=== PATIENT | female | born 1950 | race Hispanic/Latino ===

== ENCOUNTER 2019-11-08 12:25 | Inpatient (IN) | payer MEDICARE, OTHER, SELFPAY ==
[2019-11-06 12:57] VITALS: BMI 36.2
[2019-11-08] VITALS (11 sets, daily range): BP systolic 103–153; BP diastolic 54–74; PULSE 64–77; RESP 12–19; TEMP 36–36.6; O2SAT 90–99; BMI 36.2
--- NOTE | 2019-11-08 12:30 | DI.RAD.S_ITS ---
PROCEDURE: XR KNEE RT 1TO2V INDICATIONS: post op films TECHNIQUE: 2 view(s) of the knee acquired. COMPARISON: [facility] [place], [place], XR KNEE ARTHRITIC SERIES RT, 07/03/2019, 8:54. FINDINGS: Bones: Patient is status post knee joint arthroplasty. Hardware components are in expected positions. Visualized bony structures are intact. Soft tissues: Overlying postoperative changes are noted. IMPRESSION: Expected appearance following right knee arthroplasty. Dictated by: Harsh Souza M.D. on 11/08/2019 at 17:00 Approved by: Harsh Souza M.D. on 11/08/2019 at 17:00
[2019-11-08] MEDS: ACETAMINOPHEN 325 MG TABLET 975 MG PO (13:44)
[2019-11-08] MEDS: LACTATED RINGERS 1,000 ML 42 ML IV ×2 (13:44→15:59)
[2019-11-08] MEDS: CELECOXIB 200 MG CAPSULE PO (13:44)
[2019-11-08] MEDS: PREGABALIN 75 MG CAPSULE PO (13:45)
--- NOTE | 2019-11-08 14:31 | SUR.OPER ---
Supine on padded OR bed. Pillow under head, arms secured on padded armboards <90 degree abduction. Safety belt across torso. Non-operative leg secured with tape over blanket over lower leg. Operative leg secured in DeMayo/Valentino positioner. Foam padded brace at thigh of operative leg.
[2019-11-08] MEDS: CEFAZOLIN 2 GM/100 ML FROZ.PIGGY IV ×2 (14:48→22:57)
--- NOTE | 2019-11-08 14:49 | PM.PREOP ---
Pre-operative Note Interval Note History & Physical reviewed/Exam performed by Physician: Yes Changes to H&P: No
[2019-11-08] MEDS: TRANEXAMIC ACID 1,000 MG VIAL 1000 MG INJ (14:50)
[2019-11-08] MEDS: BUPIVACAINE 0.25% W/ EPI (PF) 20 ML, TRANEXAMIC ACID 1,000 MG, SODIUM CHLORIDE 0.9% 10 ML INJ (15:28)
[2019-11-08] MEDS: BUPIVACAINE 0.25% W/ EPI (PF) 40 ML, BUPIVACAINE LIPOSOME 266 MG, SODIUM CHLORIDE 0.9% ... INJ (15:29)
--- NOTE | 2019-11-08 16:30 | P.OP_ITS ---
Operative Date/Time/Diagnoses Date of procedure: 11/08/19 Time of procedure: 16:30 Pre-op diagnosis: Failed right knee medial unicompartmental arthroplasty Post-op diagnosis: same Procedure & Clinicians Procedure: Revision of right unicompartmental knee to total knee Same procedure as scheduled: Yes Indications: The patient is status post a medial compartment arthroplasty from other facility which has failed. The component does not look loose but it looks like her medial compartment was overstuffed and she has developed severe lateral compartment osteoarthritis. The nature procedure including the risks, benefits, alternatives, postoperative course and expected outcome were discussed and all questions answered. Operative site confirmed and marked. Surgeon: Abraham Chappell Dynamite Cartridge Crimper: Alan Ortega Anesthesia Type: General, Spinal and Local Operative Notes Findings: There was no fluid whatsoever within the knee and no indications of infection. There was severe patellofemoral and lateral compartment osteoarthritis. No evidence of any loosening of the components. The medial compartment arthroplasty was removed with no significant bone loss. The medial collateral ligament was significantly stretched given her valgus alignment. A constrained polyethylene implant and a short tibial stem was utilized. Closure Type: primary Specimen(s): none sent Prosthetic devices, grafts, tissues, transplants, or devices: [employer] [place] BCS: 3 femoral component, 3 tibial component with a 16 mm x 100 mm stem, 12 mm constrained BCS polyethylene tray and 29 x 7.5 mm round patella Applied: implant(s) Estimated Blood Loss (mL): 10 Blood products transfused: none Tourniquet time (min): 64 Procedure in detail: The patient was taken to the operative suite and placed under general and spinal anesthesia. The patient was given prophylactic antibiotics prior to surgery. The patient was also given tranexamic acid, 1 g just prior to surgery and a second gram just before tourniquet release, for postoperative hemostasis. The knee was then prepped and draped in usual sterile fashion. The leg was exsanguinated with an Esmarch dressing and the tourniquet raised to 300 torr. A 15 cm anterior incision was made. Next a medial trivector arthrotomy was made. The extensor mechanism was marked to ensure accurate repair. Initial exposing dissection was carried out medially and laterally. The knee was then extended and the patellar cut made removing approximately 9-10 mm of bone. The patella was then sized and drilled. Some excess lateral bone was excised and the patellofemoral ligament released. Osteotomes were used to remove both the femoral and tibial components. The components were removed without any significant bone loss. There is no evidence of loosening. The knee was then flexed and intramedullary femoral alignment álvaro was placed. The distal cutting guide was placed and distal femoral cut was made at the +0 position with 6? of valgus. This cut referenced the lateral aspect of the distal femur and cut about 2 mm through the previously unicompartmental cuts. The femur was then sized, the cutting block placed and the anterior, posterior and chamfer cuts made at 3? of external rotation. A quarter-inch osteotome was used to account for the missing posterior condyle. Alignment was checked against Whitesides line. The extra medullary tibial cutting guide was then placed. A stylus was used to confirm the depth of the cuts medially and laterally. The guide was set to remove approximately 11 mm from the less affected lateral side. The proximal tibial cut was then made with an oscillating saw. This depth of cut fully incorporated the previous tibial cut. All meniscus and bony debris was then removed. Flexion extension gaps were checked. The knee was still somewhat loose medially due to stretching of the medial collateral ligament.. The soft tissues were then injected with a combination of 60 mL of quarter percent Marcaine with epinephrine, 4 of morphine and 20 mL of Exparel. The trial components were then placed. The knee went into full extension and flexion beyond 120?. There was appropriate medial- lateral balance throughout motion with a constrained implant. Patellar tracking was excellent. The trial components were removed and the knee was cleansed with Pulsavac irrigation and dried. The final components were cemented in with high viscosity vacuum mixed bone cement with antibiotics. The knee was held in extension and the patellar clamp until the cement had adequately cured. The knee was irrigated and inspected for any further debris. The knee was then sprinkled with 1 g of powdered vancomycin. The extensor mechanism was closed with 5 interrupted #1 Vicryl sutures and a running #2 Quill suture in 90 degrees of flexion. The subcutaneous tissue was closed with 2-0 Vicryl. The skin was closed with a running 3 0 V-LOC suture and surgical adhesive. An Aquacell dressing and Abdiaziz wrap were then applied. The patient tolerated the procedure well and was returned to recovery room in good condition. Complications: none Post-operative Condition: stable Disposition: PACU Plan for aftercare: [facility] protocol for total knee arthroplasty.
[2019-11-08] MEDS: ONDANSETRON 4 MG/2 ML INJ IV ×2 (16:40→20:25)
[2019-11-08] MEDS: LACTATED RINGERS 1,000 ML 125 ML IV (17:25)
[2019-11-08] MEDS: IBUPROFEN 400 MG TABLET PO (18:45)
[2019-11-08] MEDS: OXYCODONE IR 5 MG TABLET 10 MG PO (19:23)
[2019-11-08] MEDS: HYDROMORPHONE 0.5 MG INJ IV (21:53)
--- NOTE | 2019-11-08 22:16 | PC.NURSE ---
SHIFT Report received from PACU. Pt. admitted at 1715, care assumed. Pt. alert, oriented, weepy and doesn't know why. Assured her crying can be a side effect of anasthesia. Denies pain and nausea. Received spinal block in OR, as well as Zofran (due to history of post-op nausea) in PACU. VSS. Daughter at bedside. Sensation and movement regained throughout shift. Patient received Oxycodone for pain, experienced emesis shortly thereafter. Zofran administered; relief of nausea. Pt. declined to take bedtime PO meds d/t nausea. Received IV hydromorphone for pain. Pt. OOB to BSC x2. Performed well with walker, gait belt, 1-person assist. Experienced some dizziness first time OOB, none second time. SCD's on throughout shift.
[2019-11-09] VITALS (9 sets, daily range): BP systolic 114–184; BP diastolic 63–88; PULSE 64–76; RESP 16–18; TEMP 35.7–37; O2SAT 92–96
[2019-11-09] MEDS: ONDANSETRON 4 MG/2 ML INJ IV ×2 (00:20→03:56)
[2019-11-09] MEDS: LACTATED RINGERS 1,000 ML 125 ML IV (02:10)
[2019-11-09] MEDS: HYDROMORPHONE 0.5 MG INJ IV (03:56)
[2019-11-09 06:02] LABS: Hematocrit 34.7 % (36-46); Hemoglobin 11.5 g/dL (12.0-16.0)
[2019-11-09] MEDS: CEFAZOLIN 2 GM/100 ML FROZ.PIGGY IV (06:35)
[2019-11-09] MEDS: ASPIRIN EC 81 MG TABLET PO ×2 (08:16→21:13)
[2019-11-09] MEDS: IBUPROFEN 400 MG TABLET PO ×4 (08:16→21:13)
[2019-11-09] MEDS: LISINOPRIL 20 MG TABLET 40 MG PO (08:17)
[2019-11-09] MEDS: ACETAMINOPHEN 325 MG TABLET 650 MG PO ×3 (08:18→21:12)
[2019-11-09] MEDS: METFORMIN HCL 500 MG TABLET PO ×2 (08:19→21:13)
[2019-11-09] MEDS: METOPROLOL ER 50 MG TABLET PO (08:19)
[2019-11-09] MEDS: OXYBUTYNIN 5 MG ER TAB PO ×2 (08:19→21:13)
[2019-11-09] MEDS: OXYCODONE IR 5 MG TABLET PO ×2 (08:58→09:33)
--- NOTE | 2019-11-09 10:53 | PM.PNPO.1 ---
Subjective Subjective Date Patient Seen: 11/09/19 Time Patient Seen: 10:54 Interval history: Hospital day 2, postop day 1 following right knee revision Uni arthroplasty to total knee arthroplasty by Dr. Chappell. Patient stable postoperatively. She has not had any physical therapy yet. Had to do just min of pain medication. She is scheduled to go to [facility] and [place]. Exam Vital Signs (past 8 hours): - 11/09/19 04:44 11/09/19 08:00 11/09/19 08:17 Temperature 96.2 F L 96.9 F L Pulse Rate 64 68 Respiratory Rate 17 16 Blood Pressure 129/74 166/86 H 184/88 H Pulse Oximetry 95 95 11/09/19 08:19 Temperature Pulse Rate Respiratory Rate Blood Pressure 166/86 H Pulse Oximetry Oxygen Delivery Method Room Air Oxygen Flow Rate 0 Narrative Exam Narrative: Alert, oriented no acute distress lying in bed. Legs. Abdiaziz wrap and Aquacel dressing to right knee is dry without drainage or inflammation. Mild edema. No calf pain or swelling. Pulses symmetrical. Objective Labs Result Diagrams: 11/09/19 05:29 Labs: Laboratory Results - last 24 hr 11/09/19 05:29 Hgb 11.5 L Hct 34.7 L Assessment & Plan Post-op Postoperative Procedures: Procedures Operation Date: 11/08/19 14:45 Actual Procedures Side Surgeon p Revision of partial knee to total knee replacement Right Abraham Chappell MD Plan: Will plan to keep patient to in the hospital today to work with physical therapy and get her pain meds straightened out. Anticipate discharge home tomorrow if she is stable. Quality VTE Deep Vein Thrombosis/Pulmonary Embolism Present on Admission: No
--- NOTE | 2019-11-09 11:20 | PT.IIE ---
Current Diagnoses Unilateral primary osteoarthritis, right knee (11/08/19) Pain, unspecified (11/08/19) Surgery Performed Operation Date: 11/08/19 14:45 Actual Procedures p Revision of partial knee to total knee replacement(Right) - Abraham Chappell MD Surgical History (Last Updated 11/06/19 @ 13:33 by Tanesha Nelson, RN) H/O: hysterectomy (Acute) History of bladder surgery (Acute) Hx of arthroscopy of right knee (Acute ~2013) Hx of cholecystectomy (Acute) Hx of tonsillectomy (Acute) Hx of tubal ligation (Acute) S/P right unicompartmental knee replacement (Acute ~06/2015) Medical History (Last Updated 11/06/19 @ 13:19 by Tanesha Nelson RN) Diabetes (Acute) DVT (deep venous thrombosis) (Acute ~1975) Easy bruisability (Acute) Elevated liver enzymes (Acute) Fibromyalgia (Acute) GERD (gastroesophageal reflux disease) (Acute) HLD (hyperlipidemia) (Acute) HTN (hypertension) (Acute) Hypothyroidism (Acute) Irregular heart rate (Acute) Migraines (Acute) Osteoarthritis (Acute) Pneumonia (Acute) Systemic lupus erythematosus (Acute) Physical Therapy Inpatient Evaluation/Re-Eval M1 PT/OT-IP Prior Functional Status Start: 11/09/19 08:49 Freq: NEEDED Status: Active Protocol: Document 11/09/19 11:00 AW (Rec: 11/09/19 11:20 AW [email or web address]) Medical Review Prior Functional Status Medical History Reviewed Yes Communication WNL Mobility and Gait Independent without assistive device. Could walk department store distances. Difficult and painful car transfers. Limited sitting tolerance. Activities of Daily Living and IADL's Independent including driving, shopping, meal prep Prior Functional Level (Other details) Pt reports an injurious fall about 1.5 months ago. She injured her right shoulder and was treated with injection by orthopedics. No other falls within the past year. Social History Household Members none Living Arrangements House Number of Floors (Floors) One Floor Number of Stairs To Enter/Railing? 1 JAZZY without railing Home Environment Standard Height Toilet,Walk in Shower Home Equipment Front Wheel Walker,Straight Cane,Raised Toilet Seat Without Armrests Additional Social History Comment Krystal's daughter in law, Jessica, will stay with her until Wednesday at which time her daughter will stay with her as long as needed to provide assist. M2 PT-IP Current Condition Start: 11/09/19 08:49 Freq: NEEDED Status: Active Protocol: Document 11/09/19 11:00 AW (Rec: 11/09/19 11:20 AW [email or web address]) Physical Therapy Current Condition Current Condition Evaluation Date 11/09/19 Treatment Diagnosis s/p R TKA, difficulty in walking Weight Bearing Status Weight Bearing Status Weight Bear as Tolerated M3 PT-IP Subjective Start: 11/09/19 08:49 Freq: NEEDED Status: Active Protocol: Document 11/09/19 11:00 AW (Rec: 11/09/19 11:20 AW [email or web address]) Subjective Physical Therapy Visit Type Type Initial Evaluation Visit Start Time 09:52 Visit Stop Time 10:26 Total Visit Minutes 34 Notes Daughter in Jessica scott, present throughout evaluation Number of DOCUMENTATION LEAD Visits 0 Physical Therapy Visit Comments Patient Comments My pain is down to 5/10. I'm ready to try walking. Patient Goals To discharge home with family assistance. Therapy Pain Assessment Pain When Pain Assessed During Mobility Pain Present Pain Present Pain Reported Location knee Intensity 5 Scale Used 5/10 at rest; unchanged with mobility Pain Management Techniques Apply Cold,Re-positioning, Timing of Activity with Medications M4 PT-IP Mobility and Gait Start: 11/09/19 08:49 Freq: NEEDED Status: Active Protocol: Document 11/09/19 11:00 AW (Rec: 11/09/19 11:20 AW [email or web address]) PT-Bed Mobility Assessment Supine to Sit Supine to Sit Standby Assistance Sit to Supine Sit to Supine Standby Assistance Scooting Scooting to Edge of Bed Standby Assistance Scooting Up and Down in Bed Standby Assistance PT-Transfer Assessment Sit to and From Stand Sit to and from Stand Contact Guard Assistance,1 Person Assistance,Use of Upper Extremities Equipment Transfer Assistive Device Gait Belt,Front Wheeled Walker Orthotic/Prosthetic Devices or Brace: No Transfers Transfer Destination Bed,Toilet Transfer Technique pt ambulated with FWW Transfer Ability Level of Assist Contact Guard Assistance,1 Person Assistance,Use of Upper Extremities Comments Mobility Comments Pt completed bed mobility with R SLR to EOB SBA. She denied lightheadedness, nausea. Sit to stand using FWW required CGA with pt able to accept weight on both legs. After gait training, pt transferred to and from the toilet SBA and back to bed where she was repositioned with ice packs applied, call light and table within reach, family at bedside. Gait Assessment Gait Gait Assistance Required: Contact Guard Assist Distance (Feet) 100 Able to Maintain Weight Bearing Status Yes During Gait Assistive Devices Assistive Device Gait Belt,Front Wheeled Walker Orthotic/Prosthetic Devices or Brace: No Gait Deviations General Gait Pattern Antalgic,Decreased Stride Length,Decreased Feet Clearance,Flexed Trunk,Step-to Gait Factors Limiting Gait Function Factors Limiting Gait Function Decreased Strength,Limited Range of Motion,Pain Comments Gait Comments Pt ambulated in the west 100 feet with FWW CGA. Pt was able to normalize step lengths in response to verbal cues, but complained of increased pain, returning to step-to pattern. She showed good safety awareness with FWW. Stair Climbing Assessment Comments Stair Climbing Comments Not assessed. PT-Balance Assessment Sitting Balance and Reactions Static Sitting Balance Ability Normal Dynamic Sitting Balance Ability Normal Standing Balance and Reactions Static Standing Balance Ability Good Dynamic Standing Balance Ability Good Device Used FWW M5 PT-IP Objective Assessments Start: 11/09/19 08:49 Freq: NEEDED Status: Active Protocol: Document 11/09/19 11:00 AW (Rec: 11/09/19 11:20 AW [email or web address]) Orientation Orientation/Cognition Level of Alertness Alert Orientation Name,Day of Week,Place, Situation Language Function Ability No Deficits Noted,Mohawk as Second Language Safety Awareness Understands Safety Issues Memory Description No Deficits Noted Gross Range of Motion Upper Extremity ROM Assessment Right Impaired Lower Extremity ROM Assessment Right Impaired Strength Upper Extremity Strength Assessment Right Impaired Lower Extremity Strength Assessment Right Impaired Comments Strength Comments RUE with recent injury from fall, limited shoulder flexion ~120 degrees, painful resisted flexion and abduction . LUE and LLE WFL. Coordination Assessment Gross Coordination Gross Coordination WNL Sensation Assessment Sensation Gross Sensation WNL M6 PT-IP Treatment Start: 11/09/19 08:49 Freq: NEEDED Status: Active Protocol: Document 11/09/19 11:00 AW (Rec: 11/09/19 11:20 AW [email or web address]) Physical Therapy Treatment Exercises Exercises Ankle Pumps,Gluteal Sets,Quad Sets,Heel Slides Education Education Provided Precautions,Weight Bearing Status,Post-Op Packet,Safety Other Treatments Other Treatment Performed Educated pt on PT plan of care , post-op exercises, weightbearing status, and safe use of FWW. M7 PT-IP Assessment and Plan Start: 11/09/19 08:49 Freq: NEEDED Status: Active Protocol: Document 11/09/19 11:00 AW (Rec: 11/09/19 11:20 AW [email or web address]) PT Summary Assessment and Plan Potential Rehabilitation Potential Excellent Status of Condition at Evaluation Stable Summary Impairments Pain,ROM,Strength,Bed Mobility ,Transfers,Gait Assessment Summary Krystal is a 69 yo woman with history of multiple right knee surgeries seen for PT evaluation on POD1 following conversion of right unicompartmental knee to TKA. At baseline, she was independent without assistive device. She lives alone and was independent with ADL's. On evaluation, pt required SBA to CGA for all mobilities. Stairs were not assessed at this time. PT anticipates pt will meet the functional goals of this plan of care and will be safe to discharge home with family assist and outpatient PT when medically cleared. Goals Bed Mobility Goal Independent Transfer Goal Independent,Front Wheeled Walker Gait Goal Independent,Front Wheel Walker Gait Distance 200 Other Goals up/down 1 platform step using FWW or SQUEEGEE OPERATOR Days to Meet Goals 1 Frequency of Treatment Frequency Of Treatment Twice a Day Treatment Plan Physical Therapy Treatment Plan Bed Mobility Training,Transfer Training,Gait Training, Therapeutic Exercise,Balance Retraining,Post Op Education, Discharge Planning,Hot or Cold Pack,Neuromuscular Re-ed, Coordination Retraining,Manual Therapy Recommendations To Nursing Amount of Assist Needed Standby Assistance Discharge Recommendations PT Discharge Recommendations Home with Assistance, Outpatient PT
[2019-11-09] MEDS: METFORMIN HCL 500 MG TABLET 250 MG PO (13:36)
[2019-11-09] MEDS: OXYCODONE IR 5 MG TABLET 10 MG PO ×3 (13:37→19:25)
--- NOTE | 2019-11-09 15:08 | CM.DANOTE ---
DCP Assessment: EMR reviewed: Patient is a 69 yr old female who was admitted for Rt TKA preformed by Dr. Chappell. patient PCP is Dr. Cosme. CM/RN met with patient at the bedside and explained CM/Rn role. Patient was alert and oriented during CM visit and is I at baseline with all ADL's. patient daughter in-law was present during visit and will be home with her mother in law until wednesday when patients daughter will stay with her to help with recovery. Patient has FWW, cane and shower chair. PT Cleared patient to go home with assistance and OP PT. She is a [facility] patient and has first post op appointment scheduled for 11/16/2019. I: medicare 2nd [employer] Plan: D/C home with family and go to OP PT at orthopedics in [place]. Lily Spann RN Discharge Planning/Care Management CM Discharge Assessment Start: 11/09/19 15:05 Freq: Status: Active Protocol: Document 11/09/19 15:05 HS (Rec: 11/09/19 15:08 [id number]) Discharge Planning Assessment Assigned Governor Assembler Lily Spann RN DPOA/Assigned Designee Name Rosa Brand (daughter) Contact Information [phone] Advance Directives? Yes Advance Directives on File No History Provided By Patient Has Patient been admitted in last 30 No days? Prior Living Arrangements House Household Members none Comment patients step daughter is here until tuesday 11/13 then patients daughter will be here to help Type of transporation used prior to Drives own vehicle admit Independent with ADL's Yes Is patient alert and oriented? Yes Caregiver for Another No DME Already Rented / Owned Bath Bench,FWW / Walker Patient/Family Preference OP OT Therapy Discharge Plan Home Referrals Initiated None needed Whiteboard Updated in Patient Room with Yes name and ext. # of Governor Assembler Review Status In Process Next Review Type Continued Stay Review Pre-Anesthesia Assessment Start: 11/06/19 12:57 Freq: Status: Complete Protocol: Document 11/06/19 12:57 CAB (Rec: 11/06/19 13:33 CAB [email or web address]) Pre-Anesthesia Assessment Preferred Name Krystal Patient Information Reviewed Via Phone Assessment Assessment Completed With Patient H&P Completed Within 30 Days Yes Diagnostic Results BMP/CMP,CBC,EKG,Urinalysis Comment Outside EKG/labs 10/26/19 scanned to record Primary Care Provider Jyoti Cosme Seen Specialist in Last 12 Months Yes Specialist Seen Supply Chain Specialist,Orthopedist Primary Language Bengali Preferred Language Bengali Physics Tutor Required No Height 157.48 cm Weight 89.811 kg Body Mass Index (BMI) 36.2 Hearing Ability Normal Visual Assist Glasses Dentition Type Teeth, Natural Present,Teeth, Missing Barriers to Learning None Other Aids No Hx Anesthesia Reactions Yes: [place], severe PONV Hx Family Anesthesia Reaction No Hx Malignant Hyperthermia No Hx Blood Transfusions No Anesthesia Review Requested No alcohol intake never Smoking Status Never smoker Substance Use Type does not use Pain Present Pain Reported Musculoskeletal Symptoms Abnormal Gait,Difficulty Walking,Joint Pain History of Falling (Recent or History of No ) Patient is completely paralyzed or No completely immobile Mental Status Oriented to own ability Is patient on oxygen? No Does patient have BURKETT/SOB No Hx Sleep Apnea No Currently Taking a Beta Behzad Yes: Metoprolol Can You Climb a Flight of Stairs Without Yes SOB Hx Chest Pain No Hx SOB No Hx Syncope or Dizziness No Anti-Coagulant Therapy No Has a District Medical Examiner No Cardiac Testing No Hx Pacemaker/ICD No Pacemaker Rep Required? No Cardiac Clearance Received Not Applicable Diet Type At Home Regular dysphagia No Bladder Pattern Incontinent Urinary Catheter Present No Hx Urinary Self Catheterization No Diabetes Yes: Pt checks blood sugar every 3 days HgbA1C 7.0 Date 10/26/19 Patient No Lactating No Hx Drug Resistant Organism No Presence of External or Internal Medical Yes: Right uni knee Devices Have you traveled outside the [facility] in the last 30 days? Marital Status / Lives With none Prior Living Arrangements House Number of Floors (Floors) One Floor Support System Child/Children Does the Patient Have Assistance After Yes Surgery Patient Discharge Plan Description Return Home Comment Pt not advised on length of stay per surgeon's office Feels Safe in Current Environment Yes Been Physically Hurt or Threatened By a No Person in Current Environment Do you have thoughts of harming yourself None or others? Are you currently considering suicide? No Do you have a plan to hurt yourself or No Plan others? Do You Have Any Spiritual Beliefs That No May Affect Your HC Choices? Do You Have Any Cultural Practices That No May Affect Your HC Choices? Comment Christianity Who Can We Speak to About Patient's Care Family, friends Identifying Code for Release of Patient Declines to issue Information Health Care Proxy/Next of Kin Dennis (son) Rosa (daughter in -law) Health Care Proxy Phone Number Dennis: [phone] Rosa: Emergency Contact Name Dennis (son) Rosa (daughter in -law) Emergency Contact Phone Number Dennis: [phone] Rosa: Advance Directives? Yes Advance Directives on File No Requested Patient Bring Advanced Yes Directives DOS Power of Network Internship Yes Power of Network Internship Name Dennis (vivian) Power of Network Internship PAC Instructions Do not shave/clip surgical site,Durable medical equipment ,Medications to take/avoid, Nasal antibiotic,No ETOH/ petroleum product on skin DOS, NPO,Post-op transportation,Pre -surgical wash,Sensory aids, Sturdy shoes/comfortable clothes,Do not bring valuables and remove jewelry Comment Surg phone # given for any questions/concerns dos
--- NOTE | 2019-11-09 15:28 | PT.IPTN ---
Current Diagnoses Unilateral primary osteoarthritis, right knee (11/08/19) Pain, unspecified (11/08/19) Surgery Performed Operation Date: 11/08/19 14:45 Actual Procedures p Revision of partial knee to total knee replacement(Right) - Abraham Chappell MD Physical Therapy Treatment Note M2 PT-IP Current Condition Start: 11/09/19 08:49 Freq: NEEDED Status: Active Protocol: Document 11/09/19 11:00 AW (Rec: 11/09/19 11:20 AW [id number]) Physical Therapy Current Condition Current Condition Evaluation Date 11/09/19 Treatment Diagnosis s/p R TKA, difficulty in walking Weight Bearing Status Weight Bearing Status Weight Bear as Tolerated M3 PT-IP Subjective Start: 11/09/19 08:49 Freq: NEEDED Status: Active Protocol: Document 11/09/19 15:16 AW (Rec: 11/09/19 15:27 AW [id number]) Subjective Physical Therapy Visit Type Type Treatment Note Visit Start Time 14:45 Visit Stop Time 15:15 Total Visit Minutes 30 Notes Jessica present for caregiver training Number of SYSTEMS SOFTWARE MANAGER Visits 0 Physical Therapy Visit Comments Patient Comments I feel so much more confident now that I can put some weight on that leg. Therapy Pain Assessment Pain When Pain Assessed During Mobility Pain Present Pain Present Pain Reported Location knee Intensity 7 Scale Used 4/10 at rest; 7/10 after gait and stairs Pain Management Techniques Apply Cold,Re-positioning, Timing of Activity with Medications M4 PT-IP Mobility and Gait Start: 11/09/19 08:49 Freq: NEEDED Status: Active Protocol: Document 11/09/19 15:16 AW (Rec: 11/09/19 15:27 AW [id number]) PT-Bed Mobility Assessment Supine to Sit Supine to Sit Standby Assistance Sit to Supine Sit to Supine Standby Assistance Scooting Scooting to Edge of Bed Independent Scooting Up and Down in Bed Independent PT-Transfer Assessment Sit to and From Stand Sit to and from Stand Contact Guard Assistance,1 Person Assistance,Use of Upper Extremities Equipment Transfer Assistive Device Gait Belt,Front Wheeled Walker Transfers Transfer Destination Bed,Toilet Transfer Technique pt ambulated with FWW Transfer Ability Level of Assist Standby Assistance,1 Person Assistance,Use of Upper Extremities Comments Mobility Comments Pt used left leg to lift right leg in and out of bed. Sit to stand completed with FWW CGA and cues for position of right leg. Transfer to and from toilet SBA with minimal cues Gait Assessment Gait Gait Assistance Required: Standby Assistance Distance (Feet) 175 Able to Maintain Weight Bearing Status Yes During Gait Assistive Devices Assistive Device Gait Belt,Front Wheeled Walker Orthotic/Prosthetic Devices or Brace: No Gait Deviations General Gait Pattern Antalgic,Decreased Stride Length,Decreased Feet Clearance,Flexed Trunk,Step-to Gait Factors Limiting Gait Function Factors Limiting Gait Function Decreased Strength,Limited Range of Motion,Pain Comments Gait Comments Pt ambulated 100 feet with FWW SBA and then transferred to the wheelchair to go to the stairs. After stair training, pt ambulated 175 feet with FWW SBA, reporting buckling sensation in right knee ~4 times but with no loss of balance and able to recover without therapist assist. Gait was characterized by decreased stance time on the RLE but step lengths were more symmetrical than at morning session. Stair Climbing Assessment Evaluation Level of Assist On Stairs Contact Guard Assistance,1 Person Assistance Devices Stair Climbing Assistive Devices Front Wheel Walker Technique/Endurance Stair Climbing Direction Ascend and Descend Stair Climbing Technique Step to Step Number of Steps Climbed 1 Stair Climbing Set # Repetitions (reps) 2 Comments Stair Climbing Comments Pt practiced on the platform step to simulate home environment using FWW CGA. After brief demonstration of technique, pt required cues for sequencing first rep but no cues for second rep with success. M5 PT-IP Objective Assessments Start: 11/09/19 08:49 Freq: NEEDED Status: Active Protocol: Document 11/09/19 11:00 AW (Rec: 11/09/19 11:20 AW [email or web address]) Orientation Orientation/Cognition Level of Alertness Alert Orientation Name,Day of Week,Place, Situation Language Function Ability No Deficits Noted,German as Second Language Safety Awareness Understands Safety Issues Memory Description No Deficits Noted Gross Range of Motion Upper Extremity ROM Assessment Right Impaired Lower Extremity ROM Assessment Right Impaired Strength Upper Extremity Strength Assessment Right Impaired Lower Extremity Strength Assessment Right Impaired Comments Strength Comments RUE with recent injury from fall, limited shoulder flexion ~120 degrees, painful resisted flexion and abduction . LUE and LLE WFL. Coordination Assessment Gross Coordination Gross Coordination WNL Sensation Assessment Sensation Gross Sensation WNL M6 PT-IP Treatment Start: 11/09/19 08:49 Freq: NEEDED Status: Active Protocol: Document 11/09/19 15:16 AW (Rec: 11/09/19 15:27 AW [id number]) Physical Therapy Treatment Exercises Exercises Ankle Pumps,Gluteal Sets,Quad Sets,Heel Slides Education Education Provided Precautions,Safety M7 PT-IP Assessment and Plan Start: 11/09/19 08:49 Freq: NEEDED Status: Active Protocol: Document 11/09/19 15:16 AW (Rec: 11/09/19 15:27 AW [id number]) PT Summary Assessment and Plan Summary Impairments Pain,ROM,Strength,Bed Mobility ,Transfers,Gait Assessment Summary Krystal was able to significantly progress her gait distance with FWW and to properly execute stair climbing with FWW. She does report occasional sensation of buckling in the right knee but is able to right herself using the FWW without additional assist. Pt will likely be ready to discharge after morning session tomorrow . Goals Bed Mobility Goal Independent Transfer Goal Independent,Front Wheeled Walker Gait Goal Independent,Front Wheel Walker Gait Distance 200 Other Goals up/down 1 platform step using FWW or POWER DRIVEN BRUSH MAKER Days to Meet Goals 1 Frequency of Treatment Frequency Of Treatment Twice a Day Treatment Plan Physical Therapy Treatment Plan Bed Mobility Training,Transfer Training,Gait Training, Therapeutic Exercise,Balance Retraining,Post Op Education, Discharge Planning,Hot or Cold Pack,Neuromuscular Re-ed, Coordination Retraining,Manual Therapy Recommendations To Nursing Amount of Assist Needed Standby Assistance Discharge Recommendations PT Discharge Recommendations Home with Assistance, Outpatient PT
[2019-11-09] MEDS: PANTOPRAZOLE 40 MG TABLET PO (16:30)
[2019-11-09] MEDS: AMITRIPTYLINE 25 MG TABLET PO (21:13)
[2019-11-09] MEDS: HYDROMORPHONE 2 MG TABLET PO (22:39)
[2019-11-10] MEDS: OXYCODONE IR 5 MG TABLET 10 MG PO ×2 (01:41→08:57)
[2019-11-10 04:00] VITALS: BP 109/62; PULSE 72; RESP 18; TEMP 36.8; O2SAT 95
[2019-11-10] MEDS: IBUPROFEN 400 MG TABLET PO ×3 (05:10→08:56)
[2019-11-10] MEDS: LEVOTHYROXINE 100 MCG TABLET PO (05:42)
[2019-11-10] MEDS: PANTOPRAZOLE 40 MG TABLET PO (06:34)
[2019-11-10 08:00] VITALS: BP 118/67; PULSE 71; RESP 18; TEMP 36.3; O2SAT 92
[2019-11-10] MEDS: ASPIRIN EC 81 MG TABLET PO (08:55)
[2019-11-10 08:57] VITALS: BP 118/67
[2019-11-10] MEDS: ACETAMINOPHEN 325 MG TABLET 650 MG PO (08:57)
[2019-11-10] MEDS: LISINOPRIL 20 MG TABLET 40 MG PO (08:57)
[2019-11-10 08:58] VITALS: BP 118/67
[2019-11-10] MEDS: METOPROLOL ER 50 MG TABLET PO (08:58)
[2019-11-10] MEDS: METFORMIN HCL 500 MG TABLET PO (08:58)
[2019-11-10] MEDS: SODIUM CHLORIDE 0.9% FLUSH 10 ML IV (08:59)
[2019-11-10] MEDS: OXYBUTYNIN 5 MG ER TAB PO (09:01)
[2019-11-10] MEDS: ONDANSETRON 4 MG ODT PO (09:02)
--- NOTE | 2019-11-10 09:45 | PM.DS.1 ---
History of Present Illness History of Present Illness Date Patient Seen: 11/10/19 Time Patient Seen: 09:46 Chief complaint: [address] Right Total Knee Arthroplasty Revision Narrative: The patient is status post a medial compartment arthroplasty from other facility which has failed. The component does not look loose but it looks like her medial compartment was overstuffed and she has developed severe lateral compartment osteoarthritis. The nature procedure including the risks, benefits, alternatives, postoperative course and expected outcome were discussed and all questions answered. Operative site confirmed and marked. post op day 2 s/p revision to right total knee arthroplasty with Dr. Chappell. Patient is doing well. Complains of pain in right knee. Pain well managed with oxycodone, tylenol and ibuprofen. Patient mobilizing well with PT. She complains of nausea that is well controlled with zofran. Denies fever, chills, chest pain, calf pain, shortness of breath. Discharge Providers Provider Date of admission: 11/08/19 12:25 Discharge Date: 11/10/19 Primary care physician: Jyoti Cosme MD Consults: 11/08/19 17:22 Consult to Discharge Planning Routine Comment: Consult to Physical Therapy Evaluate & Treat Comment: Physician Instructions: postop TKA protocol Consult to Respiratory Therapy Evaluate & Treat Comment: Physician Instructions: Evaluate and treat Discharge provider: Harry Harris PA-C Summary Hospital Course Discharge Diagnosis: s/p revision to right total knee arthroplasty diabetes DVT easy bruisability elevated liver enzymes fibromyalgia GERD HTN HLD hypothyroid irregular heart rate migraines osteoarthritis pneumonia systemic lupus erythematosus Hospital Course: Patient admitted to hospital s/p revision to right total knee arthroplasty by Dr. Chappell. Post op day 2 patient was ready for discharge home. Hospital course was unremarkable. Patient was mobilizing with PT prior to discharge. Patient was eating and voiding without difficulty or assistance prior to discharge. Pain was well controlled with oxycodone, ibuprofen and tylenol. Patient has prescription for oxycodone at home. ASA 81mg BID for DVT prophylaxis. Status at Discharge Cognitive/behavioral status at discharge: oriented Functional status at discharge: uses cane/walker Overall status at discharge: patient is progressing back to baseline Time Spent with Patient Time spent: Less than 30 minutes Exam Vital Signs (past 8 hours): - 11/10/19 04:00 11/10/19 08:00 11/10/19 08:57 Temperature 98.2 F 97.4 F L Pulse Rate 72 71 Respiratory Rate 18 18 Blood Pressure 109/62 118/67 118/67 Pulse Oximetry 95 92 11/10/19 08:58 Temperature Pulse Rate Respiratory Rate Blood Pressure 118/67 Pulse Oximetry Oxygen Delivery Method Room Air Oxygen Flow Rate 0 Narrative Exam Narrative: 69 year old female is sitting comfortably in bed, in no apparent distress. A&Ox3. Dressing CDI. Mild swelling in R calf. Calves soft, warm, compressible, nttp. Negative homans. Sensory function grossly intact to light touch in LE bl. Capillary refill <2sec in LE bl. Able to actively dorsiflex/plantar flex Objective Labs Result Diagrams: 11/09/19 05:29 Discharge Plan Discharge Plan Patient Disposition: Home Discharge orders & Medications Prescriptions: New aspirin 81 mg tablet,delayed release (DR/EC) 81 mg PO BID Qty: 60 RF: 0 ondansetron HCl [Zofran] 4 mg tablet 4 mg PO Q8H PRN (Reason: nausea and vomiting) Qty: 20 RF: 0 Continued metformin 500 mg Tablet 500 mg PO BID RF: 0 metformin 500 mg Tablet 250 mg PO QNOON RF: 0 metoprolol succinate 50 mg Tablet Extended Release 24 Hr 50 mg PO DAILY RF: 0 levothyroxine 100 mcg Tablet 100 mcg PO DAILY RF: 0 amitriptyline 25 mg Tablet 25 mg PO BEDTIME RF: 0 esomeprazole magnesium 40 mg Capsule,Delayed Release(Dr/Ec) 40 mg PO DAILY RF: 0 oxybutynin chloride 5 mg Tablet Extended Release 24hr 5 mg PO BID RF: 0 lisinopril 40 mg Tablet 40 mg PO DAILY RF: 0 Changed acetaminophen [Tylenol Extra Strength] 500 mg Tablet 500 mg PO Q4H Qty: 60 RF: 0 ibuprofen 200 mg Tablet 400 mg PO Q4H PRN (Reason: Pain) Qty: 60 RF: 0 Follow up/Referrals: Jyoti Cosme MD [Primary Care Provider] - 11/20/19 2:00 pm Abraham Chappell MD [Physician] - 11/16/19 1:40 pm Diet/Activity/Treatments Diet: Carb-consistent/Diabetic Activity: weight bearing as tolerated. follow choudhary path protocol for total knee arthroplasty Cold/Heat Therapy: continue cold/heat therapy Skin/Wound/Dressing Care Report to your healthcare provider any signs of infection, such as:: chills, fever, increased pain, unusual drainage and unusual redness Dressing: keep dressing dry. can shower. do not soak (e.g. bath). contact office if dressing saturated. Visit Report/Discharge Packet Instructions: DI for Knee Replacement, DI for Constipation, How to Prevent Falls, DI for Prescription Opioid Use Stand Alone Forms: Surgery Discharge Visit Report Forms: Patient Portal/API, Stroke Signs & Symptoms Discharge Data Primary Care Provider: Jyoti Cosme Discharges patient from system. Discharge Date/Time: 11/10/19 11:16 Quality VTE Deep Vein Thrombosis/Pulmonary Embolism Present on Admission: No
--- NOTE | 2019-11-10 09:55 | PT.IPTN ---
Current Diagnoses Hypothyroidism, unspecified (11/08/19) Type 2 diabetes mellitus without complications (11/08/19) Obesity, unspecified (11/08/19) Essential (primary) hypertension (11/08/19) Gastro-esophageal reflux disease without esophagitis (11/08/19) Unilateral primary osteoarthritis, right knee (11/08/19) Systemic lupus erythematosus, unspecified (11/08/19) Fibromyalgia (11/08/19) Other specified complication of internal orthopedic prosthetic devices, implants and grafts, initial encounter (11/08/19) Body mass index (BMI) 36.0-36.9, adult (11/08/19) snf (current) use of oral hypoglycemic drugs (11/08/19) Surgery Performed Operation Date: 11/08/19 14:45 Actual Procedures p Revision of partial knee to total knee replacement(Right) - Abraham Chappell MD Physical Therapy Treatment Note M2 PT-IP Current Condition Start: 11/09/19 08:49 Freq: NEEDED Status: Discharge Protocol: Document 11/09/19 11:00 AW (Rec: 11/09/19 11:20 AW [id number]) Physical Therapy Current Condition Current Condition Evaluation Date 11/09/19 Treatment Diagnosis s/p R TKA, difficulty in walking Weight Bearing Status Weight Bearing Status Weight Bear as Tolerated M3 PT-IP Subjective Start: 11/09/19 08:49 Freq: NEEDED Status: Discharge Protocol: Document 11/10/19 09:55 JG (Rec: 11/10/19 10:33 JG [id number]) Subjective Physical Therapy Visit Type Type Treatment Note Visit Start Time 09:55 Visit Stop Time 10:14 Total Visit Minutes 19 Notes Tx led by KOTA Martin, supervised by PT Issac Number of TUBE OPERATOR Visits 0 Physical Therapy Visit Comments Patient Comments I didn't sleep well last night because they were having trouble controlling my pain. I'm not sure how much I can do today. Therapy Pain Assessment Pain When Pain Assessed During Mobility Pain Present Pain Present Pain Reported Location knee Scale Used pt reports more stiffness than pain Pain Management Techniques Apply Cold,Distraction,Re- positioning,Timing of Activity with Medications M4 PT-IP Mobility and Gait Start: 11/09/19 08:49 Freq: NEEDED Status: Discharge Protocol: Document 11/10/19 09:55 JG (Rec: 11/10/19 10:33 JG [id number]) PT-Transfer Assessment Sit to and From Stand Sit to and from Stand Standby Assistance,Use of Upper Extremities Equipment Transfer Assistive Device Gait Belt,Front Wheeled Walker Transfers Transfer Destination Chair,Toilet,Wheelchair Transfer Technique ambulated with FWW Transfer Ability Level of Assist Standby Assistance,1 Person Assistance,Use of Upper Extremities Comments Mobility Comments Pt in chair at start of tx. Performed heel slides to improve knee stiffness. Pt required no more than SBA during sit to/from stand to the chair, wheelchair, and toilet. Pt requires inc'd time to complete sit to stand from lower surfaces. Pt demonstrates good use of UEs for support. Gait Assessment Gait Gait Assistance Required: Standby Assistance Distance (Feet) 100 Able to Maintain Weight Bearing Status Yes During Gait Assistive Devices Assistive Device Gait Belt,Front Wheeled Walker Orthotic/Prosthetic Devices or Brace: No Gait Deviations General Gait Pattern Antalgic,Decreased Stride Length,Decreased Feet Clearance,Flexed Trunk,Step-to Gait Factors Limiting Gait Function Factors Limiting Gait Function Decreased Activity Tolerance, Decreased Strength,Limited Range of Motion,Pain,Poor Balance Comments Gait Comments Pt ambulated ~100 ft with FWW SBA then transferred to the wheelchair to complete stair training and return to room. Pt cont to demonstrate dec'd R stance time and dec'd stride length but improved with inc'd ambulation. Pt reported buckling sensation once during ambulation but without LOB. Stair Climbing Assessment Evaluation Level of Assist On Stairs Contact Guard Assistance,1 Person Assistance Devices Stair Climbing Assistive Devices Front Wheel Walker Technique/Endurance Stair Climbing Direction Ascend and Descend Stair Climbing Technique Step to Step Number of Steps Climbed 1 Stair Climbing Set # Repetitions (reps) 2 Comments Stair Climbing Comments Completed platform step twice with caregiver education. Re- educated pt on using up with the good, down with the bad for stair climbing as pt unable to articulate pattern. Pt required no more than CGA for stair climbing. Second round completed with CG assist , educated CG to block front of walker to improve pt stability. M5 PT-IP Objective Assessments Start: 11/09/19 08:49 Freq: NEEDED Status: Discharge Protocol: Document 11/09/19 11:00 AW (Rec: 11/09/19 11:20 AW [email or web address]) Orientation Orientation/Cognition Level of Alertness Alert Orientation Name,Day of Week,Place, Situation Language Function Ability No Deficits Noted,Croatian as Second Language Safety Awareness Understands Safety Issues Memory Description No Deficits Noted Gross Range of Motion Upper Extremity ROM Assessment Right Impaired Lower Extremity ROM Assessment Right Impaired Strength Upper Extremity Strength Assessment Right Impaired Lower Extremity Strength Assessment Right Impaired Comments Strength Comments RUNory with recent injury from fall, limited shoulder flexion ~120 degrees, painful resisted flexion and abduction . LUE and LLE WFL. Coordination Assessment Gross Coordination Gross Coordination WNL Sensation Assessment Sensation Gross Sensation WNL M6 PT-IP Treatment Start: 11/09/19 08:49 Freq: NEEDED Status: Discharge Protocol: Document 11/10/19 09:55 JG (Rec: 11/10/19 10:33 JG [id number]) Physical Therapy Treatment Exercises Exercises Ankle Pumps,Heel Slides Education Education Provided Safety Other Treatments Other Treatment Performed Completed CG training for mobility and stair climbing. CG demonstrates good understanding and is able to safely cue pt during session. M7 PT-IP Assessment and Plan Start: 11/09/19 08:49 Freq: NEEDED Status: Discharge Protocol: Document 11/10/19 09:55 JG (Rec: 11/10/19 10:33 J [id number]) PT Summary Assessment and Plan Summary Impairments Pain,ROM,Strength,Bed Mobility ,Transfers,Gait Progress Towards Goals Progressing Toward Goals,Safe For Discharge Assessment Summary Pt noted inc'd fatigue today d /t difficulty sleeping last night d/t pain. Demonstrated dec'd activity tolerance compared to yesterday's tx d/t fatigue. Pt required no more than SBA for mobility and ambulation, CGA for stair climbing. Completed CG training and CG demonstrated good safety awareness and communication with pt. Pt safe to d/c to home once medically cleared. Goals Bed Mobility Goal Independent Transfer Goal Independent,Front Wheeled Walker Gait Goal Independent,Front Wheel Walker Gait Distance 200 Other Goals up/down 1 platform step using FWW or PYROGLAZER Days to Meet Goals 1 Frequency of Treatment Frequency Of Treatment Twice a Day Treatment Plan Physical Therapy Treatment Plan Bed Mobility Training,Transfer Training,Gait Training, Therapeutic Exercise,Balance Retraining,Post Op Education, Discharge Planning,Hot or Cold Pack,Neuromuscular Re-ed, Coordination Retraining,Manual Therapy Recommendations To Nursing Amount of Assist Needed Standby Assistance Discharge Recommendations PT Discharge Recommendations Home with Assistance, Outpatient PT
--- NOTE | 2019-11-10 10:14 | CM.DPC ---
DCP: continued: case discussed in Team Rounds. DC to home setting noted. PT rep for Rounds noted that pt had been cleared for the home setting. Review of the CM/DCP notes show that OUTPT PT is set up. P: home today
--- NOTE | 2019-11-10 11:14 | PC.NURSE ---
Pt is dressed and ready for discharge home with Daughter. HL removed. Went over d/c instructions with Pt and Daughter-discussed d/c meds, time of last dose, reviewed stroke education, reviewed s/s of infection, reviewed keeping dsg in place. Encouraged Pt to drink plenty of fluids to prevent constipation or dehydration. No driving while on narcotics. Pt to follow up as scheduled. Pt denies further questions and was taken out via w/c by SURVEYOR'S ASSISTANT to POV with Daughter and all belongings.
== END 2019-11-10 11:16 | disposition home or self-care (01) | DRG 468 ==
PROVIDERS: Admitting Provider Orthopaedic Surgery; PCP Internal Medicine; Visit Provider Orthopaedic Surgery
PROC: 0SRC0J9 Replacement of Right Knee Joint with Synthetic Substitute, Cemented, Open Approach (ICD-10-PCS; principal; 2019-11-08 14:45)
DX: T84.89XA Other specified complication of internal orthopedic prosthetic devices, implants and grafts, initial encounter (principal); M32.9 Systemic lupus erythematosus, unspecified; I10 Essential (primary) hypertension; M79.7 Fibromyalgia; E11.9 Type 2 diabetes mellitus without complications; Z79.84 Long term (current) use of oral hypoglycemic drugs; E66.9 Obesity, unspecified; M17.11 Unilateral primary osteoarthritis, right knee; E03.9 Hypothyroidism, unspecified; K21.9 Gastro-esophageal reflux disease without esophagitis; Z68.36 Body mass index [BMI] 36.0-36.9, adult
CPT/HCPCS: 36415; 73560; 82962; 85014; 85018; 97110; 97116; 97161; 97530; C1776; C9290; J0690; J1100; J1170; J2250; J2405; J2704; J3010

== ENCOUNTER → 2020-01-29 14:09 | Outpatient (CLI) | payer MEDICARE, SELFPAY ==
[2020-01-15 15:34] VITALS: BMI 36.2
--- NOTE | 2020-02-19 10:28 | PM.CARDMON.1 ---
Opener Ver[employer] Report Referral & Results Date Patient Seen: 01/29/20 Requesting provider: Gee Wahl Indication: Palpitations Duration of monitoring (days): 10 Diary information: There were 8 patient triggered events and 5 patient diary entries. These events were all varices associated with sinus rhythm and ventricular ectopic beats Data: Minimum heart rate identified was 55 beats per minute at 10:56 on 02/05/2020 Maximum sinus heart rate was 123 beats per minute at 16:33 on 02/04/2020 Maximum overall heart rate was 150 beats per minute at 19:52 on 02/04/2020 during a 16 beat run of SVT Less than 1% of identified beats or either ventricular supraventricular ectopic in origin There were 3 runs of SVT the fastest being that noted above, the longest was also the fastest so 16 beats at 150 beats per minute Impression: Patient demonstrates rare PACs and PVCs without clear correlation any particular dysrhythmia Rare SVT More likely than not patient is experiencing at least some of PVCs. No serious dysrhythmias identified
== END ==
PROVIDERS: PCP Family Medicine; Referring Provider Family Medicine; Visit Provider Family Medicine
DX: R00.2 Palpitations (principal)
CPT/HCPCS: 0296T; 0298T; 93798

== ENCOUNTER → 2020-02-19 10:52 | Outpatient (CLI) | payer MEDICARE, SELFPAY ==
[2020-01-15 15:34] VITALS: BMI 36.2
[2020-02-19 13:04] LABS: Free T3, Triiodothyronine Free 2.74 pg/mL (2.77-5.27); Free T4, Direct Thyroxine 1.35 ng/dL (0.78-2.19)
[2020-02-19 13:17] LABS: Thyroid Stimulating Hormone 1.75 uIU/mL (0.47-4.68)
== END ==
PROVIDERS: PCP Family Medicine; Referring Provider Family Medicine; Visit Provider Family Medicine
DX: R00.2 Palpitations (principal)
CPT/HCPCS: 36415; 84439; 84443; 84481

== ENCOUNTER → 2020-07-04 11:15 | Outpatient (CLI) | payer MEDICARE, SELFPAY ==
[2020-01-15 15:34] VITALS: BMI 36.2
[2020-07-04 12:54] LABS: Free T3, Triiodothyronine Free 3.52 pg/mL (2.77-5.27); Free T4, Direct Thyroxine 1.85 ng/dL (0.78-2.19)
[2020-07-04 13:08] LABS: Thyroid Stimulating Hormone 0.069 uIU/mL (0.47-4.68)
== END ==
PROVIDERS: PCP Family Medicine; Referring Provider Family Medicine; Visit Provider Family Medicine
DX: E03.9 Hypothyroidism, unspecified (principal)
CPT/HCPCS: 36415; 84439; 84443; 84481

== ENCOUNTER → 2020-07-05 13:07 | Outpatient (CLI) | payer MEDICARE, SELFPAY ==
[2020-07-05 11:56] VITALS: BMI 36.2
[2020-07-05 14:26] LABS: Add Manual Diff / Slide Review NO; Basophils Absolute Auto 100 /uL (0-100); Basophils Percent Auto 0.9 % (0-2); Eosinophils Absolute Auto 300 /uL (0-450); Eosinophils Percent Auto 4.2 % (2-4); Hematocrit 38.8 % (36-46); Lymphocytes Absolute Auto 3600 /uL (1100-4500); Lymphocytes Percent Auto 44.4 % (25-40); Mean Corpuscular HGB Conc 33.5 % (30-36); Mean Corpuscular Hemoglobin 28.1 PG (26-34); Mean Corpuscular Volume 84.1 fL (80-100); Monocytes Absolute Auto 400 /uL (0-900); Monocytes Percent Auto 5.2 % (3-14); Neutrophils Absolute Auto 3700 /uL (1500-7000); Neutrophils Percent Auto 45.3 % (50-75); Platelet Count 214 X10^3/uL (150-400); Red Blood Cell Count 4.62 X10^6/uL (4.0-5.2); White Blood Cell Count 8.1 X10^3/uL (4.5-11.0)
[2020-07-05 14:34] LABS: Hemoglobin A1C% w Est Avg Glu 6.6 % (4.0-6.0)
[2020-07-05 14:55] LABS: HEMOLYSIS < 15 (0-50); Iron 75 ug/dL (37-170)
[2020-07-05 15:01] LABS: Alanine Aminotransferase 26 IU/L (<35); Albumin 4.6 g/dL (3.5-5.0); Albumin Globulin Ratio 1.6 (1.0-2.8); Alkaline Phosphatase 87 U/L (38-126); Aspartate Aminotransferase 25 IU/L (14-36); BUN Creatinine Ratio 23.6 (6-22); Bilirubin Total 0.6 mg/dL (0.2-1.3); Blood Urea Nitrogen 13 mg/dL (7-17); Calcium 9.6 mg/dL (8.4-10.2); Carbon Dioxide 30 mmol/L (22-32); Chloride 98 mmol/L (98-107); Cholesterol 180 mg/dL (140-199); Estimated Glomerular Filt Rate > 60.0 mL/min (>60); Globulin 2.8 g/dL (1.7-4.1); Glucose 106 mg/dL (80-110); HDL Cholesterol 50 mg/dL (40-60); HEMOLYSIS < 15 (0-50); LDL Cholesterol Calculated 107 mg/dL (<100); Potassium 4.5 mmol/L (3.4-5.1); Sodium 136 mmol/L (137-145); Total Protein 7.4 g/dL (6.3-8.2); Triglycerides 116 mg/dL (35-150)
[2020-07-05 15:06] LABS: Percent Iron Saturation 21 % (15-50); Total Iron Binding Capacity 362 ug/dL (265-497); Transferrin 279 mg/dL (206-381)
[2020-07-05 15:47] LABS: Vitamin B12 470 pg/mL (239-931)
[2020-07-06 16:10] LABS: DNA (DS) Antibody <1 IU/mL (0-9)
[2020-07-08 17:36] LABS: ANA Screen, IFA Negative (.)
== END ==
PROVIDERS: PCP Family Medicine; Referring Provider Family Medicine; Visit Provider Family Medicine
DX: E11.9 Type 2 diabetes mellitus without complications (principal); E78.5 Hyperlipidemia, unspecified; I10 Essential (primary) hypertension; M32.9 Systemic lupus erythematosus, unspecified
CPT/HCPCS: 36415; 80053; 80061; 82607; 83036; 83540; 83550; 85025; 86038; 86225; 86235

== ENCOUNTER → 2020-08-20 12:52 | Outpatient (CLI) | payer MEDICARE, SELFPAY ==
[2020-08-14 10:03] VITALS: BMI 36.2
[2020-08-20 13:01] LABS: Bacteria Urine None Seen
[2020-08-20 13:42] LABS: Appearance Urine UA CLEAR; Bilirubin Urine UA NEGATIVE (NEGATIVE); Color Urine UA YELLOW; Glucose Urine UA NEGATIVE (Negative); Ketones Urine UA NEGATIVE (NEGATIVE); Leukocyte Esterase Urine UA NEGATIVE (NEGATIVE); Nitrite Urine UA NEGATIVE (Negative); Occult Blood Urine UA NEGATIVE (Negative); Protein Urine UA NEGATIVE (Negative); Urobilinogen Urine UA 0.2 E.U./dL (0.2)
[2020-08-20 14:22] LABS: RBC Urine 0-1/HPF (0-5/HPF); Squamous Epithelial Cell Urine 0-1 /HPF (0-5/HPF); Transitional Epi Cells Urine 0-1/HPF (0-5/HPF); WBC Urine 0-1/HPF (0-5/HPF); pH Urine UA 6.5 (4.5-8.0)
[2020-08-20 14:23] LABS: Culture Indicated Urine Cult Not Indicated; Hyaline Casts Urine 0-1/LPF
== END ==
PROVIDERS: PCP Family Medicine; Referring Provider Family Medicine; Visit Provider Family Medicine
DX: R30.0 Dysuria (principal)
CPT/HCPCS: 81001

== ENCOUNTER → 2020-09-08 09:56 | Outpatient (CLI) | payer MEDICARE, SELFPAY ==
[2020-08-14 10:03] VITALS: BMI 36.2
== END ==
PROVIDERS: PCP Family Medicine; Visit Provider Physician Assistant
DX: N89.8 Other specified noninflammatory disorders of vagina (principal); R30.0 Dysuria
CPT/HCPCS: 87077; 87086; 87186; 87210

== ENCOUNTER 2020-09-16 22:21 | Emergency (ER) | payer MEDICARE, SELFPAY ==
[2020-08-14 10:03] VITALS: BMI 36.2
[2020-09-16 22:31] VITALS: BP 223/99; PULSE 89; RESP 16; TEMP 36.2; O2SAT 98; BMI 33.3
[2020-09-16 22:43] LABS: Prothrombin Time 11.1 SECONDS (10.1-12.7)
[2020-09-16 22:44] LABS: Add Manual Diff / Slide Review NO; Basophils Absolute Auto 100 /uL (0-100); Basophils Percent Auto 0.8 % (0-2); Eosinophils Absolute Auto 300 /uL (0-450); Eosinophils Percent Auto 1.9 % (2-4); Hematocrit 38.1 % (36-46); Hemoglobin 12.7 g/dL (12.0-16.0); Lymphocytes Absolute Auto 3600 /uL (1100-4500); Lymphocytes Percent Auto 21.7 % (25-40); Mean Corpuscular HGB Conc 33.3 % (30-36); Mean Corpuscular Hemoglobin 27.8 PG (26-34); Mean Corpuscular Volume 83.3 fL (80-100); Monocytes Absolute Auto 900 /uL (0-900); Monocytes Percent Auto 5.3 % (3-14); Neutrophils Absolute Auto 11600 /uL (1500-7000); Neutrophils Percent Auto 70.3 % (50-75); Platelet Count 248 X10^3/uL (150-400); Red Blood Cell Count 4.57 X10^6/uL (4.0-5.2); Red Cell Distribution Width 12.8 % (11.6-14.8); White Blood Cell Count 16.6 X10^3/uL (4.5-11.0)
[2020-09-16 22:45] LABS: PTT Partial Thromboplastin Tim 34 SECONDS (26.4-36.2)
[2020-09-16 22:47] LABS: Alanine Aminotransferase 26 IU/L (<35); Albumin 4.6 g/dL (3.5-5.0); Albumin Globulin Ratio 1.2 (1.0-2.8); Alkaline Phosphatase 115 U/L (38-126); Aspartate Aminotransferase 24 IU/L (14-36); BUN Creatinine Ratio 29.3 (6-22); Bilirubin Total 0.4 mg/dL (0.2-1.3); Blood Urea Nitrogen 22 mg/dL (7-17); Calcium 9.3 mg/dL (8.4-10.2); Carbon Dioxide 31 mmol/L (22-32); Chloride 100 mmol/L (98-107); Estimated Glomerular Filt Rate > 60.0 mL/min (>60); Globulin 3.7 g/dL (1.7-4.1); Glucose 139 mg/dL (80-110); HEMOLYSIS < 15 (0-50); Lipase 85 U/L (23-300); Potassium 3.5 mmol/L (3.4-5.1); Sodium 139 mmol/L (137-145); Total Protein 8.3 g/dL (6.3-8.2)
--- NOTE | 2020-09-16 23:02 | ED_ITS ---
HPI - Abdominal Pain General Chief Complaint: Abdominal Pain Stated Complaint: ABD PAIN Time Seen by Provider: 09/16/20 23:01 Source: patient Mode of arrival: Ambulatory History of Present Illness HPI narrative: The patient initially had dysuria approximately 1 month ago. Symptoms wax and wane. She was seen in clinic about a days ago, started on Septra DS. She has an E coli UTI. She is also given Diflucan. Symptoms are not resolved. She presents with suprapubic and left lower quadrant pain. The left lower quadrant pain started about 4 days ago. Hematuria was noted on the original UA. She has no history of kidney stones. She has no fever chills or back pain with current symptoms. Her appetite has been normal. She has had a bit of diarrhea with the antibiotics. His no history of colitis. She denies chronic GI problems. Related Data Home Medications Medication Instructions Recorded Confirmed esomeprazole magnesium 40 mg PO DAILY 11/06/19 09/08/20 lisinopril 40 mg PO DAILY 11/06/19 09/08/20 metformin 250 mg PO QNOON 11/06/19 09/08/20 metformin 500 mg PO BID 11/06/19 09/08/20 metoprolol succinate 50 mg PO DAILY 11/06/19 09/08/20 oxybutynin chloride 5 mg PO BID 11/06/19 09/08/20 aspirin 81 mg tablet,delayed 81 mg PO DAILY tab 05/28/20 09/08/20 release cetirizine 10 mg capsule PO 08/14/20 09/08/20 Biest 50:50 Cream 0.25 mg TOPICAL DAILY 08/20/20 09/08/20 DHEA 5 mg PO DAILY 08/20/20 09/08/20 Progesterone 75 mg PO .QHS 08/20/20 09/08/20 Previous Rx's Medication Instructions Recorded ibuprofen 400 mg PO Q4H PRN #60 tab 11/10/19 epinephrine 0.3 mg/0.3 mL 0.3 mg IM Q5-15M PRN #1 each 06/12/20 injection, auto-injector nitrofurantoin macrocrystal 100 mg 100 mg PO BID #10 cap 08/21/20 capsule levothyroxine 125 mcg tablet 125 mcg PO DAILY #90 tab 08/29/20 sertraline 25 mg tablet 25 mg PO DAILY #90 tab 09/06/20 fluconazole 200 mg tablet 200 mg PO DAILY #3 tab 09/11/20 amoxicillin-pot clavulanate 1 tab PO BID #14 tab 09/17/20 [Augmentin] Allergies Allergy/AdvReac Type Severity Reaction Status Date / Time shellfish derived Allergy Severe Anaphylaxis Verified 09/08/20 09:46 morphine AdvReac Severe Vomiting, Verified 09/08/20 09:46 headaches Review of Systems Constitutional Constitutional: Denies chills, Denies fever(s) and Denies weakness ENT Ears, Nose, Mouth, and Throat: Denies vertigo, Denies dizziness and Denies sore throat Cardiovascular Cardiovascular: Denies chest pain, Denies irregular heart rhythm, Denies lightheadedness and Denies dyspnea Respiratory Respiratory: Denies chest congestion, Denies cough and Denies dyspnea Gastrointestinal Gastrointestinal: Reports abdominal pain (see HPI.), Reports loose stools, Denies nausea and Denies vomiting Genitourinary Genitourinary: Reports dysuria Genitourinary: Reports dysuria and Reports vaginal discharge Musculoskeletal Musculoskeletal: Denies back pain Integumentary/Breasts Skin/Breast: Denies pruritus, Denies erythema, Denies rash and Denies wounds Neurologic Neurologic: Denies vertigo, Denies dizziness and Denies weakness Patient History Medical History Abnormal Pap smear of cervix (Resolved ~1977) Acute low back pain without sciatica (Acute) Allergies (Chronic ~2014) Anxiety (Chronic ~2017) Carpal tunnel syndrome (Acute ~1992) Cataracts, bilateral (Chronic ~2018) Cervical somatic dysfunction (Acute) Chronic tension headaches (Acute) Chronic thoracic back pain (Acute) Cranial somatic dysfunction (Acute) Diabetes (Acute ~2009) DVT (deep venous thrombosis) (Acute ~1975) Easy bruisability (Acute) Elevated liver enzymes (Acute) Excessive daytime sleepiness (Acute) Fatigue (Acute) Fibroids (Inactive ~1980) Fibromyalgia (Acute ~2000) GERD (gastroesophageal reflux disease) (Acute ~2013) History of urinary incontinence (Chronic ~1993) HLD (hyperlipidemia) (Acute) HTN (hypertension) (Acute ~2005) Hypothyroidism (Acute) Incontinence of urine (Acute) Intermittent palpitations (Acute) Irregular heart rate (Acute) Lumbar region somatic dysfunction (Acute) Migraines (Acute ~1976) DAVIS on CPAP (Acute) Osteoarthritis (Acute ~2013) Pelvic somatic dysfunction (Acute) Pneumonia (Acute) Postmenopausal symptoms (Acute) PTSD (post-traumatic stress disorder) (Acute) Rosacea (Chronic ~2018) Sacral region somatic dysfunction (Acute) Segmental and somatic dysfunction of abdomen and other regions (Acute) Segmental and somatic dysfunction of rib cage (Acute) Shoulder pain (Chronic ~2018) Somatic dysfunction of abdominal region (Acute) Somatic dysfunction of lower extremity (Acute) Stiff neck (Acute) Systemic lupus erythematosus (Acute ~2000) Tension headache (Acute) Thoracic region somatic dysfunction (Acute) Thyroid nodule (Inactive ~2009) Vertigo (Inactive ~2014) Surgical History Anesthesia (Resolved) H/O: hysterectomy (Acute ~1978) History of bladder surgery (Acute ~1993) History of carpal tunnel release (Resolved ~1992) History of oophorectomy (Resolved ~2004) History of right breast biopsy (Resolved ~1987) Hx of arthroscopy of right knee (Acute ~2013) Hx of cholecystectomy (Acute ~2003) Hx of tonsillectomy (Acute) Hx of tubal ligation (Acute) S/P right unicompartmental knee replacement (Acute ~06/2015) Family History Father Hypertension Arthritis Prostate cancer Hyperlipidemia Loud snoring Sleep apnea Obesity Diabetes mellitus Alcohol abuse Mother History of heart disease Hypertension Hyperlipidemia Mental health problem Stroke Insomnia Restless leg Depression Anxiety Alcohol abuse Sister History of heart disease Hypertension Hyperlipidemia Loud snoring Insomnia Restless leg Obesity Anxiety Depression Sister Lupus Arthritis Fibromyalgia Grandfather Alcoholism Grandmother History of heart disease Hypertension Stroke Grandmother Cancer Family/Other Loud snoring Sleep apnea Obesity Hypertension Social History household members: none Smoking Status: Never smoker alcohol intake: never Smoking Status: Never smoker Substance Use Type: does not use Exam Initial Vital Signs Initial Vital Signs: Vital Signs Temperature 97.1 F L 09/16/20 22:31 Pulse Rate 89 09/16/20 22:31 Respiratory Rate 16 09/16/20 22:31 Blood Pressure 223/99 H 09/16/20 22:31 Pulse Oximetry 98 09/16/20 22:31 Const General: cooperative and well developed Nutritional Appearance: well nourished [facility] Head: normocephalic and atraumatic Mouth: oral mucosae normal Throat: posterior oropharynx normal Eyes Conjunctivae: other (No icterus) Resp Auscultation: clear to auscultation bilaterally Cardio Rate: regular rate Rhythm: regular rhythm Heart Sounds: S1 normal, S2 normal and no murmurs GI Other: Obese. LLQ tenderness without distention. She has mild guarding but no rebound. No palpable masses. Normal bowel sounds. Abdominal exam was otherwise benign. Back/Spine/Pelvis Back: No CVA tenderness Skin General: no rashes or lesions noted Neuro General: patient alert, patient awake, patient oriented x3 and no focal motor deficits Extrem General: no calf tenderness Psych Mental Status: mental status grossly normal Speech and Movement: speech and movement normal Course Course Course Narrative: The patient is improved after receiving medications for pain, as well as Unasyn. She will be discharged with recommendation of ibuprofen for pain and Augmentin b.i.d. for 7 days. She should recheck with her doctor in about 10 days. She is advised to return here if symptoms escalate. Orders Ordered: ED Orders 09/16/20 22:29 Complete Blood Count AUTO DIFF Stat Comprehensive Metabolic Panel Stat Lipase Stat Partial Thromboplastin Time Stat Prothrombin Time INR Stat 09/16/20 22:35 EKG-12 Lead Stat 09/16/20 23:16 CT abdomen pelvis w con Stat Sodium Chloride (Normal Saline 0.9%) 1,000 mls @ 250 mls/hr IV CONT ROSAURA Last Admin: 09/16/20 23:40 Dose: 250 mls/hr Documented by: DEBI Discontinued Medications Ampicillin Sodium/Sulbactam (Sodium 3 gm/ Sodium Chloride) 100 mls @ 100 mls/hr IV NOW ONE Stop: 09/17/20 00:34 Last Admin: 09/17/20 00:45 Dose: 100 mls/hr Documented by: ZAID Ketorolac Tromethamine (Toradol) 15 mg IV NOW ONE Stop: 09/16/20 23:18 Last Admin: 09/16/20 23:40 Dose: 15 mg Documented by: DEBI Vital Signs Vital signs: Vital Signs - 8 hr 09/16/20 22:31 Temperature 97.1 F L Pulse Rate 89 Respiratory Rate 16 Blood Pressure 223/99 H Pulse Oximetry 98 MDM - Abdominal Pain Lab Data Result diagrams: 09/16/20 22:29 09/16/20 22:29 Labs: Lab Results 09/16/20 09/16/20 09/16/20 Range/Units 22:29 22:29 22:29 WBC 16.6 H (4.5-11.0) X10^3/uL RBC 4.57 (4.0-5.2) X10^6/uL Hgb 12.7 (12.0-16.0) g/dL Hct 38.1 (36-46) % MCV 83.3 (80-100) fL MCH 27.8 (26-34) PG MCHC 33.3 (30-36) % RDW 12.8 (11.6-14.8) % Plt Count 248 (150-400) X10^3/uL Neut % (Auto) 70.3 (50-75) % Lymph % (Auto) 21.7 L (25-40) % [place] % (Auto) 5.3 (3-14) % Eos % (Auto) 1.9 L (2-4) % Baso % (Auto) 0.8 (0-2) % Neut # (Auto) 84927 H (0472-7235) /uL Lymph # (Auto) 3600 (1488-8885) /uL [place] # (Auto) 900 (0-900) /uL Eos # (Auto) 300 (0-450) /uL Baso # (Auto) 100 (0-100) /uL PT 11.1 (10.1-12.7) SECONDS INR 1.0 (0.9-1.3) APTT 34 (26.4-36.2) SECONDS Sodium 139 (137-145) mmol/L Potassium 3.5 (3.4-5.1) mmol/L Chloride 100 (98-107) mmol/L Carbon Dioxide 31 (22-32) mmol/L BUN 22 H (7-17) mg/dL Creatinine 0.75 (0.52-1.04) mg/dL Estimated GFR > 60.0 (>60) mL/min BUN/Creatinine Ratio 29.3 H (6-22) Glucose 139 H (80-110) mg/dL Calcium 9.3 (8.4-10.2) mg/dL Total Bilirubin 0.4 (0.2-1.3) mg/dL AST 24 (14-36) IU/L ALT 26 (<35) IU/L Alkaline Phosphatase 115 (38-126) U/L Total Protein 8.3 H (6.3-8.2) g/dL Albumin 4.6 (3.5-5.0) g/dL Globulin 3.7 (1.7-4.1) g/dL Albumin/Globulin Ratio 1.2 (1.0-2.8) Lipase 85 (23-300) U/L Point of care testing: Point of Care Testing Test Results Not applicable Urine Dip Bedside Urine Glucose Negative Bedside Urine Bilirubin - Negative Bedside Urine Ketone - Negative Urine Specific [place] 1.010 Bedside Urine Occult Blood - Negative Bedside Urine pH 6.0 Bedside Urine Protein - Negative Bedside Urine Urobilinogen - Negative Bedside Urine Nitrite - Negative Bedside Urine Leukocytes - Negative Esterase Imaging Data CT scan - abdomen/pelvis: Radiologist's Impression: Sigmoid diverticulitis, no evidence of perf oration or abscess. ECG Data Attestation: I personally reviewed and interpreted this ECG as follows: (Normal sinus rhythm rate 84 beats per minute. Normal intervals. No ectopy. No acute ST T wave changes.) Discharge Plan Departure Patient Disposition: Home Clinical Impression: Sigmoid diverticulitis Instructions: Diverticulitis Activity Restrictions/Additional Instructions: Advil 3 tabs every 6 hours as needed for pain. You should be on a bland diet, drink plenty of fluids. Stop your current antibiotic. Augmentin 2 times daily for 7 days as prescribed. This is the new antibiotic. I forwarded the prescription to [facility] in [place]. Prescriptions: New amoxicillin-pot clavulanate [Augmentin] 875-125 mg tablet 1 tab PO BID Qty: 14 RF: 0 No Action aspirin 81 mg tablet,delayed release (DR/EC) 81 mg PO DAILY RF: 0 Biest 50:50 Cream 0.25 mg topical DAILY RF: 0 Progesterone 75 mg PO .QHS RF: 0 DHEA 5 mg PO DAILY RF: 0 levothyroxine 125 mcg tablet 125 mcg PO DAILY Qty: 90 RF: 1 epinephrine 0.3 mg/0.3 mL auto-injector 0.3 mg IM Q5-15M PRN (Reason: hypersensitivity reaction) Qty: 1 RF: 1 cetirizine 10 mg capsule PO RF: 0 sertraline 25 mg tablet 25 mg PO DAILY Qty: 90 RF: 0 fluconazole 200 mg tablet 200 mg PO DAILY Qty: 3 RF: 0 nitrofurantoin macrocrystal 100 mg capsule 100 mg PO BID Qty: 10 RF: 0 metformin 500 mg Tablet 500 mg PO BID RF: 0 metformin 500 mg Tablet 250 mg PO QNOON RF: 0 metoprolol succinate 50 mg Tablet Extended Release 24 Hr 50 mg PO DAILY RF: 0 esomeprazole magnesium 40 mg Capsule,Delayed Release(Dr/Ec) 40 mg PO DAILY RF: 0 oxybutynin chloride 5 mg Tablet Extended Release 24hr 5 mg PO BID RF: 0 lisinopril 40 mg Tablet 40 mg PO DAILY RF: 0 ibuprofen 200 mg Tablet 400 mg PO Q4H PRN (Reason: Pain) Qty: 60 RF: 0 Referrals: Gee Wahl DO [Primary Care Provider] -
--- NOTE | 2020-09-16 23:16 | DI.CT.S_ITS ---
PROCEDURE: CT ABDOMEN PELVIS W CON INDICATIONS: LLQ tenderness. TECHNIQUE: After the administration of intravenous contrast, 5 mm thick sections acquired from the diaphragm to the symphysis. 5 mm coronal and sagittal reformats were acquired. For radiation dose reduction, the following was used: automated exposure control, adjustment of mA and/or kV according to patient size. COMPARISON: None. FINDINGS: Image quality: Excellent. ABDOMEN: Lung bases: Lung bases are clear. Heart size is normal. Solid organs: Liver is normal in size and enhancement. Gallbladder surgically absent. Biliary system is non dilated. Pancreas enhances normally. Spleen is normal in size and enhancement. No adrenal nodules. Kidneys demonstrate normal size and enhancement, without hydronephrosis. Peritoneum and bowel: Bowel loops demonstrate normal wall thickness and caliber. No free fluid or air. Nodes and vessels: No retroperitoneal or mesenteric adenopathy by size criteria. Aorta and inferior vena cava are normal in size. Miscellaneous: No ventral hernias. PELVIS: Genitourinary: Bladder wall thickness is normal. Prior hysterectomy. . Miscellaneous: No inguinal hernias or adenopathy. There is pericolonic inflammation involving the posterior 3rd of the sigmoid colon, where diverticulosis is moderate in severity. No peridiverticular abscess is found Bones: No suspicious bony lesions. No vertebral body compression fractures. IMPRESSION: Acute diverticulitis without peridiverticular abscess posterior 3rd of the sigmoid colon. Prior hysterectomy and cholecystectomy Dictated by: Bertin Cherry M.D. on 09/17/2020 at 9:42 Approved by: Bertin Cherry M.D. on 09/17/2020 at 9:43
--- NOTE | 2020-09-16 23:32 | PC.NURSE ---
Provider notified of patient allergy to shellfish prior to CT scan with contrast. Patient states has had contrast in past without reaction.
[2020-09-16] MEDS: SODIUM CHLORIDE 0.9% 1,000 ML 250 ML IV (23:40)
[2020-09-16] MEDS: KETOROLAC 60 MG/2 ML VIAL 15 MG IV (23:40)
[2020-09-16 23:46] VITALS: PULSE 80; O2SAT 97
[2020-09-17] VITALS (7 sets, daily range): BP systolic 152–172; BP diastolic 67–74; PULSE 74–81; RESP 16–18; O2SAT 96–99
[2020-09-17] MEDS: AMPICILLIN/SULBACTAM 3 GM 3 GM in SODIUM CHLORIDE 0.9% 100 ML IV (00:45)
== END 2020-09-17 02:09 | disposition home or self-care (01) ==
PROVIDERS: Emergency Provider Emergency Medicine; PCP Family Medicine
DX: K57.32 Diverticulitis of large intestine without perforation or abscess without bleeding (principal); R31.9 Hematuria, unspecified; R30.0 Dysuria
CPT/HCPCS: 36415; 74177; 80053; 81003; 81025; 83690; 85025; 85610; 85730; 93005; 96361; 96365; 96375; 99284; J0295; J1885; Q9967

== ENCOUNTER → 2020-12-25 11:14 | Outpatient (CLI) | payer MEDICARE, SELFPAY ==
[2020-08-14 10:03] VITALS: BMI 36.2
[2020-12-25 12:23] LABS: Add Manual Diff / Slide Review NO; Basophils Absolute Auto 100 /uL (0-100); Basophils Percent Auto 1.2 % (0-2); Eosinophils Absolute Auto 400 /uL (0-450); Hematocrit 37.6 % (36-46); Hemoglobin 12.4 g/dL (12.0-16.0); Lymphocytes Absolute Auto 4000 /uL (1100-4500); Lymphocytes Percent Auto 48.6 % (25-40); Mean Corpuscular HGB Conc 33.1 % (30-36); Mean Corpuscular Volume 81.8 fL (80-100); Monocytes Absolute Auto 400 /uL (0-900); Monocytes Percent Auto 5.3 % (3-14); Neutrophils Absolute Auto 3300 /uL (1500-7000); Neutrophils Percent Auto 39.9 % (50-75); Platelet Count 201 X10^3/uL (150-400); Red Cell Distribution Width 13.9 % (11.6-14.8); White Blood Cell Count 8.2 X10^3/uL (4.5-11.0)
[2020-12-25 12:31] LABS: Hemoglobin A1C% w Est Avg Glu 6.3 % (4.0-6.0)
[2020-12-25 12:56] LABS: Alanine Aminotransferase 19 IU/L (<35); Albumin 4.3 g/dL (3.5-5.0); Albumin Globulin Ratio 1.3 (1.0-2.8); Alkaline Phosphatase 103 U/L (38-126); Aspartate Aminotransferase 26 IU/L (14-36); Bilirubin Total 0.2 mg/dL (0.2-1.3); Blood Urea Nitrogen 24 mg/dL (7-17); Calcium 9.5 mg/dL (8.4-10.2); Carbon Dioxide 32 mmol/L (22-32); Chloride 102 mmol/L (98-107); Cholesterol 192 mg/dL (140-199); Estimated Glomerular Filt Rate > 60.0 mL/min (>60); Globulin 3.3 g/dL (1.7-4.1); Glucose 109 mg/dL (80-110); HDL Cholesterol 53 mg/dL (40-60); HEMOLYSIS < 15 (0-50); LDL Cholesterol Calculated 125 mg/dL (<100); Potassium 4.6 mmol/L (3.4-5.1); Sodium 138 mmol/L (137-145); Total Protein 7.6 g/dL (6.3-8.2); Triglycerides 69 mg/dL (35-150)
[2020-12-25 13:13] LABS: Free T3, Triiodothyronine Free 3.86 pg/mL (2.77-5.27)
[2020-12-25 13:26] LABS: Thyroid Stimulating Hormone < 0.015 uIU/mL (0.47-4.68)
== END ==
PROVIDERS: PCP Family Medicine; Referring Provider Family Medicine; Visit Provider Family Medicine
DX: E03.9 Hypothyroidism, unspecified (principal); E11.9 Type 2 diabetes mellitus without complications; E78.5 Hyperlipidemia, unspecified; I10 Essential (primary) hypertension
CPT/HCPCS: 36415; 80053; 80061; 83036; 84439; 84443; 84481; 85025

== ENCOUNTER → 2021-03-20 12:23 | Outpatient (CLI) | payer MEDICARE, SELFPAY ==
[2020-08-14 10:03] VITALS: BMI 36.2
[2021-03-20 13:40] LABS: Rheumatoid Factor < 8.6 IU/mL (<12.0)
[2021-03-24 21:07] LABS: CCP Antibodies IgG/IgA 8 units (0-19)
== END ==
PROVIDERS: PCP Family Medicine; Referring Provider Family Medicine; Visit Provider Family Medicine
DX: M25.541 Pain in joints of right hand (principal); M25.542 Pain in joints of left hand
CPT/HCPCS: 36415; 86200; 86430

== ENCOUNTER → 2021-05-17 09:10 | Outpatient (CLI) | payer MEDICARE, SELFPAY ==
[2020-08-14 10:03] VITALS: BMI 36.2
[2021-05-17 11:23] LABS: COVID19 -Nasal RAPID Negative (Negative)
== END ==
PROVIDERS: PCP Family Medicine; Referring Provider Physician Assistant; Visit Provider Physician Assistant
DX: Z01.812 Encounter for preprocedural laboratory examination (principal); Z20.822 Contact with and (suspected) exposure to COVID-19
CPT/HCPCS: 87635; C9803

== ENCOUNTER 2021-05-20 06:54 | Day surgery (SDC) | payer MEDICARE, SELFPAY ==
[2020-08-14 10:03] VITALS: BMI 36.2
[2021-05-20 07:08] VITALS: BP 161/78; PULSE 57; RESP 16; TEMP 36.2; O2SAT 97; BMI 37.4
[2021-05-20] MEDS: CATARACT EYE COMPOUND (10 DROPS/SYRINGE) 3 DROPS EYE-OP (07:20)
[2021-05-20] MEDS: PROPARACAINE 0.5% OPHTH SOL 2 DROPS EYE-OP (07:47)
--- NOTE | 2021-05-20 08:04 | PM.PREOP ---
Pre-operative Note Interval Note History & Physical reviewed/Exam performed by Physician: Yes Changes to H&P: No
--- NOTE | 2021-05-20 08:04 | PM.OP.1 ---
Operative Date/Time/Diagnoses Pre-op diagnosis: Nuclear Cataract Left eye Post-op diagnosis: same Procedure & Clinicians Same procedure as scheduled: Yes Surgeon: Shakir David Anesthesia Type: MAC +/- and Sedation Operative Notes Procedure in detail: Patient brought to the operating suite. Tetracaine drops placed in the left eye. Patient was prepped and draped in sterile manner. Wire lid speculum was placed in the eye. Betadine drops were placed on the eye. This was irrigated. Lidocaine jelly was placed on the eye. A paracentesis port was created with a side-port blade. 0.1 mL 1% preservative free lidocaine was injected into the anterior chamber. The anterior chamber was deepened with viscoelastic. 2.6 mm keratome was used to create a temporal clear corneal incision. Cystotome and Utrata forceps were used to create continuous tear capsulorrhexis. Balanced salt solution was used to hydro dissect the nucleus. The phacoemulsification handpiece was inserted and the nucleus was removed using the stop and chop technique. The irrigation aspiration handpiece was inserted and the remaining cortex was removed. Anterior chamber was deepened with viscoelastic. An Davis DIB00 intraocular lens with a power of 17.5 was injected into the capsular bag. Irrigation aspiration handpiece was inserted and the remaining viscoelastic was removed. Incision was hydrated with balanced salt solution and found to be leak free with pressure with Weck-Lashon sponges. 0.1 mL Vigamox injected anterior chamber. 0.3 mL Kenalog 10 mg was injected subconjunctivally. Lid speculum was removed. The patient left the operating room in excellent condition. Complications: none Post-operative Condition: stable Disposition: same day surgery
[2021-05-20] MEDS: PHENYLEPHRINE/LIDOCAINE VIAL (OR) 0.2 ML EYE-OP (08:23)
[2021-05-20] MEDS: MOXIFLOXACIN INJ 4 MG/0.8 ML VIAL 0.5 MG EYE-OP (08:24)
[2021-05-20] MEDS: TRIAMCINOLONE 50 MG/5 ML VIAL INJ (08:24)
[2021-05-20] MEDS: LIDOCAINE 2% (GLYDO) 6 ML GEL TOP (08:24)
[2021-05-20] MEDS: CHONDROIDTIN/SOD HYALURONATE 1.05 ML SYRINGE INTRAOCULA (08:24)
[2021-05-20] MEDS: TETRACAINE 0.5% OPHTH DROPS 4 ML 2 DROPS EYE-OP (08:25)
[2021-05-20] MEDS: BALANCED SALT IRRIG SOLN NO.2 500 ML, EPINEPHrine 1 MG IRR (08:25)
[2021-05-20 08:39] VITALS: BP 130/66; PULSE 57; RESP 16; TEMP 36.6; O2SAT 96
--- NOTE | 2021-05-20 08:43 | SUR.PHASEII ---
Enedeliae called, pt dressed.
--- NOTE | 2021-05-20 08:54 | SUR.PHASEII ---
Left when ready and left in stable condition.
== END 2021-05-20 08:54 | disposition home or self-care (01) ==
PROVIDERS: PCP Family Medicine; Referring Provider Ophthalmology; Visit Provider Ophthalmology
PROC: (CPT 66984; principal; 2021-05-20 08:15)
DX: H25.12 Age-related nuclear cataract, left eye (principal); E66.9 Obesity, unspecified; I10 Essential (primary) hypertension; E11.9 Type 2 diabetes mellitus without complications; K21.9 Gastro-esophageal reflux disease without esophagitis; G47.33 Obstructive sleep apnea (adult) (pediatric); F43.10 Post-traumatic stress disorder, unspecified; F41.9 Anxiety disorder, unspecified; F32.9 Major depressive disorder, single episode, unspecified; Z79.84 Long term (current) use of oral hypoglycemic drugs
CPT/HCPCS: 66984; 82962; J0171; J2250; J3301

== ENCOUNTER → 2021-05-31 09:02 | Outpatient (CLI) | payer MEDICARE, SELFPAY ==
[2020-08-14 10:03] VITALS: BMI 36.2
[2021-05-31 11:40] LABS: COVID19 -Nasal RAPID Negative (Negative)
== END ==
PROVIDERS: PCP Family Medicine; Referring Provider Physician Assistant; Visit Provider Physician Assistant
DX: Z01.812 Encounter for preprocedural laboratory examination (principal); Z20.822 Contact with and (suspected) exposure to COVID-19
CPT/HCPCS: 87635; C9803

== ENCOUNTER 2021-06-03 06:52 | Day surgery (SDC) | payer MEDICARE, SELFPAY ==
[2020-08-14 10:03] VITALS: BMI 36.2
[2021-06-03] MEDS: PROPARACAINE 0.5% OPHTH SOL 2 DROPS EYE-OP (07:22)
[2021-06-03 07:23] VITALS: BP 173/75; PULSE 62; RESP 18; TEMP 35.9; O2SAT 96; BMI 37.4
[2021-06-03] MEDS: CATARACT EYE COMPOUND (10 DROPS/SYRINGE) 3 DROPS EYE-OP (07:28)
--- NOTE | 2021-06-03 08:02 | PM.PREOP ---
Pre-operative Note Interval Note History & Physical reviewed/Exam performed by Physician: Yes Changes to H&P: No
--- NOTE | 2021-06-03 08:03 | PM.OP.1 ---
Operative Date/Time/Diagnoses Pre-op diagnosis: Nuclear cataract right eye Procedure & Clinicians Procedure: Cataract Surgery Same procedure as scheduled: Yes Surgeon: Shakir David Anesthesia Type: MAC +/- and Sedation Operative Notes Procedure in detail: Patient brought to the operating suite. Tetracaine drops placed in the right eye. Patient was prepped and draped in sterile manner. Wire lid speculum was placed in the eye. Betadine drops were placed on the eye. This was irrigated. Lidocaine jelly was placed on the eye. A paracentesis port was created with a side-port blade. 0.1 mL 1% preservative free lidocaine was injected into the anterior chamber. The anterior chamber was deepened with viscoelastic. 2.6 mm keratome was used to create a temporal clear corneal incision. Cystotome and Utrata forceps were used to create continuous tear capsulorrhexis. Balanced salt solution was used to hydro dissect the nucleus. The phacoemulsification handpiece was inserted and the nucleus was removed using the stop and chop technique. The irrigation aspiration handpiece was inserted and the remaining cortex was removed. Anterior chamber was deepened with viscoelastic. An Davis DIB00 intraocular lens with a power of 17.5 was injected into the capsular bag. Irrigation aspiration handpiece was inserted and the remaining viscoelastic was removed. Incision was hydrated with balanced salt solution and found to be leak free with pressure with Weck-Lashon sponges. 0.1 mL Vigamox injected anterior chamber. 0.3 mL Kenalog 10 mg was injected subconjunctivally. Lid speculum was removed. The patient left the operating room in excellent condition. Complications: none Post-operative Condition: stable Disposition: same day surgery
[2021-06-03] MEDS: CHONDROIDTIN/SOD HYALURONATE 1.05 ML SYRINGE INTRAOCULA (08:20)
[2021-06-03] MEDS: PHENYLEPHRINE/LIDOCAINE VIAL (OR) 0.2 ML EYE-OP (08:20)
[2021-06-03] MEDS: MOXIFLOXACIN INJ 4 MG/0.8 ML VIAL 0.5 MG EYE-OP (08:20)
[2021-06-03] MEDS: LIDOCAINE 2% (GLYDO) 6 ML GEL TOP (08:20)
[2021-06-03] MEDS: TRIAMCINOLONE 50 MG/5 ML VIAL INJ (08:21)
[2021-06-03] MEDS: TETRACAINE 0.5% OPHTH DROPS 4 ML 2 DROPS EYE-OP (08:21)
[2021-06-03] MEDS: BALANCED SALT IRRIG SOLN NO.2 500 ML, EPINEPHrine 1 MG IRR (08:21)
[2021-06-03 08:30] VITALS: BP 169/74; PULSE 56; RESP 18; TEMP 36.2; O2SAT 97
== END 2021-06-03 08:43 | disposition home or self-care (01) ==
PROVIDERS: PCP Family Medicine; Referring Provider Ophthalmology; Visit Provider Ophthalmology
PROC: (CPT 66984; principal; 2021-06-03 08:15)
DX: H25.11 Age-related nuclear cataract, right eye (principal); I10 Essential (primary) hypertension; F41.9 Anxiety disorder, unspecified; F32.9 Major depressive disorder, single episode, unspecified; E11.9 Type 2 diabetes mellitus without complications; G47.33 Obstructive sleep apnea (adult) (pediatric); E03.9 Hypothyroidism, unspecified; E66.9 Obesity, unspecified; M32.9 Systemic lupus erythematosus, unspecified; Z79.84 Long term (current) use of oral hypoglycemic drugs
CPT/HCPCS: 66984; J0171; J2250; J3301

== ENCOUNTER → 2022-01-19 13:03 | Outpatient (CLI) | payer MEDICARE, SELFPAY ==
[2021-06-18 09:57] VITALS: BMI 36.2
[2022-01-19 16:30] LABS: Add Manual Diff / Slide Review NO; Basophils Absolute Auto 100 /uL (0-100); Basophils Percent Auto 1.1 % (0-2); Eosinophils Absolute Auto 400 /uL (0-450); Eosinophils Percent Auto 4.1 % (2-4); Hematocrit 39.4 % (36-46); Hemoglobin 12.7 g/dL (12.0-16.0); Lymphocytes Absolute Auto 3800 /uL (1100-4500); Lymphocytes Percent Auto 43.8 % (25-40); Mean Corpuscular HGB Conc 32.3 % (30-36); Mean Corpuscular Hemoglobin 26.9 PG (26-34); Mean Corpuscular Volume 83.1 fL (80-100); Monocytes Absolute Auto 500 /uL (0-900); Neutrophils Absolute Auto 3900 /uL (1500-7000); Platelet Count 212 X10^3/uL (150-400); Red Blood Cell Count 4.74 X10^6/uL (4.0-5.2); Red Cell Distribution Width 13.3 % (11.6-14.8); White Blood Cell Count 8.8 X10^3/uL (4.5-11.0)
[2022-01-19 17:04] LABS: Hemoglobin A1C% w Est Avg Glu 6.6 % (4.0-6.0)
[2022-01-19 17:49] LABS: Alanine Aminotransferase 23 IU/L (<35); Albumin 4.4 g/dL (3.5-5.0); Albumin Globulin Ratio 1.3 (1.0-2.8); Alkaline Phosphatase 71 U/L (38-126); Aspartate Aminotransferase 24 IU/L (14-36); BUN Creatinine Ratio 27.4 (6-22); Bilirubin Total 0.5 mg/dL (0.2-1.3); Blood Urea Nitrogen 17 mg/dL (7-17); Calcium 9.5 mg/dL (8.4-10.2); Carbon Dioxide 29 mmol/L (22-32); Chloride 103 mmol/L (98-107); Cholesterol 195 mg/dL (140-199); Estimated Glomerular Filt Rate > 60.0 mL/min (>60); Globulin 3.3 g/dL (1.7-4.1); Glucose 103 mg/dL (80-110); HDL Cholesterol 48 mg/dL (40-60); HEMOLYSIS < 15 (0-50); LDL Cholesterol Calculated 122 mg/dL (<100); Potassium 4.9 mmol/L (3.4-5.1); Sodium 139 mmol/L (137-145); Total Protein 7.7 g/dL (6.3-8.2); Triglycerides 124 mg/dL (35-150)
[2022-01-19 18:06] LABS: Free T3, Triiodothyronine Free 3.29 pg/mL (2.77-5.27); Free T4, Direct Thyroxine 1.88 ng/dL (0.78-2.19)
[2022-01-19 18:25] LABS: Thyroid Stimulating Hormone < 0.015 uIU/mL (0.47-4.68)
== END ==
PROVIDERS: PCP Family Medicine; Referring Provider Family Medicine; Visit Provider Family Medicine
DX: E03.9 Hypothyroidism, unspecified (principal); E11.9 Type 2 diabetes mellitus without complications; E78.5 Hyperlipidemia, unspecified; I10 Essential (primary) hypertension
CPT/HCPCS: 36415; 80053; 80061; 83036; 84439; 84443; 84481; 85025

== ENCOUNTER → 2022-03-04 10:56 | Outpatient (CLI) | payer MEDICARE, SELFPAY ==
[2021-06-18 09:57] VITALS: BMI 36.2
--- NOTE | 2022-03-04 10:59 | DI.RAD.S_ITS ---
PROCEDURE: XR KNEE LT 3V INDICATIONS: knee pain TECHNIQUE: 3 views of the knee were acquired. COMPARISON: [facility], CR, XR KNEE ARTHRITIC SERIES RT, 12/25/2019, 13:57. [facility], CR, XR KNEE RT 1TO2V, 11/08/2019, 16:43. FINDINGS: Bones: No fractures or dislocations. Mild narrowing of the lateral aspect patellofemoral compartment. [id number] tricompartment osteophytosis. The medial and lateral compartment joint spaces are maintained (nonweightbearing examination). Soft tissues: Small joint effusion. Meniscal calcification, compatible with chondrocalcinosis. IMPRESSION: Degenerative changes of the left knee. Dictated by: Thomas Yoon M.D. on 03/04/2022 at 13:39 Approved by: Thomas Yoon M.D. on 03/04/2022 at 13:40
== END ==
PROVIDERS: PCP Family Medicine; Referring Provider Family Medicine; Visit Provider Family Medicine
DX: M25.562 Pain in left knee (principal); G89.29 Other chronic pain
CPT/HCPCS: 73562

== ENCOUNTER → 2022-04-01 15:54 | Outpatient (CLI) | payer MEDICARE, SELFPAY ==
[2021-06-18 09:57] VITALS: BMI 36.2
--- NOTE | 2022-04-01 15:56 | DI.RAD.S_ITS ---
PROCEDURE: XR FINGER RT MIN 2V INDICATIONS: pain and nodule TECHNIQUE: AP hand, 2 views of the 2nd finger(s) acquired. COMPARISON: None. FINDINGS: Bones: No fractures or dislocations. No suspicious bony lesions. Polyarticular joint space narrowing with periarticular osteophyte formation, most notably involving the 3rd MCP joint as well as multiple interphalangeal joints. Juxta-articular lucencies are present involving the 3rd MCP joint and multiple interphalangeal joints. Soft tissues: No suspicious soft tissue calcifications. Chondrocalcinosis. IMPRESSION: 1. Diffuse joint degeneration, most notably involving the 3rd MCP joint and the interphalangeal joints and there are multiple juxta-articular lucencies consistent with subchondral cystic change versus bony erosions. 2. Chondrocalcinosis. Differential diagnosis includes but is not limited to hemochromatosis, hyperparathyroidism and CPPD. Dictated by: Derek VELAZCO Interpreted: Mona Harden MD on 04/01/2022 at 16:39 Approved by: Mona Harden M.D. on 04/01/2022 at 17:11
== END ==
PROVIDERS: PCP Family Medicine; Referring Provider Family Medicine; Visit Provider Family Medicine
DX: M19.041 Primary osteoarthritis, right hand (principal); M11.241 Other chondrocalcinosis, right hand; M25.441 Effusion, right hand
CPT/HCPCS: 73140

== ENCOUNTER → 2022-07-20 11:16 | Outpatient (CLI) | payer MEDICARE, SELFPAY ==
[2021-06-18 09:57] VITALS: BMI 36.2
[2022-07-20 12:52] LABS: Add Manual Diff / Slide Review NO; Basophils Absolute Auto 100 /uL (0-100); Basophils Percent Auto 1.1 % (0-2); Eosinophils Absolute Auto 300 /uL (0-450); Eosinophils Percent Auto 3.9 % (2-4); Hematocrit 38.6 % (36-46); Hemoglobin 13.1 g/dL (12.0-16.0); Lymphocytes Absolute Auto 3700 /uL (1100-4500); Lymphocytes Percent Auto 41.5 % (25-40); Mean Corpuscular HGB Conc 33.9 % (30-36); Mean Corpuscular Volume 82.4 fL (80-100); Monocytes Absolute Auto 500 /uL (0-900); Monocytes Percent Auto 5.9 % (3-14); Neutrophils Absolute Auto 4200 /uL (1500-7000); Neutrophils Percent Auto 47.6 % (50-75); Platelet Count 211 X10^3/uL (150-400); Red Blood Cell Count 4.69 X10^6/uL (4.0-5.2); White Blood Cell Count 8.8 X10^3/uL (4.5-11.0)
[2022-07-20 13:01] LABS: Alanine Aminotransferase 26 IU/L (<35); Albumin 4.1 g/dL (3.5-5.0); Albumin Globulin Ratio 1.2 (1.0-2.8); Alkaline Phosphatase 82 U/L (38-126); Aspartate Aminotransferase 25 IU/L (14-36); BUN Creatinine Ratio 20.9 (6-22); Bilirubin Total 0.4 mg/dL (0.2-1.3); Blood Urea Nitrogen 14 mg/dL (7-17); Calcium 9.5 mg/dL (8.4-10.2); Carbon Dioxide 32 mmol/L (22-32); Chloride 99 mmol/L (98-107); Cholesterol 181 mg/dL (140-199); Estimated Glomerular Filt Rate > 60 mL/min (>60); Globulin 3.5 g/dL (1.7-4.1); Glucose 100 mg/dL (80-110); HDL Cholesterol 40 mg/dL (40-60); HEMOLYSIS < 15 (0-50); Hemoglobin A1C% w Est Avg Glu 6.2 % (4.0-6.0); LDL Cholesterol Calculated 112 mg/dL (<100); Potassium 4.9 mmol/L (3.4-5.1); Sodium 138 mmol/L (137-145); Total Protein 7.6 g/dL (6.3-8.2); Triglycerides 145 mg/dL (35-150)
[2022-07-20 14:14] LABS: Free T3, Triiodothyronine Free 4.24 pg/mL (2.77-5.27); Free T4, Direct Thyroxine 1.66 ng/dL (0.78-2.19)
[2022-07-20 14:28] LABS: Thyroid Stimulating Hormone < 0.015 uIU/mL (0.47-4.68)
== END ==
PROVIDERS: PCP Family Medicine; Referring Provider Family Medicine; Visit Provider Family Medicine
DX: E03.9 Hypothyroidism, unspecified (principal); E11.9 Type 2 diabetes mellitus without complications; E78.5 Hyperlipidemia, unspecified; I10 Essential (primary) hypertension
CPT/HCPCS: 36415; 80053; 80061; 83036; 84439; 84443; 84481; 85025

== ENCOUNTER → 2022-07-23 13:02 | Outpatient (CLI) | payer MEDICARE, SELFPAY ==
[2021-06-18 09:57] VITALS: BMI 36.2
--- NOTE | 2022-07-23 13:05 | DI.MG.S_ITS ---
BILATERAL DIGITAL SCREENING MAMMOGRAM 3D/2D WITH CAD: 07/23/2022 CLINICAL: Routine screening. Comparison is made to exams dated: 11/02/2019 mammogram and 01/31/2016 mammogram - outside location. Both breasts are almost entirely fatty (category a/<25% glandular tissue). Current study was also evaluated with a Computer Aided Detection (CAD) system. There are benign vascular calcifications in both breasts. No significant masses, calcifications, or other findings are seen in either breast. There has been no significant interval change. IMPRESSION: BENIGN There is no mammographic evidence of malignancy. A 1 year screening mammogram is recommended. Based on the Tyrer Cuzick model (a risk assessment model) the patient's lifetime risk is 2.1% and her 10 year risk is 1.2%. According to the ACR, ACS, and NCCN guidelines, an annual breast MRI exam along with mammogram is recommended if the patient's lifetime risk is 20% or greater. This exam was interpreted at Station ID: [id number]. NOTE: For mammograms, a report in lay terms will be sent to the patient. Approximately 15% of breast malignancies will not be visualized mammographically. In the management of a palpable breast mass, a negative mammogram must not discourage biopsy of a clinically suspicious lesion. Electronically Signed By: Kim reyez/jan:07/23/2022 14:06:59 letter sent: Normal Exam ACR BI-RADS Category 2: Benign Finding(s) [id number]
== END ==
PROVIDERS: PCP Family Medicine; Referring Provider Family Medicine; Visit Provider Family Medicine
DX: Z12.31 Encounter for screening mammogram for malignant neoplasm of breast (principal)
CPT/HCPCS: 77063; 77067

== ENCOUNTER → 2022-07-24 10:34 | Outpatient (CLI) | payer MEDICARE, SELFPAY ==
[2021-06-18 09:57] VITALS: BMI 36.2
== END ==
PROVIDERS: PCP Family Medicine; Visit Provider Family Medicine
DX: N39.0 Urinary tract infection, site not specified (principal); R30.9 Painful micturition, unspecified; E11.9 Type 2 diabetes mellitus without complications; E78.5 Hyperlipidemia, unspecified; I10 Essential (primary) hypertension
CPT/HCPCS: 87077; 87086; 87186

== ENCOUNTER → 2022-07-30 10:06 | Outpatient (CLI) | payer MEDICARE, SELFPAY ==
[2021-06-18 09:57] VITALS: BMI 36.2
[2022-07-30 11:30] LABS: COVID19 -Nasal RAPID Negative (Negative)
== END ==
PROVIDERS: PCP Family Medicine; Visit Provider Surgery
DX: Z01.812 Encounter for preprocedural laboratory examination (principal); Z20.822 Contact with and (suspected) exposure to COVID-19
CPT/HCPCS: 87635; C9803

== ENCOUNTER 2022-07-31 10:00 | Day surgery (SDC) | payer MEDICARE, SELFPAY ==
[2021-06-18 09:57] VITALS: BMI 36.2
[2022-07-31 10:16] VITALS: BMI 36.6
[2022-07-31 10:23] VITALS: BP 112/66; PULSE 65; RESP 16; TEMP 36.4; O2SAT 97
[2022-07-31] MEDS: LACTATED RINGERS 1,000 ML 200 ML IV (10:41)
--- NOTE | 2022-07-31 11:56 | PM.HP.1 ---
History of Present Illness History of Present Illness Date Patient Seen: 07/31/22 Chief complaint: SCREENING COLONOSCOPY Narrative: Ms. Brand is a pleasant 71-year-old female who presents today for screening colonoscopy. She states her last colonoscopy was probably about 7 or 8 years ago, as far she knows, it was normal. It was done at [facility]. She has no history of colon cancer in the family. She reports no bowel symptoms: denying bloody bowel movements or constipation. She does note some diarrhea that she associated with metformin however this is improved since changing to a different medication. Patient History Medical History Abnormal Pap smear of cervix (~1977) Acute low back pain without sciatica Allergies (~2014) Anxiety (~2017) Bilateral carpal tunnel syndrome Carpal tunnel syndrome (~1992) Cataracts, bilateral (~2018) Cervical somatic dysfunction Chronic left shoulder pain Chronic pain of left knee Chronic right shoulder pain Chronic tension headaches Chronic thoracic back pain Cranial somatic dysfunction Diabetes (~2009) Diarrhea DVT (deep venous thrombosis) (~1975) Easy bruisability Elevated liver enzymes Excessive daytime sleepiness (~2009) Fatigue (~2009) Fibroids (~1980) Fibromyalgia (~2000) Finger joint swelling GERD (gastroesophageal reflux disease) (~2013) History of urinary incontinence (~1993) HLD (hyperlipidemia) HTN (hypertension) (~2005) Hypothyroidism Incontinence of urine Insomnia, psychophysiological Intermittent palpitations Irregular heart rate Joint pain in both hands Lumbar region somatic dysfunction Migraines (~1976) Nightmares associated with chronic post-traumatic stress disorder (~2009) Obesity (BMI 30-39.9) (Unknown) Obstructive sleep apnea, adult (~2019) Osteoarthritis (~2013) Pelvic somatic dysfunction Pneumonia Postmenopausal symptoms PTSD (post-traumatic stress disorder) Rosacea (~2018) Sacral region somatic dysfunction Segmental and somatic dysfunction of abdomen and other regions Segmental and somatic dysfunction of rib cage Sigmoid diverticulitis Somatic dysfunction of abdominal region Somatic dysfunction of lower extremity Stiff neck Systemic lupus erythematosus (~2000) Tension headache Thoracic region somatic dysfunction Thyroid nodule (~2009) Upper extremity somatic dysfunction UTI (urinary tract infection) Vertigo (~2014) Surgical History Anesthesia H/O: hysterectomy (~1978) History of bladder surgery (~1993) History of carpal tunnel release (~1992) History of oophorectomy (~2004) History of right breast biopsy (~1987) Hx of arthroscopy of right knee (~2013) Hx of cholecystectomy (~2003) Hx of tonsillectomy Hx of tubal ligation S/P right unicompartmental knee replacement (~06/2015) Family & Social History Family History Father Hypertension Arthritis Prostate cancer Hyperlipidemia Loud snoring Sleep apnea Obesity Diabetes mellitus Alcohol abuse Mother History of heart disease Hypertension Hyperlipidemia Mental health problem Stroke Insomnia Restless leg Depression Anxiety Alcohol abuse Sister History of heart disease Hypertension Hyperlipidemia Loud snoring Insomnia Restless leg Obesity Anxiety Depression Sister Lupus Arthritis Fibromyalgia Grandfather Alcoholism Grandmother History of heart disease Hypertension Stroke Grandmother Cancer Family/Other Loud snoring Sleep apnea Obesity Hypertension Social History: household members none Tobacco & Substance use: Smoking Status Never smoker alcohol intake never Substance Use Type does not use Meds Home Medications and Allergies Home Medications Medication Instructions Recorded Confirmed Type epinephrine 0.3 mg/0.3 mL 0.3 mg (0.3 mL) IM Q5-15M PRN 06/12/20 07/31/22 Rx injection, auto-injector hypersensitivity reaction #1 ea oxybutynin chloride 10 mg 10 mg PO DAILY #180 tabs 10/29/21 07/31/22 Rx tablet,extended release 24 hr dulaglutide 1.5 mg/0.5 mL 1.5 mg (0.5 mL) SUBCUT QWEEK #2 mL 04/24/22 07/31/22 Rx subcutaneous pen injector ([facility]) cetirizine 10 mg tablet See Rx Instructions .Route 06/02/22 07/31/22 Rx .COMPLEX #90 tabs esomeprazole magnesium 40 mg See Rx Instructions .Route 06/02/22 07/31/22 Rx capsule,delayed release .COMPLEX #90 caps levothyroxine 125 mcg tablet See Rx Instructions .Route 06/02/22 07/31/22 Rx .COMPLEX #90 tabs lisinopril 40 mg tablet See Rx Instructions .Route 06/02/22 07/31/22 Rx .COMPLEX #90 tabs metoprolol succinate 50 mg See Rx Instructions .Route 06/02/22 07/31/22 Rx tablet,extended release 24 hr .COMPLEX #90 tabs sertraline 25 mg tablet See Rx Instructions .Route 06/02/22 07/31/22 Rx .COMPLEX #90 tabs amitriptyline 10 mg tablet 5 mg PO DAILY #90 tabs 06/17/22 07/31/22 Rx nitrofurantoin macrocrystal 100 mg 100 mg PO BID #10 caps 07/24/22 07/31/22 Rx capsule Allergies Allergy/AdvReac Type Severity Reaction Status Date / Time shellfish derived Allergy Severe Anaphylaxis Verified 06/11/22 08:09 morphine AdvReac Severe Vomiting, Verified 06/11/22 08:09 headaches chlorthalidone AdvReac Intermediate ITCHING Verified 06/11/22 08:09 gabapentin AdvReac Intermediate Heartburn Verified 06/11/22 08:09 Exam Vital Signs (past 8 hours): - 07/31/22 10:23 Temperature 97.6 F Pulse Rate 65 Respiratory Rate 16 Blood Pressure 112/66 Pulse Oximetry 97 Oxygen Delivery Method Room Air Oxygen Delivery Method Room Air Const General: cooperative and healthy appearing Nutritional Appearance: obese (36.7) morbidly obese HENMT Head: normal to inspection Eyes General: appearance normal, both eyes and all related structures Chest Chest: normal inspection of the chest Resp Effort & Inspection: normal respiratory effort and able to speak in complete sentences Cardio Rate: regular rate Rhythm: regular rhythm GI Palpation: soft and No tender Extrem General: full ROM Assessment & Plan Assessment & Plan narrative: 71-year-old female presenting for colon cancer screening plan: I discussed with her the risks benefits and alternatives to screening colonoscopy she understood her questions were answered and she wishes to proceed. Time Spent With Patient Time with patient: less than 30 minutes Critical Care time: I spent a total of [] minutes of critical care time on this patient's care today; this time is exclusive of procedural time.
[2022-07-31] MEDS: MIDAZOLAM 5 MG/5 ML VIAL 10 MG IV (13:01)
[2022-07-31] MEDS: fentaNYL 100 MCG/2 ML INJ 300 MCG IV (13:30)
[2022-07-31 13:45] VITALS: BP 108/56; PULSE 59; RESP 16; TEMP 36.5; O2SAT 99
[2022-07-31 13:50] VITALS: BP 110/57; PULSE 62; RESP 16; O2SAT 98
--- NOTE | 2022-07-31 13:50 | PM.OP.COLON ---
Operative Date/Time/Diagnoses Date of procedure: 07/31/22 Pre-op diagnosis: Screening for colon cancer Post-op diagnosis: same Procedure & Clinicians Study performed: colonoscopy and polypectomy Same procedure as scheduled: Yes Indications: colon cancer screening. Surgeon: Nikole Maki Procedure Notes Procedure in detail: 71-year-old female was taken to the endoscopy suite after obtaining informed consent she was placed in a left lateral decubitus position. Moderate sedation was induced after a time-out was performed. A total of 10 mg of Versed and 300 mcg of fentanyl were used in her duration of her sedation the colonoscopy was prolonged as it was difficult to advance the scope from the rectum to the cecum. This was due to several tight turns possibly due to scar tissue from previous surgeries or patient habitus. The cecum was nonetheless reached and examined I saw the appendiceal orifice and the ileocecal valve and withdrawal time was 22 minutes. One polypectomy was performed in the descending colon, the specimen however was lost. The polyp was less than half a cm in size. Patient tolerated the procedure well however due to above-noted issues I would probably schedule her with an anesthesiologist for her follow-up exam in 5 years. Scope withdrawal time: 22 Sedation minutes: 82 Findings: divertiulosis, polyp(s) and other findings (very tight turns possible scar tissue. ) Specimen(s): none sent Complications: none Post-procedure Recommendations: Colonoscopy in 5 years Disposition: PACU
[2022-07-31 13:55] VITALS: BP 110/69; PULSE 74; RESP 17; O2SAT 98
[2022-07-31 14:00] VITALS: BP 121/68; PULSE 55; RESP 16; O2SAT 100
[2022-07-31 14:03] VITALS: BP 110/57; PULSE 62; RESP 16; O2SAT 100
== END 2022-07-31 14:18 | disposition home or self-care (01) ==
PROVIDERS: PCP Family Medicine; Referring Provider Surgery; Visit Provider Surgery
PROC: 0DJD8ZZ Inspection of Lower Intestinal Tract, Via Natural or Artificial Opening Endoscopic (ICD-10-PCS; CPT 45378; principal; 2022-07-31 11:00)
DX: Z12.11 Encounter for screening for malignant neoplasm of colon (principal); K57.30 Diverticulosis of large intestine without perforation or abscess without bleeding; K63.5 Polyp of colon
CPT/HCPCS: 45380; 82962; 99152; 99153; J2250; J3010

== ENCOUNTER → 2022-09-15 10:23 | Outpatient (CLI) | payer MEDICARE, SELFPAY ==
[2021-06-18 09:57] VITALS: BMI 36.2
== END ==
PROVIDERS: PCP Family Medicine; Visit Provider Nurse Practitioner Family
DX: R30.0 Dysuria (principal)
CPT/HCPCS: 87077; 87086; 87186

== ENCOUNTER → 2022-12-18 10:34 | Outpatient (CLI) | payer MEDICARE, SELFPAY ==
[2021-06-18 09:57] VITALS: BMI 36.2
[2022-12-18 11:23] LABS: Add Manual Diff / Slide Review NO; Basophils Absolute Auto 100 /uL (0-100); Eosinophils Absolute Auto 300 /uL (0-450); Eosinophils Percent Auto 4.3 % (2-4); Hematocrit 39.5 % (36-46); Hemoglobin 13.4 g/dL (12.0-16.0); Lymphocytes Absolute Auto 3100 /uL (1100-4500); Lymphocytes Percent Auto 46.9 % (25-40); Mean Corpuscular HGB Conc 33.8 % (30-36); Mean Corpuscular Hemoglobin 27.5 PG (26-34); Mean Corpuscular Volume 81.5 fL (80-100); Monocytes Absolute Auto 300 /uL (0-900); Monocytes Percent Auto 5.2 % (3-14); Neutrophils Absolute Auto 2800 /uL (1500-7000); Neutrophils Percent Auto 42.6 % (50-75); Platelet Count 204 X10^3/uL (150-400); Red Blood Cell Count 4.85 X10^6/uL (4.0-5.2); Red Cell Distribution Width 13.7 % (11.6-14.8); White Blood Cell Count 6.6 X10^3/uL (4.5-11.0)
[2022-12-18 11:35] LABS: Hemoglobin A1C% w Est Avg Glu 5.9 % (4.0-6.0)
[2022-12-18 11:49] LABS: Alanine Aminotransferase 21 IU/L (<35); Albumin 4.1 g/dL (3.5-5.0); Albumin Globulin Ratio 1.1 (1.0-2.8); Alkaline Phosphatase 95 U/L (38-126); Aspartate Aminotransferase 21 IU/L (14-36); Bilirubin Total 0.5 mg/dL (0.2-1.3); Blood Urea Nitrogen 15 mg/dL (7-17); Calcium 9.3 mg/dL (8.4-10.2); Carbon Dioxide 29 mmol/L (22-32); Chloride 100 mmol/L (98-107); Cholesterol 186 mg/dL (140-199); Estimated Glomerular Filt Rate > 60 mL/min (>60); Globulin 3.6 g/dL (1.7-4.1); Glucose 97 mg/dL (80-110); HDL Cholesterol 45 mg/dL (40-60); HEMOLYSIS < 15 (0-50); LDL Cholesterol Calculated 120 mg/dL (<100); Potassium 4.6 mmol/L (3.4-5.1); Sodium 139 mmol/L (137-145); Total Protein 7.7 g/dL (6.3-8.2); Triglycerides 106 mg/dL (35-150)
== END ==
PROVIDERS: PCP Family Medicine; Referring Provider Family Medicine; Visit Provider Family Medicine
DX: E11.9 Type 2 diabetes mellitus without complications (principal); E78.5 Hyperlipidemia, unspecified; I10 Essential (primary) hypertension
CPT/HCPCS: 36415; 80053; 80061; 83036; 85025

== ENCOUNTER → 2023-06-21 09:55 | Outpatient (CLI) | payer MEDICARE, SELFPAY ==
[2021-06-18 09:57] VITALS: BMI 36.2
[2023-06-21 11:04] LABS: Add Manual Diff / Slide Review NO; Basophils Absolute Auto 100 /uL (0-100); Basophils Percent Auto 1.2 % (0-2); Eosinophils Absolute Auto 300 /uL (0-450); Eosinophils Percent Auto 4.6 % (2-4); Hematocrit 39.3 % (36-46); Hemoglobin 13.1 g/dL (12.0-16.0); Lymphocytes Absolute Auto 3500 /uL (1100-4500); Lymphocytes Percent Auto 47.6 % (25-40); Mean Corpuscular HGB Conc 33.2 % (30-36); Mean Corpuscular Hemoglobin 27.8 PG (26-34); Mean Corpuscular Volume 83.5 fL (80-100); Monocytes Absolute Auto 500 /uL (0-900); Monocytes Percent Auto 6.5 % (3-14); Neutrophils Absolute Auto 3000 /uL (1500-7000); Neutrophils Percent Auto 40.1 % (50-75); Platelet Count 194 X10^3/uL (150-400); Red Blood Cell Count 4.71 X10^6/uL (4.0-5.2); Red Cell Distribution Width 12.9 % (11.6-14.8); White Blood Cell Count 7.4 X10^3/uL (4.5-11.0)
[2023-06-21 11:27] LABS: Alanine Aminotransferase 21 IU/L (<35); Albumin Globulin Ratio 1.4 (1.0-2.8); Alkaline Phosphatase 101 U/L (38-126); Aspartate Aminotransferase 20 IU/L (14-36); BUN Creatinine Ratio 25.3 (6-22); Bilirubin Total 0.3 mg/dL (0.2-1.3); Blood Urea Nitrogen 22 mg/dL (7-17); Calcium 9.2 mg/dL (8.4-10.2); Carbon Dioxide 27 mmol/L (22-32); Chloride 101 mmol/L (98-107); Cholesterol 189 mg/dL (140-199); Estimated Glomerular Filt Rate > 60 mL/min (>60); Globulin 2.9 g/dL (1.7-4.1); Glucose 123 mg/dL (80-110); HDL Cholesterol 46 mg/dL (40-60); HEMOLYSIS < 15 (0-50); LDL Cholesterol Calculated 121 mg/dL (<100); Potassium 4.5 mmol/L (3.4-5.1); Sodium 136 mmol/L (137-145); Total Protein 6.9 g/dL (6.3-8.2); Triglycerides 111 mg/dL (35-150)
[2023-06-21 13:39] LABS: Microalbumin Urine Random < 0.6 mg/dL (0-1.6)
[2023-06-21 13:46] LABS: Creatinine Urine Random 71.6 mg/dL
[2023-06-22 02:57] LABS: x Labcorp Estim. Avg Glu (eAG) 128 mg/dL (.); x Labcorp Hemoglobin A1c 6.1 % (4.8-5.6)
[2023-06-25 11:13] LABS: Free T3, Triiodothyronine Free 5.24 pg/mL (2.77-5.27); Free T4, Direct Thyroxine 2.41 ng/dL (0.78-2.19)
[2023-06-25 11:29] LABS: Thyroid Stimulating Hormone < 0.015 uIU/mL (0.47-4.68)
== END ==
PROVIDERS: PCP Family Medicine; Referring Provider Family Medicine; Visit Provider Family Medicine
DX: E11.9 Type 2 diabetes mellitus without complications (principal); E78.5 Hyperlipidemia, unspecified; I10 Essential (primary) hypertension
CPT/HCPCS: 36415; 80053; 80061; 82043; 82570; 83036; 84439; 84443; 84481; 85025

== ENCOUNTER → 2023-08-03 11:22 | Outpatient (CLI) | payer MEDICARE, SELFPAY ==
[2021-06-18 09:57] VITALS: BMI 36.2
--- NOTE | 2023-08-03 | DI.MG.S_ITS ---
BILATERAL DIGITAL SCREENING MAMMOGRAM 3D/2D WITH CAD: 08/03/2023 CLINICAL: Routine screening. Comparison is made to exams dated: 07/23/2022 mammogram - [facility], 11/02/2019 mammogram, and 01/31/2016 mammogram - outside location. Both breasts are almost entirely fatty (category a/<25% glandular tissue). Current study was also evaluated with a Computer Aided Detection (CAD) system. There are benign vascular calcifications in both breasts. No significant masses, calcifications, or other findings are seen in either breast. There has been no significant interval change. IMPRESSION: BENIGN There is no mammographic evidence of malignancy. A 1 year screening mammogram is recommended. Based on the Tyrer Cuzick model (a risk assessment model) the patient's lifetime risk is 2.0% and her 10 year risk is 1.3%. According to the ACR, ACS, and NCCN guidelines, an annual breast MRI exam along with mammogram is recommended if the patient's lifetime risk is 20% or greater. This exam was interpreted at Station ID: [id number]. NOTE: For mammograms, a report in lay terms will be sent to the patient. Approximately 15% of breast malignancies will not be visualized mammographically. In the management of a palpable breast mass, a negative mammogram must not discourage biopsy of a clinically suspicious lesion. Electronically Signed By: Miri owens/jan:08/03/2023 16:25:53 letter sent: Normal Exam ACR BI-RADS Category 2: Benign Finding(s) 3342F
== END ==
PROVIDERS: PCP Family Medicine; Referring Provider Family Medicine; Visit Provider Family Medicine
DX: Z12.31 Encounter for screening mammogram for malignant neoplasm of breast (principal)
CPT/HCPCS: 77063; 77067

== ENCOUNTER → 2023-10-06 09:34 | Outpatient (CLI) | payer MEDICARE, SELFPAY ==
[2021-06-18 09:57] VITALS: BMI 36.2
== END ==
PROVIDERS: PCP Family Medicine; Referring Provider Family Medicine; Visit Provider Family Medicine
DX: R00.2 Palpitations (principal)
CPT/HCPCS: 93246

== ENCOUNTER → 2023-11-06 09:36 | Outpatient (CLI) | payer MEDICARE, SELFPAY ==
[2021-06-18 09:57] VITALS: BMI 36.2
[2023-11-06 10:13] LABS: Add Manual Diff / Slide Review NO; Basophils Absolute Auto 100 /uL (0-100); Basophils Percent Auto 1.2 % (0-2); Eosinophils Absolute Auto 400 /uL (0-450); Eosinophils Percent Auto 5.2 % (2-4); Hematocrit 38.6 % (36-46); Hemoglobin 12.7 g/dL (12.0-16.0); Lymphocytes Absolute Auto 3300 /uL (1100-4500); Lymphocytes Percent Auto 41.8 % (25-40); Mean Corpuscular HGB Conc 32.8 % (30-36); Mean Corpuscular Hemoglobin 27.8 PG (26-34); Mean Corpuscular Volume 84.7 fL (80-100); Monocytes Absolute Auto 500 /uL (0-900); Monocytes Percent Auto 6.1 % (3-14); Neutrophils Absolute Auto 3600 /uL (1500-7000); Neutrophils Percent Auto 45.7 % (50-75); Platelet Count 192 X10^3/uL (150-400); Red Blood Cell Count 4.56 X10^6/uL (4.0-5.2); Red Cell Distribution Width 14.5 % (11.6-14.8); White Blood Cell Count 7.9 X10^3/uL (4.5-11.0)
[2023-11-06 10:22] LABS: Hemoglobin A1C% w Est Avg Glu 6.8 % (4.0-6.0)
[2023-11-06 10:26] LABS: Alanine Aminotransferase 22 IU/L (<35); Albumin 4.3 g/dL (3.5-5.0); Albumin Globulin Ratio 1.4 (1.0-2.8); Alkaline Phosphatase 114 U/L (38-126); Aspartate Aminotransferase 22 IU/L (14-36); BUN Creatinine Ratio 32.3 (6-22); Bilirubin Total 0.5 mg/dL (0.2-1.3); Blood Urea Nitrogen 20 mg/dL (7-17); Calcium 9.5 mg/dL (8.4-10.2); Carbon Dioxide 28 mmol/L (22-32); Chloride 102 mmol/L (98-107); Cholesterol 150 mg/dL (140-199); Estimated Glomerular Filt Rate > 60 mL/min (>60); Globulin 3.1 g/dL (1.7-4.1); Glucose 150 mg/dL (80-110); HDL Cholesterol 62 mg/dL (40-60); HEMOLYSIS < 15 (0-50); LDL Cholesterol Calculated 71 mg/dL (<100); Potassium 4.7 mmol/L (3.4-5.1); Sodium 137 mmol/L (137-145); Total Protein 7.4 g/dL (6.3-8.2); Triglycerides 87 mg/dL (35-150)
[2023-11-06 10:46] LABS: Free T4, Direct Thyroxine 1.12 ng/dL (0.78-2.19)
[2023-11-06 11:58] LABS: Thyroid Stimulating Hormone 4.04 uIU/mL (0.47-4.68)
== END ==
PROVIDERS: Family Provider Family Medicine; PCP Family Medicine; Referring Provider Family Medicine; Visit Provider Family Medicine
DX: E78.5 Hyperlipidemia, unspecified (principal); E03.9 Hypothyroidism, unspecified; I10 Essential (primary) hypertension; K92.2 Gastrointestinal hemorrhage, unspecified
CPT/HCPCS: 36415; 80053; 80061; 83036; 84439; 84443; 85025

== ENCOUNTER 2023-12-01 10:30 | Outpatient (RCR) | payer MEDICARE, SELFPAY ==
[2021-06-18 09:57] VITALS: BMI 36.2
--- NOTE | 2023-10-12 16:40 | ST.OP.ACL ---
Visit Care Team Role Provider Type Alan Wahl DO Family Provider Physician Primary Care Provider Specialty: Family Practice Address: [address] [place] [address], [id number] Email: Randa Rodriguez DO Attending Provider Physician Referring Provider Specialty: [facility] Address: [address] [place] [address], [address], [place], [address] Email: [email or web address] Adult Cognitive Linguistic Evaluation CHIEF WRITER Adult Cognitive Linguistic Eval Start: 10/11/23 14:32 Freq: Status: Active Protocol: Document 10/11/23 14:33 CG (Rec: 10/11/23 17:49 CG [id number]) Adult Cognitive Linguistic Evaluation Session Time Visit Start Time 01:30 Visit Stop Time 02:30 Total Visit Minutes 60 Visit Information Visit Number 1 Plan of Care Dates 10/11/23-01/11/24 Referral Referring Provider Randa Rodriguez Reason for Referral Congitive changes 2/ CVA Setting Assessment Location Outpatient Care Visit Type Note Type Initial evaluation Next Note Type Next Note Type Treatment Note Patient Information Identification Type Name Patient History Veronica Brand is a pleasant 72 year old female referred to this clinic for a cognitive-linguistic evaluation due to ongoing cognitive concerns following admission for a stroke on August 24, while she was in [place] visiting her daughter, Nanci. The pt has a history of recent diagnosis of DAVIS with CPAP recommended, diabetes, history of DVT, GERD, hyperlipidemia, hypertension, hypothyroidism, fibromyalgia, lupus, arthritis, irregular heartbeat , and migraines. She called her primary care provider on 08/24 while she was in [place] because of confusion and lost track of time, stating she didn't remember how she got to [place]. She was admitted to [facility] in [place] on 08/24 for ischemic stroke and discharged on 08/26. CT in the ED did not show it, but MRI the next morning showed small acute left medial temporal infarction. Carotid duplex showed less than 50% stenosis bilaterally. Her blood sugars were very low during admission and she was not taking any diabetic medications and hasn't since discharge, per recent family practice visit report. She returned to the ED on for chest pain and shortness of breath. A d-dimer was elevated. She had CT PE protocol which was negative. She had CT abd/pelvis because of left upper abdominal pain and some rectal bleeding which showed diffuse wall thickening of the sigmoid colon indicating colitis. She was given antibiotics. She was also found to be COVID positive at that time and was given steroids to help her breathing. Immediately after her stroke, the pt states she was experiencing speech disturbances including stuttering. However, she states that these have since resolved. She still complains of fatigue and confusion. Her confusion is apparently exacerbated by fatigue and/or frustration. As an example, she stated that she was recently making phone calls to insurance due to medical bills from her hospitalization in [place]. She states she was able to follow the conversation for the most part until the person on the other end mentioned something about a bill being past due. She stated that as soon as she heard the words past due, she felt emotional, confused, and frustrated, which caused her mind to go completely blank and unable to continue to conversation or think of any words. She further stated that she feels her brain short-circuits whenever she gets flustered. The pt stated that she feels these cognitive symptoms have been relatively stable since discharge from the hospital. The pt lives at home alone, but has recently been getting assistance from one of her daughters, who is helping manage medication as well as creating visual aids for her mother (i.e. a sheet of phone numbers and information for pertinent calls related to insurance). The pt also endorses visual disturbance which she describes as feeling like stationary objects in her visual field are moving around. Language(s) Spoken in the Home Romanian, Divehi Education Level Some college Hearing Hearing Level Normal Vision Vision Status Impaired Comments Pt states it feels like her visual field is moving; hard to focus Previous Therapy Previous Speech-Language Therapy No Subjective Patient Report The pt arrived to her appointment independently and on time. It is unclear if she drove herself or had an alternative method of transportation. She was pleasant, alert, and oriented. She did become teary occasionally during the formal assessment due to frustration on some challenging evaluation items, but was agreeable throughout the evaluation. Mental Status Alert,Responsive,Cooperative Assessment Oral Motor Examination Completed No Results Oral motor structure and function appear grossly intact for speech and swallowing Informal Assessment Receptive Language Normal No: Mild deficit in multi-step directions Receptive Language Impairment(s) Following 3-step commands Expressive Language Normal No: Mild deficits in divergent naming Expressive Language Impairment(s) Divergent naming Pragmatic Language Normal Yes Speech Normal Yes Cognition Normal No: Mild impairments Cognitive Impairment(s) Attention,Short-term memory, Problem solving Formal Assessment Standardized Test/Screener Type Scales of Cognitive and Communicative Ability (SCCAN) Administration Incomplete Results The Scales of Cognitive and Communicative Ability for Neurorehabilitation (SCCAN) was administered, with a few items omitted due to time constraints. All scores below are based on total possible score given the items administered: Total Raw Score: 84% Oral Expression: 89% Orientation: 100% Memory: 63% Speech Comprehension: 92% Reading Comprehension: 100% Attention: 71% Problem Solvin% Based on the pt's raw percentage score, her total raw score was scaled in order to obtain an estimated total raw score if the entire assessment had been completed. That is, since there are 94 total items on the assessment and the pt scored 84% (70/83) of the items administered today correctly, the total possible raw score (94) was multiplied by .84 to obtain an estimated total raw score to compare against the SCCAN's normative data. This provided an estimated raw score of 78.9 , though there are obvious methodological shortcomings to obtaining this estimate. Given the estimated total score of 78.9, the pt's cognitive impairment would be categorized by the SCCAN as Mild Impairment (Raw Scores of 69-86). The pt had the most difficulty in the areas of memory - specifically, in short term/ working memory - and attention . Attention was likely negatively impacted by ongoing visual changes reported by the patient. Findings/Results Language Function Within functional limits Cognitive Function Mildly impaired Findings As stated above in Formal Assessment: Results section, the pt's score on the SCCAN roughly corresponds with Mild Impairment in the cognitive- linguistic domain. The pt demonstrated relative strengths in receptive language (with the exception of following multi-step directions, which is impacted by working memory) and in expressive language, as well as pragmatic language. She demonstrated the most difficulty in the areas of memory, attention, and problem solving. Visual attention seems to be a significant difficulty for the pt, which is exacerbated by visual disturbance that have been ongoing since the stroke. Given this, it is recommended that the pt be referred to an trust manager assistant in the short term, and ideally a neuro- opthalmologist as soon as possible. There is some concern for pt's safety with ADLs and IADLs depending on the severity of her visual impairment. Cognitive Communication Deficits Self-awareness of Cognitive- Predictive awareness (able to Communication Deficits predict problem; impact of impairments) Concomitant Factors Concomitant Factors Other (comment) Comment Visual disturbance Impact on Functioning Activity Limits/Particip.Rest. Mild: General Tasks and Demands Household Tasks Mod: Interpersonal Interactions Community Safety Risks Mod: Managing Medication Traveling Alone in Community Comment Recommend help from family for IADLs for now Prognosis Prognosis Good Based on Cognitive status,Family support Plan of Care Speech-Language Treatment Yes Frequency every 1-2 weeks Duration 3 months Patient/Caregiver Education Described results of evaluation,Patient expressed understanding of evaluation, Patient expressed agreement with goals and treatment plans ,Patient requires further education/training Short Term Goals 1. Pt will complete visual scanning/visual attention tasks with 70% accuracy given compensatory strategies ( visual anchors, self talk, etc ). 2. Pt will develop and utilize external aids for cognition in order to increase ability to complete IADLs without the need for assistance from others. 3. Pt will recall a list of 4- 5 in 80% of opportunities by using internal memory strategies. Senior Care Goals Pt will benefit from education in compensatory strategies for memory/cognition in order to increase ability to complete ADLs and IADLs. Pt will answer questions related to a functional visual stimulus (e.g. map, menu, etc ) with 80% accuracy independently by utilizing trained strategies. Discharge Recommendations Home,Other (comment): help from family for IADLs temporarily
--- NOTE | 2023-10-12 16:41 | ST.OPPOC ---
Physical, Occupational & Speech Therapy At [facility] Visit Care Team Role Provider Type Alan Wahl DO Family Provider Physician Primary Care Provider Address: [address] [place] [address], [id number] Randa Rodriguez DO Attending Provider Physician Referring Provider Address: [address] [place] [address], [address], [place], [address] Speech Pathology Plan of Care Plan of Care Dates 10/11/23-01/11/24 Referring Provider Randa Rodriguez Patient History Veronica Brand is a pleasant 72 year old female referred to this clinic for a cognitive-linguistic evaluation due to ongoing cognitive concerns following admission for a stroke on August 24, while she was in [place] visiting her daughter, Nanci. The pt has a history of recent diagnosis of DAVIS with CPAP recommended, diabetes, history of DVT, GERD, hyperlipidemia, hypertension, hypothyroidism, fibromyalgia, lupus, arthritis, irregular heartbeat, and migraines. She called her primary care provider on 08/24 while she was in [place] because of confusion and lost track of time, stating she didn't remember how she got to [place]. She was admitted to [facility] in [place] on 08/24 for ischemic stroke and discharged on 08/26. CT in the ED did not show it, but MRI the next morning showed small acute left medial temporal infarction. Carotid duplex showed less than 50% stenosis bilaterally. Her blood sugars were very low during admission and she was not taking any diabetic medications and hasn't since discharge, per recent family practice visit report. She returned to the ED on 09/02 for chest pain and shortness of breath. A d-dimer was elevated. She had CT PE protocol which was negative. She had CT abd/pelvis because of left upper abdominal pain and some rectal bleeding which showed diffuse wall thickening of the sigmoid colon indicating colitis. She was given antibiotics. She was also found to be COVID positive at that time and was given steroids to help her breathing. Immediately after her stroke, the pt states she was experiencing speech disturbances including stuttering. However, she states that these have since resolved. She still complains of fatigue and confusion. Her confusion is apparently exacerbated by fatigue and/or frustration. As an example, she stated that she was recently making phone calls to insurance due to medical bills from her hospitalization in [place]. She states she was able to follow the conversation for the most part until the person on the other end mentioned something about a bill being past due. She stated that as soon as she heard the words past due, she felt emotional, confused, and frustrated, which caused her mind to go completely blank and unable to continue to conversation or think of any words. She further stated that she feels her brain short-circuits whenever she gets flustered. The pt stated that she feels these cognitive symptoms have been relatively stable since discharge from the hospital. The pt lives at home alone, but has recently been getting assistance from one of her daughters, who is helping manage medication as well as creating visual aids for her mother (i.e . a sheet of phone numbers and information for pertinent calls related to insurance). The pt also endorses visual disturbance which she describes as feeling like stationary objects in her visual field are moving around. Self-awareness of Cognitive- Predictive awareness (abl Communication Deficits General Tasks and Demands Mild Household Tasks Mild Interpersonal Interactions Moderate Community Moderate Managing Medication Moderate Traveling Alone in Community Moderate Comment Recommend help from family for IADLs for now Short Term Goals 1. Pt will complete visual scanning/visual attention tasks with 70% accuracy given compensatory strategies (visual anchors, self talk, etc). 2. Pt will develop and utilize external aids for cognition in order to increase ability to complete IADLs without the need for assistance from others. 3. Pt will recall a list of 4-5 in 80% of opportunities by using internal memory strategies. Environmental Services Specialist Goals Pt will benefit from education in compensatory strategies for memory/cognition in order to increase ability to complete ADLs and IADLs. Pt will answer questions related to a functional visual stimulus (e.g. map, menu, etc) with 80% accuracy independently by utilizing trained strategies. Comment: Electronically Signed by: ILENE Collins 10/12/23 [id number] *Please note: OPERATIONAL INTELLIGENCE OFFICER recommends referral to home theater specialist and/or neuro-home theater specialist to assess vision. There is concern for safety with IADLs given pt's apparent ongoing visual disturbance 2/CVA. * If you are in agreement with this Plan of Care, please return a signed and dated copy. I have reviewed this Plan of Care and certify that the skilled therapy services above are required to meet the patient?s needs. Physician Signature Date Printed Name and Credentials Clinical Instructor Signature Printed Name and Credentials
--- NOTE | 2023-10-19 11:50 | ST.OPTN ---
Visit Care Team Role Provider Type Alan Wahl DO Family Provider Physician Primary Care Provider Address: [address] [place] [address], [id number] Randa Rodriguez DO Attending Provider Physician Referring Provider Address: [address] [place] [address], [address], [place], [address] SUSTAINABILITY DIRECTOR Treatment Note SUSTAINABILITY DIRECTOR Treatment Note Start: 10/19/23 11:19 Freq: Status: Active Protocol: Document 10/19/23 11:29 CG (Rec: 10/19/23 11:36 CG [id number]) Speech Pathology Treatment Note Session Time Visit Start Time 10:30 Visit Stop Time 11:15 Total Visit Minutes 45 Visit Information Visit Number 2 Plan of Care Dates 10/11/23-01/11/24 Setting Treatment Setting Outpatient Care Next Note Type Next Note Type Treatment Note General Information Patient History Veronica Brand is a pleasant 72 year old female referred to this clinic for a cognitive-linguistic evaluation due to ongoing cognitive concerns following admission for a stroke on August 24, while she was in [place] visiting her daughter, Nanci. The pt has a history of recent diagnosis of DAVIS with CPAP recommended, diabetes, history of DVT, GERD, hyperlipidemia, hypertension, hypothyroidism, fibromyalgia, lupus, arthritis, irregular heartbeat , and migraines. She called her primary care provider on 08/24 while she was in [place] because of confusion and lost track of time, stating she didn't remember how she got to [place]. She was admitted to [facility] in [place] on 08/24 for ischemic stroke and discharged on 08/26. CT in the ED did not show it, but MRI the next morning showed small acute left medial temporal infarction. Carotid duplex showed less than 50% stenosis bilaterally. Her blood sugars were very low during admission and she was not taking any diabetic medications and hasn't since discharge, per recent family practice visit report. She returned to the ED on for chest pain and shortness of breath. A d-dimer was elevated. She had CT PE protocol which was negative. She had CT abd/pelvis because of left upper abdominal pain and some rectal bleeding which showed diffuse wall thickening of the sigmoid colon indicating colitis. She was given antibiotics. She was also found to be COVID positive at that time and was given steroids to help her breathing. Immediately after her stroke, the pt states she was experiencing speech disturbances including stuttering. However, she states that these have since resolved. She still complains of fatigue and confusion. Her confusion is apparently exacerbated by fatigue and/or frustration. As an example, she stated that she was recently making phone calls to insurance due to medical bills from her hospitalization in [place]. She states she was able to follow the conversation for the most part until the person on the other end mentioned something about a bill being past due. She stated that as soon as she heard the words past due, she felt emotional, confused, and frustrated, which caused her mind to go completely blank and unable to continue to conversation or think of any words. She further stated that she feels her brain short-circuits whenever she gets flustered. The pt stated that she feels these cognitive symptoms have been relatively stable since discharge from the hospital. The pt lives at home alone, but has recently been getting assistance from one of her daughters, who is helping manage medication as well as creating visual aids for her mother (i.e. a sheet of phone numbers and information for pertinent calls related to insurance). The pt also endorses visual disturbance which she describes as feeling like stationary objects in her visual field are moving around. Objective Short Term Goals 1. Pt will complete visual scanning/visual attention tasks with 70% accuracy given compensatory strategies ( visual anchors, self talk, etc ). 2. Pt will develop and utilize external aids for cognition in order to increase ability to complete IADLs without the need for assistance from others. 3. Pt will recall a list of 4- 5 in 80% of opportunities by using internal memory strategies. Sock Boarder Goals Pt will benefit from education in compensatory strategies for memory/cognition in order to increase ability to complete ADLs and IADLs. Pt will answer questions related to a functional visual stimulus (e.g. map, menu, etc ) with 80% accuracy independently by utilizing trained strategies. Treatment Activities Introduced multi-store model of memory with education in various domains of memory/ cognition including attention, short term memory, and nursing home memory. Completed visual scanning activity (letter cancellation) with SUSTAINABILITY DIRECTOR providing education in compensatory strategies including visual anchor and self-talk to systematically scan row by row or column by column. Discussed at length a list of internal memory strategies with SUSTAINABILITY DIRECTOR providing education in use of these strategies. Strategies included: rehearsal, association, chunking, visualization, acronyms. Practiced visualization strategy with a list of five items in order to practice use of strategy. Additionally, briefly discussed common cognitive distortions in relation to our emotional response to memory errors. Assessment Patient Response to Treatment Excellent Rehab Potential Excellent Impairments Identified Cognitive communication Progress Towards Goals Excellent Progress Assessment of Overall Progress Improving Assessment of Improvement Pt states that she has been utilizing external aides more frequently since initial evaluation and SUSTAINABILITY DIRECTOR recommendation to embrace these strategies. She states that giving herself the ronnie to use these tools rather than trying to remember everything herself has significantly decreased her stress level and reports fewer negative emotional responses to her cognition. Specifically, she reported preparing for phone conversations by taking time to write a list of necessary information to reference during the phone call and preparing herself for the call . She also states she uses a strategy of asking for people' s names multiple timeas in order to help it better stick. She also reports decreased visual disturbance since the evaluation, which is consistent with her performance on visual scanning tasks today. She was able to complete letter cancellation tasks with 100% accuracy independently this session and stated she didn't feel she had to strain her eyes or that things in her visual field were moving around. She states she has been practicing visual scanning at home by completing word search puzzles . Krystal was highly receptive to all internal memory strategies discussed this session. Using visualization strategies , she was able to remember 3 out of a list of 5 unrelated items after a 3 minute delay with distraction. Will review next session to see which strategies she has been able to implement into everyday life, and will introduce external strategies. Patient/Caregiver Understanding Excellent Plan Amount of Therapy Recommended 2-3 Months Frequency of Treatment Once a Week Length of Session 45 Minutes Treatment Emphasis Next Session External memory strategies Therapeutic Contents Client Education,Cognitive- Linguistic Training Provided Patient/Caregiver Instruction Questions/Concerns
--- NOTE | 2023-10-26 11:32 | ST.OPTN ---
Visit Care Team Role Provider Type Alan Wahl DO Family Provider Physician Primary Care Provider Address: [address] [place] [address], [id number] Randa Rodriguez DO Attending Provider Physician Referring Provider Address: [address] [place] [address], [address], [place], [address] DIRT BIKE MECHANIC Treatment Note DIRT BIKE MECHANIC Treatment Note Start: 10/19/23 11:19 Freq: Status: Active Protocol: Document 10/26/23 11:21 CG (Rec: 10/26/23 11:32 CG [id number]) Speech Pathology Treatment Note Session Time Visit Start Time 10:30 Visit Stop Time 11:15 Total Visit Minutes 45 Visit Information Visit Number 3 Plan of Care Dates 10/11/23-01/11/24 Setting Treatment Setting Outpatient Care Next Note Type Next Note Type Treatment Note General Information Patient History Veronica Brand is a pleasant 72 year old female referred to this clinic for a cognitive-linguistic evaluation due to ongoing cognitive concerns following admission for a stroke on August 24, while she was in [place] visiting her daughter, Nanci. The pt has a history of recent diagnosis of DAVIS with CPAP recommended, diabetes, history of DVT, GERD, hyperlipidemia, hypertension, hypothyroidism, fibromyalgia, lupus, arthritis, irregular heartbeat , and migraines. She called her primary care provider on 08/24 while she was in [place] because of confusion and lost track of time, stating she didn't remember how she got to [place]. She was admitted to [facility] in [place] on 08/24 for ischemic stroke and discharged on 08/26. CT in the ED did not show it, but MRI the next morning showed small acute left medial temporal infarction. Carotid duplex showed less than 50% stenosis bilaterally. Her blood sugars were very low during admission and she was not taking any diabetic medications and hasn't since discharge, per recent family practice visit report. She returned to the ED on for chest pain and shortness of breath. A d-dimer was elevated. She had CT PE protocol which was negative. She had CT abd/pelvis because of left upper abdominal pain and some rectal bleeding which showed diffuse wall thickening of the sigmoid colon indicating colitis. She was given antibiotics. She was also found to be COVID positive at that time and was given steroids to help her breathing. Immediately after her stroke, the pt states she was experiencing speech disturbances including stuttering. However, she states that these have since resolved. She still complains of fatigue and confusion. Her confusion is apparently exacerbated by fatigue and/or frustration. As an example, she stated that she was recently making phone calls to insurance due to medical bills from her hospitalization in [place]. She states she was able to follow the conversation for the most part until the person on the other end mentioned something about a bill being past due. She stated that as soon as she heard the words past due, she felt emotional, confused, and frustrated, which caused her mind to go completely blank and unable to continue to conversation or think of any words. She further stated that she feels her brain short-circuits whenever she gets flustered. The pt stated that she feels these cognitive symptoms have been relatively stable since discharge from the hospital. The pt lives at home alone, but has recently been getting assistance from one of her daughters, who is helping manage medication as well as creating visual aids for her mother (i.e. a sheet of phone numbers and information for pertinent calls related to insurance). The pt also endorses visual disturbance which she describes as feeling like stationary objects in her visual field are moving around. Subjective Chief Complaint(s) Cognitive Objective Short Term Goals 1. Pt will complete visual scanning/visual attention tasks with 70% accuracy given compensatory strategies ( visual anchors, self talk, etc ). 2. Pt will develop and utilize external aids for cognition in order to increase ability to complete IADLs without the need for assistance from others. 3. Pt will recall a list of 4- 5 in 80% of opportunities by using internal memory strategies. Prison Goals Pt will benefit from education in compensatory strategies for memory/cognition in order to increase ability to complete ADLs and IADLs. Pt will answer questions related to a functional visual stimulus (e.g. map, menu, etc ) with 80% accuracy independently by utilizing trained strategies. Treatment Activities This session focused on discussing the use of external aids for cognition, including completing informal inventory of functional cognitive tasks to determine which were most difficult for the pt. After task inventory was completed, a compensatory techniques inventory was also completed to determine what techniques the pt already has in place versus areas where additional external aids might be needed. Discussed using [id number]-[id number]-Rf worksheet for completing multi -step tasks. Assessment Patient Response to Treatment Excellent Rehab Potential Excellent Impairments Identified Cognitive communication Progress Towards Goals Excellent Progress Assessment of Overall Progress Improving Assessment of Improvement Pt has been increasing her use of external aids, which she states has been a significant help for decreasing stress level related to remembering appointments and events. She stated after last session, she went through and wrote out a paper finished goods planner, which she now places by her chair to review each morning. She also states she is using a lot of lists and is practicing reading in her free time with a large print Bible, but is also giving herself breaks when she begins to feel mentally fatigued. Throughout the appointment, Krystal independently took notes about strategies and information discussed in a small personal notebook she had brought, indicating good carryover of use of external aids for cognition. She is also using her Elly device at home to remind her to complete ADLs such as remembering to move over the laundry. She does keep her medicine in a pill organizer, but still has some difficulty with med management. She was interested in pill organizers with timer/alarm as introduced by DIRT BIKE MECHANIC and stated she was going to look into ordering one with the help of her family. Her family is also coming to help integrate her Elly device with her phone, so that reminders will pop up on both. Krystal was very receptive to Rdxa-Oxro-Kq strategy and stated she felt it would be helpful for monthly bill paying and also for completing a recipe. She was receptive to DIRT BIKE MECHANIC suggestion to journal each night about the day's events, in order to recall them the next day. Overall, Krystal stated that she feels her memory is getting better and better each week. She is consistent with using external aids and has become more conscious of her stress level and how this affects her memory and cognition. Next session, plan to review internal memory strategies and practice using these to recall lists. Patient/Caregiver Understanding Excellent Plan Amount of Therapy Recommended 2-3 Months Frequency of Treatment Once a Week Length of Session 45 Minutes Treatment Emphasis Next Session Review internal strategies Therapeutic Contents Client Education,Cognitive- Linguistic Training Provided Patient/Caregiver Instruction Questions/Concerns
--- NOTE | 2023-11-02 11:25 | ST.OPTN ---
Visit Care Team Role Provider Type Alan Wahl DO Family Provider Physician Primary Care Provider Address: [address] [place] [address], [id number] Randa Rodriguez DO Attending Provider Physician Referring Provider Address: [address] [place] [address], [address], [place], [address] MEDICAL STAFF ASSISTANT Treatment Note MEDICAL STAFF ASSISTANT Treatment Note Start: 10/19/23 11:19 Freq: Status: Active Protocol: Document 11/02/23 11:16 CG (Rec: 11/02/23 11:25 CG [id number]) Speech Pathology Treatment Note Session Time Visit Start Time 10:30 Visit Stop Time 11:15 Total Visit Minutes 45 Visit Information Visit Number 4 Plan of Care Dates 10/11/23-01/11/24 Setting Treatment Setting Outpatient Care Next Note Type Next Note Type Treatment Note General Information Patient History Veronica Brand is a pleasant 72 year old female referred to this clinic for a cognitive-linguistic evaluation due to ongoing cognitive concerns following admission for a stroke on August 24, while she was in [place] visiting her daughter, Nanci. The pt has a history of recent diagnosis of DAVIS with CPAP recommended, diabetes, history of DVT, GERD, hyperlipidemia, hypertension, hypothyroidism, fibromyalgia, lupus, arthritis, irregular heartbeat , and migraines. She called her primary care provider on 08/24 while she was in [place] because of confusion and lost track of time, stating she didn't remember how she got to [place]. She was admitted to [facility] in [place] on 08/24 for ischemic stroke and discharged on 08/26. CT in the ED did not show it, but MRI the next morning showed small acute left medial temporal infarction. Carotid duplex showed less than 50% stenosis bilaterally. Her blood sugars were very low during admission and she was not taking any diabetic medications and hasn't since discharge, per recent family practice visit report. She returned to the ED on for chest pain and shortness of breath. A d-dimer was elevated. She had CT PE protocol which was negative. She had CT abd/pelvis because of left upper abdominal pain and some rectal bleeding which showed diffuse wall thickening of the sigmoid colon indicating colitis. She was given antibiotics. She was also found to be COVID positive at that time and was given steroids to help her breathing. Immediately after her stroke, the pt states she was experiencing speech disturbances including stuttering. However, she states that these have since resolved. She still complains of fatigue and confusion. Her confusion is apparently exacerbated by fatigue and/or frustration. As an example, she stated that she was recently making phone calls to insurance due to medical bills from her hospitalization in [place]. She states she was able to follow the conversation for the most part until the person on the other end mentioned something about a bill being past due. She stated that as soon as she heard the words past due, she felt emotional, confused, and frustrated, which caused her mind to go completely blank and unable to continue to conversation or think of any words. She further stated that she feels her brain short-circuits whenever she gets flustered. The pt stated that she feels these cognitive symptoms have been relatively stable since discharge from the hospital. The pt lives at home alone, but has recently been getting assistance from one of her daughters, who is helping manage medication as well as creating visual aids for her mother (i.e. a sheet of phone numbers and information for pertinent calls related to insurance). The pt also endorses visual disturbance which she describes as feeling like stationary objects in her visual field are moving around. Subjective Chief Complaint(s) Cognitive Objective Short Term Goals 1. Pt will complete visual scanning/visual attention tasks with 70% accuracy given compensatory strategies ( visual anchors, self talk, etc ). 2. Pt will develop and utilize external aids for cognition in order to increase ability to complete IADLs without the need for assistance from others. 3. Pt will recall a list of 4- 5 in 80% of opportunities by using internal memory strategies. Graining Machine Operator Goals Pt will benefit from education in compensatory strategies for memory/cognition in order to increase ability to complete ADLs and IADLs. Pt will answer questions related to a functional visual stimulus (e.g. map, menu, etc ) with 80% accuracy independently by utilizing trained strategies. Treatment Activities Reviewed external strategies discussed last session, including brainstorming use for Pbel-Bxyq-Iy worksheet. Additionally, reviewed internal memory strategies as discussed in previous sessions . Session then focused on practicing using internal memory strategies to memorize lists of 3-5 words/items/tasks . Began with unassociated word lists of 3, followed by word- chaining lists of 4, and then followed by memorizing functional lists of 5 ( ingredient list and daily to- do list), with 1-2 minute delay/distraction between encoding and retrieval of list . Assessment Patient Response to Treatment Excellent Rehab Potential Excellent Impairments Identified Cognitive communication Progress Towards Goals Excellent Progress Assessment of Overall Progress Improving Assessment of Improvement Pt states she is continuing to use external aids for cognition, especially lists and merchandise planner/calendar book. She states she is planning to use Nfxs-Snej-Bi worksheet to assist with cooking this evening. She is slowly increasing the amount of time she is able to tolerate cognitive tasks, such as reading, at one time. She is now able to read for about half an hour at a time. During list recall activities, Krystal utilized internal memory strategies to recall lists of 4-5 with 94% accuracy independently, increasing to 100% accuracy given min-mod verbal cues from MEDICAL STAFF ASSISTANT. MEDICAL STAFF ASSISTANT reminded pt that external strategies will be more functional for most IADL tasks ; however, pt stated she felt increased confidence in her ability to utilize internal strategies when necessary. Given pt's excellent progress, plan to see patient for scheduled appt on Dec 01 to review carryover of all strategies, but anticipate possible d/c after that session. Patient/Caregiver Understanding Excellent Plan Amount of Therapy Recommended 2-3 Months Frequency of Treatment Once a Week Length of Session 45 Minutes Treatment Emphasis Next Session Review carryover Therapeutic Contents Client Education,Cognitive- Linguistic Training Provided Patient/Caregiver Instruction Questions/Concerns
--- NOTE | 2023-12-01 10:59 | ST.OPDS ---
Addendum entered and electronically signed by Melody Collins 12/01/23 11:00: Add referring provider Original Note: Visit Care Team Role Provider Type Alan Wahl DO Family Provider Physician Primary Care Provider Address: [address] [place] [address], [id number] Randa Rodriguez DO Attending Provider Physician Referring Provider Address: [address] [place] [address], [address], [place], [address] [employer]OLD MA[employer] SHEETS SUPERVISOR Discharge Note M[employer] MA[employer] SHEETS SUPERVISOR Discharge Note Start: 10/19/23 11:19 Freq: Status: Active Protocol: Document 12/01/23 10:45 CG (Rec: 12/01/23 10:58 CG [id number]) Speech Pathology Treatment Note Session Time Visit Start Time 10:30 Visit Stop Time 10:45 Total Visit Minutes 15 Visit Information Visit Number 5 Plan of Care Dates 10/11/23-01/11/24 Setting Treatment Setting Outpatient Care Next Note Type Next Note Type Discharge Summary General Information Patient History Veronica Brand is a pleasant 72 year old female referred to this clinic for a cognitive-linguistic evaluation due to ongoing cognitive concerns following admission for a stroke on August 24, while she was in [place] visiting her daughter, Nanci. The pt has a history of recent diagnosis of DAVIS with CPAP recommended, diabetes, history of DVT, GERD, hyperlipidemia, hypertension, hypothyroidism, fibromyalgia, lupus, arthritis, irregular heartbeat , and migraines. She called her primary care provider on 08/24 while she was in [place] because of confusion and lost track of time, stating she didn't remember how she got to [place]. She was admitted to [facility] in [place] on 08/24 for ischemic stroke and discharged on 08/26. CT in the ED did not show it, but MRI the next morning showed small acute left medial temporal infarction. Carotid duplex showed less than 50% stenosis bilaterally. Her blood sugars were very low during admission and she was not taking any diabetic medications and hasn't since discharge, per recent family practice visit report. She returned to the ED on for chest pain and shortness of breath. A d-dimer was elevated. She had CT PE protocol which was negative. She had CT abd/pelvis because of left upper abdominal pain and some rectal bleeding which showed diffuse wall thickening of the sigmoid colon indicating colitis. She was given antibiotics. She was also found to be COVID positive at that time and was given steroids to help her breathing. Immediately after her stroke, the pt states she was experiencing speech disturbances including stuttering. However, she states that these have since resolved. She still complains of fatigue and confusion. Her confusion is apparently exacerbated by fatigue and/or frustration. As an example, she stated that she was recently making phone calls to insurance due to medical bills from her hospitalization in [place]. She states she was able to follow the conversation for the most part until the person on the other end mentioned something about a bill being past due. She stated that as soon as she heard the words past due, she felt emotional, confused, and frustrated, which caused her mind to go completely blank and unable to continue to conversation or think of any words. She further stated that she feels her brain short-circuits whenever she gets flustered. The pt stated that she feels these cognitive symptoms have been relatively stable since discharge from the hospital. The pt lives at home alone, but has recently been getting assistance from one of her daughters, who is helping manage medication as well as creating visual aids for her mother (i.e. a sheet of phone numbers and information for pertinent calls related to insurance). The pt also endorses visual disturbance which she describes as feeling like stationary objects in her visual field are moving around. Subjective Chief Complaint(s) Cognitive Objective Short Term Goals 1. Pt will complete visual scanning/visual attention tasks with 70% accuracy given compensatory strategies ( visual anchors, self talk, etc ). 2. Pt will develop and utilize external aids for cognition in order to increase ability to complete IADLs without the need for assistance from others. 3. Pt will recall a list of 4- 5 in 80% of opportunities by using internal memory strategies. Prison Goals Pt will benefit from education in compensatory strategies for memory/cognition in order to increase ability to complete ADLs and IADLs. Pt will answer questions related to a functional visual stimulus (e.g. map, menu, etc ) with 80% accuracy independently by utilizing trained strategies. Treatment Activities Reviewed carryover with strategies and discussed using visual timeline for time management. Administered Mini Mental Status Examination ( MMSE) as a probe to determine patient progress. Discussed discharge plan to continue with use of strategies. Assessment Patient Response to Treatment Excellent Rehab Potential Excellent Impairments Identified Cognitive communication Progress Towards Goals Excellent Progress Assessment of Overall Progress Improving Assessment of Improvement Pt states she is continuing to use external aids for cognition When asked which strategies she is using, she stated I use the repetition - - that one works really well for me. She also describes using self-talk/narration, stating, if there's anything I need to remember, I say it to myself. She reports that she has a number of post-it note reminders on her kitchen cabinets that say Remember! which prompt her to practice retrieval of important tasks, but she also has a written list in her phone as a backup external aid in case she can't recall independently. She also reported that she went to the eye doctor yesterday, who reported that she had a small amount of peripheral vision loss, but was cleared to drive from a visual perspective. On MMSE task, Krystal scored a 29 /30. According to the creators of the MMSE, scores between 24 and 30 are interpreted as No Cognitive Impairment. Based on the pt's excellent progress with using external and internal memory strategies in addition to overall cognitive status as measured by MMSE and MOLD MA[employer] SHEETS SUPERVISOR observation during sessions, will d/c the patient at this time. She may continue to need some assistance with complex IADLs occasionally, but she does not present with cognitive concerns that would immediately impact her safety based on current presentation. Reviewed with Patient Progress Being Made Patient/Caregiver Understanding Excellent Plan Amount of Therapy Recommended No Further Therapy Length of Session 45 Minutes Therapeutic Contents Client Education,Cognitive- Linguistic Training Provided Patient/Caregiver Instruction Questions/Concerns Therapy Recommendations Discharge from Speech Therapy
== END 2023-12-03 15:20 | disposition home or self-care (01) ==
LOC: SP 10:30
PROVIDERS: Family Provider Family Medicine; PCP Family Medicine; Referring Provider Family Medicine; Visit Provider Family Medicine
DX: I63.9 Cerebral infarction, unspecified (principal); Z86.73 Personal history of transient ischemic attack (TIA), and cerebral infarction without residual deficits; E03.9 Hypothyroidism, unspecified
CPT/HCPCS: 96125; 97129; 97130

== ENCOUNTER → 2023-12-31 09:14 | Outpatient (CLI) | payer MEDICARE, MEDICAID, SELFPAY ==
[2021-06-18 09:57] VITALS: BMI 36.2
--- NOTE | 2023-12-31 09:18 | DI.RAD.S_ITS ---
PROCEDURE: XR HIP W PEL IF DONE KIKI MIN 4V INDICATIONS: Chronic hip pain, new pelvic/posterior pain TECHNIQUE: AP pelvis with lateral view(s) of the bilateral hip(s). COMPARISON: None. FINDINGS: Bones: No fractures or dislocations. Right worse than left bilateral hip joint osteoarthritic changes are seen. No evidence of avascular necrosis of femoral head. Pelvic ring appears intact. No suspicious bony lesions. Soft tissues: The visualized bowel gas pattern is normal. No suspicious soft tissue calcifications. IMPRESSION: Moderate right hip joint osteoarthritis and [id number] left hip joint osteoarthritis. No acute pelvic or hip fracture. No evidence of avascular necrosis. Dictated by: Nabeel Garcia M.D. on 12/31/2023 at 15:07 Approved by: Nabeel Garcia M.D. on 12/31/2023 at 15:08
== END ==
PROVIDERS: Family Provider Family Medicine; PCP Family Medicine; Referring Provider Family Medicine; Visit Provider Family Medicine
DX: M16.0 Bilateral primary osteoarthritis of hip (principal); R10.2 Pelvic and perineal pain; M25.559 Pain in unspecified hip; G89.29 Other chronic pain
CPT/HCPCS: 73522

== ENCOUNTER → 2024-01-11 10:05 | Outpatient (CLI) | payer MEDICARE, SELFPAY ==
[2021-06-18 09:57] VITALS: BMI 36.2
--- NOTE | 2024-01-11 10:06 | DI.RAD.S_ITS ---
Bone Density Report Name: JESUS LANCASTER Age: 73 Sex: Female Ethnicity: Date of : 1950 Indication: postmenopausal; screening for osteoporosis; history of glucocorticoids; Referring Provider: JONI BLANCO Study: Bone densitometry was performed. Exam Date: January 11, 2024 Accession number: [id number] Bone Density: Region BMD T-score Z-score Classification AP Spine(L1-L4) 1.079 0.3 2.5 Normal Femoral Neck (Left) 0.837 -0.1 1.5 Normal Total Hip (Left) 0.964 0.2 1.6 Normal Femoral Neck (Right) 0.705 -1.3 0.4 Osteopenia Total Hip (Right) 0.984 0.3 1.7 Normal Total Hip Mean 0.974 0.3 1.7 Normal World Health Organization criteria for BMD impression classify patients as: Normal (T-score at or above -1.0), Osteopenia (T-score between -1.0 and -2.5), or Osteoporosis (T-score at or below -2.5). 10-year Fracture Risk(1): Major Osteoporotic Fracture 7.9% Hip Fracture 1.1% Reported Risk Factors: [place] (), Neck BMD=0.705, BMI=37.8, glucocorticoids (1) FRAX(R) Version 3.08. Fracture probability calculated for an untreated patient. Fracture probability may be lower if the patient has received treatment. Impression: The patient has low bone mass, based on the Right Femoral Neck T-score. The patient has an estimated ten-year risk of hip fracture of 1.1% and an estimated ten-year risk of major fracture of 7.9%, based on the WHO FRAX algorithm. The patient has risk factors, including: history of glucocorticoid therapy. Discussion: BONE DENSITY IS LOW AT ONE OR MORE SKELETAL SITES. This patient's lowest T-score is low at one or more skeletal sites. It meets the World Health Organization's (WHO) criteria for low bone mass (T-score between -1.0 and -2.5). The patient's 10-year risk of fracture as calculated by FRAX is less than the threshold where pharmacological therapy is recommended by the National Osteoporosis Foundation (NOF). However, all treatment decisions require clinical judgment and consideration of individual patient factors, including patient preferences, comorbidities, previous drug use, risk factors not captured in the FRAX model (e.g., frailty, falls, vitamin D deficiency, increased bone turnover, interval significant decline in bone density) and possible under or overestimation of fracture risk by FRAX. The patient should follow a healthful lifestyle (good nutrition with adequate calcium and vitamin D, and appropriate weight-bearing exercise). Follow-Up: Consider repeating this study in 2 to 3 years to reassess this patient's status, or sooner if there is some new clinical indication. Reported by: ARAVIND NAVARRO M.D. on 01/11/2024 10:35:00 AM.
== END ==
LOC: RAD 10:06
PROVIDERS: Family Provider Family Medicine; PCP Family Medicine; Referring Provider Family Medicine; Visit Provider Family Medicine
DX: M85.851 Other specified disorders of bone density and structure, right thigh (principal); Z78.0 Asymptomatic menopausal state
CPT/HCPCS: 77080

== ENCOUNTER → 2024-01-27 12:07 | Outpatient (CLI) | payer MEDICARE, SELFPAY ==
[2021-06-18 09:57] VITALS: BMI 36.2
[2024-01-27 13:14] LABS: Add Manual Diff / Slide Review NO; Basophils Absolute Auto 200 /uL (0-100); Basophils Percent Auto 1.8 % (0-2); Eosinophils Absolute Auto 400 /uL (0-450); Eosinophils Percent Auto 4.3 % (2-4); Hematocrit 39.8 % (36-46); Hemoglobin 13.2 g/dL (12.0-16.0); Lymphocytes Absolute Auto 3200 /uL (1100-4500); Lymphocytes Percent Auto 38.1 % (25-40); Mean Corpuscular HGB Conc 33.1 % (30-36); Mean Corpuscular Hemoglobin 28.3 PG (26-34); Mean Corpuscular Volume 85.5 fL (80-100); Monocytes Absolute Auto 500 /uL (0-900); Monocytes Percent Auto 5.4 % (3-14); Neutrophils Absolute Auto 4300 /uL (1500-7000); Neutrophils Percent Auto 50.4 % (50-75); Platelet Count 217 X10^3/uL (150-400); Red Blood Cell Count 4.65 X10^6/uL (4.0-5.2); Red Cell Distribution Width 13.3 % (11.6-14.8); White Blood Cell Count 8.5 X10^3/uL (4.5-11.0)
[2024-01-27 13:47] LABS: Hemoglobin A1C% w Est Avg Glu 7.1 % (4.0-6.0)
[2024-01-27 13:49] LABS: Cholesterol 150 mg/dL (140-199); HDL Cholesterol 66 mg/dL (40-60); LDL Cholesterol Calculated 65 mg/dL (<100); Triglycerides 95 mg/dL (35-150)
[2024-01-27 14:14] LABS: Thyroid Stimulating Hormone 2.64 uIU/mL (0.47-4.68)
== END ==
PROVIDERS: Family Provider Family Medicine; PCP Family Medicine; Referring Provider Family Medicine; Visit Provider Family Medicine
DX: E11.9 Type 2 diabetes mellitus without complications (principal); I63.9 Cerebral infarction, unspecified; E66.9 Obesity, unspecified; R53.82 Chronic fatigue, unspecified; E03.9 Hypothyroidism, unspecified; I10 Essential (primary) hypertension; E78.5 Hyperlipidemia, unspecified
CPT/HCPCS: 36415; 80061; 83036; 84443; 85025

== ENCOUNTER → 2024-02-08 10:38 | Outpatient (CLI) | payer MEDICARE, SELFPAY ==
[2021-06-18 09:57] VITALS: BMI 36.2
--- NOTE | 2024-02-08 10:39 | DI.RAD.S_ITS ---
PROCEDURE: XR FOOT RT MIN 3V INDICATIONS: ongoing right heel pain TECHNIQUE: 3 views of the foot were acquired. COMPARISON: None. FINDINGS: Bones: No fractures or dislocations. No suspicious bony lesions. 1st MTP degenerative narrowing. Mild scattered IP degenerative change. Prominent posterior calcaneal spur. Soft tissues: No tibiotalar joint effusion. Achilles tendon appears normal. IMPRESSION: Arthritic changes as well as prominent calcaneal spur. Dictated by: Mona Harden M.D. on 02/08/2024 at 13:46 Approved by: Mona Harden M.D. on 02/08/2024 at 13:46
== END ==
LOC: RAD 10:39
PROVIDERS: Family Provider Family Medicine; PCP Family Medicine; Referring Provider Family Medicine; Visit Provider Family Medicine
DX: M76.61 Achilles tendinitis, right leg (principal); M77.31 Calcaneal spur, right foot
CPT/HCPCS: 73630

== ENCOUNTER 2024-02-18 09:45 | Outpatient (RCR) | payer MEDICARE, MEDICAID, SELFPAY ==
[2021-06-18 09:57] VITALS: BMI 36.2
[2023-11-01 15:35] VITALS: BP 120/77; O2SAT 96
--- NOTE | 2023-11-02 16:53 | PT.OIE ---
Current Diagnoses Hypothyroidism, unspecified (11/01/23) Personal history of transient ischemic attack (TIA), and cerebral infarction without residual deficits (11/01/23) Past Medical History (Last Updated 10/02/23 @ 16:55 by Randa Rodriguez DO) Abdominal pain Abnormal Pap smear of cervix (~1977) Acute low back pain without sciatica Allergies (~2014) Anxiety (~2017) Bilateral carpal tunnel syndrome Carpal tunnel syndrome (~1992) Cataracts, bilateral (~2018) Cervical somatic dysfunction Chronic left shoulder pain Chronic pain of left knee Chronic right shoulder pain Chronic tension headaches Chronic thoracic back pain Colitis Cranial somatic dysfunction CVA (cerebral vascular accident) Diabetes (~2009) Diarrhea DVT (deep venous thrombosis) (~1975) Easy bruisability Elevated liver enzymes Excessive daytime sleepiness (~2009) Fatigue (~2009) Fibroids (~1980) Fibromyalgia (~2000) Finger joint swelling GERD (gastroesophageal reflux disease) (~2013) History of COVID-19 History of urinary incontinence (~1993) HLD (hyperlipidemia) HTN (hypertension) (~2005) Hypothyroidism Incontinence of urine Insomnia, psychophysiological Intermittent palpitations Irregular heart rate Joint pain in both hands Lumbar region somatic dysfunction Medication side effects Migraines (~1976) Nausea Nightmares associated with chronic post-traumatic stress disorder (~2009) Obesity (BMI 30-39.9) (Unknown) Obstructive sleep apnea, adult (~2019) Osteoarthritis (~2013) Palpitations Pelvic somatic dysfunction Plantar fasciitis of right foot Pneumonia Postmenopausal symptoms PTSD (post-traumatic stress disorder) Rectal bleeding Rosacea (~2018) Sacral region somatic dysfunction Segmental and somatic dysfunction of abdomen and other regions Segmental and somatic dysfunction of rib cage Sigmoid diverticulitis Somatic dysfunction of abdominal region Somatic dysfunction of lower extremity Stiff neck Systemic lupus erythematosus (~2000) Tension headache Thoracic region somatic dysfunction Thyroid nodule (~2009) Trigger finger, right ring finger Upper extremity somatic dysfunction UTI (urinary tract infection) Vertigo (~2014) Past Surgical History (Last Reviewed 07/31/22 @ 09:59 by Lorie Black RN) Anesthesia H/O: hysterectomy (~1978) History of bladder surgery (~1993) History of carpal tunnel release (~1992) History of oophorectomy (~2004) History of right breast biopsy (~1987) Hx of arthroscopy of right knee (~2013) Hx of cholecystectomy (~2003) Hx of tonsillectomy Hx of tubal ligation S/P right unicompartmental knee replacement (~06/2015) Visit Care Team Role Provider Type Alan Wahl DO Family Provider Physician Primary Care Provider Specialty: [facility] Address: [address] [place] [address], [id number] Email: Randa Rodriguez DO Attending Provider Physician Referring Provider Specialty: [facility] Address: [address] [place] [address], [address], [place], [address] Email: [email or web address] Physical Therapy Initial Evaluation PT-OP-A Visit Information Start: 11/01/23 10:42 Freq: Status: Active Protocol: Document 11/01/23 15:35 NM (Rec: 11/01/23 16:02 NM [id number]) Out-Patient Physical Therapy Visit Information Visit Information Visit Type Initial Evaluation Visit Start Time 10:30 Visit Stop Time 11:15 Total Visit Minutes 45 Visit Number 1 Evaluation Information Evaluation Date 11/01/23 Precautions Precautions Fall risk Hx: CVA, check vitals PT-OP-B Current Condition Start: 11/01/23 10:42 Freq: Status: Active Protocol: Document 11/01/23 15:35 NM (Rec: 11/01/23 16:02 NM [id number]) Current Condition History of Current Condition Onset Date 08/24/23 Current Complaints BLE weakness, balance History of Current Condition Pt presents to clinic with BLE weakness and balance impairments following a CVA on 08/24/23. Pt reports that her R side was primarily affected. She has the most difficulty with maintaining her balance while ambulating, especially while turning. She complains of occasional instances of numbness in her R hand and foot, which she believes impacts her balance, and she has pain in multiple joints due to fibromyalgia. She also reports decreased R mattress inspector strength and difficulty with elevating her RUE secondary to pain. Prior to her stroke, she used a spc with a small base at the point for community ambulation; however, she did not bring it to the clinic today. Pt also reports occasional episodes of dizziness when moving from sitting > standing, which causes her LOB. PMH includes fibromyalgia, lupus. Currently , she is not allowed to drive. Future Testing and Treatments Planned Follow up on 11/10 with physician Treatment Goals Patient/Caregiver Goals Improve ambulation, balance Prior Functional Status Baseline Function- ADL's Independent Baseline Function- Mobility Independent Baseline Function- Gait spc for community distances prn Baseline Function- Recreation/Hobbies Water aerobics Current Functional Impairments (Reported) Functional Limitations- ADL's Unable to drive. Limitations with dressing, gripping, lifting, standing balance, endurance, activity tolerance Functional Limitations- Mobility/Gait Limited ability to ambulate, uses spc more frequently for community ambulation distances Functional Limitations- Recreation/ Unable to participate in water Hobbies aerobics because unable to drive PT-OP-C Subjective Start: 11/01/23 10:42 Freq: Status: Active Protocol: Document 11/01/23 15:35 NM (Rec: 11/01/23 16:02 NM [id number]) OP-PT Subjective Patient Comments Patient Comments See hx above for pt report OP-PT Pain Assessment Pain Assessment Grid Paper Pain Assessment Grid Completed No: pt did not fill out chart related to pain Comments Pain Comments Reports R shoulder pain with arm elevation and pain at multiple joints in body secondary to fibromyalgia dx. Pt wants to focus primarily on BLE weakness and balance impairments PT-OP-D Balance Start: 11/01/23 10:42 Freq: Status: Active Protocol: Document 11/01/23 15:35 NM (Rec: 11/01/23 16:02 NM [id number]) OP-PT Balance Assessment Sitting Balance Static Sitting Balance Ability Good Dynamic Sitting Balance Ability Good Balance Tests Myers Balance Test Myers Balance Test Score 40/56 Myers Impairment Rating 20 to 39% Impaired (Score 34- 44) Functional Reach Functional Reach Test 2 cm Single Limb Standing Single Limb- Right 1 sec Single Limb- Left 3 sec Semi-Tandem Standing Semi-Tandem Standing Balance 5 sec ea side Tandem Tandem Standing unable without UE support William Fall Scale Copyright Permission PT-OP-E Functional Tests Start: 11/01/23 10:42 Freq: Status: Active Protocol: Document 11/01/23 15:35 NM (Rec: 11/01/23 16:02 NM [id number]) Functional Tests 6 Minute Walk Test Distance 736 Device Used none Comments SBA Five Times Sit to Stand Test Score 35.17 sec PT-OP-F Manual Assessment Start: 11/01/23 10:42 Freq: Status: Active Protocol: Document 11/01/23 15:35 NM (Rec: 11/01/23 16:02 NM [id number]) Manual Assessments Soft Tissue Assessment Soft Tissue Mobility Assessment No soft tissue restrictions noted Joint Mobility Assessment Joint Mobility Assessment R shoulder ROM is painful in fwd flex, abduction with limited scapular mobility and impingement symptoms. No laxity noted at knee PT-OP-G Mobility & Gait Start: 11/01/23 10:42 Freq: Status: Active Protocol: Document 11/01/23 15:35 NM (Rec: 11/01/23 16:02 NM [id number]) OP Gait Assessment Gait Gait Assistance Required: Standby Assistance Distance (Feet) 736 Able to Maintain Weight Bearing Status Yes During Gait Assistive Devices Assistive Device None,Straight Cane Gait Deviations General Gait Pattern Decreased Stride Length,Flexed Trunk,Step-to Gait Factors Limiting Gait Function Factors Limiting Gait Function Decreased Strength, Incoordination,Limited Range of Motion,Poor Balance Comments Gait Comments Reports that she uses a spc for community ambulation Stair Climbing Evaluation Evaluation Level of Assist On Stairs Contact Guard Assistance Devices Stair Climbing Assistive Devices Right Railing Technique/Endurance Stair Climbing Direction Ascend and Descend Stair Climbing Technique Step Over Step Number of Steps Climbed 4 Stair Climbing Set # Repetitions (reps) 1 Comments Stair Climbing Comments Reciprocal motion, 1 HR to ascend, 2 HR to descent; CGA to steady; Demos decreased eccentric control at knee during descent PT-OP-H Neuro Start: 11/01/23 10:42 Freq: Status: Active Protocol: Document 11/01/23 15:35 NM (Rec: 11/01/23 16:02 NM [id number]) Sensation Evaluation Gross Sensation Gross Sensation Right LE Impaired Sensation Description Paresthesia,Numbness Dermatome Impairments L4,L5,S1,S2 Comments Summary Comments Able to distinguish light touch on RLE, however reports that it is less than LLE from L4-S2 dermatomes Coordination Evaluation Upper Extremity Tests Left Finger to Nose Test Normal Performance Alternate Nose to Finger Test Normal Performance Pronation/Supination Test minimal impairment but performed slowly Right Finger to Nose Test Minimal Impairment Alternate Nose to Finger Test Minimal Impairment Pronation/Supination Test Minimal impairment but performed slowly bilaterally Lower Extremity Tests Left Heel on Khalil Test Normal Performance Right Heel on Khalil Test Minimal Impairment Deep Tendon Reflex & Clonus Assessment Deep Tendon Reflex L biceps Deep Tendon Reflex 2+ Normal R biceps Deep Tendon Reflex 2+ Normal Vital Signs Blood Pressure Sitting Blood Pressure (90/60-120/80 mmHg) 120/77 Blood Pressure Source Automatic Cuff,Left Upper Extremity Oxygen Pulse Oximetry at Rest (%) (95-100 %) 96 PT-OP-J Posture/Palpation/Skin Start: 11/01/23 10:42 Freq: Status: Active Protocol: Document 11/01/23 15:35 NM (Rec: 11/01/23 16:02 NM [id number]) Posture Evaluation Position Sitting Evaluation View posterior, lateral Head/C-Spine Posture Forward Head T-Spine Posture Increased Kyphosis L-Spine Posture Increased Lordosis Shoulder Posture (L) Rounded,(R) Rounded,(L) Forward,(R) Forward Weight Distribution Weight Shifted Left Hip Posture (R) Externally Rotated Knee Posture (L) Genu Valgus,(R) Genu Valgus PT-OP-K Range of Motion Start: 11/01/23 10:42 Freq: Status: Active Protocol: Document 11/01/23 15:35 NM (Rec: 11/02/23 16:30 NM [id number]) Shoulder Goniometric Range of Motion Shoulder Left Comments Did not formally measure L shoulder ROM due to time constraints; will measure formally in next session Right Shoulder ROM WFL No Testing Position Sitting Comments R UE ROM limited upon observation. Did not formally assess due to time constraints but will take ROM in next session PT-OP-M Strength Start: 11/01/23 10:42 Freq: Status: Active Protocol: Document 11/01/23 15:35 NM (Rec: 11/01/23 16:02 NM [id number]) Shoulder Strength Shoulder Manual Muscle Testing Left Flexion 4 Good Extension 4 Good Abduction (C5) 4- Good- External Rotation 4- Good- Internal Rotation 4- Good- Comments No pain reported Right Flexion 3+ Fair+ Extension 4 Good Abduction (C5) 4- Good- External Rotation 4- Good- Internal Rotation 4- Good- Comments Pain with resisted flexion and abduction (flex> abd) Elbow/Forearm Strength Elbow and Forearm Manual Muscle Testing Left Flexion (C6) 4+ Good+ Extension (C7) 4+ Good+ Right Flexion (C6) 4- Good- Extension (C7) 4- Good- Comments No pain with resisted motion Wrist Strength Wrist Manual Muscle Testing Left Flexion (C7) 4 Good Extension (C6) 4 Good Right Flexion (C7) 3+ Fair+ Extension (C6) 3+ Fair+ Hand [employer] President Of Product [employer]/Pinch Strength Hand Dominance Hand Dominance Right Hand Strength Left [employer] President [employer] (lbs) 35 Comments average of 3 Right [employer] President Of [employer] (lbs) 25 Comments average of 3 Hip Strength Hip Manual Muscle Testing Left Flexion (L2) 4- Good- Extension (S1) 4 Good Abduction 4 Good External Rotation 4+ Good+ Internal Rotation 4+ Good+ Right Flexion (L2) 3+ Fair+ Extension (S1) 4 Good Abduction 4 Good External Rotation 4+ Good+ Internal Rotation 4+ Good+ Knee Strength Knee Manual Muscle Testing Left Flexion (S2) 4 Good Extension (L3) 4 Good Right Flexion (S2) 4- Good- Extension (L3) 4- Good- Ankle/Foot Strength Ankle and Foot Manual Muscle Testing Left Dorsiflexion (L4) 4 Good Plantarflexion (S1) 4 Good Inversion 4 Good Eversion (S1) 4 Good Comments Moderate difficulty with performing standing B heel raise due to balance, so measured PF MMT in sitting Right Dorsiflexion (L4) 4 Good Plantarflexion (S1) 4 Good Inversion 4 Good Eversion (S1) 4 Good Comments Moderate difficulty with performing standing B heel raise due to balance, so measured PF MMT in sitting PT-OP-T Assessment and Plan Start: 11/01/23 10:42 Freq: Status: Active Protocol: Document 11/01/23 15:35 NM (Rec: 11/01/23 16:02 NM [id number]) Physical Therapy Assessment Rehab Potential Rehabilitation Potential Good Evaluation Complexity Number of Personal Factors/Comorbidities 3 or More Number of Body Systems Impaired 4 or More Clinical Presentation at Evaluation Stable Impairments Impairments Activity Tolerance,Balance, Coordination,Functional Activities,Functional Mobility ,Gait,Pain,Posture,ROM, Sensation,Soft Tissue Mobility ,Strength,Vestibular Other Concerns Fall Risk high Barriers to Rehabilitation Reliant on friends from [employer] for rides to PT and other places Goals Eight Impairment R shoulder ROM Short Term Goal (STG) Pt will be able to lift her R arm in fwd flexion to at least 100 deg in order to get dishes down from her shelf at home. STG Duration 5 weeks Dietary Supervisor Goal (LTG) Pt will be able to lift her R arm in fwd flexion to at least 120 deg in order to get dishes down from her shelf at home. LTG Duration 10 weeks Seven Impairment strength Impairment R mattress inspector 25# Short Term Goal (STG) Pt will improve R mattress inspector strength by at least 2# to be comparable to the L mattress inspector strength in order be able to open jars without assistance and to perform ADLs more independently. STG Duration 5 weeks Dietary Supervisor Goal (LTG) Pt will improve R mattress inspector strength by at least 5# to be comparable to the L mattress inspector strength in order be able to open jars without assistance and to perform ADLs more independently. LTG Duration 10 weeks Six Impairment R quad and hamstring MMT 4-/5 Short Term Goal (STG) Pt will improve R quad and hamstring MMT to at least 4/5 in order to demo improved knee strength for transfers, stairs, and gait. STG Duration 5 weeks Dietary Supervisor Goal (LTG) Pt will improve R quad and hamstring MMT to at least 4+/5 in order to demo improved knee strength for transfers, stairs, and gait. LTG Duration 10 weeks Five Impairment LE strength Impairment R hip flex MMT 3+/5 Short Term Goal (STG) Pt will improve R hip flex MMT to at least 4/5 in order to demo improved hip strength for foot clearance and limb advancement during gait. STG Duration 5 weeks Dietary Supervisor Goal (LTG) Pt will improve R hip flex MMT to at least 4+/5 in order to demo improved hip strength for foot clearance and limb advancement during gait. LTG Duration 10 weeks Four Impairment strength Impairment 4 steps with reciprocal pattern with CGA using 1 HR to ascend, 2 to descend, no AD Short Term Goal (STG) Pt will perform at least 8 6 stairs using a reciprocal gait pattern with SBA and 1 or no hand rails using LRAD in order to demo improved BLE strength and balance. STG Duration 5 weeks Dietary Supervisor Goal (LTG) Pt will perform at least 16 6 stairs using a reciprocal gait pattern with SBA and 1 or no hand rails using LRAD in order to demo improved BLE strength and balance. LTG Duration 10 weeks Three Impairment endurance, ambulation Impairment 6 MWT 736 ft (224.3 m), no AD Short Term Goal (STG) Pt will improve 6 MWT distance by at least 50 ft (786 ft, 239 m) using LRAD in order to demonstrate better BLE strength and endurance for community ambulation. STG Duration 5 weeks Dietary Supervisor Goal (LTG) Pt will improve 6 MWT distance to at least 848 ft (258 m, 1 MCID) using LRAD in order to demonstrate better BLE strength and endurance for community ambulation. LTG Duration 10 weeks Two Impairment strength Impairment 5x STS 35.17 sec Short Term Goal (STG) Pt will improve 5x STS time to at least 30 seconds or less in order to demonstrate improved BLE strength and endurance. STG Duration 5 weeks Dietary Supervisor Goal (LTG) Pt will improve 5X STS time to at least 25 seconds or less in order to demonstrate improved BLE strength and endurance. LTG Duration 10 weeks One Impairment Balance Impairment Myers/56 Short Term Goal (STG) Pt will improve Myers score to at least 44/56 in order to demonstrate improvements in balance and safety awareness during higher level activities . STG Duration 5 weeks Dietary Supervisor Goal (LTG) Pt will improver Myers score to at least 47/56 (1 MCID for acute stroke pt) in order to demonstrate improvements in balance and safety awareness during higher level activities . LTG Duration 10 weeks Assessment Summary Assessment Pt is a 72 y.o. female presenting to clinic with BLE weakness (R>L), balance, and gait impairments s/p a CVA on 08/24/23. She also has decreased RUE ROM upon observation, thus limiting her ability to perform ADLs (e.g. reaching overhead), which will be formally assessed in the next treatment session. Pt does have decreased R scapular mobility and control compared to her L scapula especially in upward rotation. She also has decreased mattress inspector strength (in pounds) compared to her L hand, which is a primary complaint. At this time, pt demos BLE hip and knee weakness, which limits her ability to perform gait, stairs, and squats. She fatigues easily. Her 6 MWT distance is below age and gender-related norms; however, she can safely ambulate without an AD for short community distances. Additionally, her Myers balance score is 40/56, which is at the cutoff for a moderate fall risk. She demos the most difficulty with decreased MANUEL and activities requiring weight shifting. Pt is able to ascend/descend stairs without an AD using handrails, but moderate instability and poor eccentric control during her descent, posing a further safety risk. At this time, pt does not demo any increased muscle tone or abnormal reflexes; she does have minor differences in UE & LE coordination and sensation between R and L sides. Pt would benefit from skilled PT to address impairments in BLE strength, balance, gait, endurance in order to improve activity tolerance, promote safety awareness, and to maximize return to PLOF. Physical Therapy Plan Frequency and Duration Frequency of Treatment 1-2x/wk Duration of treatment (weeks) 10 Plan of Care Start Date 11/01/23 Plan of Care End Date 01/03/24 Therapeutic Interventions Therapeutic Interventions Aquatic Therapy,Balance Training,Canalithic Repositioning,Coordination Training,Gait Training,Home Exercise Program,Joint Mobilizations,Manual Therapy, Neuromuscular Re-education, Orthotic/Prosthetic Management ,Patient/Caregiver Education, Self-Care/Home Management, Sensory Integration,Soft Tissue Mobilization,Taping, Therapeutic Activities, Therapeutic Exercises, Vestibular Rehabilitation Modalities Cold Pack/Ice Massage,Hot Packs Next Visit Focus/Plan Next Note Type Treatment Note Next Visit Plan POC: BLE strengthening (leg press squat, LAQ, STS, HSC) and balance (ambulation, Myers activities)
--- NOTE | 2023-11-02 16:54 | PT.OPPOC ---
Physical, Occupational & Speech Therapy At [facility] Current Diagnoses Hypothyroidism, unspecified (11/01/23) Personal history of transient ischemic attack (TIA), and cerebral infarction without residual deficits (11/01/23) Visit Care Team Role Provider Type Alan Wahl DO Family Provider Physician Primary Care Provider Specialty: [facility] Address: [address] [place] [address], [id number] Email: Randa Rodriguez DO Attending Provider Physician Referring Provider Specialty: [facility] Address: [address] [place] [address], [address], [place], [address] Email: [email or web address] Plan Of Care PT-OP-T Assessment and Plan Start: 11/01/23 10:42 Freq: Status: Active Protocol: Document 11/01/23 15:35 NM (Rec: 11/01/23 16:02 NM [id number]) Physical Therapy Assessment Rehab Potential Rehabilitation Potential Good Evaluation Complexity Number of Personal Factors/Comorbidities 3 or More Number of Body Systems Impaired 4 or More Clinical Presentation at Evaluation Stable Impairments Impairments Activity Tolerance,Balance, Coordination,Functional Activities,Functional Mobility ,Gait,Pain,Posture,ROM, Sensation,Soft Tissue Mobility ,Strength,Vestibular Other Concerns Fall Risk high Barriers to Rehabilitation Reliant on friends from [facility] for rides to PT and other places Goals Eight Impairment R shoulder ROM Short Term Goal (STG) Pt will be able to lift her R arm in fwd flexion to at least 100 deg in order to get dishes down from her shelf at home. STG Duration 5 weeks Screen Door Maker Goal (LTG) Pt will be able to lift her R arm in fwd flexion to at least 120 deg in order to get dishes down from her shelf at home. LTG Duration 10 weeks Seven Impairment strength Impairment R switchboard wire worker helper 25# Short Term Goal (STG) Pt will improve R switchboard wire worker helper strength by at least 2# to be comparable to the L switchboard wire worker helper strength in order be able to open jars without assistance and to perform ADLs more independently. STG Duration 5 weeks Assisted Goal (LTG) Pt will improve R switchboard wire worker helper strength by at least 5# to be comparable to the L switchboard wire worker helper strength in order be able to open jars without assistance and to perform ADLs more independently. LTG Duration 10 weeks Six Impairment R quad and hamstring MMT 4-/5 Short Term Goal (STG) Pt will improve R quad and hamstring MMT to at least 4/5 in order to demo improved knee strength for transfers, stairs, and gait. STG Duration 5 weeks Screen Door Maker Goal (LTG) Pt will improve R quad and hamstring MMT to at least 4+/5 in order to demo improved knee strength for transfers, stairs, and gait. LTG Duration 10 weeks Five Impairment LE strength Impairment R hip flex MMT 3+/5 Short Term Goal (STG) Pt will improve R hip flex MMT to at least 4/5 in order to demo improved hip strength for foot clearance and limb advancement during gait. STG Duration 5 weeks Assisted Goal (LTG) Pt will improve R hip flex MMT to at least 4+/5 in order to demo improved hip strength for foot clearance and limb advancement during gait. LTG Duration 10 weeks Four Impairment strength Impairment 4 steps with reciprocal pattern with CGA using 1 HR to ascend, 2 to descend, no AD Short Term Goal (STG) Pt will perform at least 8 6 stairs using a reciprocal gait pattern with SBA and 1 or no hand rails using LRAD in order to demo improved BLE strength and balance. STG Duration 5 weeks Assisted Goal (LTG) Pt will perform at least 16 6 stairs using a reciprocal gait pattern with SBA and 1 or no hand rails using LRAD in order to demo improved BLE strength and balance. LTG Duration 10 weeks Three Impairment endurance, ambulation Impairment 6 MWT 736 ft (224.3 m), no AD Short Term Goal (STG) Pt will improve 6 MWT distance by at least 50 ft (786 ft, 239 m) using LRAD in order to demonstrate better BLE strength and endurance for community ambulation. STG Duration 5 weeks Assisted Goal (LTG) Pt will improve 6 MWT distance to at least 848 ft (258 m, 1 MCID) using LRAD in order to demonstrate better BLE strength and endurance for community ambulation. LTG Duration 10 weeks Two Impairment strength Impairment 5x STS 35.17 sec Short Term Goal (STG) Pt will improve 5x STS time to at least 30 seconds or less in order to demonstrate improved BLE strength and endurance. STG Duration 5 weeks Assisted Goal (LTG) Pt will improve 5X STS time to at least 25 seconds or less in order to demonstrate improved BLE strength and endurance. LTG Duration 10 weeks One Impairment Balance Impairment Myers/56 Short Term Goal (STG) Pt will improve Myers score to at least 44/56 in order to demonstrate improvements in balance and safety awareness during higher level activities . STG Duration 5 weeks Assisted Goal (LTG) Pt will improver Myers score to at least 47/56 (1 MCID for acute stroke pt) in order to demonstrate improvements in balance and safety awareness during higher level activities . LTG Duration 10 weeks Assessment Summary Assessment Pt is a 72 y.o. female presenting to clinic with BLE weakness (R>L), balance, and gait impairments s/p a CVA on 08/24/23. She also has decreased RUE ROM upon observation, thus limiting her ability to perform ADLs (e.g. reaching overhead), which will be formally assessed in the next treatment session. Pt does have decreased R scapular mobility and control compared to her L scapula especially in upward rotation. She also has decreased switchboard wire worker helper strength (in pounds) compared to her L hand, which is a primary complaint. At this time, pt demos BLE hip and knee weakness, which limits her ability to perform gait, stairs, and squats. She fatigues easily. Her 6 MWT distance is below age and gender-related norms; however, she can safely ambulate without an AD for short community distances. Additionally, her Myers balance score is 40/56, which is at the cutoff for a moderate fall risk. She demos the most difficulty with decreased MANUEL and activities requiring weight shifting. Pt is able to ascend/descend stairs without an AD using handrails, but moderate instability and poor eccentric control during her descent, posing a further safety risk. At this time, pt does not demo any increased muscle tone or abnormal reflexes; she does have minor differences in UE & LE coordination and sensation between R and L sides. Pt would benefit from skilled PT to address impairments in BLE strength, balance, gait, endurance in order to improve activity tolerance, promote safety awareness, and to maximize return to PLOF. Physical Therapy Plan Frequency and Duration Frequency of Treatment 1-2x/wk Duration of treatment (weeks) 10 Plan of Care Start Date 11/01/23 Plan of Care End Date 01/03/24 Therapeutic Interventions Therapeutic Interventions Aquatic Therapy,Balance Training,Canalithic Repositioning,Coordination Training,Gait Training,Home Exercise Program,Joint Mobilizations,Manual Therapy, Neuromuscular Re-education, Orthotic/Prosthetic Management ,Patient/Caregiver Education, Self-Care/Home Management, Sensory Integration,Soft Tissue Mobilization,Taping, Therapeutic Activities, Therapeutic Exercises, Vestibular Rehabilitation Modalities Cold Pack/Ice Massage,Hot Packs Next Visit Focus/Plan Next Note Type Treatment Note Next Visit Plan POC: BLE strengthening (leg press squat, LAQ, STS, HSC) and balance (ambulation, Myers activities) Plan of Care Dates Plan of Care Start Date 11/01/23 Plan of Care End Date 01/03/24 Electronically Signed by: Elba Mcintyre, PT 11/02/23 0829 If you are in agreement with this Plan of Care, please return a signed and dated copy. I have reviewed this Plan of Care and certify that the skilled therapy services above are required to meet the patient?s needs. Physician Signature Date Printed Name and Credentials Clinical Instructor Signature Printed Name and Credentials
--- NOTE | 2023-11-03 11:33 | PT.OTN ---
Current Diagnoses Hypothyroidism, unspecified (11/03/23) Personal history of transient ischemic attack (TIA), and cerebral infarction without residual deficits (11/03/23) Physical Therapy Treatment Note PT-OP-A Visit Information Start: 11/01/23 10:42 Freq: Status: Active Protocol: Document 11/03/23 10:31 NM (Rec: 11/03/23 11:31 NM [id number]) Out-Patient Physical Therapy Visit Information Visit Information Visit Type Treatment Note Visit Start Time 10:30 Visit Stop Time 11:15 Total Visit Minutes 45 Visit Number 2 Evaluation Information Evaluation Date 11/01/23 Precautions Precautions Fall risk Hx: CVA, check vitals PT-OP-B Current Condition Start: 11/01/23 10:42 Freq: Status: Active Protocol: Document 11/01/23 15:35 NM (Rec: 11/01/23 16:02 NM [id number]) Current Condition History of Current Condition Onset Date 08/24/23 Current Complaints BLE weakness, balance History of Current Condition Pt presents to clinic with BLE weakness and balance impairments following a CVA on 08/24/23. Pt reports that her R side was primarily affected. She has the most difficulty with maintaining her balance while ambulating, especially while turning. She complains of occasional instances of numbness in her R hand and foot, which she believes impacts her balance, and she has pain in multiple joints due to fibromyalgia. She also reports decreased R title investigator strength and difficulty with elevating her RUE secondary to pain. Prior to her stroke, she used a spc with a small base at the point for community ambulation; however, she did not bring it to the clinic today. Pt also reports occasional episodes of dizziness when moving from sitting > standing, which causes her LOB. PMH includes fibromyalgia, lupus. Currently , she is not allowed to drive. Future Testing and Treatments Planned Follow up on 11/10 with physician Treatment Goals Patient/Caregiver Goals Improve ambulation, balance Prior Functional Status Baseline Function- ADL's Independent Baseline Function- Mobility Independent Baseline Function- Gait spc for community distances prn Baseline Function- Recreation/Hobbies Water aerobics Current Functional Impairments (Reported) Functional Limitations- ADL's Unable to drive. Limitations with dressing, gripping, lifting, standing balance, endurance, activity tolerance Functional Limitations- Mobility/Gait Limited ability to ambulate, uses spc more frequently for community ambulation distances Functional Limitations- Recreation/ Unable to participate in water Hobbies aerobics because unable to drive PT-OP-C Subjective Start: 11/01/23 10:42 Freq: Status: Active Protocol: Document 11/03/23 10:31 NM (Rec: 11/03/23 11:31 NM [id number]) OP-PT Subjective Patient Comments Patient Comments She reports 0/10 pain in R knee and shoulder. She states that she is just tired today and has not been sleeping well . PT-OP-D Balance Start: 11/01/23 10:42 Freq: Status: Active Protocol: Document 11/01/23 15:35 NM (Rec: 11/01/23 16:02 NM [id number]) OP-PT Balance Assessment Sitting Balance Static Sitting Balance Ability Good Dynamic Sitting Balance Ability Good Balance Tests Myers Balance Test Myers Balance Test Score 40/56 Myers Impairment Rating 20 to 39% Impaired (Score 34- 44) Functional Reach Functional Reach Test 2 cm Single Limb Standing Single Limb- Right 1 sec Single Limb- Left 3 sec Semi-Tandem Standing Semi-Tandem Standing Balance 5 sec ea side Tandem Tandem Standing unable without UE support William Fall Scale Copyright Permission PT-OP-E Functional Tests Start: 11/01/23 10:42 Freq: Status: Active Protocol: Document 11/01/23 15:35 NM (Rec: 11/01/23 16:02 NM [id number]) Functional Tests 6 Minute Walk Test Distance 736 Device Used none Comments SBA Five Times Sit to Stand Test Score 35.17 sec PT-OP-F Manual Assessment Start: 11/01/23 10:42 Freq: Status: Active Protocol: Document 11/01/23 15:35 NM (Rec: 11/01/23 16:02 NM [id number]) Manual Assessments Soft Tissue Assessment Soft Tissue Mobility Assessment No soft tissue restrictions noted Joint Mobility Assessment Joint Mobility Assessment R shoulder ROM is painful in fwd flex, abduction with limited scapular mobility and impingement symptoms. No laxity noted at knee PT-OP-G Mobility & Gait Start: 11/01/23 10:42 Freq: Status: Active Protocol: Document 11/01/23 15:35 NM (Rec: 11/01/23 16:02 NM [id number]) OP Gait Assessment Gait Gait Assistance Required: Standby Assistance Distance (Feet) 736 Able to Maintain Weight Bearing Status Yes During Gait Assistive Devices Assistive Device None,Straight Cane Gait Deviations General Gait Pattern Decreased Stride Length,Flexed Trunk,Step-to Gait Factors Limiting Gait Function Factors Limiting Gait Function Decreased Strength, Incoordination,Limited Range of Motion,Poor Balance Comments Gait Comments Reports that she uses a spc for community ambulation Stair Climbing Evaluation Evaluation Level of Assist On Stairs Contact Guard Assistance Devices Stair Climbing Assistive Devices Right Railing Technique/Endurance Stair Climbing Direction Ascend and Descend Stair Climbing Technique Step Over Step Number of Steps Climbed 4 Stair Climbing Set # Repetitions (reps) 1 Comments Stair Climbing Comments Reciprocal motion, 1 HR to ascend, 2 HR to descent; CGA to steady; Demos decreased eccentric control at knee during descent PT-OP-H Neuro Start: 11/01/23 10:42 Freq: Status: Active Protocol: Document 11/01/23 15:35 NM (Rec: 11/01/23 16:02 NM [id number]) Sensation Evaluation Gross Sensation Gross Sensation Right LE Impaired Sensation Description Paresthesia,Numbness Dermatome Impairments L4,L5,S1,S2 Comments Summary Comments Able to distinguish light touch on RLE, however reports that it is less than LLE from L4-S2 dermatomes Coordination Evaluation Upper Extremity Tests Left Finger to Nose Test Normal Performance Alternate Nose to Finger Test Normal Performance Pronation/Supination Test minimal impairment but performed slowly Right Finger to Nose Test Minimal Impairment Alternate Nose to Finger Test Minimal Impairment Pronation/Supination Test Minimal impairment but performed slowly bilaterally Lower Extremity Tests Left Heel on Khalil Test Normal Performance Right Heel on Khalil Test Minimal Impairment Deep Tendon Reflex & Clonus Assessment Deep Tendon Reflex L biceps Deep Tendon Reflex 2+ Normal R biceps Deep Tendon Reflex 2+ Normal Vital Signs Blood Pressure Sitting Blood Pressure (90/60-120/80 mmHg) 120/77 Blood Pressure Source Automatic Cuff,Left Upper Extremity Oxygen Pulse Oximetry at Rest (%) (95-100 %) 96 PT-OP-J Posture/Palpation/Skin Start: 11/01/23 10:42 Freq: Status: Active Protocol: Document 11/01/23 15:35 NM (Rec: 11/01/23 16:02 NM [id number]) Posture Evaluation Position Sitting Evaluation View posterior, lateral Head/C-Spine Posture Forward Head T-Spine Posture Increased Kyphosis L-Spine Posture Increased Lordosis Shoulder Posture (L) Rounded,(R) Rounded,(L) Forward,(R) Forward Weight Distribution Weight Shifted Left Hip Posture (R) Externally Rotated Knee Posture (L) Genu Valgus,(R) Genu Valgus PT-OP-K Range of Motion Start: 11/01/23 10:42 Freq: Status: Active Protocol: Document 11/03/23 10:31 NM (Rec: 11/03/23 11:32 NM [id number]) Shoulder Goniometric Range of Motion Shoulder Left Shoulder ROM WFL No Testing Position Supine Flexion 150 Abduction 150 External Rotation at 45 degrees 70 Abduction Internal Rotation 70 Right Shoulder ROM WFL No Testing Position Supine Flexion 107 Abduction 130 External Rotation at 45 degrees 30 Abduction Internal Rotation 70 PT-OP-M Strength Start: 11/01/23 10:42 Freq: Status: Active Protocol: Document 11/01/23 15:35 NM (Rec: 11/01/23 16:02 NM [id number]) Shoulder Strength Shoulder Manual Muscle Testing Left Flexion 4 Good Extension 4 Good Abduction (C5) 4- Good- External Rotation 4- Good- Internal Rotation 4- Good- Comments No pain reported Right Flexion 3+ Fair+ Extension 4 Good Abduction (C5) 4- Good- External Rotation 4- Good- Internal Rotation 4- Good- Comments Pain with resisted flexion and abduction (flex> abd) Elbow/Forearm Strength Elbow and Forearm Manual Muscle Testing Left Flexion (C6) 4+ Good+ Extension (C7) 4+ Good+ Right Flexion (C6) 4- Good- Extension (C7) 4- Good- Comments No pain with resisted motion Wrist Strength Wrist Manual Muscle Testing Left Flexion (C7) 4 Good Extension (C6) 4 Good Right Flexion (C7) 3+ Fair+ Extension (C6) 3+ Fair+ Hand Director [place] [employer]oration/Pinch Strength Hand Dominance Hand Dominance Right Hand Strength Left Director [place] [employer] (lbs) 35 Comments average of 3 Right Director [place] [employer] (lbs) 25 Comments average of 3 Hip Strength Hip Manual Muscle Testing Left Flexion (L2) 4- Good- Extension (S1) 4 Good Abduction 4 Good External Rotation 4+ Good+ Internal Rotation 4+ Good+ Right Flexion (L2) 3+ Fair+ Extension (S1) 4 Good Abduction 4 Good External Rotation 4+ Good+ Internal Rotation 4+ Good+ Knee Strength Knee Manual Muscle Testing Left Flexion (S2) 4 Good Extension (L3) 4 Good Right Flexion (S2) 4- Good- Extension (L3) 4- Good- Ankle/Foot Strength Ankle and Foot Manual Muscle Testing Left Dorsiflexion (L4) 4 Good Plantarflexion (S1) 4 Good Inversion 4 Good Eversion (S1) 4 Good Comments Moderate difficulty with performing standing B heel raise due to balance, so measured PF MMT in sitting Right Dorsiflexion (L4) 4 Good Plantarflexion (S1) 4 Good Inversion 4 Good Eversion (S1) 4 Good Comments Moderate difficulty with performing standing B heel raise due to balance, so measured PF MMT in sitting PT-OP-Q Treatments Start: 11/01/23 10:42 Freq: Status: Active Protocol: Document 11/03/23 10:31 NM (Rec: 11/03/23 11:31 NM [id number]) Therapeutic Exercises Sitting Exercises Hip abd Side bilateral Resistance teal tb (lvl 2) Reps/Minutes 2x12 Comments for HEP; cues for slow eccentric control in abd Scapular Retraction Sitting Exercise Name HEP Side bilateral Reps/Minutes 2x10x5 Comments for improved scap movement; good contraction Hip Flex Sitting Exercise Name HEP Side bilateral Resistance 4# ankle weights Reps/Minutes 2x10 Comments cues for upright posture, no leaning back Other Exercises Self mobilization Other Exercise Name soft tissue mobilization of upper trap, LS, rhomboids, teres Side right Equipment Used tennis ball in pillow case Reps/Minutes 2 min Comments HEP Squat Other Exercise Name Sit to stand; for glute/quad strengthening Side bilateral Equipment Used 24 table; arms in front for weight shift Reps/Minutes 3x5 Comments cues for fwd weight shift, eccentric lowering Manual Therapy Treatment Soft Tissue Mobilization Scapula Body Location UT, LS, rhomboids, teres minor /major Mobilization Type Rolling,Strumming,Sustained Pressure,Trigger Point Release Intensity/Depth Superficial Body Position Sidelying Comments Moderate soft tissue limitations in periscapular region. Pt only able to tolerate superficial manual tmt to address restrictions. She reports improvements. Will trial MWM next time Joint Mobilizations Scapulothoracic Joint R shoulder Direction upwd/dwd rotation, protract/ retract, elevation/depression Grade II Body Position Sidelying Reps/Duration 1x10x5 ea direction Comments PROM > AAROM to promote better scap mobility for R arm flex. Will trial MWM next session PT-OP-T Assessment and Plan Start: 11/01/23 10:42 Freq: Status: Active Protocol: Document 11/03/23 10:31 NM (Rec: 11/03/23 11:31 NM [id number]) Physical Therapy Assessment Goals Eight Impairment R shoulder ROM Short Term Goal (STG) Pt will be able to lift her R arm in fwd flexion to at least 100 deg in order to get dishes down from her shelf at home. STG Duration 5 weeks Cue Worker Goal (LTG) Pt will be able to lift her R arm in fwd flexion to at least 120 deg in order to get dishes down from her shelf at home. LTG Duration 10 weeks Seven Impairment strength Impairment R title investigator 25# Short Term Goal (STG) Pt will improve R title investigator strength by at least 2# to be comparable to the L title investigator strength in order be able to open jars without assistance and to perform ADLs more independently. STG Duration 5 weeks Cue Worker Goal (LTG) Pt will improve R title investigator strength by at least 5# to be comparable to the L title investigator strength in order be able to open jars without assistance and to perform ADLs more independently. LTG Duration 10 weeks Six Impairment R quad and hamstring MMT 4-/5 Short Term Goal (STG) Pt will improve R quad and hamstring MMT to at least 4/5 in order to demo improved knee strength for transfers, stairs, and gait. STG Duration 5 weeks Cue Worker Goal (LTG) Pt will improve R quad and hamstring MMT to at least 4+/5 in order to demo improved knee strength for transfers, stairs, and gait. LTG Duration 10 weeks Five Impairment LE strength Impairment R hip flex MMT 3+/5 Short Term Goal (STG) Pt will improve R hip flex MMT to at least 4/5 in order to demo improved hip strength for foot clearance and limb advancement during gait. STG Duration 5 weeks Cue Worker Goal (LTG) Pt will improve R hip flex MMT to at least 4+/5 in order to demo improved hip strength for foot clearance and limb advancement during gait. LTG Duration 10 weeks Four Impairment strength Impairment 4 steps with reciprocal pattern with CGA using 1 HR to ascend, 2 to descend, no AD Short Term Goal (STG) Pt will perform at least 8 6 stairs using a reciprocal gait pattern with SBA and 1 or no hand rails using LRAD in order to demo improved BLE strength and balance. STG Duration 5 weeks Cue Worker Goal (LTG) Pt will perform at least 16 6 stairs using a reciprocal gait pattern with SBA and 1 or no hand rails using LRAD in order to demo improved BLE strength and balance. LTG Duration 10 weeks Three Impairment endurance, ambulation Impairment 6 MWT 736 ft (224.3 m), no AD Short Term Goal (STG) Pt will improve 6 MWT distance by at least 50 ft (786 ft, 239 m) using LRAD in order to demonstrate better BLE strength and endurance for community ambulation. STG Duration 5 weeks Cue Worker Goal (LTG) Pt will improve 6 MWT distance to at least 848 ft (258 m, 1 MCID) using LRAD in order to demonstrate better BLE strength and endurance for community ambulation. LTG Duration 10 weeks Two Impairment strength Impairment 5x STS 35.17 sec Short Term Goal (STG) Pt will improve 5x STS time to at least 30 seconds or less in order to demonstrate improved BLE strength and endurance. STG Duration 5 weeks Care Home Goal (LTG) Pt will improve 5X STS time to at least 25 seconds or less in order to demonstrate improved BLE strength and endurance. LTG Duration 10 weeks One Impairment Balance Impairment Myers/56 Short Term Goal (STG) Pt will improve Myers score to at least 44/56 in order to demonstrate improvements in balance and safety awareness during higher level activities . STG Duration 5 weeks Cue Worker Goal (LTG) Pt will improver Myers score to at least 47/56 (1 MCID for acute stroke pt) in order to demonstrate improvements in balance and safety awareness during higher level activities . LTG Duration 10 weeks Assessment Summary Assessment Tmt focus on strengthening B glutes, quads, hip abductors, and hip flexors. Pt able to perform STS from 24 surface without UE use. PT cued pt for forward weight shift and had pt place arms in front to promote shift. Pt able to shift weight well, but demos poor eccentric glute/quad control during lowering to plinth. She tolerated seated hip abd and hip flex exercises well. Will continue to address in future sessions. Pt issued HEP with: STS, seated march, seated hip abd, soft tissue mobilization, and scapular retractions. Manual tmt on decreasing soft tissue restrictions in R scapular region and scapulothoracic mobilizations to assist with improved scapular movements during R arm elevation. PT performed PROM and AAROM scapular mobilizations; pt most limited in scap rotation and elevation/depression control. Pt would benefit from skilled PT intervention to address impairments in BLE strength, balance, RUE mobility and strength in order to perform ADLs, improve QOL, and promote safety/decrease fall risk. Physical Therapy Plan Frequency and Duration Frequency of Treatment 1-2x/wk Duration of treatment (weeks) 10 Plan of Care Start Date 11/01/23 Plan of Care End Date 01/03/24 Therapeutic Interventions Therapeutic Interventions Aquatic Therapy,Balance Training,Canalithic Repositioning,Coordination Training,Gait Training,Home Exercise Program,Joint Mobilizations,Manual Therapy, Neuromuscular Re-education, Orthotic/Prosthetic Management ,Patient/Caregiver Education, Self-Care/Home Management, Sensory Integration,Soft Tissue Mobilization,Taping, Therapeutic Activities, Therapeutic Exercises, Vestibular Rehabilitation Modalities Cold Pack/Ice Massage,Hot Packs Next Visit Focus/Plan Next Note Type Treatment Note Next Visit Plan POC: BLE strengthening (leg press squat, LAQ, STS, HSC) and balance (ambulation, Myers activities). Review STS. Manual: scapulothoracic mob, add MWM as tolerated in shldr flex
--- NOTE | 2023-11-12 11:34 | PT.OTN ---
Current Diagnoses Hypothyroidism, unspecified (11/12/23) Personal history of transient ischemic attack (TIA), and cerebral infarction without residual deficits (11/12/23) Physical Therapy Treatment Note PT-OP-A Visit Information Start: 11/01/23 10:42 Freq: Status: Active Protocol: Document 11/12/23 10:31 NM (Rec: 11/12/23 11:34 NM [id number]) Out-Patient Physical Therapy Visit Information Visit Information Visit Type Treatment Note Visit Start Time 10:30 Visit Stop Time 11:15 Total Visit Minutes 45 Visit Number 3 Evaluation Information Evaluation Date 11/01/23 Precautions Precautions Fall risk Hx: CVA, check vitals PT-OP-B Current Condition Start: 11/01/23 10:42 Freq: Status: Active Protocol: Document 11/01/23 15:35 NM (Rec: 11/01/23 16:02 NM [id number]) Current Condition History of Current Condition Onset Date 08/24/23 Current Complaints BLE weakness, balance History of Current Condition Pt presents to clinic with BLE weakness and balance impairments following a CVA on 08/24/23. Pt reports that her R side was primarily affected. She has the most difficulty with maintaining her balance while ambulating, especially while turning. She complains of occasional instances of numbness in her R hand and foot, which she believes impacts her balance, and she has pain in multiple joints due to fibromyalgia. She also reports decreased R compliance tester strength and difficulty with elevating her RUE secondary to pain. Prior to her stroke, she used a spc with a small base at the point for community ambulation; however, she did not bring it to the clinic today. Pt also reports occasional episodes of dizziness when moving from sitting > standing, which causes her LOB. PMH includes fibromyalgia, lupus. Currently , she is not allowed to drive. Future Testing and Treatments Planned Follow up on 11/10 with physician Treatment Goals Patient/Caregiver Goals Improve ambulation, balance Prior Functional Status Baseline Function- ADL's Independent Baseline Function- Mobility Independent Baseline Function- Gait spc for community distances prn Baseline Function- Recreation/Hobbies Water aerobics Current Functional Impairments (Reported) Functional Limitations- ADL's Unable to drive. Limitations with dressing, gripping, lifting, standing balance, endurance, activity tolerance Functional Limitations- Mobility/Gait Limited ability to ambulate, uses spc more frequently for community ambulation distances Functional Limitations- Recreation/ Unable to participate in water Hobbies aerobics because unable to drive PT-OP-C Subjective Start: 11/01/23 10:42 Freq: Status: Active Protocol: Document 11/12/23 10:31 NM (Rec: 11/12/23 11:34 NM [id number]) OP-PT Subjective Patient Comments Patient Comments Pt presents to clinic with R ankle pain (plantar fasciitis) 01/29, but reports that she is doing well overall. No changes since last session. She reports compliance with her exercises and reports they are easy. She does them 2x/ day PT-OP-D Balance Start: 11/01/23 10:42 Freq: Status: Active Protocol: Document 11/01/23 15:35 NM (Rec: 11/01/23 16:02 NM [id number]) OP-PT Balance Assessment Sitting Balance Static Sitting Balance Ability Good Dynamic Sitting Balance Ability Good Balance Tests Myers Balance Test Myers Balance Test Score 40/56 Myers Impairment Rating 20 to 39% Impaired (Score 34- 44) Functional Reach Functional Reach Test 2 cm Single Limb Standing Single Limb- Right 1 sec Single Limb- Left 3 sec Semi-Tandem Standing Semi-Tandem Standing Balance 5 sec ea side Tandem Tandem Standing unable without UE support William Fall Scale Copyright Permission PT-OP-E Functional Tests Start: 11/01/23 10:42 Freq: Status: Active Protocol: Document 11/01/23 15:35 NM (Rec: 11/01/23 16:02 NM [id number]) Functional Tests 6 Minute Walk Test Distance 736 Device Used none Comments SBA Five Times Sit to Stand Test Score 35.17 sec PT-OP-F Manual Assessment Start: 11/01/23 10:42 Freq: Status: Active Protocol: Document 11/01/23 15:35 NM (Rec: 11/01/23 16:02 NM [id number]) Manual Assessments Soft Tissue Assessment Soft Tissue Mobility Assessment No soft tissue restrictions noted Joint Mobility Assessment Joint Mobility Assessment R shoulder ROM is painful in fwd flex, abduction with limited scapular mobility and impingement symptoms. No laxity noted at knee PT-OP-G Mobility & Gait Start: 11/01/23 10:42 Freq: Status: Active Protocol: Document 11/01/23 15:35 NM (Rec: 11/01/23 16:02 NM [id number]) OP Gait Assessment Gait Gait Assistance Required: Standby Assistance Distance (Feet) 736 Able to Maintain Weight Bearing Status Yes During Gait Assistive Devices Assistive Device None,Straight Cane Gait Deviations General Gait Pattern Decreased Stride Length,Flexed Trunk,Step-to Gait Factors Limiting Gait Function Factors Limiting Gait Function Decreased Strength, Incoordination,Limited Range of Motion,Poor Balance Comments Gait Comments Reports that she uses a spc for community ambulation Stair Climbing Evaluation Evaluation Level of Assist On Stairs Contact Guard Assistance Devices Stair Climbing Assistive Devices Right Railing Technique/Endurance Stair Climbing Direction Ascend and Descend Stair Climbing Technique Step Over Step Number of Steps Climbed 4 Stair Climbing Set # Repetitions (reps) 1 Comments Stair Climbing Comments Reciprocal motion, 1 HR to ascend, 2 HR to descent; CGA to steady; Demos decreased eccentric control at knee during descent PT-OP-H Neuro Start: 11/01/23 10:42 Freq: Status: Active Protocol: Document 11/01/23 15:35 NM (Rec: 11/01/23 16:02 NM [id number]) Sensation Evaluation Gross Sensation Gross Sensation Right LE Impaired Sensation Description Paresthesia,Numbness Dermatome Impairments L4,L5,S1,S2 Comments Summary Comments Able to distinguish light touch on RLE, however reports that it is less than LLE from L4-S2 dermatomes Coordination Evaluation Upper Extremity Tests Left Finger to Nose Test Normal Performance Alternate Nose to Finger Test Normal Performance Pronation/Supination Test minimal impairment but performed slowly Right Finger to Nose Test Minimal Impairment Alternate Nose to Finger Test Minimal Impairment Pronation/Supination Test Minimal impairment but performed slowly bilaterally Lower Extremity Tests Left Heel on Khalil Test Normal Performance Right Heel on Khalil Test Minimal Impairment Deep Tendon Reflex & Clonus Assessment Deep Tendon Reflex L biceps Deep Tendon Reflex 2+ Normal R biceps Deep Tendon Reflex 2+ Normal Vital Signs Blood Pressure Sitting Blood Pressure (90/60-120/80 mmHg) 120/77 Blood Pressure Source Automatic Cuff,Left Upper Extremity Oxygen Pulse Oximetry at Rest (%) (95-100 %) 96 PT-OP-J Posture/Palpation/Skin Start: 11/01/23 10:42 Freq: Status: Active Protocol: Document 11/01/23 15:35 NM (Rec: 11/01/23 16:02 NM [id number]) Posture Evaluation Position Sitting Evaluation View posterior, lateral Head/C-Spine Posture Forward Head T-Spine Posture Increased Kyphosis L-Spine Posture Increased Lordosis Shoulder Posture (L) Rounded,(R) Rounded,(L) Forward,(R) Forward Weight Distribution Weight Shifted Left Hip Posture (R) Externally Rotated Knee Posture (L) Genu Valgus,(R) Genu Valgus PT-OP-K Range of Motion Start: 11/01/23 10:42 Freq: Status: Active Protocol: Document 11/03/23 10:31 NM (Rec: 11/03/23 11:32 NM [id number]) Shoulder Goniometric Range of Motion Shoulder Left Shoulder ROM WFL No Testing Position Supine Flexion 150 Abduction 150 External Rotation at 45 degrees 70 Abduction Internal Rotation 70 Right Shoulder ROM WFL No Testing Position Supine Flexion 107 Abduction 130 External Rotation at 45 degrees 30 Abduction Internal Rotation 70 PT-OP-M Strength Start: 11/01/23 10:42 Freq: Status: Active Protocol: Document 11/01/23 15:35 NM (Rec: 11/01/23 16:02 NM [id number]) Shoulder Strength Shoulder Manual Muscle Testing Left Flexion 4 Good Extension 4 Good Abduction (C5) 4- Good- External Rotation 4- Good- Internal Rotation 4- Good- Comments No pain reported Right Flexion 3+ Fair+ Extension 4 Good Abduction (C5) 4- Good- External Rotation 4- Good- Internal Rotation 4- Good- Comments Pain with resisted flexion and abduction (flex> abd) Elbow/Forearm Strength Elbow and Forearm Manual Muscle Testing Left Flexion (C6) 4+ Good+ Extension (C7) 4+ Good+ Right Flexion (C6) 4- Good- Extension (C7) 4- Good- Comments No pain with resisted motion Wrist Strength Wrist Manual Muscle Testing Left Flexion (C7) 4 Good Extension (C6) 4 Good Right Flexion (C7) 3+ Fair+ Extension (C6) 3+ Fair+ Hand Fleet Manager/Dispatch/Pinch Strength Hand Dominance Hand Dominance Right Hand Strength Left Fleet Manager/Dispatch (lbs) 35 Comments average of 3 Right Fleet Manager/Dispatch (lbs) 25 Comments average of 3 Hip Strength Hip Manual Muscle Testing Left Flexion (L2) 4- Good- Extension (S1) 4 Good Abduction 4 Good External Rotation 4+ Good+ Internal Rotation 4+ Good+ Right Flexion (L2) 3+ Fair+ Extension (S1) 4 Good Abduction 4 Good External Rotation 4+ Good+ Internal Rotation 4+ Good+ Knee Strength Knee Manual Muscle Testing Left Flexion (S2) 4 Good Extension (L3) 4 Good Right Flexion (S2) 4- Good- Extension (L3) 4- Good- Ankle/Foot Strength Ankle and Foot Manual Muscle Testing Left Dorsiflexion (L4) 4 Good Plantarflexion (S1) 4 Good Inversion 4 Good Eversion (S1) 4 Good Comments Moderate difficulty with performing standing B heel raise due to balance, so measured PF MMT in sitting Right Dorsiflexion (L4) 4 Good Plantarflexion (S1) 4 Good Inversion 4 Good Eversion (S1) 4 Good Comments Moderate difficulty with performing standing B heel raise due to balance, so measured PF MMT in sitting PT-OP-Q Treatments Start: 11/01/23 10:42 Freq: Status: Active Protocol: Document 11/12/23 10:31 NM (Rec: 11/12/23 11:34 NM [id number]) Gym Equipment Shuttle Recovery Leg Press Details B squat; cues for soft knees, no R locked knee Resistance 50# (2 navy) Shuttle Recovery Platform Stable Reps/Time 2x10 Therapeutic Exercises Sitting Exercises Hip abd Sitting Exercise Name progress to standing Scapular Retraction Sitting Exercise Name trialed with B shldr ER but painful, so d/c Side bilateral Reps/Minutes 2x5x3 Comments for improved scap motion Hip Flex Sitting Exercise Name progress to standing Standing Exercises Side steps Standing Exercise Name lateral stepping Side bilateral Resistance lvl 1 blue tb around knees Equipment Used ballerina bar for UE support Reps/Minutes 2x15 ft ea direction Comments cues for soft knees, control of trailing leg Hip flexion Standing Exercise Name march (not alternating) Side bilateral Resistance lvl 1 blue tb Equipment Used band around feet, ballerina bar for UE support Reps/Minutes 2x10 ea Comments cues to prevent circumduction pattern, no hyperext knees; fatiguing Calf stretch Standing Exercise Name for plantar fasciitis relief Side bilateral Equipment Used SALVADOR Reps/Minutes 1x30 Comments reports improvement in foot/ ankle pain Heel raise Side bilateral Equipment Used cues to put weight onto big toes for more post tib Reps/Minutes 1x7 Comments reports improvement in foot/ ankle pain with exercise Manual Therapy Treatment Soft Tissue Mobilization Scapula Body Location Lat, LT/MT, teres minor Mobilization Type Strumming,Sustained Pressure Intensity/Depth Moderate Body Position Sitting Comments Reports muscle discomfort with B shldr ER and scap retraction. Performed sustained pressure and strumming over painful muscles at moderate level, pt reports improvement of pain. Palpable relaxation of muscles Joint Mobilizations Scapulothoracic Joint R shoulder Direction upwd/dwd rotation, protract/ retract, elevation/depression Grade III Body Position seated Reps/Duration 10x5 ea direction Comments AAROM and mobilization with movement to address scapular mobility limitations with arm elevation. Perform fwd flex, abd, protract/retraction with PT manually facilitating scap movement. Pt demos improved scapular retract/protraction this session. Able to reach 100 deg fwd flex before pain. PT-OP-T Assessment and Plan Start: 11/01/23 10:42 Freq: Status: Active Protocol: Document 11/12/23 10:31 NM (Rec: 11/12/23 11:34 NM [id number]) Physical Therapy Assessment Goals Eight Impairment R shoulder ROM Short Term Goal (STG) Pt will be able to lift her R arm in fwd flexion to at least 100 deg in order to get dishes down from her shelf at home. STG Duration 5 weeks Fpc Goal (LTG) Pt will be able to lift her R arm in fwd flexion to at least 120 deg in order to get dishes down from her shelf at home. LTG Duration 10 weeks Seven Impairment strength Impairment R compliance tester 25# Short Term Goal (STG) Pt will improve R compliance tester strength by at least 2# to be comparable to the L compliance tester strength in order be able to open jars without assistance and to perform ADLs more independently. STG Duration 5 weeks Fpc Goal (LTG) Pt will improve R compliance tester strength by at least 5# to be comparable to the L compliance tester strength in order be able to open jars without assistance and to perform ADLs more independently. LTG Duration 10 weeks Six Impairment R quad and hamstring MMT 4-/5 Short Term Goal (STG) Pt will improve R quad and hamstring MMT to at least 4/5 in order to demo improved knee strength for transfers, stairs, and gait. STG Duration 5 weeks Fpc Goal (LTG) Pt will improve R quad and hamstring MMT to at least 4+/5 in order to demo improved knee strength for transfers, stairs, and gait. LTG Duration 10 weeks Five Impairment LE strength Impairment R hip flex MMT 3+/5 Short Term Goal (STG) Pt will improve R hip flex MMT to at least 4/5 in order to demo improved hip strength for foot clearance and limb advancement during gait. STG Duration 5 weeks Fpc Goal (LTG) Pt will improve R hip flex MMT to at least 4+/5 in order to demo improved hip strength for foot clearance and limb advancement during gait. LTG Duration 10 weeks Four Impairment strength Impairment 4 steps with reciprocal pattern with CGA using 1 HR to ascend, 2 to descend, no AD Short Term Goal (STG) Pt will perform at least 8 6 stairs using a reciprocal gait pattern with SBA and 1 or no hand rails using LRAD in order to demo improved BLE strength and balance. STG Duration 5 weeks Fpc Goal (LTG) Pt will perform at least 16 6 stairs using a reciprocal gait pattern with SBA and 1 or no hand rails using LRAD in order to demo improved BLE strength and balance. LTG Duration 10 weeks Three Impairment endurance, ambulation Impairment 6 MWT 736 ft (224.3 m), no AD Short Term Goal (STG) Pt will improve 6 MWT distance by at least 50 ft (786 ft, 239 m) using LRAD in order to demonstrate better BLE strength and endurance for community ambulation. STG Duration 5 weeks Fpc Goal (LTG) Pt will improve 6 MWT distance to at least 848 ft (258 m, 1 MCID) using LRAD in order to demonstrate better BLE strength and endurance for community ambulation. LTG Duration 10 weeks Two Impairment strength Impairment 5x STS 35.17 sec Short Term Goal (STG) Pt will improve 5x STS time to at least 30 seconds or less in order to demonstrate improved BLE strength and endurance. STG Duration 5 weeks Fpc Goal (LTG) Pt will improve 5X STS time to at least 25 seconds or less in order to demonstrate improved BLE strength and endurance. LTG Duration 10 weeks One Impairment Balance Impairment Myers/56 Short Term Goal (STG) Pt will improve Myers score to at least 44/56 in order to demonstrate improvements in balance and safety awareness during higher level activities . STG Duration 5 weeks Fpc Goal (LTG) Pt will improver Myers score to at least 47/56 (1 MCID for acute stroke pt) in order to demonstrate improvements in balance and safety awareness during higher level activities . LTG Duration 10 weeks Assessment Summary Assessment Continued tmt focus on strengthening B glutes, quads, hip abd/flexors to improve BLE weakness and stability. Progressed to B squat on leg press at 50#, no knee valgus or compensations; however, pt attempts to hyperext R knee for stability during quad ext. Progressed seateed hip flex/ abd to resisted standing march and side steps. Pt requires cues to prevent knee hyperext, maintain hip hinge for more glute activation, and correct execution; pt using BUE for balance support. Manual tmt emphasis on improving R scapular mobility, especially during arm elevation to prevent impingement common after CVA. Demos improvement in scap rotation/retract/ protract mobility and control. Pt reports pain below L scapula with B shldr ER, so discontinued at this session; will trial again with scapular retractions next session. Will continue to progress BLE strengthening, RUE ROM/ strengthening, and balance activities as tolerated. HEP to add side steps, standing march instead of seated activities. Pt would benefit from skilled PT to address impairments in RUE ROM, BUE strength, balance, and endurance in order to return to PLOF and improved activity/ ADL tolerance. Physical Therapy Plan Frequency and Duration Frequency of Treatment 1-2x/wk Duration of treatment (weeks) 10 Plan of Care Start Date 11/01/23 Plan of Care End Date 01/03/24 Therapeutic Interventions Therapeutic Interventions Aquatic Therapy,Balance Training,Canalithic Repositioning,Coordination Training,Gait Training,Home Exercise Program,Joint Mobilizations,Manual Therapy, Neuromuscular Re-education, Orthotic/Prosthetic Management ,Patient/Caregiver Education, Self-Care/Home Management, Sensory Integration,Soft Tissue Mobilization,Taping, Therapeutic Activities, Therapeutic Exercises, Vestibular Rehabilitation Modalities Cold Pack/Ice Massage,Hot Packs Next Visit Focus/Plan Next Note Type Treatment Note Next Visit Plan POC: BLE strengthening (leg press squat, LAQ, STS, HSC) and balance (ambulation, Myers activities). Review STS. Manual: scapulothoracic mob, MWM as tolerated in shldr flex , RTC strengthening
--- NOTE | 2023-11-16 11:37 | PT.OTN ---
Current Diagnoses Hypothyroidism, unspecified (11/16/23) Personal history of transient ischemic attack (TIA), and cerebral infarction without residual deficits (11/16/23) Physical Therapy Treatment Note PT-OP-A Visit Information Start: 11/01/23 10:42 Freq: Status: Active Protocol: Document 11/16/23 10:35 NM (Rec: 11/16/23 11:35 NM [id number]) Out-Patient Physical Therapy Visit Information Visit Information Visit Type Treatment Note Visit Start Time 10:30 Visit Stop Time 11:15 Total Visit Minutes 45 Visit Number 4 Evaluation Information Evaluation Date 11/01/23 Precautions Precautions Fall risk Hx: CVA, check vitals PT-OP-B Current Condition Start: 11/01/23 10:42 Freq: Status: Active Protocol: Document 11/01/23 15:35 NM (Rec: 11/01/23 16:02 NM [id number]) Current Condition History of Current Condition Onset Date 08/24/23 Current Complaints BLE weakness, balance History of Current Condition Pt presents to clinic with BLE weakness and balance impairments following a CVA on 08/24/23. Pt reports that her R side was primarily affected. She has the most difficulty with maintaining her balance while ambulating, especially while turning. She complains of occasional instances of numbness in her R hand and foot, which she believes impacts her balance, and she has pain in multiple joints due to fibromyalgia. She also reports decreased R profile saw operator strength and difficulty with elevating her RUE secondary to pain. Prior to her stroke, she used a spc with a small base at the point for community ambulation; however, she did not bring it to the clinic today. Pt also reports occasional episodes of dizziness when moving from sitting > standing, which causes her LOB. PMH includes fibromyalgia, lupus. Currently , she is not allowed to drive. Future Testing and Treatments Planned Follow up on 11/10 with physician Treatment Goals Patient/Caregiver Goals Improve ambulation, balance Prior Functional Status Baseline Function- ADL's Independent Baseline Function- Mobility Independent Baseline Function- Gait spc for community distances prn Baseline Function- Recreation/Hobbies Water aerobics Current Functional Impairments (Reported) Functional Limitations- ADL's Unable to drive. Limitations with dressing, gripping, lifting, standing balance, endurance, activity tolerance Functional Limitations- Mobility/Gait Limited ability to ambulate, uses spc more frequently for community ambulation distances Functional Limitations- Recreation/ Unable to participate in water Hobbies aerobics because unable to drive PT-OP-C Subjective Start: 11/01/23 10:42 Freq: Status: Active Protocol: Document 11/16/23 10:35 NM (Rec: 11/16/23 11:35 NM [id number]) OP-PT Subjective Patient Comments Patient Comments Pt presents to clinic with decreased R ankle/foot pain but reports 5/10 overall. No changes in medications or conditions since last session. She was not able to perform her exercises over the holiday due to company at her home. PT-OP-D Balance Start: 11/01/23 10:42 Freq: Status: Active Protocol: Document 11/01/23 15:35 NM (Rec: 11/01/23 16:02 NM [id number]) OP-PT Balance Assessment Sitting Balance Static Sitting Balance Ability Good Dynamic Sitting Balance Ability Good Balance Tests Myers Balance Test Myers Balance Test Score 40/56 Myers Impairment Rating 20 to 39% Impaired (Score 34- 44) Functional Reach Functional Reach Test 2 cm Single Limb Standing Single Limb- Right 1 sec Single Limb- Left 3 sec Semi-Tandem Standing Semi-Tandem Standing Balance 5 sec ea side Tandem Tandem Standing unable without UE support William Fall Scale Copyright Permission PT-OP-E Functional Tests Start: 11/01/23 10:42 Freq: Status: Active Protocol: Document 11/01/23 15:35 NM (Rec: 11/01/23 16:02 NM [id number]) Functional Tests 6 Minute Walk Test Distance 736 Device Used none Comments SBA Five Times Sit to Stand Test Score 35.17 sec PT-OP-F Manual Assessment Start: 11/01/23 10:42 Freq: Status: Active Protocol: Document 11/01/23 15:35 NM (Rec: 11/01/23 16:02 NM [id number]) Manual Assessments Soft Tissue Assessment Soft Tissue Mobility Assessment No soft tissue restrictions noted Joint Mobility Assessment Joint Mobility Assessment R shoulder ROM is painful in fwd flex, abduction with limited scapular mobility and impingement symptoms. No laxity noted at knee PT-OP-G Mobility & Gait Start: 11/01/23 10:42 Freq: Status: Active Protocol: Document 11/01/23 15:35 NM (Rec: 11/01/23 16:02 NM [id number]) OP Gait Assessment Gait Gait Assistance Required: Standby Assistance Distance (Feet) 736 Able to Maintain Weight Bearing Status Yes During Gait Assistive Devices Assistive Device None,Straight Cane Gait Deviations General Gait Pattern Decreased Stride Length,Flexed Trunk,Step-to Gait Factors Limiting Gait Function Factors Limiting Gait Function Decreased Strength, Incoordination,Limited Range of Motion,Poor Balance Comments Gait Comments Reports that she uses a spc for community ambulation Stair Climbing Evaluation Evaluation Level of Assist On Stairs Contact Guard Assistance Devices Stair Climbing Assistive Devices Right Railing Technique/Endurance Stair Climbing Direction Ascend and Descend Stair Climbing Technique Step Over Step Number of Steps Climbed 4 Stair Climbing Set # Repetitions (reps) 1 Comments Stair Climbing Comments Reciprocal motion, 1 HR to ascend, 2 HR to descent; CGA to steady; Demos decreased eccentric control at knee during descent PT-OP-H Neuro Start: 11/01/23 10:42 Freq: Status: Active Protocol: Document 11/01/23 15:35 NM (Rec: 11/01/23 16:02 NM [id number]) Sensation Evaluation Gross Sensation Gross Sensation Right LE Impaired Sensation Description Paresthesia,Numbness Dermatome Impairments L4,L5,S1,S2 Comments Summary Comments Able to distinguish light touch on RLE, however reports that it is less than LLE from L4-S2 dermatomes Coordination Evaluation Upper Extremity Tests Left Finger to Nose Test Normal Performance Alternate Nose to Finger Test Normal Performance Pronation/Supination Test minimal impairment but performed slowly Right Finger to Nose Test Minimal Impairment Alternate Nose to Finger Test Minimal Impairment Pronation/Supination Test Minimal impairment but performed slowly bilaterally Lower Extremity Tests Left Heel on Khalil Test Normal Performance Right Heel on Khalil Test Minimal Impairment Deep Tendon Reflex & Clonus Assessment Deep Tendon Reflex L biceps Deep Tendon Reflex 2+ Normal R biceps Deep Tendon Reflex 2+ Normal Vital Signs Blood Pressure Sitting Blood Pressure (90/60-120/80 mmHg) 120/77 Blood Pressure Source Automatic Cuff,Left Upper Extremity Oxygen Pulse Oximetry at Rest (%) (95-100 %) 96 PT-OP-J Posture/Palpation/Skin Start: 11/01/23 10:42 Freq: Status: Active Protocol: Document 11/01/23 15:35 NM (Rec: 11/01/23 16:02 NM [id number]) Posture Evaluation Position Sitting Evaluation View posterior, lateral Head/C-Spine Posture Forward Head T-Spine Posture Increased Kyphosis L-Spine Posture Increased Lordosis Shoulder Posture (L) Rounded,(R) Rounded,(L) Forward,(R) Forward Weight Distribution Weight Shifted Left Hip Posture (R) Externally Rotated Knee Posture (L) Genu Valgus,(R) Genu Valgus PT-OP-K Range of Motion Start: 11/01/23 10:42 Freq: Status: Active Protocol: Document 11/03/23 10:31 NM (Rec: 11/03/23 11:32 NM [id number]) Shoulder Goniometric Range of Motion Shoulder Left Shoulder ROM WFL No Testing Position Supine Flexion 150 Abduction 150 External Rotation at 45 degrees 70 Abduction Internal Rotation 70 Right Shoulder ROM WFL No Testing Position Supine Flexion 107 Abduction 130 External Rotation at 45 degrees 30 Abduction Internal Rotation 70 PT-OP-M Strength Start: 11/01/23 10:42 Freq: Status: Active Protocol: Document 11/01/23 15:35 NM (Rec: 11/01/23 16:02 NM [id number]) Shoulder Strength Shoulder Manual Muscle Testing Left Flexion 4 Good Extension 4 Good Abduction (C5) 4- Good- External Rotation 4- Good- Internal Rotation 4- Good- Comments No pain reported Right Flexion 3+ Fair+ Extension 4 Good Abduction (C5) 4- Good- External Rotation 4- Good- Internal Rotation 4- Good- Comments Pain with resisted flexion and abduction (flex> abd) Elbow/Forearm Strength Elbow and Forearm Manual Muscle Testing Left Flexion (C6) 4+ Good+ Extension (C7) 4+ Good+ Right Flexion (C6) 4- Good- Extension (C7) 4- Good- Comments No pain with resisted motion Wrist Strength Wrist Manual Muscle Testing Left Flexion (C7) 4 Good Extension (C6) 4 Good Right Flexion (C7) 3+ Fair+ Extension (C6) 3+ Fair+ Hand Poacher Wringer Operator/Pinch Strength Hand Dominance Hand Dominance Right Hand Strength Left Poacher Wringer Operator (lbs) 35 Comments average of 3 Right Poacher Wringer Operator (lbs) 25 Comments average of 3 Hip Strength Hip Manual Muscle Testing Left Flexion (L2) 4- Good- Extension (S1) 4 Good Abduction 4 Good External Rotation 4+ Good+ Internal Rotation 4+ Good+ Right Flexion (L2) 3+ Fair+ Extension (S1) 4 Good Abduction 4 Good External Rotation 4+ Good+ Internal Rotation 4+ Good+ Knee Strength Knee Manual Muscle Testing Left Flexion (S2) 4 Good Extension (L3) 4 Good Right Flexion (S2) 4- Good- Extension (L3) 4- Good- Ankle/Foot Strength Ankle and Foot Manual Muscle Testing Left Dorsiflexion (L4) 4 Good Plantarflexion (S1) 4 Good Inversion 4 Good Eversion (S1) 4 Good Comments Moderate difficulty with performing standing B heel raise due to balance, so measured PF MMT in sitting Right Dorsiflexion (L4) 4 Good Plantarflexion (S1) 4 Good Inversion 4 Good Eversion (S1) 4 Good Comments Moderate difficulty with performing standing B heel raise due to balance, so measured PF MMT in sitting PT-OP-Q Treatments Start: 11/01/23 10:42 Freq: Status: Active Protocol: Document 11/16/23 10:35 NM (Rec: 11/16/23 11:35 NM [id number]) Gym Equipment Shuttle Recovery Leg Press Details B squat; cues for soft knees, no R locked knee (prn manual cue-post knee) Resistance 50# (2 navy) Shuttle Recovery Platform Stable Reps/Time 2x12 Therapeutic Exercises Sitting Exercises Scapular Retraction Sitting Exercise Name added with B shldr ER Side bilateral Equipment Used lvl 1 blue tb Reps/Minutes 1x10x2 Comments for improved RTC strength, scap motion; no pain reported Standing Exercises DF raise Standing Exercise Name toe raises Side bilateral Equipment Used back against wall Reps/Minutes 2x10x2 Comments cues for correct execution Side steps Standing Exercise Name lateral stepping Side bilateral Resistance lvl 1 blue tb around knees Equipment Used // bar for UE support (2 fingers only) Reps/Minutes 2x20 ft ea direction Comments cues for soft knees, control of trailing leg Hip flexion Standing Exercise Name march (not alternating) Side bilateral Resistance lvl 1 blue tb Equipment Used band around feet, // bar for UE support Reps/Minutes 2x15 ea Comments cues to prevent circumduction pattern, no hyperext knees; fatiguing Calf stretch Standing Exercise Name 1. gastroc, 2. soleus Side bilateral Equipment Used SALVADOR Reps/Minutes 1x30 ea Comments reports improvement in foot symptoms Heel raise Standing Exercise Name gastroc only Side bilateral Equipment Used cues to put weight onto big toes for more post tib Reps/Minutes 2x10 Comments better tolerance today, no pain reported Manual Therapy Treatment Joint Mobilizations Scapulothoracic Joint R shoulder Direction upwd/dwd rotation, protract/ retract Grade III Body Position Sidelying Reps/Duration 1x10 ea, MWM Comments AAROM > AROM mobilization with movement to address scap mobility limitations with arm elevation. Performed fwd flex in sidelying with scap rotation and protract/ retraction with PT facilitating scap movement. Demos improved tolerance for arm elevation. Up to 110 deg fwd flex before impingement symptoms after mobilization and following gentle rotator cuff strengthening. PT-OP-T Assessment and Plan Start: 11/01/23 10:42 Freq: Status: Active Protocol: Document 11/16/23 10:35 NM (Rec: 11/16/23 11:35 NM [id number]) Physical Therapy Assessment Goals Eight Impairment R shoulder ROM Short Term Goal (STG) Pt will be able to lift her R arm in fwd flexion to at least 100 deg in order to get dishes down from her shelf at home. STG Duration 5 weeks Carpet Layer Goal (LTG) Pt will be able to lift her R arm in fwd flexion to at least 120 deg in order to get dishes down from her shelf at home. LTG Duration 10 weeks Seven Impairment strength Impairment R profile saw operator 25# Short Term Goal (STG) Pt will improve R profile saw operator strength by at least 2# to be comparable to the L profile saw operator strength in order be able to open jars without assistance and to perform ADLs more independently. STG Duration 5 weeks Chcf Goal (LTG) Pt will improve R profile saw operator strength by at least 5# to be comparable to the L profile saw operator strength in order be able to open jars without assistance and to perform ADLs more independently. LTG Duration 10 weeks Six Impairment R quad and hamstring MMT 4-/5 Short Term Goal (STG) Pt will improve R quad and hamstring MMT to at least 4/5 in order to demo improved knee strength for transfers, stairs, and gait. STG Duration 5 weeks Chcf Goal (LTG) Pt will improve R quad and hamstring MMT to at least 4+/5 in order to demo improved knee strength for transfers, stairs, and gait. LTG Duration 10 weeks Five Impairment LE strength Impairment R hip flex MMT 3+/5 Short Term Goal (STG) Pt will improve R hip flex MMT to at least 4/5 in order to demo improved hip strength for foot clearance and limb advancement during gait. STG Duration 5 weeks Carpet Layer Goal (LTG) Pt will improve R hip flex MMT to at least 4+/5 in order to demo improved hip strength for foot clearance and limb advancement during gait. LTG Duration 10 weeks Four Impairment strength Impairment 4 steps with reciprocal pattern with CGA using 1 HR to ascend, 2 to descend, no AD Short Term Goal (STG) Pt will perform at least 8 6 stairs using a reciprocal gait pattern with SBA and 1 or no hand rails using LRAD in order to demo improved BLE strength and balance. STG Duration 5 weeks Carpet Layer Goal (LTG) Pt will perform at least 16 6 stairs using a reciprocal gait pattern with SBA and 1 or no hand rails using LRAD in order to demo improved BLE strength and balance. LTG Duration 10 weeks Three Impairment endurance, ambulation Impairment 6 MWT 736 ft (224.3 m), no AD Short Term Goal (STG) Pt will improve 6 MWT distance by at least 50 ft (786 ft, 239 m) using LRAD in order to demonstrate better BLE strength and endurance for community ambulation. STG Duration 5 weeks Carpet Layer Goal (LTG) Pt will improve 6 MWT distance to at least 848 ft (258 m, 1 MCID) using LRAD in order to demonstrate better BLE strength and endurance for community ambulation. LTG Duration 10 weeks Two Impairment strength Impairment 5x STS 35.17 sec Short Term Goal (STG) Pt will improve 5x STS time to at least 30 seconds or less in order to demonstrate improved BLE strength and endurance. STG Duration 5 weeks Carpet Layer Goal (LTG) Pt will improve 5X STS time to at least 25 seconds or less in order to demonstrate improved BLE strength and endurance. LTG Duration 10 weeks One Impairment Balance Impairment Myers/56 Short Term Goal (STG) Pt will improve Myers score to at least 44/56 in order to demonstrate improvements in balance and safety awareness during higher level activities . STG Duration 5 weeks Carpet Layer Goal (LTG) Pt will improver Myers score to at least 47/56 (1 MCID for acute stroke pt) in order to demonstrate improvements in balance and safety awareness during higher level activities . LTG Duration 10 weeks Assessment Summary Assessment Pt demos improved tolerance for plantarflexion stretching and strengthening today. Added ankle dorsiflexion for improved foot clearance during gait. Continued with standing hip flex, hip abd exercises, B squat on leg press; progressed distance/number of repetitions at current resistance. Pt requires verbal and tactile cues to prevent R knee hyperextension to allow for better quad activation for knee stability. Pt demos improved activity tolerance today with additional repetitions. Added lightly resisted bilateral shoulder ER to scapular retractions to emphasize rotator cuff strengthening for improved UE control during arm elevation. After scapulothoracic mobilization especially with scap rotation and B ER resistance, pt demos up to 110 deg fwd flex ROM before impingement symptoms begin. Demos improved scapular control during AAROM mobilizations with protraction /retraction and rotation. Added B shldr ER and dorsiflexion raises to HEP. Pt would benefit from skilled PT for further BLE strengthening , RUE mobility/strengthening, gait training, balance training, and postural awareness in order to improve activity tolerance, better balance and ambulation to prevent falls, and to improve ADL performance. Physical Therapy Plan Frequency and Duration Frequency of Treatment 1-2x/wk Duration of treatment (weeks) 10 Plan of Care Start Date 11/01/23 Plan of Care End Date 01/03/24 Therapeutic Interventions Therapeutic Interventions Aquatic Therapy,Balance Training,Canalithic Repositioning,Coordination Training,Gait Training,Home Exercise Program,Joint Mobilizations,Manual Therapy, Neuromuscular Re-education, Orthotic/Prosthetic Management ,Patient/Caregiver Education, Self-Care/Home Management, Sensory Integration,Soft Tissue Mobilization,Taping, Therapeutic Activities, Therapeutic Exercises, Vestibular Rehabilitation Modalities Cold Pack/Ice Massage,Hot Packs Next Visit Focus/Plan Next Note Type Treatment Note Next Visit Plan POC: BLE strengthening (leg press squat, LAQ, STS, HSC) and balance (ambulation, Myers activities). Begin some balance activities. Review STS , add small resistance or lower table. Add profile saw operator strength activity Manual: scapulothoracic mob, MWM as tolerated in shldr flex , gentle RTC strengthening within available range
--- NOTE | 2023-11-18 11:25 | PT.OTN ---
Current Diagnoses Hypothyroidism, unspecified (11/18/23) Personal history of transient ischemic attack (TIA), and cerebral infarction without residual deficits (11/18/23) Physical Therapy Treatment Note PT-OP-A Visit Information Start: 11/01/23 10:42 Freq: Status: Active Protocol: Document 11/18/23 10:34 NM (Rec: 11/18/23 11:24 NM [id number]) Out-Patient Physical Therapy Visit Information Visit Information Visit Type Treatment Note Visit Start Time 10:35 Visit Stop Time 11:15 Total Visit Minutes 40 Visit Number 5 Evaluation Information Evaluation Date 11/01/23 Precautions Precautions Fall risk Hx: CVA, check vitals PT-OP-B Current Condition Start: 11/01/23 10:42 Freq: Status: Active Protocol: Document 11/01/23 15:35 NM (Rec: 11/01/23 16:02 NM [id number]) Current Condition History of Current Condition Onset Date 08/24/23 Current Complaints BLE weakness, balance History of Current Condition Pt presents to clinic with BLE weakness and balance impairments following a CVA on 08/24/23. Pt reports that her R side was primarily affected. She has the most difficulty with maintaining her balance while ambulating, especially while turning. She complains of occasional instances of numbness in her R hand and foot, which she believes impacts her balance, and she has pain in multiple joints due to fibromyalgia. She also reports decreased R software release engineer strength and difficulty with elevating her RUE secondary to pain. Prior to her stroke, she used a spc with a small base at the point for community ambulation; however, she did not bring it to the clinic today. Pt also reports occasional episodes of dizziness when moving from sitting > standing, which causes her LOB. PMH includes fibromyalgia, lupus. Currently , she is not allowed to drive. Future Testing and Treatments Planned Follow up on 11/10 with physician Treatment Goals Patient/Caregiver Goals Improve ambulation, balance Prior Functional Status Baseline Function- ADL's Independent Baseline Function- Mobility Independent Baseline Function- Gait spc for community distances prn Baseline Function- Recreation/Hobbies Water aerobics Current Functional Impairments (Reported) Functional Limitations- ADL's Unable to drive. Limitations with dressing, gripping, lifting, standing balance, endurance, activity tolerance Functional Limitations- Mobility/Gait Limited ability to ambulate, uses spc more frequently for community ambulation distances Functional Limitations- Recreation/ Unable to participate in water Hobbies aerobics because unable to drive PT-OP-C Subjective Start: 11/01/23 10:42 Freq: Status: Active Protocol: Document 11/18/23 10:34 NM (Rec: 11/18/23 11:24 NM [id number]) OP-PT Subjective Patient Comments Patient Comments Pt presents to clinic with less R ankle/foot pain, but reports that she is sore after last session. She also reports that this is not a good day regarding her other co-morbidities and she did not sleep well. She has been performing her exercises at home without too much difficulty. PT-OP-D Balance Start: 11/01/23 10:42 Freq: Status: Active Protocol: Document 11/01/23 15:35 NM (Rec: 11/01/23 16:02 NM [id number]) OP-PT Balance Assessment Sitting Balance Static Sitting Balance Ability Good Dynamic Sitting Balance Ability Good Balance Tests Myers Balance Test Myers Balance Test Score 40/56 Myers Impairment Rating 20 to 39% Impaired (Score 34- 44) Functional Reach Functional Reach Test 2 cm Single Limb Standing Single Limb- Right 1 sec Single Limb- Left 3 sec Semi-Tandem Standing Semi-Tandem Standing Balance 5 sec ea side Tandem Tandem Standing unable without UE support William Fall Scale Copyright Permission PT-OP-E Functional Tests Start: 11/01/23 10:42 Freq: Status: Active Protocol: Document 11/01/23 15:35 NM (Rec: 11/01/23 16:02 NM [id number]) Functional Tests 6 Minute Walk Test Distance 736 Device Used none Comments SBA Five Times Sit to Stand Test Score 35.17 sec PT-OP-F Manual Assessment Start: 11/01/23 10:42 Freq: Status: Active Protocol: Document 11/01/23 15:35 NM (Rec: 11/01/23 16:02 NM [id number]) Manual Assessments Soft Tissue Assessment Soft Tissue Mobility Assessment No soft tissue restrictions noted Joint Mobility Assessment Joint Mobility Assessment R shoulder ROM is painful in fwd flex, abduction with limited scapular mobility and impingement symptoms. No laxity noted at knee PT-OP-G Mobility & Gait Start: 11/01/23 10:42 Freq: Status: Active Protocol: Document 11/01/23 15:35 NM (Rec: 11/01/23 16:02 NM [id number]) OP Gait Assessment Gait Gait Assistance Required: Standby Assistance Distance (Feet) 736 Able to Maintain Weight Bearing Status Yes During Gait Assistive Devices Assistive Device None,Straight Cane Gait Deviations General Gait Pattern Decreased Stride Length,Flexed Trunk,Step-to Gait Factors Limiting Gait Function Factors Limiting Gait Function Decreased Strength, Incoordination,Limited Range of Motion,Poor Balance Comments Gait Comments Reports that she uses a spc for community ambulation Stair Climbing Evaluation Evaluation Level of Assist On Stairs Contact Guard Assistance Devices Stair Climbing Assistive Devices Right Railing Technique/Endurance Stair Climbing Direction Ascend and Descend Stair Climbing Technique Step Over Step Number of Steps Climbed 4 Stair Climbing Set # Repetitions (reps) 1 Comments Stair Climbing Comments Reciprocal motion, 1 HR to ascend, 2 HR to descent; CGA to steady; Demos decreased eccentric control at knee during descent PT-OP-H Neuro Start: 11/01/23 10:42 Freq: Status: Active Protocol: Document 11/01/23 15:35 NM (Rec: 11/01/23 16:02 NM [id number]) Sensation Evaluation Gross Sensation Gross Sensation Right LE Impaired Sensation Description Paresthesia,Numbness Dermatome Impairments L4,L5,S1,S2 Comments Summary Comments Able to distinguish light touch on RLE, however reports that it is less than LLE from L4-S2 dermatomes Coordination Evaluation Upper Extremity Tests Left Finger to Nose Test Normal Performance Alternate Nose to Finger Test Normal Performance Pronation/Supination Test minimal impairment but performed slowly Right Finger to Nose Test Minimal Impairment Alternate Nose to Finger Test Minimal Impairment Pronation/Supination Test Minimal impairment but performed slowly bilaterally Lower Extremity Tests Left Heel on Khalil Test Normal Performance Right Heel on Khalil Test Minimal Impairment Deep Tendon Reflex & Clonus Assessment Deep Tendon Reflex L biceps Deep Tendon Reflex 2+ Normal R biceps Deep Tendon Reflex 2+ Normal Vital Signs Blood Pressure Sitting Blood Pressure (90/60-120/80 mmHg) 120/77 Blood Pressure Source Automatic Cuff,Left Upper Extremity Oxygen Pulse Oximetry at Rest (%) (95-100 %) 96 PT-OP-J Posture/Palpation/Skin Start: 11/01/23 10:42 Freq: Status: Active Protocol: Document 11/01/23 15:35 NM (Rec: 11/01/23 16:02 NM [id number]) Posture Evaluation Position Sitting Evaluation View posterior, lateral Head/C-Spine Posture Forward Head T-Spine Posture Increased Kyphosis L-Spine Posture Increased Lordosis Shoulder Posture (L) Rounded,(R) Rounded,(L) Forward,(R) Forward Weight Distribution Weight Shifted Left Hip Posture (R) Externally Rotated Knee Posture (L) Genu Valgus,(R) Genu Valgus PT-OP-K Range of Motion Start: 11/01/23 10:42 Freq: Status: Active Protocol: Document 11/03/23 10:31 NM (Rec: 11/03/23 11:32 NM [id number]) Shoulder Goniometric Range of Motion Shoulder Left Shoulder ROM WFL No Testing Position Supine Flexion 150 Abduction 150 External Rotation at 45 degrees 70 Abduction Internal Rotation 70 Right Shoulder ROM WFL No Testing Position Supine Flexion 107 Abduction 130 External Rotation at 45 degrees 30 Abduction Internal Rotation 70 PT-OP-M Strength Start: 11/01/23 10:42 Freq: Status: Active Protocol: Document 11/01/23 15:35 NM (Rec: 11/01/23 16:02 NM [id number]) Shoulder Strength Shoulder Manual Muscle Testing Left Flexion 4 Good Extension 4 Good Abduction (C5) 4- Good- External Rotation 4- Good- Internal Rotation 4- Good- Comments No pain reported Right Flexion 3+ Fair+ Extension 4 Good Abduction (C5) 4- Good- External Rotation 4- Good- Internal Rotation 4- Good- Comments Pain with resisted flexion and abduction (flex> abd) Elbow/Forearm Strength Elbow and Forearm Manual Muscle Testing Left Flexion (C6) 4+ Good+ Extension (C7) 4+ Good+ Right Flexion (C6) 4- Good- Extension (C7) 4- Good- Comments No pain with resisted motion Wrist Strength Wrist Manual Muscle Testing Left Flexion (C7) 4 Good Extension (C6) 4 Good Right Flexion (C7) 3+ Fair+ Extension (C6) 3+ Fair+ Hand Mud Mixer/Pinch Strength Hand Dominance Hand Dominance Right Hand Strength Left Mud Mixer (lbs) 35 Comments average of 3 Right Mud Mixer (lbs) 25 Comments average of 3 Hip Strength Hip Manual Muscle Testing Left Flexion (L2) 4- Good- Extension (S1) 4 Good Abduction 4 Good External Rotation 4+ Good+ Internal Rotation 4+ Good+ Right Flexion (L2) 3+ Fair+ Extension (S1) 4 Good Abduction 4 Good External Rotation 4+ Good+ Internal Rotation 4+ Good+ Knee Strength Knee Manual Muscle Testing Left Flexion (S2) 4 Good Extension (L3) 4 Good Right Flexion (S2) 4- Good- Extension (L3) 4- Good- Ankle/Foot Strength Ankle and Foot Manual Muscle Testing Left Dorsiflexion (L4) 4 Good Plantarflexion (S1) 4 Good Inversion 4 Good Eversion (S1) 4 Good Comments Moderate difficulty with performing standing B heel raise due to balance, so measured PF MMT in sitting Right Dorsiflexion (L4) 4 Good Plantarflexion (S1) 4 Good Inversion 4 Good Eversion (S1) 4 Good Comments Moderate difficulty with performing standing B heel raise due to balance, so measured PF MMT in sitting PT-OP-Q Treatments Start: 11/01/23 10:42 Freq: Status: Active Protocol: Document 11/18/23 10:34 NM (Rec: 11/18/23 11:24 NM [id number]) Cardio Equipment Recumbent Stepper (Sci-Fit) Duration (Minutes) 4 Resistance 2 Seat Position 8 Other warm up, to decrease soreness Gym Equipment Shuttle Recovery Leg Press-Unilateral Squat Details Unisquat (ea LE); cues for soft knees Resistance 25# 1st set, 37# 2nd set Shuttle Recovery Platform Stable Reps/Time 2x8 Leg Press Details B squat; cues for soft knees, no R locked knee (prn manual cue-post knee) Resistance 50# (2 navy) Shuttle Recovery Platform Stable Reps/Time 2x15 Therapeutic Exercises Sitting Exercises wall push up Sitting Exercise Name serratus push up Side bilateral Equipment Used wall Reps/Minutes 1x10 Mud Mixer Strength Sitting Exercise Name c software release engineer, power software release engineer Side right Resistance rainbow stress ball (light) Reps/Minutes 5x5 ea Comments cues for scapular setting/ retraction, wrist ext Scapular Retraction Sitting Exercise Name added with B shldr ER Side bilateral Equipment Used lvl 1 blue tb Reps/Minutes 1x10x2 Comments for improved RTC strength, scap motion; no pain reported Standing Exercises Row Standing Exercise Name high row Side bilateral Resistance orange tb (lvl 2) Reps/Minutes 1x10 Comments cues for scap retraction, correct form; reports no pain; demos good retract Hip flexion Standing Exercise Name march alternating Side bilateral Resistance lvl 1 blue tb Equipment Used band around feet, // bar for UE support Reps/Minutes 2x15 ea Comments cues for no trunk lean, manual assist to prevent knee hyperext; fatiguing Other Exercises LAQ Other Exercise Name seated on plinth, able to get full knee ext Side right Resistance 2# ankle weight Reps/Minutes 2x10 Comments reports pain with end range flex, cued for pain free range PT-OP-T Assessment and Plan Start: 11/01/23 10:42 Freq: Status: Active Protocol: Document 11/18/23 10:34 NM (Rec: 11/18/23 11:24 NM [id number]) Physical Therapy Assessment Goals Eight Impairment R shoulder ROM Short Term Goal (STG) Pt will be able to lift her R arm in fwd flexion to at least 100 deg in order to get dishes down from her shelf at home. STG Duration 5 weeks Roentgenologist Goal (LTG) Pt will be able to lift her R arm in fwd flexion to at least 120 deg in order to get dishes down from her shelf at home. LTG Duration 10 weeks Seven Impairment strength Impairment R software release engineer 25# Short Term Goal (STG) Pt will improve R software release engineer strength by at least 2# to be comparable to the L software release engineer strength in order be able to open jars without assistance and to perform ADLs more independently. STG Duration 5 weeks Group Home Goal (LTG) Pt will improve R software release engineer strength by at least 5# to be comparable to the L software release engineer strength in order be able to open jars without assistance and to perform ADLs more independently. LTG Duration 10 weeks Six Impairment R quad and hamstring MMT 4-/5 Short Term Goal (STG) Pt will improve R quad and hamstring MMT to at least 4/5 in order to demo improved knee strength for transfers, stairs, and gait. STG Duration 5 weeks Roentgenologist Goal (LTG) Pt will improve R quad and hamstring MMT to at least 4+/5 in order to demo improved knee strength for transfers, stairs, and gait. LTG Duration 10 weeks Five Impairment LE strength Impairment R hip flex MMT 3+/5 Short Term Goal (STG) Pt will improve R hip flex MMT to at least 4/5 in order to demo improved hip strength for foot clearance and limb advancement during gait. STG Duration 5 weeks Group Home Goal (LTG) Pt will improve R hip flex MMT to at least 4+/5 in order to demo improved hip strength for foot clearance and limb advancement during gait. LTG Duration 10 weeks Four Impairment strength Impairment 4 steps with reciprocal pattern with CGA using 1 HR to ascend, 2 to descend, no AD Short Term Goal (STG) Pt will perform at least 8 6 stairs using a reciprocal gait pattern with SBA and 1 or no hand rails using LRAD in order to demo improved BLE strength and balance. STG Duration 5 weeks Group Home Goal (LTG) Pt will perform at least 16 6 stairs using a reciprocal gait pattern with SBA and 1 or no hand rails using LRAD in order to demo improved BLE strength and balance. LTG Duration 10 weeks Three Impairment endurance, ambulation Impairment 6 MWT 736 ft (224.3 m), no AD Short Term Goal (STG) Pt will improve 6 MWT distance by at least 50 ft (786 ft, 239 m) using LRAD in order to demonstrate better BLE strength and endurance for community ambulation. STG Duration 5 weeks Roentgenologist Goal (LTG) Pt will improve 6 MWT distance to at least 848 ft (258 m, 1 MCID) using LRAD in order to demonstrate better BLE strength and endurance for community ambulation. LTG Duration 10 weeks Two Impairment strength Impairment 5x STS 35.17 sec Short Term Goal (STG) Pt will improve 5x STS time to at least 30 seconds or less in order to demonstrate improved BLE strength and endurance. STG Duration 5 weeks Group Home Goal (LTG) Pt will improve 5X STS time to at least 25 seconds or less in order to demonstrate improved BLE strength and endurance. LTG Duration 10 weeks One Impairment Balance Impairment Myers/56 Short Term Goal (STG) Pt will improve Myers score to at least 44/56 in order to demonstrate improvements in balance and safety awareness during higher level activities . STG Duration 5 weeks Roentgenologist Goal (LTG) Pt will improver Myers score to at least 47/56 (1 MCID for acute stroke pt) in order to demonstrate improvements in balance and safety awareness during higher level activities . LTG Duration 10 weeks Assessment Summary Assessment Pt demos improvement in controlling her R knee, not moving into hyperextension and requiring minimal cueing today. Initiated single leg squat on leg press today, pt able to demo full knee range with minimal cues to prevent R knee hyperext. Pt tolerated B squat on leg press well at higher reps, so will increase resistance next session as tolerated. Progressed standing march to alternating pattern to challenge balance during stance rather than continuing unilateral hip flex. PT assisted pt with verbal and tactile cues to limit movement in to knee hyperext with stance during january; pt dmeos improvement with reps. Added LAQ to target quad for improved stability in stance. Also initiated standing theraband rows, power software release engineer, and continued with B shoulder ER to promote rotator cuff, periscapular, and software release engineer strength for improved ADLs. Pt reports improvement in RUE range and tolerance for elevation compared to previous sessions. Pt would benefit from skilled PT to address limitations in BLE strength, RUE strength and mobility, balance, gait, endurance in order to improve activity tolerance, ADL performance, and return to PLOF. Physical Therapy Plan Frequency and Duration Frequency of Treatment 1-2x/wk Duration of treatment (weeks) 10 Plan of Care Start Date 11/01/23 Plan of Care End Date 01/03/24 Therapeutic Interventions Therapeutic Interventions Aquatic Therapy,Balance Training,Canalithic Repositioning,Coordination Training,Gait Training,Home Exercise Program,Joint Mobilizations,Manual Therapy, Neuromuscular Re-education, Orthotic/Prosthetic Management ,Patient/Caregiver Education, Self-Care/Home Management, Sensory Integration,Soft Tissue Mobilization,Taping, Therapeutic Activities, Therapeutic Exercises, Vestibular Rehabilitation Modalities Cold Pack/Ice Massage,Hot Packs Next Visit Focus/Plan Next Note Type Treatment Note Next Visit Plan Next session progress leg press resistance, add balance POC: BLE strengthening (leg press squat, LAQ, STS, HSC) and balance (ambulation, Myers activities). Begin some balance activities. Review STS , add small resistance or lower table. Continue software release engineer strength activity, rotator cuff strengthening and RUE AROM Manual: scapulothoracic mob, MWM as tolerated in shldr flex , gentle RTC strengthening within available range
--- NOTE | 2023-11-25 12:03 | PT.OTN ---
Current Diagnoses Hypothyroidism, unspecified (11/25/23) Personal history of transient ischemic attack (TIA), and cerebral infarction without residual deficits (11/25/23) Physical Therapy Treatment Note PT-OP-A Visit Information Start: 11/01/23 10:42 Freq: Status: Active Protocol: Document 11/25/23 10:27 SW (Rec: 11/25/23 11:16 SW [id number]) Out-Patient Physical Therapy Visit Information Visit Information Visit Type Treatment Note Visit Start Time 10:30 Visit Stop Time 11:15 Total Visit Minutes 45 Visit Number 6 Number of BILL HIKER Visits 1 Precautions Precautions Fall risk Hx: CVA, check vitals PT-OP-B Current Condition Start: 11/01/23 10:42 Freq: Status: Active Protocol: Document 11/01/23 15:35 NM (Rec: 11/01/23 16:02 NM [id number]) Current Condition History of Current Condition Onset Date 08/24/23 Current Complaints BLE weakness, balance History of Current Condition Pt presents to clinic with BLE weakness and balance impairments following a CVA on 08/24/23. Pt reports that her R side was primarily affected. She has the most difficulty with maintaining her balance while ambulating, especially while turning. She complains of occasional instances of numbness in her R hand and foot, which she believes impacts her balance, and she has pain in multiple joints due to fibromyalgia. She also reports decreased R interior mechanic strength and difficulty with elevating her RUE secondary to pain. Prior to her stroke, she used a spc with a small base at the point for community ambulation; however, she did not bring it to the clinic today. Pt also reports occasional episodes of dizziness when moving from sitting > standing, which causes her LOB. PMH includes fibromyalgia, lupus. Currently , she is not allowed to drive. Future Testing and Treatments Planned Follow up on 11/10 with physician Treatment Goals Patient/Caregiver Goals Improve ambulation, balance Prior Functional Status Baseline Function- ADL's Independent Baseline Function- Mobility Independent Baseline Function- Gait spc for community distances prn Baseline Function- Recreation/Hobbies Water aerobics Current Functional Impairments (Reported) Functional Limitations- ADL's Unable to drive. Limitations with dressing, gripping, lifting, standing balance, endurance, activity tolerance Functional Limitations- Mobility/Gait Limited ability to ambulate, uses spc more frequently for community ambulation distances Functional Limitations- Recreation/ Unable to participate in water Hobbies aerobics because unable to drive PT-OP-C Subjective Start: 11/01/23 10:42 Freq: Status: Active Protocol: Document 11/25/23 10:27 SW (Rec: 11/25/23 11:16 SW [id number]) OP-PT Subjective Patient Comments Patient Comments Pt reports swelling at side ankle and increased flare up of plantar fasciatis. Feels balance has been getting better and just a couple bouts of dizziness. PT-OP-D Balance Start: 11/01/23 10:42 Freq: Status: Active Protocol: Document 11/01/23 15:35 NM (Rec: 11/01/23 16:02 NM [id number]) OP-PT Balance Assessment Sitting Balance Static Sitting Balance Ability Good Dynamic Sitting Balance Ability Good Balance Tests Myers Balance Test Myers Balance Test Score 40/56 Myers Impairment Rating 20 to 39% Impaired (Score 34- 44) Functional Reach Functional Reach Test 2 cm Single Limb Standing Single Limb- Right 1 sec Single Limb- Left 3 sec Semi-Tandem Standing Semi-Tandem Standing Balance 5 sec ea side Tandem Tandem Standing unable without UE support William Fall Scale Copyright Permission PT-OP-E Functional Tests Start: 11/01/23 10:42 Freq: Status: Active Protocol: Document 11/01/23 15:35 NM (Rec: 11/01/23 16:02 NM [id number]) Functional Tests 6 Minute Walk Test Distance 736 Device Used none Comments SBA Five Times Sit to Stand Test Score 35.17 sec PT-OP-F Manual Assessment Start: 11/01/23 10:42 Freq: Status: Active Protocol: Document 11/01/23 15:35 NM (Rec: 11/01/23 16:02 NM [id number]) Manual Assessments Soft Tissue Assessment Soft Tissue Mobility Assessment No soft tissue restrictions noted Joint Mobility Assessment Joint Mobility Assessment R shoulder ROM is painful in fwd flex, abduction with limited scapular mobility and impingement symptoms. No laxity noted at knee PT-OP-G Mobility & Gait Start: 11/01/23 10:42 Freq: Status: Active Protocol: Document 11/01/23 15:35 NM (Rec: 11/01/23 16:02 NM [id number]) OP Gait Assessment Gait Gait Assistance Required: Standby Assistance Distance (Feet) 736 Able to Maintain Weight Bearing Status Yes During Gait Assistive Devices Assistive Device None,Straight Cane Gait Deviations General Gait Pattern Decreased Stride Length,Flexed Trunk,Step-to Gait Factors Limiting Gait Function Factors Limiting Gait Function Decreased Strength, Incoordination,Limited Range of Motion,Poor Balance Comments Gait Comments Reports that she uses a spc for community ambulation Stair Climbing Evaluation Evaluation Level of Assist On Stairs Contact Guard Assistance Devices Stair Climbing Assistive Devices Right Railing Technique/Endurance Stair Climbing Direction Ascend and Descend Stair Climbing Technique Step Over Step Number of Steps Climbed 4 Stair Climbing Set # Repetitions (reps) 1 Comments Stair Climbing Comments Reciprocal motion, 1 HR to ascend, 2 HR to descent; CGA to steady; Demos decreased eccentric control at knee during descent PT-OP-H Neuro Start: 11/01/23 10:42 Freq: Status: Active Protocol: Document 11/01/23 15:35 NM (Rec: 11/01/23 16:02 NM [id number]) Sensation Evaluation Gross Sensation Gross Sensation Right LE Impaired Sensation Description Paresthesia,Numbness Dermatome Impairments L4,L5,S1,S2 Comments Summary Comments Able to distinguish light touch on RLE, however reports that it is less than LLE from L4-S2 dermatomes Coordination Evaluation Upper Extremity Tests Left Finger to Nose Test Normal Performance Alternate Nose to Finger Test Normal Performance Pronation/Supination Test minimal impairment but performed slowly Right Finger to Nose Test Minimal Impairment Alternate Nose to Finger Test Minimal Impairment Pronation/Supination Test Minimal impairment but performed slowly bilaterally Lower Extremity Tests Left Heel on Khalil Test Normal Performance Right Heel on Khalil Test Minimal Impairment Deep Tendon Reflex & Clonus Assessment Deep Tendon Reflex L biceps Deep Tendon Reflex 2+ Normal R biceps Deep Tendon Reflex 2+ Normal Vital Signs Blood Pressure Sitting Blood Pressure (90/60-120/80 mmHg) 120/77 Blood Pressure Source Automatic Cuff,Left Upper Extremity Oxygen Pulse Oximetry at Rest (%) (95-100 %) 96 PT-OP-J Posture/Palpation/Skin Start: 11/01/23 10:42 Freq: Status: Active Protocol: Document 11/01/23 15:35 NM (Rec: 11/01/23 16:02 NM [id number]) Posture Evaluation Position Sitting Evaluation View posterior, lateral Head/C-Spine Posture Forward Head T-Spine Posture Increased Kyphosis L-Spine Posture Increased Lordosis Shoulder Posture (L) Rounded,(R) Rounded,(L) Forward,(R) Forward Weight Distribution Weight Shifted Left Hip Posture (R) Externally Rotated Knee Posture (L) Genu Valgus,(R) Genu Valgus PT-OP-K Range of Motion Start: 11/01/23 10:42 Freq: Status: Active Protocol: Document 11/03/23 10:31 NM (Rec: 11/03/23 11:32 NM [id number]) Shoulder Goniometric Range of Motion Shoulder Left Shoulder ROM WFL No Testing Position Supine Flexion 150 Abduction 150 External Rotation at 45 degrees 70 Abduction Internal Rotation 70 Right Shoulder ROM WFL No Testing Position Supine Flexion 107 Abduction 130 External Rotation at 45 degrees 30 Abduction Internal Rotation 70 PT-OP-M Strength Start: 11/01/23 10:42 Freq: Status: Active Protocol: Document 11/01/23 15:35 NM (Rec: 11/01/23 16:02 NM [id number]) Shoulder Strength Shoulder Manual Muscle Testing Left Flexion 4 Good Extension 4 Good Abduction (C5) 4- Good- External Rotation 4- Good- Internal Rotation 4- Good- Comments No pain reported Right Flexion 3+ Fair+ Extension 4 Good Abduction (C5) 4- Good- External Rotation 4- Good- Internal Rotation 4- Good- Comments Pain with resisted flexion and abduction (flex> abd) Elbow/Forearm Strength Elbow and Forearm Manual Muscle Testing Left Flexion (C6) 4+ Good+ Extension (C7) 4+ Good+ Right Flexion (C6) 4- Good- Extension (C7) 4- Good- Comments No pain with resisted motion Wrist Strength Wrist Manual Muscle Testing Left Flexion (C7) 4 Good Extension (C6) 4 Good Right Flexion (C7) 3+ Fair+ Extension (C6) 3+ Fair+ Hand Delivery Representative/Pinch Strength Hand Dominance Hand Dominance Right Hand Strength Left Delivery Representative (lbs) 35 Comments average of 3 Right Delivery Representative (lbs) 25 Comments average of 3 Hip Strength Hip Manual Muscle Testing Left Flexion (L2) 4- Good- Extension (S1) 4 Good Abduction 4 Good External Rotation 4+ Good+ Internal Rotation 4+ Good+ Right Flexion (L2) 3+ Fair+ Extension (S1) 4 Good Abduction 4 Good External Rotation 4+ Good+ Internal Rotation 4+ Good+ Knee Strength Knee Manual Muscle Testing Left Flexion (S2) 4 Good Extension (L3) 4 Good Right Flexion (S2) 4- Good- Extension (L3) 4- Good- Ankle/Foot Strength Ankle and Foot Manual Muscle Testing Left Dorsiflexion (L4) 4 Good Plantarflexion (S1) 4 Good Inversion 4 Good Eversion (S1) 4 Good Comments Moderate difficulty with performing standing B heel raise due to balance, so measured PF MMT in sitting Right Dorsiflexion (L4) 4 Good Plantarflexion (S1) 4 Good Inversion 4 Good Eversion (S1) 4 Good Comments Moderate difficulty with performing standing B heel raise due to balance, so measured PF MMT in sitting PT-OP-Q Treatments Start: 11/01/23 10:42 Freq: Status: Active Protocol: Document 11/25/23 10:27 SW (Rec: 11/25/23 11:16 SW [id number]) Cardio Equipment Recumbent Stepper (Sci-Fit) Duration (Minutes) 4 Resistance 2 Seat Position 8 Other .5 distance, warm up, to decrease soreness Gym Equipment Shuttle Recovery Leg Press-Unilateral Squat Details Unisquat (ea LE); cues for soft knees Resistance 25# 1st set, 37# 2nd set Shuttle Recovery Platform Stable Reps/Time 2x8 Leg Press Details B squat; cues for soft knees, no R locked knee (prn manual cue-post knee) Resistance 50# (2 navy) Shuttle Recovery Platform Stable Reps/Time 2x15, pt reports increased difficulty today Therapeutic Exercises Sitting Exercises Delivery Representative Strength Sitting Exercise Name c interior mechanic, power interior mechanic Side right Resistance rainbow stress ball (light) Reps/Minutes 5x5 ea Comments cues for scapular setting/ retraction, wrist ext Standing Exercises Row Standing Exercise Name high row Side bilateral Resistance orange tb (lvl 2) Reps/Minutes 1x10 Comments cues for scap retraction, correct form; reports no pain; demos good retract Hip flexion Standing Exercise Name march alternating Side bilateral Resistance lvl 1 blue tb Equipment Used band around feet, // bar for UE support Reps/Minutes 2x15 ea Comments cues for no trunk lean, manual assist to prevent knee hyperext; fatiguing Other Exercises LAQ Other Exercise Name seated on plinth, able to get full knee ext Side right Resistance 2# ankle weight> BTB Reps/Minutes 2x10, x3 Comments added BTB to HEP, discussed home setup Squat Other Exercise Name Sit to stand; for glute/quad strengthening Side bilateral Equipment Used 24 table; arms in front for weight shift Reps/Minutes 5 Comments cues for fwd weight shift, eccentric lowering Neuro Re-Education Treatment Balance Activities Static Details 1. WBOS 2. NBOS 3. Tandem Surface Stable Equipment //bars Comments EO/EC, Head turns PT-OP-T Assessment and Plan Start: 11/01/23 10:42 Freq: Status: Active Protocol: Document 11/25/23 10:27 SW (Rec: 11/25/23 11:16 [id number]) Physical Therapy Assessment Goals Eight Impairment R shoulder ROM Short Term Goal (STG) Pt will be able to lift her R arm in fwd flexion to at least 100 deg in order to get dishes down from her shelf at home. STG Duration 5 weeks Longterm Goal (LTG) Pt will be able to lift her R arm in fwd flexion to at least 120 deg in order to get dishes down from her shelf at home. LTG Duration 10 weeks Seven Impairment strength Impairment R interior mechanic 25# Short Term Goal (STG) Pt will improve R interior mechanic strength by at least 2# to be comparable to the L interior mechanic strength in order be able to open jars without assistance and to perform ADLs more independently. STG Duration 5 weeks Longterm Goal (LTG) Pt will improve R interior mechanic strength by at least 5# to be comparable to the L interior mechanic strength in order be able to open jars without assistance and to perform ADLs more independently. LTG Duration 10 weeks Six Impairment R quad and hamstring MMT 4-/5 Short Term Goal (STG) Pt will improve R quad and hamstring MMT to at least 4/5 in order to demo improved knee strength for transfers, stairs, and gait. STG Duration 5 weeks Investigator Internal Affairs Goal (LTG) Pt will improve R quad and hamstring MMT to at least 4+/5 in order to demo improved knee strength for transfers, stairs, and gait. LTG Duration 10 weeks Five Impairment LE strength Impairment R hip flex MMT 3+/5 Short Term Goal (STG) Pt will improve R hip flex MMT to at least 4/5 in order to demo improved hip strength for foot clearance and limb advancement during gait. STG Duration 5 weeks Longterm Goal (LTG) Pt will improve R hip flex MMT to at least 4+/5 in order to demo improved hip strength for foot clearance and limb advancement during gait. LTG Duration 10 weeks Four Impairment strength Impairment 4 steps with reciprocal pattern with CGA using 1 HR to ascend, 2 to descend, no AD Short Term Goal (STG) Pt will perform at least 8 6 stairs using a reciprocal gait pattern with SBA and 1 or no hand rails using LRAD in order to demo improved BLE strength and balance. STG Duration 5 weeks Investigator Internal Affairs Goal (LTG) Pt will perform at least 16 6 stairs using a reciprocal gait pattern with SBA and 1 or no hand rails using LRAD in order to demo improved BLE strength and balance. LTG Duration 10 weeks Three Impairment endurance, ambulation Impairment 6 MWT 736 ft (224.3 m), no AD Short Term Goal (STG) Pt will improve 6 MWT distance by at least 50 ft (786 ft, 239 m) using LRAD in order to demonstrate better BLE strength and endurance for community ambulation. STG Duration 5 weeks Investigator Internal Affairs Goal (LTG) Pt will improve 6 MWT distance to at least 848 ft (258 m, 1 MCID) using LRAD in order to demonstrate better BLE strength and endurance for community ambulation. LTG Duration 10 weeks Two Impairment strength Impairment 5x STS 35.17 sec Short Term Goal (STG) Pt will improve 5x STS time to at least 30 seconds or less in order to demonstrate improved BLE strength and endurance. STG Duration 5 weeks Longterm Goal (LTG) Pt will improve 5X STS time to at least 25 seconds or less in order to demonstrate improved BLE strength and endurance. LTG Duration 10 weeks One Impairment Balance Impairment Myers/56 Short Term Goal (STG) Pt will improve Myers score to at least 44/56 in order to demonstrate improvements in balance and safety awareness during higher level activities . STG Duration 5 weeks Longterm Goal (LTG) Pt will improver Myers score to at least 47/56 (1 MCID for acute stroke pt) in order to demonstrate improvements in balance and safety awareness during higher level activities . LTG Duration 10 weeks Assessment Summary Assessment Progressed pt with addition of balance challenges with varying MANUEL, in PT this session, to work toward increased myers balance score in goals, pt challenged with dynamic component, gazing environment, requiring min GAMES DEALER prn, close SBA. Educated pt on balance systems and balance progressions. Progressed pt HEP with addition of BTB during seated LAQ, pt demonstrated correct execution , plan to followup next session. No reproduction of dizziness throughout session today. Pt may benefit from trial of sport cord, for dynamic balance/ strengthening . Physical Therapy Plan Frequency and Duration Frequency of Treatment 1-2x/wk Duration of treatment (weeks) 10 Plan of Care Start Date 11/01/23 Plan of Care End Date 01/03/24 Therapeutic Interventions Therapeutic Interventions Aquatic Therapy,Balance Training,Canalithic Repositioning,Coordination Training,Gait Training,Home Exercise Program,Joint Mobilizations,Manual Therapy, Neuromuscular Re-education, Orthotic/Prosthetic Management ,Patient/Caregiver Education, Self-Care/Home Management, Sensory Integration,Soft Tissue Mobilization,Taping, Therapeutic Activities, Therapeutic Exercises, Vestibular Rehabilitation Modalities Cold Pack/Ice Massage,Hot Packs Next Visit Focus/Plan Next Note Type Treatment Note Next Visit Plan Next session progress leg press resistance, add balance POC: BLE strengthening (leg press squat, LAQ, STS, HSC) and balance (ambulation, Myers activities). Begin some balance activities. Review STS , add small resistance or lower table. Continue interior mechanic strength activity, rotator cuff strengthening and RUE AROM Manual: scapulothoracic mob, MWM as tolerated in shldr flex , gentle RTC strengthening within available range
--- NOTE | 2023-12-16 13:06 | PT.OTN ---
Current Diagnoses Hypothyroidism, unspecified (12/16/23) Personal history of transient ischemic attack (TIA), and cerebral infarction without residual deficits (12/16/23) Physical Therapy Treatment Note PT-OP-A Visit Information Start: 11/01/23 10:42 Freq: Status: Active Protocol: Document 12/16/23 10:37 SW (Rec: 12/16/23 12:54 SW [id number]) Out-Patient Physical Therapy Visit Information Visit Information Visit Type Treatment Note Visit Start Time 10:33 Visit Stop Time 11:15 Visit Number 7 Number of TELECOMMUNICATIONS ADMINISTRATOR Visits 2 Precautions Precautions Fall risk Hx: CVA, check vitals PT-OP-B Current Condition Start: 11/01/23 10:42 Freq: Status: Active Protocol: Document 11/01/23 15:35 NM (Rec: 11/01/23 16:02 NM [id number]) Current Condition History of Current Condition Onset Date 08/24/23 Current Complaints BLE weakness, balance History of Current Condition Pt presents to clinic with BLE weakness and balance impairments following a CVA on 08/24/23. Pt reports that her R side was primarily affected. She has the most difficulty with maintaining her balance while ambulating, especially while turning. She complains of occasional instances of numbness in her R hand and foot, which she believes impacts her balance, and she has pain in multiple joints due to fibromyalgia. She also reports decreased R auto wheel alignment specialist strength and difficulty with elevating her RUE secondary to pain. Prior to her stroke, she used a spc with a small base at the point for community ambulation; however, she did not bring it to the clinic today. Pt also reports occasional episodes of dizziness when moving from sitting > standing, which causes her LOB. PMH includes fibromyalgia, lupus. Currently , she is not allowed to drive. Future Testing and Treatments Planned Follow up on 11/10 with physician Treatment Goals Patient/Caregiver Goals Improve ambulation, balance Prior Functional Status Baseline Function- ADL's Independent Baseline Function- Mobility Independent Baseline Function- Gait spc for community distances prn Baseline Function- Recreation/Hobbies Water aerobics Current Functional Impairments (Reported) Functional Limitations- ADL's Unable to drive. Limitations with dressing, gripping, lifting, standing balance, endurance, activity tolerance Functional Limitations- Mobility/Gait Limited ability to ambulate, uses spc more frequently for community ambulation distances Functional Limitations- Recreation/ Unable to participate in water Hobbies aerobics because unable to drive PT-OP-C Subjective Start: 11/01/23 10:42 Freq: Status: Active Protocol: Document 12/16/23 10:37 SW (Rec: 12/16/23 12:54 SW [id number]) OP-PT Subjective Patient Comments Patient Comments Pt reports pulled R hamstring on stairs at home recovering from that, pt thinks that was going up the stairs, stairs the most challenging right now . Pt reports noticeable improvement in auto wheel alignment specialist strength, with ADLs. PT-OP-D Balance Start: 11/01/23 10:42 Freq: Status: Active Protocol: Document 11/01/23 15:35 NM (Rec: 11/01/23 16:02 NM [id number]) OP-PT Balance Assessment Sitting Balance Static Sitting Balance Ability Good Dynamic Sitting Balance Ability Good Balance Tests Myers Balance Test Myers Balance Test Score 40/56 Myers Impairment Rating 20 to 39% Impaired (Score 34- 44) Functional Reach Functional Reach Test 2 cm Single Limb Standing Single Limb- Right 1 sec Single Limb- Left 3 sec Semi-Tandem Standing Semi-Tandem Standing Balance 5 sec ea side Tandem Tandem Standing unable without UE support William Fall Scale Copyright Permission PT-OP-E Functional Tests Start: 11/01/23 10:42 Freq: Status: Active Protocol: Document 11/01/23 15:35 NM (Rec: 11/01/23 16:02 NM [id number]) Functional Tests 6 Minute Walk Test Distance 736 Device Used none Comments SBA Five Times Sit to Stand Test Score 35.17 sec PT-OP-F Manual Assessment Start: 11/01/23 10:42 Freq: Status: Active Protocol: Document 11/01/23 15:35 NM (Rec: 11/01/23 16:02 NM [id number]) Manual Assessments Soft Tissue Assessment Soft Tissue Mobility Assessment No soft tissue restrictions noted Joint Mobility Assessment Joint Mobility Assessment R shoulder ROM is painful in fwd flex, abduction with limited scapular mobility and impingement symptoms. No laxity noted at knee PT-OP-G Mobility & Gait Start: 11/01/23 10:42 Freq: Status: Active Protocol: Document 11/01/23 15:35 NM (Rec: 11/01/23 16:02 NM [id number]) OP Gait Assessment Gait Gait Assistance Required: Standby Assistance Distance (Feet) 736 Able to Maintain Weight Bearing Status Yes During Gait Assistive Devices Assistive Device None,Straight Cane Gait Deviations General Gait Pattern Decreased Stride Length,Flexed Trunk,Step-to Gait Factors Limiting Gait Function Factors Limiting Gait Function Decreased Strength, Incoordination,Limited Range of Motion,Poor Balance Comments Gait Comments Reports that she uses a spc for community ambulation Stair Climbing Evaluation Evaluation Level of Assist On Stairs Contact Guard Assistance Devices Stair Climbing Assistive Devices Right Railing Technique/Endurance Stair Climbing Direction Ascend and Descend Stair Climbing Technique Step Over Step Number of Steps Climbed 4 Stair Climbing Set # Repetitions (reps) 1 Comments Stair Climbing Comments Reciprocal motion, 1 HR to ascend, 2 HR to descent; CGA to steady; Demos decreased eccentric control at knee during descent PT-OP-H Neuro Start: 11/01/23 10:42 Freq: Status: Active Protocol: Document 11/01/23 15:35 NM (Rec: 11/01/23 16:02 NM [id number]) Sensation Evaluation Gross Sensation Gross Sensation Right LE Impaired Sensation Description Paresthesia,Numbness Dermatome Impairments L4,L5,S1,S2 Comments Summary Comments Able to distinguish light touch on RLE, however reports that it is less than LLE from L4-S2 dermatomes Coordination Evaluation Upper Extremity Tests Left Finger to Nose Test Normal Performance Alternate Nose to Finger Test Normal Performance Pronation/Supination Test minimal impairment but performed slowly Right Finger to Nose Test Minimal Impairment Alternate Nose to Finger Test Minimal Impairment Pronation/Supination Test Minimal impairment but performed slowly bilaterally Lower Extremity Tests Left Heel on Khalil Test Normal Performance Right Heel on Khalil Test Minimal Impairment Deep Tendon Reflex & Clonus Assessment Deep Tendon Reflex L biceps Deep Tendon Reflex 2+ Normal R biceps Deep Tendon Reflex 2+ Normal Vital Signs Blood Pressure Sitting Blood Pressure (90/60-120/80 mmHg) 120/77 Blood Pressure Source Automatic Cuff,Left Upper Extremity Oxygen Pulse Oximetry at Rest (%) (95-100 %) 96 PT-OP-J Posture/Palpation/Skin Start: 11/01/23 10:42 Freq: Status: Active Protocol: Document 11/01/23 15:35 NM (Rec: 11/01/23 16:02 NM [id number]) Posture Evaluation Position Sitting Evaluation View posterior, lateral Head/C-Spine Posture Forward Head T-Spine Posture Increased Kyphosis L-Spine Posture Increased Lordosis Shoulder Posture (L) Rounded,(R) Rounded,(L) Forward,(R) Forward Weight Distribution Weight Shifted Left Hip Posture (R) Externally Rotated Knee Posture (L) Genu Valgus,(R) Genu Valgus PT-OP-K Range of Motion Start: 11/01/23 10:42 Freq: Status: Active Protocol: Document 11/03/23 10:31 NM (Rec: 11/03/23 11:32 NM [id number]) Shoulder Goniometric Range of Motion Shoulder Left Shoulder ROM WFL No Testing Position Supine Flexion 150 Abduction 150 External Rotation at 45 degrees 70 Abduction Internal Rotation 70 Right Shoulder ROM WFL No Testing Position Supine Flexion 107 Abduction 130 External Rotation at 45 degrees 30 Abduction Internal Rotation 70 PT-OP-M Strength Start: 11/01/23 10:42 Freq: Status: Active Protocol: Document 11/01/23 15:35 NM (Rec: 11/01/23 16:02 NM [id number]) Shoulder Strength Shoulder Manual Muscle Testing Left Flexion 4 Good Extension 4 Good Abduction (C5) 4- Good- External Rotation 4- Good- Internal Rotation 4- Good- Comments No pain reported Right Flexion 3+ Fair+ Extension 4 Good Abduction (C5) 4- Good- External Rotation 4- Good- Internal Rotation 4- Good- Comments Pain with resisted flexion and abduction (flex> abd) Elbow/Forearm Strength Elbow and Forearm Manual Muscle Testing Left Flexion (C6) 4+ Good+ Extension (C7) 4+ Good+ Right Flexion (C6) 4- Good- Extension (C7) 4- Good- Comments No pain with resisted motion Wrist Strength Wrist Manual Muscle Testing Left Flexion (C7) 4 Good Extension (C6) 4 Good Right Flexion (C7) 3+ Fair+ Extension (C6) 3+ Fair+ Hand Security Agent/Pinch Strength Hand Dominance Hand Dominance Right Hand Strength Left Security Agent (lbs) 35 Comments average of 3 Right Security Agent (lbs) 25 Comments average of 3 Hip Strength Hip Manual Muscle Testing Left Flexion (L2) 4- Good- Extension (S1) 4 Good Abduction 4 Good External Rotation 4+ Good+ Internal Rotation 4+ Good+ Right Flexion (L2) 3+ Fair+ Extension (S1) 4 Good Abduction 4 Good External Rotation 4+ Good+ Internal Rotation 4+ Good+ Knee Strength Knee Manual Muscle Testing Left Flexion (S2) 4 Good Extension (L3) 4 Good Right Flexion (S2) 4- Good- Extension (L3) 4- Good- Ankle/Foot Strength Ankle and Foot Manual Muscle Testing Left Dorsiflexion (L4) 4 Good Plantarflexion (S1) 4 Good Inversion 4 Good Eversion (S1) 4 Good Comments Moderate difficulty with performing standing B heel raise due to balance, so measured PF MMT in sitting Right Dorsiflexion (L4) 4 Good Plantarflexion (S1) 4 Good Inversion 4 Good Eversion (S1) 4 Good Comments Moderate difficulty with performing standing B heel raise due to balance, so measured PF MMT in sitting PT-OP-Q Treatments Start: 11/01/23 10:42 Freq: Status: Active Protocol: Document 12/16/23 10:37 SW (Rec: 12/16/23 12:54 [id number]) Cardio Equipment Recumbent Elliptical (Innovectra) Duration (Minutes) 5 Seat Position 2 Other 8 Gym Equipment Shuttle Recovery Leg Press-Unilateral Squat Details Unisquat (ea LE); cues for soft knees Shuttle Recovery Platform Stable Reps/Time 2x8 Leg Press Details B squat; cues for soft knees, no R locked knee (prn manual cue-post knee) Resistance 50# (2 navy) Shuttle Recovery Platform Stable Reps/Time 2x15, pt reports increased difficulty today Sport Cord Green Exercise Details Fwd/bck Cord/Resistance Green Reps/Duration x5 ea Comments reactive balance/strengthening Therapeutic Exercises Supine Exercises HS stretch Supine Exercise Name HS stretch Side bilateral Equipment Used Towel assist Reps/Minutes R 3x30 L 1x5 Comments L trial to compare w/R PT-OP-R Modalities Start: 12/16/23 12:54 Freq: Status: Active Protocol: Document 12/16/23 10:37 SW (Rec: 12/16/23 12:56 [id number]) Hot Pack/Cold Pack Treatment Hot Pack Location posterior Patient Position Supine Patient Tolerance Good Comments bolster under LE, lucas within reach x15 min PT-OP-T Assessment and Plan Start: 11/01/23 10:42 Freq: Status: Active Protocol: Document 12/16/23 10:37 SW (Rec: 12/16/23 12:54 [id number]) Physical Therapy Assessment Goals Eight Impairment R shoulder ROM Short Term Goal (STG) Pt will be able to lift her R arm in fwd flexion to at least 100 deg in order to get dishes down from her shelf at home. STG Duration 5 weeks Fci Goal (LTG) Pt will be able to lift her R arm in fwd flexion to at least 120 deg in order to get dishes down from her shelf at home. LTG Duration 10 weeks Seven Impairment strength Impairment R auto wheel alignment specialist 25# Short Term Goal (STG) Pt will improve R auto wheel alignment specialist strength by at least 2# to be comparable to the L auto wheel alignment specialist strength in order be able to open jars without assistance and to perform ADLs more independently. STG Duration 5 weeks Packing Machine Can Feeder Goal (LTG) Pt will improve R auto wheel alignment specialist strength by at least 5# to be comparable to the L auto wheel alignment specialist strength in order be able to open jars without assistance and to perform ADLs more independently. LTG Duration 10 weeks Six Impairment R quad and hamstring MMT 4-/5 Short Term Goal (STG) Pt will improve R quad and hamstring MMT to at least 4/5 in order to demo improved knee strength for transfers, stairs, and gait. STG Duration 5 weeks Fci Goal (LTG) Pt will improve R quad and hamstring MMT to at least 4+/5 in order to demo improved knee strength for transfers, stairs, and gait. LTG Duration 10 weeks Five Impairment LE strength Impairment R hip flex MMT 3+/5 Short Term Goal (STG) Pt will improve R hip flex MMT to at least 4/5 in order to demo improved hip strength for foot clearance and limb advancement during gait. STG Duration 5 weeks Packing Machine Can Feeder Goal (LTG) Pt will improve R hip flex MMT to at least 4+/5 in order to demo improved hip strength for foot clearance and limb advancement during gait. LTG Duration 10 weeks Four Impairment strength Impairment 4 steps with reciprocal pattern with CGA using 1 HR to ascend, 2 to descend, no AD Short Term Goal (STG) Pt will perform at least 8 6 stairs using a reciprocal gait pattern with SBA and 1 or no hand rails using LRAD in order to demo improved BLE strength and balance. STG Duration 5 weeks Fci Goal (LTG) Pt will perform at least 16 6 stairs using a reciprocal gait pattern with SBA and 1 or no hand rails using LRAD in order to demo improved BLE strength and balance. LTG Duration 10 weeks Three Impairment endurance, ambulation Impairment 6 MWT 736 ft (224.3 m), no AD Short Term Goal (STG) Pt will improve 6 MWT distance by at least 50 ft (786 ft, 239 m) using LRAD in order to demonstrate better BLE strength and endurance for community ambulation. STG Duration 5 weeks Packing Machine Can Feeder Goal (LTG) Pt will improve 6 MWT distance to at least 848 ft (258 m, 1 MCID) using LRAD in order to demonstrate better BLE strength and endurance for community ambulation. LTG Duration 10 weeks Two Impairment strength Impairment 5x STS 35.17 sec Short Term Goal (STG) Pt will improve 5x STS time to at least 30 seconds or less in order to demonstrate improved BLE strength and endurance. STG Duration 5 weeks Fci Goal (LTG) Pt will improve 5X STS time to at least 25 seconds or less in order to demonstrate improved BLE strength and endurance. LTG Duration 10 weeks One Impairment Balance Impairment Myers/56 Short Term Goal (STG) Pt will improve Myers score to at least 44/56 in order to demonstrate improvements in balance and safety awareness during higher level activities . STG Duration 5 weeks Packing Machine Can Feeder Goal (LTG) Pt will improver Myers score to at least 47/56 (1 MCID for acute stroke pt) in order to demonstrate improvements in balance and safety awareness during higher level activities . LTG Duration 10 weeks Assessment Summary Assessment Pt reported multiple mm spasms in R HS during session, pt applied pressure to relieve. Instructed pt in HS stretch to help relax the mm to continue ther ex, good pt feedback, pt ROM in L>R. Pt correctly demonstrated HS stretch with good carrryover/verbal understanding, issued for HEP. Ended session with MHP for pt comfort and mm relaxation. Initiated sport cord for reactive balance challenge and strengthening, hesitancy initiating movement with resistance, tolerated well. Physical Therapy Plan Frequency and Duration Frequency of Treatment 1-2x/wk Duration of treatment (weeks) 10 Plan of Care Start Date 11/01/23 Plan of Care End Date 01/03/24 Therapeutic Interventions Therapeutic Interventions Aquatic Therapy,Balance Training,Canalithic Repositioning,Coordination Training,Gait Training,Home Exercise Program,Joint Mobilizations,Manual Therapy, Neuromuscular Re-education, Orthotic/Prosthetic Management ,Patient/Caregiver Education, Self-Care/Home Management, Sensory Integration,Soft Tissue Mobilization,Taping, Therapeutic Activities, Therapeutic Exercises, Vestibular Rehabilitation Modalities Cold Pack/Ice Massage,Hot Packs Next Visit Focus/Plan Next Note Type Treatment Note Next Visit Plan Next session progress leg press resistance, add balance POC: BLE strengthening (leg press squat, LAQ, STS, HSC) and balance (ambulation, Myers activities). Begin some balance activities. Review STS , add small resistance or lower table. Continue auto wheel alignment specialist strength activity, rotator cuff strengthening and RUE AROM Manual: scapulothoracic mob, MWM as tolerated in shldr flex , gentle RTC strengthening within available range
--- NOTE | 2023-12-23 13:25 | PT-OP ANOTE ---
PT called pt's referring physician at [phone] (now Dr. Juana Barton) to leave message informing physician of pt's hamstring pain after her slip on the stairs earlier in November and exam findings. Recommended pt follow up and possible MRI depending on physician exam findings. Informed that pt has been encouraged to reach out to physician.
--- NOTE | 2023-12-23 16:18 | PT.OTN ---
Current Diagnoses Hypothyroidism, unspecified (12/23/23) Personal history of transient ischemic attack (TIA), and cerebral infarction without residual deficits (12/23/23) Physical Therapy Treatment Note PT-OP-A Visit Information Start: 11/01/23 10:42 Freq: Status: Active Protocol: Document 12/23/23 10:36 NM (Rec: 12/23/23 11:38 NM [id number]) Out-Patient Physical Therapy Visit Information Visit Information Visit Type Progress Note Visit Start Time 10:36 Visit Stop Time 11:15 Visit Number 8 Evaluation Information Evaluation Date 11/01/23 Precautions Precautions Fall risk Hx: CVA, check vitals PT-OP-B Current Condition Start: 11/01/23 10:42 Freq: Status: Active Protocol: Document 11/01/23 15:35 NM (Rec: 11/01/23 16:02 NM [id number]) Current Condition History of Current Condition Onset Date 08/24/23 Current Complaints BLE weakness, balance History of Current Condition Pt presents to clinic with BLE weakness and balance impairments following a CVA on 08/24/23. Pt reports that her R side was primarily affected. She has the most difficulty with maintaining her balance while ambulating, especially while turning. She complains of occasional instances of numbness in her R hand and foot, which she believes impacts her balance, and she has pain in multiple joints due to fibromyalgia. She also reports decreased R park services specialist strength and difficulty with elevating her RUE secondary to pain. Prior to her stroke, she used a spc with a small base at the point for community ambulation; however, she did not bring it to the clinic today. Pt also reports occasional episodes of dizziness when moving from sitting > standing, which causes her LOB. PMH includes fibromyalgia, lupus. Currently , she is not allowed to drive. Future Testing and Treatments Planned Follow up on 11/10 with physician Treatment Goals Patient/Caregiver Goals Improve ambulation, balance Prior Functional Status Baseline Function- ADL's Independent Baseline Function- Mobility Independent Baseline Function- Gait spc for community distances prn Baseline Function- Recreation/Hobbies Water aerobics Current Functional Impairments (Reported) Functional Limitations- ADL's Unable to drive. Limitations with dressing, gripping, lifting, standing balance, endurance, activity tolerance Functional Limitations- Mobility/Gait Limited ability to ambulate, uses spc more frequently for community ambulation distances Functional Limitations- Recreation/ Unable to participate in water Hobbies aerobics because unable to drive PT-OP-C Subjective Start: 11/01/23 10:42 Freq: Status: Active Protocol: Document 12/23/23 10:36 NM (Rec: 12/23/23 11:38 NM [id number]) OP-PT Subjective Patient Comments Patient Comments Pt reports that she has been having R hamstring pain. She states that several weeks ago , she reports that she slipped while walking up the stairs at home, felt a sharp pop and has had pain at her proximal hamstring since that time. Reports no bruising, but has been using ice/heat since then for pain. She continues to report difficulty with balance, dick stairs, primarily due to pain now. She is not using an AD. She reports that the plantar fasciitis has been improved with massage. She has been doing her exercises without difficulty. She is having a rail put up for the stairs at her home. PT-OP-D Balance Start: 11/01/23 10:42 Freq: Status: Active Protocol: Document 11/01/23 15:35 NM (Rec: 11/01/23 16:02 NM [id number]) OP-PT Balance Assessment Sitting Balance Static Sitting Balance Ability Good Dynamic Sitting Balance Ability Good Balance Tests Myers Balance Test Myers Balance Test Score 40/56 Myers Impairment Rating 20 to 39% Impaired (Score 34- 44) Functional Reach Functional Reach Test 2 cm Single Limb Standing Single Limb- Right 1 sec Single Limb- Left 3 sec Semi-Tandem Standing Semi-Tandem Standing Balance 5 sec ea side Tandem Tandem Standing unable without UE support William Fall Scale Copyright Permission PT-OP-E Functional Tests Start: 11/01/23 10:42 Freq: Status: Active Protocol: Document 11/01/23 15:35 NM (Rec: 11/01/23 16:02 NM [id number]) Functional Tests 6 Minute Walk Test Distance 736 Device Used none Comments SBA Five Times Sit to Stand Test Score 35.17 sec PT-OP-F Manual Assessment Start: 11/01/23 10:42 Freq: Status: Active Protocol: Document 11/01/23 15:35 NM (Rec: 11/01/23 16:02 NM [id number]) Manual Assessments Soft Tissue Assessment Soft Tissue Mobility Assessment No soft tissue restrictions noted Joint Mobility Assessment Joint Mobility Assessment R shoulder ROM is painful in fwd flex, abduction with limited scapular mobility and impingement symptoms. No laxity noted at knee PT-OP-G Mobility & Gait Start: 11/01/23 10:42 Freq: Status: Active Protocol: Document 11/01/23 15:35 NM (Rec: 11/01/23 16:02 NM [id number]) OP Gait Assessment Gait Gait Assistance Required: Standby Assistance Distance (Feet) 736 Able to Maintain Weight Bearing Status Yes During Gait Assistive Devices Assistive Device None,Straight Cane Gait Deviations General Gait Pattern Decreased Stride Length,Flexed Trunk,Step-to Gait Factors Limiting Gait Function Factors Limiting Gait Function Decreased Strength, Incoordination,Limited Range of Motion,Poor Balance Comments Gait Comments Reports that she uses a spc for community ambulation Stair Climbing Evaluation Evaluation Level of Assist On Stairs Contact Guard Assistance Devices Stair Climbing Assistive Devices Right Railing Technique/Endurance Stair Climbing Direction Ascend and Descend Stair Climbing Technique Step Over Step Number of Steps Climbed 4 Stair Climbing Set # Repetitions (reps) 1 Comments Stair Climbing Comments Reciprocal motion, 1 HR to ascend, 2 HR to descent; CGA to steady; Demos decreased eccentric control at knee during descent PT-OP-H Neuro Start: 11/01/23 10:42 Freq: Status: Active Protocol: Document 11/01/23 15:35 NM (Rec: 11/01/23 16:02 NM [id number]) Sensation Evaluation Gross Sensation Gross Sensation Right LE Impaired Sensation Description Paresthesia,Numbness Dermatome Impairments L4,L5,S1,S2 Comments Summary Comments Able to distinguish light touch on RLE, however reports that it is less than LLE from L4-S2 dermatomes Coordination Evaluation Upper Extremity Tests Left Finger to Nose Test Normal Performance Alternate Nose to Finger Test Normal Performance Pronation/Supination Test minimal impairment but performed slowly Right Finger to Nose Test Minimal Impairment Alternate Nose to Finger Test Minimal Impairment Pronation/Supination Test Minimal impairment but performed slowly bilaterally Lower Extremity Tests Left Heel on Khalil Test Normal Performance Right Heel on Khalil Test Minimal Impairment Deep Tendon Reflex & Clonus Assessment Deep Tendon Reflex L biceps Deep Tendon Reflex 2+ Normal R biceps Deep Tendon Reflex 2+ Normal Vital Signs Blood Pressure Sitting Blood Pressure (90/60-120/80 mmHg) 120/77 Blood Pressure Source Automatic Cuff,Left Upper Extremity Oxygen Pulse Oximetry at Rest (%) (95-100 %) 96 PT-OP-J Posture/Palpation/Skin Start: 11/01/23 10:42 Freq: Status: Active Protocol: Document 11/01/23 15:35 NM (Rec: 11/01/23 16:02 NM [id number]) Posture Evaluation Position Sitting Evaluation View posterior, lateral Head/C-Spine Posture Forward Head T-Spine Posture Increased Kyphosis L-Spine Posture Increased Lordosis Shoulder Posture (L) Rounded,(R) Rounded,(L) Forward,(R) Forward Weight Distribution Weight Shifted Left Hip Posture (R) Externally Rotated Knee Posture (L) Genu Valgus,(R) Genu Valgus PT-OP-K Range of Motion Start: 11/01/23 10:42 Freq: Status: Active Protocol: Document 11/03/23 10:31 NM (Rec: 11/03/23 11:32 NM [id number]) Shoulder Goniometric Range of Motion Shoulder Left Shoulder ROM WFL No Testing Position Supine Flexion 150 Abduction 150 External Rotation at 45 degrees 70 Abduction Internal Rotation 70 Right Shoulder ROM WFL No Testing Position Supine Flexion 107 Abduction 130 External Rotation at 45 degrees 30 Abduction Internal Rotation 70 PT-OP-M Strength Start: 11/01/23 10:42 Freq: Status: Active Protocol: Document 12/23/23 10:36 NM (Rec: 12/23/23 11:38 NM [id number]) Hip Strength Hip Manual Muscle Testing Left Flexion (L2) 4- Good- Extension (S1) 4 Good Abduction 4 Good External Rotation 4+ Good+ Internal Rotation 4+ Good+ Comments 12/23/23: 4+/5 Right Flexion (L2) 3+ Fair+ Extension (S1) 3+ Fair+ Abduction 4- Good- Adduction 4+ Good+ External Rotation 4+ Good+ Internal Rotation 4+ Good+ Comments IE: flex 3+/5, ext and abd 4/5 , ER/IR 4+/5 12/23/23: pain with resisted hip ext. Knee Strength Knee Manual Muscle Testing Right Flexion (S2) 3+ Fair+ Extension (L3) 4- Good- Comments IE: 4-/5 for both 12/23/23: painful resisted flexion PT-OP-Q Treatments Start: 11/01/23 10:42 Freq: Status: Active Protocol: Document 12/23/23 10:36 NM (Rec: 12/23/23 11:38 NM [id number]) Therapeutic Exercises Supine Exercises HS stretch Supine Exercise Name d/c due to pain Sitting Exercises Roll Capper Strength Sitting Exercise Name c park services specialist, power park services specialist; tested with dynamometer Side right Resistance rainbow stress ball (light) Reps/Minutes 1x5 ea; 48 # RUE Comments cues for scapular setting/ retraction, wrist ext Other Exercises Self mobilization Other Exercise Name HEP for hamstring Side right Equipment Used small ball, rolling pin Reps/Minutes 2 min Comments cued gentle, stop if increase pain Squat Other Exercise Name 5x STS Side bilateral Equipment Used chair, arms fwd for anterior weight shift Reps/Minutes 24.4 sec Comments cued fwd weight shift initially, difficulty with rise d/t R HS pain Gait Training Gait Activity 6 MWT Device Used none Level of Assistance IND Surface stable Distance/Duration 886 ft Treatment Focus endurance, nml gait Comments Pt demos antalgic gait during R stance, brief 30 sec standing rest break due to pain but pt wanted to continue test after break. Cued upright posture prn to prevent fwd trunk lean as fatigues. Ambulated greater distance than IE Stairs Device Used 1 hand rail assist Level of Assistance SBA Surface stable Distance/Duration 4 steps x 1 set Treatment Focus stair training, balance Comments Due to pt reported pain, cued up with good (L) and down with bad (R). Unable to do reciprocal gait. Only 1 handrail assist (RUE only). Manual Therapy Treatment Soft Tissue Mobilization R hamstring Body Location proximal and distal hamstring Mobilization Type Cross-Friction,Oscillations, Rolling,Strumming,Sustained Pressure Intensity/Depth Superficial Body Position Sidelying Comments Assessed pt hamstring due to reported pain. Has palpable mass near origin of hamstring (medial). Performed superficial cross friction, strumming, rolling, and very light sustained pressure near origin and along hamstring muscle belly for pain reduction. Reports decreased pain with at muscle belly but very tender at proximal medial hamstring. Educated pt on use of heat for pain relief, muscle relaxation, gentle soft tissue mobilization. Neuro Re-Education Treatment Balance Activities Myers Surface stable Comments 48/ Difficulty with reaching (poor translation fwd), weight shift during turn to look over shoulders (minimal weight shift RLE), turning 360 deg ( slower R turn), standing 1 foot (3 sec ea LE), difficulty achieving tandem but able to step independently. Static Details Narrow MANUEL, tandem, single leg , EO, EC Surface stable Equipment gait belt, no UE use Reps/Duration 2x30 ea Comments Stance for time No UE support, SBA with prn CGA. Difficulty with positioning into tandem but able to position independently , near full tandem. No sway eyes open, minimal sway eyes closed. Improved ankle strategy. More challenged with NBOS but able to maintain balance Self-Care/Home Management Treatment Education Patient Education Body Mechanics,Fall Risk,Home Exercise Program,Joint Protection,Pain Management, Safety Other Education 10 min: Educated on stairs and gait to decrease fall risk. Use of step-to pattern for stairs for meantime due to pain. Minimal carrying of objects when using stairs to prevent slip or fall. Instructed to use spc prn depending on pain levels. D/c HS stretches for HEP. Instructed pt follow up with PCP. Modalities for pain mgmt, gentle soft tissue mobilization of hamstring. PT-OP-R Modalities Start: 12/16/23 12:54 Freq: Status: Active Protocol: Document 12/16/23 10:37 SW (Rec: 12/16/23 12:56 SW [id number]) Hot Pack/Cold Pack Treatment Hot Pack Location posterior Patient Position Supine Patient Tolerance Good Comments bolster under LE, lucas within reach x15 min PT-OP-T Assessment and Plan Start: 11/01/23 10:42 Freq: Status: Active Protocol: Document 12/23/23 10:36 NM (Rec: 12/23/23 11:38 NM [id number]) Physical Therapy Assessment Goals Eight Impairment R shoulder ROM Short Term Goal (STG) Pt will be able to lift her R arm in fwd flexion to at least 100 deg in order to get dishes down from her shelf at home. STG Duration 5 weeks Studio Grip Goal (LTG) Pt will be able to lift her R arm in fwd flexion to at least 120 deg in order to get dishes down from her shelf at home. 12/23/23: 150 deg R flex without compensation, reports minimal pain at end range LTG Duration 10 weeks MET Seven Impairment strength Impairment R park services specialist 25# Short Term Goal (STG) Pt will improve R park services specialist strength by at least 2# to be comparable to the L park services specialist strength in order be able to open jars without assistance and to perform ADLs more independently. STG Duration 5 weeks Detention Goal (LTG) Pt will improve R park services specialist strength by at least 5# to be comparable to the L park services specialist strength in order be able to open jars without assistance and to perform ADLs more independently. 12/23/23: MET 48# R park services specialist; reports able to ebony LTG Duration 10 weeks MET Six Impairment R quad and hamstring MMT 4-/5 Short Term Goal (STG) Pt will improve R quad and hamstring MMT to at least 4/5 in order to demo improved knee strength for transfers, stairs, and gait. 12/23/23: 3+/5 hamstring due to pain from hamstring injury in November; 4-/5 for quad STG Duration 5 weeks NOT MET Studio Grip Goal (LTG) Pt will improve R quad and hamstring MMT to at least 4+/5 in order to demo improved knee strength for transfers, stairs, and gait. 12/23/23: 3+/5 hamstring due to pain from hamstring injury in November; 4-/5 for quad LTG Duration 10 weeks NOT MET Five Impairment LE strength Impairment R hip flex MMT 3+/5 Short Term Goal (STG) Pt will improve R hip flex MMT to at least 4/5 in order to demo improved hip strength for foot clearance and limb advancement during gait. 12/23/23: 3+/5 due to hamstring pain STG Duration 5 weeks NOT MET Detention Goal (LTG) Pt will improve R hip flex MMT to at least 4+/5 in order to demo improved hip strength for foot clearance and limb advancement during gait. 12/23/23: 3+/5 due to hamstring pain LTG Duration 10 weeks NOT MET Four Impairment strength Impairment 4 steps with reciprocal pattern with CGA using 1 HR to ascend, 2 to descend, no AD Short Term Goal (STG) Pt will perform at least 8 6 stairs using a reciprocal gait pattern with SBA and 1 or no hand rails using LRAD in order to demo improved BLE strength and balance. 12/23/23: 4 stairs, non reciprocal gait (LLE leading ascent, RLE leading descent) due to hamstring pain, SBA 1 rail STG Duration 5 weeks Studio Grip Goal (LTG) Pt will perform at least 16 6 stairs using a reciprocal gait pattern with SBA and 1 or no hand rails using LRAD in order to demo improved BLE strength and balance. 12/23/23: 4 stairs, non reciprocal gait (LLE leading ascent, RLE leading descent) due to hamstring pain, SBA 1 rail LTG Duration 10 weeks NOT MET, PROGRESSING Three Impairment endurance, ambulation Impairment 6 MWT 736 ft (224.3 m), no AD Short Term Goal (STG) Pt will improve 6 MWT distance by at least 50 ft (786 ft, 239 m) using LRAD in order to demonstrate better BLE strength and endurance for community ambulation. STG Duration 5 weeks Detention Goal (LTG) Pt will improve 6 MWT distance to at least 848 ft (258 m, 1 MCID) using LRAD in order to demonstrate better BLE strength and endurance for community ambulation. 12/23/23: 886 ft, no AD used; gait antalgic LTG Duration 10 weeks MET Two Impairment strength Impairment 5x STS 35.17 sec Short Term Goal (STG) Pt will improve 5x STS time to at least 30 seconds or less in order to demonstrate improved BLE strength and endurance. STG Duration 5 weeks Studio Grip Goal (LTG) Pt will improve 5X STS time to at least 25 seconds or less in order to demonstrate improved BLE strength and endurance. 12/23/20: 24.41 sec, from chair, no UE use; difficulty rising due to hamstring pain LTG Duration 10 weeks MET One Impairment Balance Impairment Myers/56 Short Term Goal (STG) Pt will improve Myers score to at least 44/56 in order to demonstrate improvements in balance and safety awareness during higher level activities . STG Duration 5 weeks Detention Goal (LTG) Pt will improver Myers score to at least 47/56 (1 MCID for acute stroke pt) in order to demonstrate improvements in balance and safety awareness during higher level activities . 12/23/23: 48/56 Myers LTG Duration 10 weeks MET Progress Towards Goals Progress Towards Goals Progressing Toward Goals,Slow Progress due to Medical Issues ,Goals Met Progress Comments Met 5 LTG. Not progressing toward other goals currently due to R hamstring pain Assessment Summary Assessment Pt tolerated treatment fair. Focus on education regarding pt pain levels, exercises, and PN. Due to pt reports of hamstring pain, educated pt on discontinuing hamstring stretches; referred back to PCP after session. Pt demos improved balance during Myers with changing MANUEL and changes in visual support. Educated and practiced stairs using step-to pattern; cued up with good, down with bad as pt has several entrances with stairs into her home. Pt zina improved form and reports minimal pain using this method . Gait is antalgic during 6 MWT. However, able to complete without increased pain and ambulated greater distance than IE. Zina improved RUE ROM and park services specialist strength. Manual treatment focusing on assessing R hamstring and superficial soft tissue mobilization to decrease pain symptoms. Pt followed with self mobilization for HEP instead of stretches. Pt has been seen in clinic x 7 visits since IE in October 2023. Pt is progressing toward goals and has met several. Zina significant improvement in RUE ROM with pain only at end range, park services specialist, and use; reports that she is back to crocheting, which she was unable to perform at IE. Currently has met 6MWT distance goals and STS goal. Zina improved BLE speed and strength during sit to stand; however, still requires occasional cues for anterior weight shift to prevent retropulsion. Also met Myers goal, currently 48/56; has difficulty with weight shift, changing MANUEL, and anterior weight shift for reach. Unable to meet stair goal due limitations from R hamstring pain. However, several weeks ago, she reports that she slipped while walking up the stairs at home, felt a sharp pop and has had pain at her proximal hamstring since that time. Reports no bruising, but has been using ice/heat since then for pain. Pt has a painful and palpable muscle restriction at R proximal hamstring insertion. PT educated pt on stairs, activity limitations, and possible hamstring strain; instructed pt to follow up with PCP regarding imaging. Pt would benefit from skilled PT to address BLE strengthening, balance, and gait deformities unless otherwise recommended. Physical Therapy Plan Frequency and Duration Frequency of Treatment 1-2x/wk Duration of treatment (weeks) 8 Plan of Care Start Date 12/23/23 Plan of Care End Date 02/18/24 Therapeutic Interventions Therapeutic Interventions Aquatic Therapy,Balance Training,Canalithic Repositioning,Coordination Training,Gait Training,Home Exercise Program,Joint Mobilizations,Manual Therapy, Neuromuscular Re-education, Orthotic/Prosthetic Management ,Patient/Caregiver Education, Self-Care/Home Management, Sensory Integration,Soft Tissue Mobilization,Taping, Therapeutic Activities, Therapeutic Exercises, Vestibular Rehabilitation Modalities Cold Pack/Ice Massage,Electric Stimulation,Hot Packs, Vasopneumatic Devices Other Referrals/Consults Referrals/Consults Recommended Due to new onset R hamstring pain s/p slip down stairs earlier in November, PT recommending follow up with PCP, MRI, and referral to ortho depending on severity. Will need new PT referral depending on change in medical status Next Visit Focus/Plan Next Note Type Treatment Note Next Visit Plan Possible HS strain/tear ( follow up with pt regarding imaging, PCP visit); begin gentle isometrics for prox HS (do not stress HS). May need new referral. Continue standing balance activities ( foam, change MANUEL, add head turns, etc) POC: BLE strengthening (leg press squat, LAQ, STS, HSC) and balance (ambulation, Myers activities). Begin some balance activities. Review STS , add small resistance or lower table. Continue park services specialist strength activity, rotator cuff strengthening and RUE AROM Manual: scapulothoracic mob, MWM as tolerated in shldr flex , gentle RTC strengthening within available range
--- NOTE | 2024-01-04 12:07 | PT.OTN ---
Current Diagnoses Hypothyroidism, unspecified (01/04/24) Personal history of transient ischemic attack (TIA), and cerebral infarction without residual deficits (01/04/24) Physical Therapy Treatment Note PT-OP-A Visit Information Start: 11/01/23 10:42 Freq: Status: Active Protocol: Document 01/04/24 09:04 NM (Rec: 01/04/24 09:48 NM [id number]) Out-Patient Physical Therapy Visit Information Visit Information Visit Type Treatment Note Visit Start Time 09:05 Visit Stop Time 09:45 Visit Number 9 Evaluation Information Evaluation Date 11/01/23 Precautions Precautions Fall risk Hx: CVA, check vitals PT-OP-B Current Condition Start: 11/01/23 10:42 Freq: Status: Active Protocol: Document 11/01/23 15:35 NM (Rec: 11/01/23 16:02 NM [id number]) Current Condition History of Current Condition Onset Date 08/24/23 Current Complaints BLE weakness, balance History of Current Condition Pt presents to clinic with BLE weakness and balance impairments following a CVA on 08/24/23. Pt reports that her R side was primarily affected. She has the most difficulty with maintaining her balance while ambulating, especially while turning. She complains of occasional instances of numbness in her R hand and foot, which she believes impacts her balance, and she has pain in multiple joints due to fibromyalgia. She also reports decreased R test department helper strength and difficulty with elevating her RUE secondary to pain. Prior to her stroke, she used a spc with a small base at the point for community ambulation; however, she did not bring it to the clinic today. Pt also reports occasional episodes of dizziness when moving from sitting > standing, which causes her LOB. PMH includes fibromyalgia, lupus. Currently , she is not allowed to drive. Future Testing and Treatments Planned Follow up on 11/10 with physician Treatment Goals Patient/Caregiver Goals Improve ambulation, balance Prior Functional Status Baseline Function- ADL's Independent Baseline Function- Mobility Independent Baseline Function- Gait spc for community distances prn Baseline Function- Recreation/Hobbies Water aerobics Current Functional Impairments (Reported) Functional Limitations- ADL's Unable to drive. Limitations with dressing, gripping, lifting, standing balance, endurance, activity tolerance Functional Limitations- Mobility/Gait Limited ability to ambulate, uses spc more frequently for community ambulation distances Functional Limitations- Recreation/ Unable to participate in water Hobbies aerobics because unable to drive PT-OP-C Subjective Start: 11/01/23 10:42 Freq: Status: Active Protocol: Document 01/04/24 09:04 NM (Rec: 01/04/24 09:48 NM [id number]) OP-PT Subjective Patient Comments Patient Comments Pt started water aerobics yesterday; reports pain with kicking. She is a little sore from yesterday. Overall states probably 01/01 with activity. She had an xray for her R hamstring pain, no abnl findings; PCP thinks a strain and said to continue with PT. PT-OP-D Balance Start: 11/01/23 10:42 Freq: Status: Active Protocol: Document 11/01/23 15:35 NM (Rec: 11/01/23 16:02 NM [id number]) OP-PT Balance Assessment Sitting Balance Static Sitting Balance Ability Good Dynamic Sitting Balance Ability Good Balance Tests Myers Balance Test Myers Balance Test Score 40/56 Myers Impairment Rating 20 to 39% Impaired (Score 34- 44) Functional Reach Functional Reach Test 2 cm Single Limb Standing Single Limb- Right 1 sec Single Limb- Left 3 sec Semi-Tandem Standing Semi-Tandem Standing Balance 5 sec ea side Tandem Tandem Standing unable without UE support William Fall Scale Copyright Permission PT-OP-E Functional Tests Start: 11/01/23 10:42 Freq: Status: Active Protocol: Document 11/01/23 15:35 NM (Rec: 11/01/23 16:02 NM [id number]) Functional Tests 6 Minute Walk Test Distance 736 Device Used none Comments SBA Five Times Sit to Stand Test Score 35.17 sec PT-OP-F Manual Assessment Start: 11/01/23 10:42 Freq: Status: Active Protocol: Document 11/01/23 15:35 NM (Rec: 11/01/23 16:02 NM [id number]) Manual Assessments Soft Tissue Assessment Soft Tissue Mobility Assessment No soft tissue restrictions noted Joint Mobility Assessment Joint Mobility Assessment R shoulder ROM is painful in fwd flex, abduction with limited scapular mobility and impingement symptoms. No laxity noted at knee PT-OP-G Mobility & Gait Start: 11/01/23 10:42 Freq: Status: Active Protocol: Document 11/01/23 15:35 NM (Rec: 11/01/23 16:02 NM [id number]) OP Gait Assessment Gait Gait Assistance Required: Standby Assistance Distance (Feet) 736 Able to Maintain Weight Bearing Status Yes During Gait Assistive Devices Assistive Device None,Straight Cane Gait Deviations General Gait Pattern Decreased Stride Length,Flexed Trunk,Step-to Gait Factors Limiting Gait Function Factors Limiting Gait Function Decreased Strength, Incoordination,Limited Range of Motion,Poor Balance Comments Gait Comments Reports that she uses a spc for community ambulation Stair Climbing Evaluation Evaluation Level of Assist On Stairs Contact Guard Assistance Devices Stair Climbing Assistive Devices Right Railing Technique/Endurance Stair Climbing Direction Ascend and Descend Stair Climbing Technique Step Over Step Number of Steps Climbed 4 Stair Climbing Set # Repetitions (reps) 1 Comments Stair Climbing Comments Reciprocal motion, 1 HR to ascend, 2 HR to descent; CGA to steady; Demos decreased eccentric control at knee during descent PT-OP-H Neuro Start: 11/01/23 10:42 Freq: Status: Active Protocol: Document 11/01/23 15:35 NM (Rec: 11/01/23 16:02 NM [id number]) Sensation Evaluation Gross Sensation Gross Sensation Right LE Impaired Sensation Description Paresthesia,Numbness Dermatome Impairments L4,L5,S1,S2 Comments Summary Comments Able to distinguish light touch on RLE, however reports that it is less than LLE from L4-S2 dermatomes Coordination Evaluation Upper Extremity Tests Left Finger to Nose Test Normal Performance Alternate Nose to Finger Test Normal Performance Pronation/Supination Test minimal impairment but performed slowly Right Finger to Nose Test Minimal Impairment Alternate Nose to Finger Test Minimal Impairment Pronation/Supination Test Minimal impairment but performed slowly bilaterally Lower Extremity Tests Left Heel on Khalil Test Normal Performance Right Heel on Khalil Test Minimal Impairment Deep Tendon Reflex & Clonus Assessment Deep Tendon Reflex L biceps Deep Tendon Reflex 2+ Normal R biceps Deep Tendon Reflex 2+ Normal Vital Signs Blood Pressure Sitting Blood Pressure (90/60-120/80 mmHg) 120/77 Blood Pressure Source Automatic Cuff,Left Upper Extremity Oxygen Pulse Oximetry at Rest (%) (95-100 %) 96 PT-OP-J Posture/Palpation/Skin Start: 11/01/23 10:42 Freq: Status: Active Protocol: Document 11/01/23 15:35 NM (Rec: 11/01/23 16:02 NM [id number]) Posture Evaluation Position Sitting Evaluation View posterior, lateral Head/C-Spine Posture Forward Head T-Spine Posture Increased Kyphosis L-Spine Posture Increased Lordosis Shoulder Posture (L) Rounded,(R) Rounded,(L) Forward,(R) Forward Weight Distribution Weight Shifted Left Hip Posture (R) Externally Rotated Knee Posture (L) Genu Valgus,(R) Genu Valgus PT-OP-K Range of Motion Start: 11/01/23 10:42 Freq: Status: Active Protocol: Document 11/03/23 10:31 NM (Rec: 11/03/23 11:32 NM [id number]) Shoulder Goniometric Range of Motion Shoulder Left Shoulder ROM WFL No Testing Position Supine Flexion 150 Abduction 150 External Rotation at 45 degrees 70 Abduction Internal Rotation 70 Right Shoulder ROM WFL No Testing Position Supine Flexion 107 Abduction 130 External Rotation at 45 degrees 30 Abduction Internal Rotation 70 PT-OP-M Strength Start: 11/01/23 10:42 Freq: Status: Active Protocol: Document 12/23/23 10:36 NM (Rec: 12/23/23 11:38 NM [id number]) Hip Strength Hip Manual Muscle Testing Left Flexion (L2) 4- Good- Extension (S1) 4 Good Abduction 4 Good External Rotation 4+ Good+ Internal Rotation 4+ Good+ Comments 12/23/23: 4+/5 Right Flexion (L2) 3+ Fair+ Extension (S1) 3+ Fair+ Abduction 4- Good- Adduction 4+ Good+ External Rotation 4+ Good+ Internal Rotation 4+ Good+ Comments IE: flex 3+/5, ext and abd 4/5 , ER/IR 4+/5 12/23/23: pain with resisted hip ext. Knee Strength Knee Manual Muscle Testing Right Flexion (S2) 3+ Fair+ Extension (L3) 4- Good- Comments IE: 4-/5 for both 12/23/23: painful resisted flexion PT-OP-Q Treatments Start: 11/01/23 10:42 Freq: Status: Active Protocol: Document 01/04/24 09:04 NM (Rec: 01/04/24 09:48 NM [id number]) Therapeutic Exercises Supine Exercises bridge Supine Exercise Name trialed: hamstring isometric ( no lift) Side bilateral Resistance <25% resistance Reps/Minutes 5x5 Comments cued for pain free isometric; reports more provocative but not painful Sitting Exercises Hamstring isometric Sitting Exercise Name 1. seated heel dig (knee flex) , 2. seated heel dig (knee ext ) Side right Resistance isometric, cued for pain free (pt reported 25% force) Equipment Used added to HEP Reps/Minutes 10 with 5 hold Comments no pain with #1, min with #2 if above 25% force Standing Exercises Side steps Side bilateral Resistance lvl 2 tb around ankles Equipment Used ballet bar for prn 1 hand support Reps/Minutes 2 sets x10 ft Comments reports pain free; cued foot clearance w trail leg Hip flexion Standing Exercise Name march alternating Side bilateral Resistance lvl 1 blue tb Equipment Used band around feet, // bar for UE support Reps/Minutes 2x10 Comments cues for no trunk lean, manual assist to prevent knee hyperext; fatiguing Other Exercises LAQ Other Exercise Name seated on plinth, able to get full knee ext Side right Resistance AROM (trial next time: 2# ankle weight> BTB) Reps/Minutes 1x10 with 5 hold to determine tolerance Comments reports pain free Neuro Re-Education Treatment Balance Activities picking object up from floor Details in //bars; CGA>close SBA to stabilize Surface stable Reps/Duration 1x5 ea Comments 1. 8 object 2. 4 object Using squat technique; cued for hip hinge, equal weight bearing stance between BLE; reaches with R hand Foam Details CGA to steady, use both hands to on/off Surface unstable Equipment foam airex pad Reps/Duration 6 minutes total Comments 1. stance: 2 min 2. stance with horizontal head turns 3. stance with vertical head turns 4. fwd step ups on/off foam, 1x10 ea 5. lateral step ups on/off foam Cued for weight shift over center of foot. 1 instance min A to prevent LOB, but CGA mainly to steady. PT facilitating at hips for weight shift Static Details Narrow MANUEL, tandem, single leg , EO, EC Surface stable Equipment gait belt, no UE use Reps/Duration 2x30 ea Comments Stance for time No UE support, SBA with prn CGA. Min Difficulty with positioning into tandem but able to position independently . Improved ankle strategy. Self-Care/Home Management Treatment Education Patient Education Home Exercise Program,Joint Protection,Pain Management Other Education 8 minutes: Educated on walking in pool for activity tolerance, limit kicking/hip extension as painful. Educated on no stretching, initiated and explained purpose of gentle isometrics for pain reduction; importance of performing contraction but without aggravating symptoms. Discussed continuing with stairs using LLE leading up, RLE down. HEP: hamstring isometrics with knee ext, knee flexed to various degrees at 25% pt force, increasing as able. Educated on use of heat for pain relief prior to activation PT-OP-R Modalities Start: 12/16/23 12:54 Freq: Status: Active Protocol: Document 12/16/23 10:37 SW (Rec: 12/16/23 12:56 SW [id number]) Hot Pack/Cold Pack Treatment Hot Pack Location posterior Patient Position Supine Patient Tolerance Good Comments bolster under LE, lucas within reach x15 min PT-OP-T Assessment and Plan Start: 11/01/23 10:42 Freq: Status: Active Protocol: Document 01/04/24 09:04 NM (Rec: 01/04/24 09:48 NM [id number]) Physical Therapy Assessment Goals Eight Impairment R shoulder ROM Short Term Goal (STG) Pt will be able to lift her R arm in fwd flexion to at least 100 deg in order to get dishes down from her shelf at home. STG Duration 5 weeks Long-Term Goal (LTG) Pt will be able to lift her R arm in fwd flexion to at least 120 deg in order to get dishes down from her shelf at home. 12/23/23: 150 deg R flex without compensation, reports minimal pain at end range LTG Duration 10 weeks MET Seven Impairment strength Impairment R test department helper 25# Short Term Goal (STG) Pt will improve R test department helper strength by at least 2# to be comparable to the L test department helper strength in order be able to open jars without assistance and to perform ADLs more independently. STG Duration 5 weeks Long-Term Goal (LTG) Pt will improve R test department helper strength by at least 5# to be comparable to the L test department helper strength in order be able to open jars without assistance and to perform ADLs more independently. 12/23/23: MET 48# R test department helper; reports able to ebony LTG Duration 10 weeks MET Six Impairment R quad and hamstring MMT 4-/5 Short Term Goal (STG) Pt will improve R quad and hamstring MMT to at least 4/5 in order to demo improved knee strength for transfers, stairs, and gait. 12/23/23: 3+/5 hamstring due to pain from hamstring injury in November; 4-/5 for quad STG Duration 5 weeks NOT MET Long-Term Goal (LTG) Pt will improve R quad and hamstring MMT to at least 4+/5 in order to demo improved knee strength for transfers, stairs, and gait. 12/23/23: 3+/5 hamstring due to pain from hamstring injury in November; 4-/5 for quad LTG Duration 10 weeks NOT MET Five Impairment LE strength Impairment R hip flex MMT 3+/5 Short Term Goal (STG) Pt will improve R hip flex MMT to at least 4/5 in order to demo improved hip strength for foot clearance and limb advancement during gait. 12/23/23: 3+/5 due to hamstring pain STG Duration 5 weeks NOT MET Long-Term Goal (LTG) Pt will improve R hip flex MMT to at least 4+/5 in order to demo improved hip strength for foot clearance and limb advancement during gait. 12/23/23: 3+/5 due to hamstring pain LTG Duration 10 weeks NOT MET Four Impairment strength Impairment 4 steps with reciprocal pattern with CGA using 1 HR to ascend, 2 to descend, no AD Short Term Goal (STG) Pt will perform at least 8 6 stairs using a reciprocal gait pattern with SBA and 1 or no hand rails using LRAD in order to demo improved BLE strength and balance. 12/23/23: 4 stairs, non reciprocal gait (LLE leading ascent, RLE leading descent) due to hamstring pain, SBA 1 rail STG Duration 5 weeks Long-Term Goal (LTG) Pt will perform at least 16 6 stairs using a reciprocal gait pattern with SBA and 1 or no hand rails using LRAD in order to demo improved BLE strength and balance. 12/23/23: 4 stairs, non reciprocal gait (LLE leading ascent, RLE leading descent) due to hamstring pain, SBA 1 rail LTG Duration 10 weeks NOT MET, PROGRESSING Three Impairment endurance, ambulation Impairment 6 MWT 736 ft (224.3 m), no AD Short Term Goal (STG) Pt will improve 6 MWT distance by at least 50 ft (786 ft, 239 m) using LRAD in order to demonstrate better BLE strength and endurance for community ambulation. STG Duration 5 weeks Tobacco Weigher Goal (LTG) Pt will improve 6 MWT distance to at least 848 ft (258 m, 1 MCID) using LRAD in order to demonstrate better BLE strength and endurance for community ambulation. 12/23/23: 886 ft, no AD used; gait antalgic LTG Duration 10 weeks MET Two Impairment strength Impairment 5x STS 35.17 sec Short Term Goal (STG) Pt will improve 5x STS time to at least 30 seconds or less in order to demonstrate improved BLE strength and endurance. STG Duration 5 weeks Long-Term Goal (LTG) Pt will improve 5X STS time to at least 25 seconds or less in order to demonstrate improved BLE strength and endurance. 12/23/20: 24.41 sec, from chair, no UE use; difficulty rising due to hamstring pain LTG Duration 10 weeks MET One Impairment Balance Impairment Myers/56 Short Term Goal (STG) Pt will improve Myers score to at least 44/56 in order to demonstrate improvements in balance and safety awareness during higher level activities . STG Duration 5 weeks Long-Term Goal (LTG) Pt will improver Myers score to at least 47/56 (1 MCID for acute stroke pt) in order to demonstrate improvements in balance and safety awareness during higher level activities . 12/23/23: 48/56 Myers LTG Duration 10 weeks MET Assessment Summary Assessment Pt tolerated session well without any increased pain in hamstrings. Initiated gentle hamstring isometrics with hip ext and knee flexed for pain reduction; pt able to perform up to 25% isometric force pain free. PT educated pt on safety during water aerobics and to limit kicking with leg extended to prevent pain. Pt's gait is less antalgic compared to last session with better R stance time. Continued with balance training. Added unstable surface, pt cued for less BUE support for greater challenge. PT consistently cued pt to maintain MANUEL over center of foot rather than posterior weight shift; facilitating at hips to promote weight shift. Only 1 instance LOB, min A to correct; otherwise pt CGA to stabilize or better. Pt would benefit from skilled PT for progressive BLE strengthening, gait and balance training in order to decrease fall risk and improve QOL. Physical Therapy Plan Frequency and Duration Frequency of Treatment 1-2x/wk Duration of treatment (weeks) 8 Plan of Care Start Date 12/23/23 Plan of Care End Date 02/18/24 Therapeutic Interventions Therapeutic Interventions Aquatic Therapy,Balance Training,Canalithic Repositioning,Coordination Training,Gait Training,Home Exercise Program,Joint Mobilizations,Manual Therapy, Neuromuscular Re-education, Orthotic/Prosthetic Management ,Patient/Caregiver Education, Self-Care/Home Management, Sensory Integration,Soft Tissue Mobilization,Taping, Therapeutic Activities, Therapeutic Exercises, Vestibular Rehabilitation Modalities Cold Pack/Ice Massage,Electric Stimulation,Hot Packs, Vasopneumatic Devices Next Visit Focus/Plan Next Note Type Treatment Note Next Visit Plan gentle isometrics for prox HS (do not stress HS). Cont balance activities (foam, change MANUEL, add head turns, etc) and gait training. Perform pain free BLE strengthening POC: BLE strengthening (leg press squat, LAQ, STS, HSC) and balance (ambulation, Myers activities). Begin some balance activities. Review STS , add small resistance or lower table. Continue test department helper strength activity, rotator cuff strengthening and RUE AROM Manual: scapulothoracic mob, MWM as tolerated in shldr flex , gentle RTC strengthening within available range
--- NOTE | 2024-01-12 11:57 | PT.OTN ---
Current Diagnoses Hypothyroidism, unspecified (01/12/24) Personal history of transient ischemic attack (TIA), and cerebral infarction without residual deficits (01/12/24) Physical Therapy Treatment Note PT-OP-A Visit Information Start: 11/01/23 10:42 Freq: Status: Active Protocol: Document 01/12/24 11:19 SP (Rec: 01/12/24 12:15 SP [id number]) Out-Patient Physical Therapy Visit Information Visit Information Visit Type Treatment Note Visit Note 01/29 post PN Visit Start Time 11:19 Visit Stop Time 11:57 Visit Number 10 Number of RESTORATION ECOLOGIST Visits 1 Evaluation Information Evaluation Date 11/01/23 Precautions Precautions Fall risk Hx: CVA, check vitals PT-OP-B Current Condition Start: 11/01/23 10:42 Freq: Status: Active Protocol: Document 11/01/23 15:35 NM (Rec: 11/01/23 16:02 NM [id number]) Current Condition History of Current Condition Onset Date 08/24/23 Current Complaints BLE weakness, balance History of Current Condition Pt presents to clinic with BLE weakness and balance impairments following a CVA on 08/24/23. Pt reports that her R side was primarily affected. She has the most difficulty with maintaining her balance while ambulating, especially while turning. She complains of occasional instances of numbness in her R hand and foot, which she believes impacts her balance, and she has pain in multiple joints due to fibromyalgia. 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 Prior to her stroke, she used a spc with a small base at the point for community ambulation; however, she did not bring it to the clinic today. Pt also reports occasional episodes of dizziness when moving from sitting > standing, which causes her LOB. PMH includes fibromyalgia, lupus. Currently , she is not allowed to drive. Future Testing and Treatments Planned Follow up on 11/10 with physician Treatment Goals Patient/Caregiver Goals Improve ambulation, balance Prior Functional Status Baseline Function- ADL's Independent Baseline Function- Mobility Independent Baseline Function- Gait spc for community distances prn Baseline Function- Recreation/Hobbies Water aerobics Current Functional Impairments (Reported) Functional Limitations- ADL's Unable to drive. Limitations with dressing, gripping, lifting, standing balance, endurance, activity tolerance Functional Limitations- Mobility/Gait Limited ability to ambulate, uses spc more frequently for community ambulation distances Functional Limitations- Recreation/ Unable to participate in water Hobbies aerobics because unable to drive PT-OP-C Subjective Start: 11/01/23 10:42 Freq: Status: Active Protocol: Document 01/12/24 11:19 SP (Rec: 01/12/24 12:15 SP [id number]) OP-PT Subjective Patient Comments Patient Comments Pt reports doing well with exercises. She reports challenged return to balance tandem on noodle in aquatic class in open space. PT-OP-D Balance Start: 11/01/23 10:42 Freq: Status: Active Protocol: Document 11/01/23 15:35 NM (Rec: 11/01/23 16:02 NM [id number]) OP-PT Balance Assessment Sitting Balance Static Sitting Balance Ability Good Dynamic Sitting Balance Ability Good Balance Tests Myers Balance Test Myers Balance Test Score 40/56 Myers Impairment Rating 20 to 39% Impaired (Score 34- 44) Functional Reach Functional Reach Test 2 cm Single Limb Standing Single Limb- Right 1 sec Single Limb- Left 3 sec Semi-Tandem Standing Semi-Tandem Standing Balance 5 sec ea side Tandem Tandem Standing unable without UE support William Fall Scale Copyright Permission PT-OP-E Functional Tests Start: 11/01/23 10:42 Freq: Status: Active Protocol: Document 11/01/23 15:35 NM (Rec: 11/01/23 16:02 NM [id number]) Functional Tests 6 Minute Walk Test Distance 736 Device Used none Comments SBA Five Times Sit to Stand Test Score 35.17 sec PT-OP-F Manual Assessment Start: 11/01/23 10:42 Freq: Status: Active Protocol: Document 11/01/23 15:35 NM (Rec: 11/01/23 16:02 NM [id number]) Manual Assessments Soft Tissue Assessment Soft Tissue Mobility Assessment No soft tissue restrictions noted Joint Mobility Assessment Joint Mobility Assessment R shoulder ROM is painful in fwd flex, abduction with limited scapular mobility and impingement symptoms. No laxity noted at knee PT-OP-G Mobility & Gait Start: 11/01/23 10:42 Freq: Status: Active Protocol: Document 11/01/23 15:35 NM (Rec: 11/01/23 16:02 NM [id number]) OP Gait Assessment Gait Gait Assistance Required: Standby Assistance Distance (Feet) 736 Able to Maintain Weight Bearing Status Yes During Gait Assistive Devices Assistive Device None,Straight Cane Gait Deviations General Gait Pattern Decreased Stride Length,Flexed Trunk,Step-to Gait Factors Limiting Gait Function Factors Limiting Gait Function Decreased Strength, Incoordination,Limited Range of Motion,Poor Balance Comments Gait Comments Reports that she uses a spc for community ambulation Stair Climbing Evaluation Evaluation Level of Assist On Stairs Contact Guard Assistance Devices Stair Climbing Assistive Devices Right Railing Technique/Endurance Stair Climbing Direction Ascend and Descend Stair Climbing Technique Step Over Step Number of Steps Climbed 4 Stair Climbing Set # Repetitions (reps) 1 Comments Stair Climbing Comments Reciprocal motion, 1 HR to ascend, 2 HR to descent; CGA to steady; Demos decreased eccentric control at knee during descent PT-OP-H Neuro Start: 11/01/23 10:42 Freq: Status: Active Protocol: Document 11/01/23 15:35 NM (Rec: 11/01/23 16:02 NM [id number]) Sensation Evaluation Gross Sensation Gross Sensation Right LE Impaired Sensation Description Paresthesia,Numbness Dermatome Impairments L4,L5,S1,S2 Comments Summary Comments Able to distinguish light touch on RLE, however reports that it is less than LLE from L4-S2 dermatomes Coordination Evaluation Upper Extremity Tests Left Finger to Nose Test Normal Performance Alternate Nose to Finger Test Normal Performance Pronation/Supination Test minimal impairment but performed slowly Right Finger to Nose Test Minimal Impairment Alternate Nose to Finger Test Minimal Impairment Pronation/Supination Test Minimal impairment but performed slowly bilaterally Lower Extremity Tests Left Heel on Khalil Test Normal Performance Right Heel on Khalil Test Minimal Impairment Deep Tendon Reflex & Clonus Assessment Deep Tendon Reflex L biceps Deep Tendon Reflex 2+ Normal R biceps Deep Tendon Reflex 2+ Normal Vital Signs Blood Pressure Sitting Blood Pressure (90/60-120/80 mmHg) 120/77 Blood Pressure Source Automatic Cuff,Left Upper Extremity Oxygen Pulse Oximetry at Rest (%) (95-100 %) 96 PT-OP-J Posture/Palpation/Skin Start: 11/01/23 10:42 Freq: Status: Active Protocol: Document 11/01/23 15:35 NM (Rec: 11/01/23 16:02 NM [id number]) Posture Evaluation Position Sitting Evaluation View posterior, lateral Head/C-Spine Posture Forward Head T-Spine Posture Increased Kyphosis L-Spine Posture Increased Lordosis Shoulder Posture (L) Rounded,(R) Rounded,(L) Forward,(R) Forward Weight Distribution Weight Shifted Left Hip Posture (R) Externally Rotated Knee Posture (L) Genu Valgus,(R) Genu Valgus PT-OP-K Range of Motion Start: 11/01/23 10:42 Freq: Status: Active Protocol: Document 11/03/23 10:31 NM (Rec: 11/03/23 11:32 NM [id number]) Shoulder Goniometric Range of Motion Shoulder Left Shoulder ROM WFL No Testing Position Supine Flexion 150 Abduction 150 External Rotation at 45 degrees 70 Abduction Internal Rotation 70 Right Shoulder ROM WFL No Testing Position Supine Flexion 107 Abduction 130 External Rotation at 45 degrees 30 Abduction Internal Rotation 70 PT-OP-M Strength Start: 11/01/23 10:42 Freq: Status: Active Protocol: Document 12/23/23 10:36 NM (Rec: 12/23/23 11:38 NM [id number]) Hip Strength Hip Manual Muscle Testing Left Flexion (L2) 4- Good- Extension (S1) 4 Good Abduction 4 Good External Rotation 4+ Good+ Internal Rotation 4+ Good+ Comments 12/23/23: 4+/5 Right Flexion (L2) 3+ Fair+ Extension (S1) 3+ Fair+ Abduction 4- Good- Adduction 4+ Good+ External Rotation 4+ Good+ Internal Rotation 4+ Good+ Comments IE: flex 3+/5, ext and abd 4/5 , ER/IR 4+/5 12/23/23: pain with resisted hip ext. Knee Strength Knee Manual Muscle Testing Right Flexion (S2) 3+ Fair+ Extension (L3) 4- Good- Comments IE: 4-/5 for both 12/23/23: painful resisted flexion PT-OP-Q Treatments Start: 11/01/23 10:42 Freq: Status: Active Protocol: Document 01/12/24 11:19 SP (Rec: 01/12/24 12:15 SP [id number]) Therapeutic Exercises Supine Exercises bridge Supine Exercise Name trialed: hamstring isometric ( no lift) Side bilateral Resistance <25% resistance (heel dig) Reps/Minutes 5x5 Comments cued for pain free isometric; reports more provocative but not painful Sitting Exercises STS Sitting Exercise Name instroduced in PT Resistance G TB at knees for assist abd neutral Equipment Used 18 chair arms front Reps/Minutes x8 reps total Comments fine asc, improved desc post cues for hip hinge slower pace to sit, flop 1 Hamstring isometric Sitting Exercise Name 1. seated heel dig (knee flex) , 2. seated heel dig (knee ext ) Side right Resistance isometric, cued for pain free (pt reported 25% force) Equipment Used added to HEP Reps/Minutes 10 with 5 hold Comments no pain with #1, min with #2 if above 25% force Standing Exercises Side steps Side bilateral Resistance lvl 2 tb around ankles Equipment Used no UE support, near rail Reps/Minutes 2 sets x10 ft Comments reports pain free; cued trail LE clearance, eccentric control Neuro Re-Education Treatment Balance Activities jose stepping Details fwd: step to, receiprocal stepping Equipment 6 hurdles, near rail PRN contact as needed Reps/Duration 4 laps Comments improved post cues for elongated posture, wt shift over advanced LE, softer stepping for core/inter scap stabilization. Foam Details tandem Surface unstable Equipment on noodle (used to perform in aquatic class without UE support) Comments 1. stance: 2 min 2. stance with horizontal head turns 3. stance with vertical head turns 4. fwd step ups on/off foam, 1x10 ea 5. lateral step ups on/off foam Cued for weight shift over center of foot. 1 instance min A to prevent LOB, but CGA mainly to steady. PT facilitating at hips for weight shift Static Details tandem, SLS Surface stable, SBA Equipment near rail, no GB needed Reps/Duration 4 head turns before LOB over wt shift Comments light contact rail as needed get into position, cues for core/posture of interscap. Tandem floor: HTs up to 4 reps before LOB over wt shift Tandem on noodle (PRN contact rail): 3-5 sec SLS: LLE 5 sec, RLE 3 sec Self-Care/Home Management Treatment Education Patient Education Body Mechanics,Home Exercise Program,Pain Management, Posture Other Education Discussed utilizing wall for PRN contact while using instructional cues throughout tx for posturing (core and rhomboid fac) over stance 1-2 LEs for success. PT-OP-R Modalities Start: 12/16/23 12:54 Freq: Status: Active Protocol: Document 12/16/23 10:37 SW (Rec: 12/16/23 12:56 SW [id number]) Hot Pack/Cold Pack Treatment Hot Pack Location posterior Patient Position Supine Patient Tolerance Good Comments bolster under LE, lucas within reach x15 min PT-OP-T Assessment and Plan Start: 11/01/23 10:42 Freq: Status: Active Protocol: Document 01/12/24 11:19 SP (Rec: 01/12/24 12:15 SP [id number]) Physical Therapy Assessment Goals Eight Impairment R shoulder ROM Short Term Goal (STG) Pt will be able to lift her R arm in fwd flexion to at least 100 deg in order to get dishes down from her shelf at home. STG Duration 5 weeks Pulp Drier Goal (LTG) Pt will be able to lift her R arm in fwd flexion to at least 120 deg in order to get dishes down from her shelf at home. 12/23/23: 150 deg R flex without compensation, reports minimal pain at end range LTG Duration 10 weeks MET Seven Impairment strength Impairment R charge accounts audit clerk 25# Short Term Goal (STG) Pt will improve R charge accounts audit clerk strength by at least 2# to be comparable to the L charge accounts audit clerk strength in order be able to open jars without assistance and to perform ADLs more independently. STG Duration 5 weeks Pulp Drier Goal (LTG) Pt will improve R charge accounts audit clerk strength by at least 5# to be comparable to the L charge accounts audit clerk strength in order be able to open jars without assistance and to perform ADLs more independently. 12/23/23: MET 48# R charge accounts audit clerk; reports able to ebony LTG Duration 10 weeks MET Six Impairment R quad and hamstring MMT 4-/5 Short Term Goal (STG) Pt will improve R quad and hamstring MMT to at least 4/5 in order to demo improved knee strength for transfers, stairs, and gait. 12/23/23: 3+/5 hamstring due to pain from hamstring injury in November; 4-/5 for quad STG Duration 5 weeks NOT MET Pulp Drier Goal (LTG) Pt will improve R quad and hamstring MMT to at least 4+/5 in order to demo improved knee strength for transfers, stairs, and gait. 12/23/23: 3+/5 hamstring due to pain from hamstring injury in November; 4-/5 for quad LTG Duration 10 weeks NOT MET Five Impairment LE strength Impairment R hip flex MMT 3+/5 Short Term Goal (STG) Pt will improve R hip flex MMT to at least 4/5 in order to demo improved hip strength for foot clearance and limb advancement during gait. 12/23/23: 3+/5 due to hamstring pain STG Duration 5 weeks NOT MET [facility] Goal (LTG) Pt will improve R hip flex MMT to at least 4+/5 in order to demo improved hip strength for foot clearance and limb advancement during gait. 12/23/23: 3+/5 due to hamstring pain LTG Duration 10 weeks NOT MET Four Impairment strength Impairment 4 steps with reciprocal pattern with CGA using 1 HR to ascend, 2 to descend, no AD Short Term Goal (STG) Pt will perform at least 8 6 stairs using a reciprocal gait pattern with SBA and 1 or no hand rails using LRAD in order to demo improved BLE strength and balance. 12/23/23: 4 stairs, non reciprocal gait (LLE leading ascent, RLE leading descent) due to hamstring pain, SBA 1 rail STG Duration 5 weeks Pulp Drier Goal (LTG) Pt will perform at least 16 6 stairs using a reciprocal gait pattern with SBA and 1 or no hand rails using LRAD in order to demo improved BLE strength and balance. 12/23/23: 4 stairs, non reciprocal gait (LLE leading ascent, RLE leading descent) due to hamstring pain, SBA 1 rail LTG Duration 10 weeks NOT MET, PROGRESSING Three Impairment endurance, ambulation Impairment 6 MWT 736 ft (224.3 m), no AD Short Term Goal (STG) Pt will improve 6 MWT distance by at least 50 ft (786 ft, 239 m) using LRAD in order to demonstrate better BLE strength and endurance for community ambulation. STG Duration 5 weeks Pulp Drier Goal (LTG) Pt will improve 6 MWT distance to at least 848 ft (258 m, 1 MCID) using LRAD in order to demonstrate better BLE strength and endurance for community ambulation. 12/23/23: 886 ft, no AD used; gait antalgic LTG Duration 10 weeks MET Two Impairment strength Impairment 5x STS 35.17 sec Short Term Goal (STG) Pt will improve 5x STS time to at least 30 seconds or less in order to demonstrate improved BLE strength and endurance. STG Duration 5 weeks [facility]iary Goal (LTG) Pt will improve 5X STS time to at least 25 seconds or less in order to demonstrate improved BLE strength and endurance. 12/23/20: 24.41 sec, from chair, no UE use; difficulty rising due to hamstring pain LTG Duration 10 weeks MET One Impairment Balance Impairment Myers/56 Short Term Goal (STG) Pt will improve Myers score to at least 44/56 in order to demonstrate improvements in balance and safety awareness during higher level activities . STG Duration 5 weeks [facility] Goal (LTG) Pt will improver Myers score to at least 47/56 (1 MCID for acute stroke pt) in order to demonstrate improvements in balance and safety awareness during higher level activities . 12/23/23: 48/56 Myers LTG Duration 10 weeks MET Assessment Summary Assessment Pt improved slower hip hinge descend sit in chair no UE support, still flop last 1 but better and almost no knee discomfort. Pt reports no pain in HS during ther ex today. Pt was able to perform hurdles and band walk without UE support. Pt improved almost equal stance time gait leaving post introduction to jose then static & dynamic balance activities with midline corrections utilizing rhomboid and core fac cuing to support success uneven surface balance activities in aquatic class. Physical Therapy Plan Frequency and Duration Frequency of Treatment 1-2x/wk Duration of treatment (weeks) 8 Plan of Care Start Date 12/23/23 Plan of Care End Date 02/18/24 Therapeutic Interventions Therapeutic Interventions Aquatic Therapy,Balance Training,Canalithic Repositioning,Coordination Training,Gait Training,Home Exercise Program,Joint Mobilizations,Manual Therapy, Neuromuscular Re-education, Orthotic/Prosthetic Management ,Patient/Caregiver Education, Self-Care/Home Management, Sensory Integration,Soft Tissue Mobilization,Taping, Therapeutic Activities, Therapeutic Exercises, Vestibular Rehabilitation Modalities Cold Pack/Ice Massage,Electric Stimulation,Hot Packs, Vasopneumatic Devices Other Referrals/Consults Referrals/Consults Recommended Due to new onset R hamstring pain s/p slip down stairs earlier in November, PT recommending follow up with PCP, MRI, and referral to ortho depending on severity. Will need new PT referral depending on change in medical status Next Visit Focus/Plan Next Note Type Treatment Note Next Visit Plan Assess responset to added SLS progression balance activities last tx. POCP gentle isometrics for prox HS (do not stress HS). Cont balance activities (foam, change MANUEL, add head turns, etc) and gait training. Perform pain free BLE strengthening POC: BLE strengthening (leg press squat, LAQ, STS, HSC) and balance (ambulation, Myers activities). Begin some balance activities. Review STS , add small resistance or lower table. Continue charge accounts audit clerk strength activity, rotator cuff strengthening and RUE AROM Manual: scapulothoracic mob, MWM as tolerated in shldr flex , gentle RTC strengthening within available range
--- NOTE | 2024-01-14 15:47 | PT.OTN ---
Current Diagnoses Hypothyroidism, unspecified (01/14/24) Personal history of transient ischemic attack (TIA), and cerebral infarction without residual deficits (01/14/24) Physical Therapy Treatment Note PT-OP-A Visit Information Start: 11/01/23 10:42 Freq: Status: Active Protocol: Document 01/14/24 14:29 AB (Rec: 01/14/24 15:47 AB [id number]) Out-Patient Physical Therapy Visit Information Visit Information Visit Type Treatment Note Visit Note 03/01 Visit Start Time 14:33 Visit Stop Time 15:16 Visit Number 11 Number of HVAC ENGINEER Visits 2 Evaluation Information Evaluation Date 11/01/23 Precautions Precautions Fall risk Hx: CVA, check vitals PT-OP-B Current Condition Start: 11/01/23 10:42 Freq: Status: Active Protocol: Document 11/01/23 15:35 NM (Rec: 11/01/23 16:02 NM [id number]) Current Condition History of Current Condition Onset Date 08/24/23 Current Complaints BLE weakness, balance History of Current Condition Pt presents to clinic with BLE weakness and balance impairments following a CVA on 08/24/23. Pt reports that her R side was primarily affected. She has the most difficulty with maintaining her balance while ambulating, especially while turning. She complains of occasional instances of numbness in her R hand and foot, which she believes impacts her balance, and she has pain in multiple joints due to fibromyalgia. She also reports decreased R crop and soil scientist strength and difficulty with elevating her RUE secondary to pain. Prior to her stroke, she used a spc with a small base at the point for community ambulation; however, she did not bring it to the clinic today. Pt also reports occasional episodes of dizziness when moving from sitting > standing, which causes her LOB. PMH includes fibromyalgia, lupus. Currently , she is not allowed to drive. Future Testing and Treatments Planned Follow up on 11/10 with physician Treatment Goals Patient/Caregiver Goals Improve ambulation, balance Prior Functional Status Baseline Function- ADL's Independent Baseline Function- Mobility Independent Baseline Function- Gait spc for community distances prn Baseline Function- Recreation/Hobbies Water aerobics Current Functional Impairments (Reported) Functional Limitations- ADL's Unable to drive. Limitations with dressing, gripping, lifting, standing balance, endurance, activity tolerance Functional Limitations- Mobility/Gait Limited ability to ambulate, uses spc more frequently for community ambulation distances Functional Limitations- Recreation/ Unable to participate in water Hobbies aerobics because unable to drive PT-OP-C Subjective Start: 11/01/23 10:42 Freq: Status: Active Protocol: Document 01/14/24 14:29 AB (Rec: 01/14/24 15:47 AB [id number]) OP-PT Subjective Patient Comments Patient Comments Patient rates pain 7/10 all over ambulating into session with out device ipsilateral trunk sidebend stance phase left and right LE, attributes pain to fibro. AROM right shoulder flexion in standing and sit to stand with UE use, quad dom pattern, increased LS extension to achieve upright posture. PT-OP-D Balance Start: 11/01/23 10:42 Freq: Status: Active Protocol: Document 11/01/23 15:35 NM (Rec: 11/01/23 16:02 NM [id number]) OP-PT Balance Assessment Sitting Balance Static Sitting Balance Ability Good Dynamic Sitting Balance Ability Good Balance Tests Myers Balance Test Myers Balance Test Score 40/56 Myers Impairment Rating 20 to 39% Impaired (Score 34- 44) Functional Reach Functional Reach Test 2 cm Single Limb Standing Single Limb- Right 1 sec Single Limb- Left 3 sec Semi-Tandem Standing Semi-Tandem Standing Balance 5 sec ea side Tandem Tandem Standing unable without UE support William Fall Scale Copyright Permission PT-OP-E Functional Tests Start: 11/01/23 10:42 Freq: Status: Active Protocol: Document 11/01/23 15:35 NM (Rec: 11/01/23 16:02 NM [id number]) Functional Tests 6 Minute Walk Test Distance 736 Device Used none Comments SBA Five Times Sit to Stand Test Score 35.17 sec PT-OP-F Manual Assessment Start: 11/01/23 10:42 Freq: Status: Active Protocol: Document 11/01/23 15:35 NM (Rec: 11/01/23 16:02 NM [id number]) Manual Assessments Soft Tissue Assessment Soft Tissue Mobility Assessment No soft tissue restrictions noted Joint Mobility Assessment Joint Mobility Assessment R shoulder ROM is painful in fwd flex, abduction with limited scapular mobility and impingement symptoms. No laxity noted at knee PT-OP-G Mobility & Gait Start: 11/01/23 10:42 Freq: Status: Active Protocol: Document 11/01/23 15:35 NM (Rec: 11/01/23 16:02 NM [id number]) OP Gait Assessment Gait Gait Assistance Required: Standby Assistance Distance (Feet) 736 Able to Maintain Weight Bearing Status Yes During Gait Assistive Devices Assistive Device None,Straight Cane Gait Deviations General Gait Pattern Decreased Stride Length,Flexed Trunk,Step-to Gait Factors Limiting Gait Function Factors Limiting Gait Function Decreased Strength, Incoordination,Limited Range of Motion,Poor Balance Comments Gait Comments Reports that she uses a spc for community ambulation Stair Climbing Evaluation Evaluation Level of Assist On Stairs Contact Guard Assistance Devices Stair Climbing Assistive Devices Right Railing Technique/Endurance Stair Climbing Direction Ascend and Descend Stair Climbing Technique Step Over Step Number of Steps Climbed 4 Stair Climbing Set # Repetitions (reps) 1 Comments Stair Climbing Comments Reciprocal motion, 1 HR to ascend, 2 HR to descent; CGA to steady; Demos decreased eccentric control at knee during descent PT-OP-H Neuro Start: 11/01/23 10:42 Freq: Status: Active Protocol: Document 11/01/23 15:35 NM (Rec: 11/01/23 16:02 NM [id number]) Sensation Evaluation Gross Sensation Gross Sensation Right LE Impaired Sensation Description Paresthesia,Numbness Dermatome Impairments L4,L5,S1,S2 Comments Summary Comments Able to distinguish light touch on RLE, however reports that it is less than LLE from L4-S2 dermatomes Coordination Evaluation Upper Extremity Tests Left Finger to Nose Test Normal Performance Alternate Nose to Finger Test Normal Performance Pronation/Supination Test minimal impairment but performed slowly Right Finger to Nose Test Minimal Impairment Alternate Nose to Finger Test Minimal Impairment Pronation/Supination Test Minimal impairment but performed slowly bilaterally Lower Extremity Tests Left Heel on Khalil Test Normal Performance Right Heel on Khalil Test Minimal Impairment Deep Tendon Reflex & Clonus Assessment Deep Tendon Reflex L biceps Deep Tendon Reflex 2+ Normal R biceps Deep Tendon Reflex 2+ Normal Vital Signs Blood Pressure Sitting Blood Pressure (90/60-120/80 mmHg) 120/77 Blood Pressure Source Automatic Cuff,Left Upper Extremity Oxygen Pulse Oximetry at Rest (%) (95-100 %) 96 PT-OP-J Posture/Palpation/Skin Start: 11/01/23 10:42 Freq: Status: Active Protocol: Document 11/01/23 15:35 NM (Rec: 11/01/23 16:02 NM [id number]) Posture Evaluation Position Sitting Evaluation View posterior, lateral Head/C-Spine Posture Forward Head T-Spine Posture Increased Kyphosis L-Spine Posture Increased Lordosis Shoulder Posture (L) Rounded,(R) Rounded,(L) Forward,(R) Forward Weight Distribution Weight Shifted Left Hip Posture (R) Externally Rotated Knee Posture (L) Genu Valgus,(R) Genu Valgus PT-OP-K Range of Motion Start: 11/01/23 10:42 Freq: Status: Active Protocol: Document 11/03/23 10:31 NM (Rec: 11/03/23 11:32 NM [id number]) Shoulder Goniometric Range of Motion Shoulder Left Shoulder ROM WFL No Testing Position Supine Flexion 150 Abduction 150 External Rotation at 45 degrees 70 Abduction Internal Rotation 70 Right Shoulder ROM WFL No Testing Position Supine Flexion 107 Abduction 130 External Rotation at 45 degrees 30 Abduction Internal Rotation 70 PT-OP-M Strength Start: 11/01/23 10:42 Freq: Status: Active Protocol: Document 12/23/23 10:36 NM (Rec: 12/23/23 11:38 NM [id number]) Hip Strength Hip Manual Muscle Testing Left Flexion (L2) 4- Good- Extension (S1) 4 Good Abduction 4 Good External Rotation 4+ Good+ Internal Rotation 4+ Good+ Comments 12/23/23: 4+/5 Right Flexion (L2) 3+ Fair+ Extension (S1) 3+ Fair+ Abduction 4- Good- Adduction 4+ Good+ External Rotation 4+ Good+ Internal Rotation 4+ Good+ Comments IE: flex 3+/5, ext and abd 4/5 , ER/IR 4+/5 12/23/23: pain with resisted hip ext. Knee Strength Knee Manual Muscle Testing Right Flexion (S2) 3+ Fair+ Extension (L3) 4- Good- Comments IE: 4-/5 for both 12/23/23: painful resisted flexion PT-OP-Q Treatments Start: 11/01/23 10:42 Freq: Status: Active Protocol: Document 01/14/24 14:29 AB (Rec: 01/14/24 15:47 AB [id number]) Therapeutic Exercises Supine Exercises supine shoulder flexion Supine Exercise Name AROM initiated single arm then arms clasped then mini band modified Side bilateral Equipment Used level on light blue band Reps/Minutes X10 Comments flexed elbows ER with flexion breathing from diaphragm in modified restorative pose Supine Exercise Name supine with LE's elevated 90/ 90 position Reps/Minutes 2 min Comments Verbal cues to breath from diaphragm Sidelying Exercises sidelying shoulder ER AROM Side right Reps/Minutes 10 Comments VC to perform in pain free range and avoid wrist extension Sitting Exercises STS Sitting Exercise Name post hip hinge training and mechanics of sit to stand Equipment Used 17 inch seat height Reps/Minutes X5 X2 Comments VC for knees just past 90 deg and hip hinge Hip abd Sitting Exercise Name seated hip abduction with band activation Side bilateral Resistance light blue level one band Reps/Minutes one minute X 2 Comments Patient ed rationale of one minute hold for activ & isomet for pain relief Therapeutic Activity Therapeutic Activity supine to sit Comments Verbal cues for timing and breathing ie to push up into sitting immediately after LE's leave mat, to avoid holding breath, also to scoot back until back of LE's touch mat prior to performing sitting to sidelying. Manual Therapy Treatment Soft Tissue Mobilization STM right pec Mobilization Type Cross-Friction,Rolling Intensity/Depth Moderate Body Position Hooklying Comments monitored for pain Scapula Body Location right post cuff, periscapular muscles Mobilization Type Rolling,Strumming Intensity/Depth Moderate Body Position Sidelying Comments monitored for pain Joint Mobilizations Scapulothoracic Joint right Direction depression and adduction Grade III Body Position Sidelying Reps/Duration 12 Self-Care/Home Management Treatment Activities Self-Care/Home Management Activities seated hip abduction with band activation, breathing from diaphragm in restorative pose, and modified mini band ( shoulder ER with flexion in hooklying ) PT-OP-R Modalities Start: 12/16/23 12:54 Freq: Status: Active Protocol: Document 12/16/23 10:37 SW (Rec: 12/16/23 12:56 SW [id number]) Hot Pack/Cold Pack Treatment Hot Pack Location posterior Patient Position Supine Patient Tolerance Good Comments bolster under LE, lucas within reach x15 min PT-OP-T Assessment and Plan Start: 11/01/23 10:42 Freq: Status: Active Protocol: Document 01/14/24 14:29 AB (Rec: 01/14/24 15:47 AB [id number]) Physical Therapy Assessment Goals Eight Impairment R shoulder ROM Short Term Goal (STG) Pt will be able to lift her R arm in fwd flexion to at least 100 deg in order to get dishes down from her shelf at home. STG Duration 5 weeks Medicare Sales Executive Goal (LTG) Pt will be able to lift her R arm in fwd flexion to at least 120 deg in order to get dishes down from her shelf at home. 12/23/23: 150 deg R flex without compensation, reports minimal pain at end range LTG Duration 10 weeks MET Seven Impairment strength Impairment R crop and soil scientist 25# Short Term Goal (STG) Pt will improve R crop and soil scientist strength by at least 2# to be comparable to the L crop and soil scientist strength in order be able to open jars without assistance and to perform ADLs more independently. STG Duration 5 weeks Medicare Sales Executive Goal (LTG) Pt will improve R crop and soil scientist strength by at least 5# to be comparable to the L crop and soil scientist strength in order be able to open jars without assistance and to perform ADLs more independently. 12/23/23: MET 48# R crop and soil scientist; reports able to ebony LTG Duration 10 weeks MET Six Impairment R quad and hamstring MMT 4-/5 Short Term Goal (STG) Pt will improve R quad and hamstring MMT to at least 4/5 in order to demo improved knee strength for transfers, stairs, and gait. 12/23/23: 3+/5 hamstring due to pain from hamstring injury in November; 4-/5 for quad STG Duration 5 weeks NOT MET Prison Goal (LTG) Pt will improve R quad and hamstring MMT to at least 4+/5 in order to demo improved knee strength for transfers, stairs, and gait. 12/23/23: 3+/5 hamstring due to pain from hamstring injury in November; 4-/5 for quad LTG Duration 10 weeks NOT MET Five Impairment LE strength Impairment R hip flex MMT 3+/5 Short Term Goal (STG) Pt will improve R hip flex MMT to at least 4/5 in order to demo improved hip strength for foot clearance and limb advancement during gait. 12/23/23: 3+/5 due to hamstring pain STG Duration 5 weeks NOT MET Medicare Sales Executive Goal (LTG) Pt will improve R hip flex MMT to at least 4+/5 in order to demo improved hip strength for foot clearance and limb advancement during gait. 12/23/23: 3+/5 due to hamstring pain LTG Duration 10 weeks NOT MET Four Impairment strength Impairment 4 steps with reciprocal pattern with CGA using 1 HR to ascend, 2 to descend, no AD Short Term Goal (STG) Pt will perform at least 8 6 stairs using a reciprocal gait pattern with SBA and 1 or no hand rails using LRAD in order to demo improved BLE strength and balance. 12/23/23: 4 stairs, non reciprocal gait (LLE leading ascent, RLE leading descent) due to hamstring pain, SBA 1 rail STG Duration 5 weeks Prison Goal (LTG) Pt will perform at least 16 6 stairs using a reciprocal gait pattern with SBA and 1 or no hand rails using LRAD in order to demo improved BLE strength and balance. 12/23/23: 4 stairs, non reciprocal gait (LLE leading ascent, RLE leading descent) due to hamstring pain, SBA 1 rail LTG Duration 10 weeks NOT MET, PROGRESSING Three Impairment endurance, ambulation Impairment 6 MWT 736 ft (224.3 m), no AD Short Term Goal (STG) Pt will improve 6 MWT distance by at least 50 ft (786 ft, 239 m) using LRAD in order to demonstrate better BLE strength and endurance for community ambulation. STG Duration 5 weeks Medicare Sales Executive Goal (LTG) Pt will improve 6 MWT distance to at least 848 ft (258 m, 1 MCID) using LRAD in order to demonstrate better BLE strength and endurance for community ambulation. 12/23/23: 886 ft, no AD used; gait antalgic LTG Duration 10 weeks MET Two Impairment strength Impairment 5x STS 35.17 sec Short Term Goal (STG) Pt will improve 5x STS time to at least 30 seconds or less in order to demonstrate improved BLE strength and endurance. STG Duration 5 weeks Medicare Sales Executive Goal (LTG) Pt will improve 5X STS time to at least 25 seconds or less in order to demonstrate improved BLE strength and endurance. 12/23/20: 24.41 sec, from chair, no UE use; difficulty rising due to hamstring pain LTG Duration 10 weeks MET One Impairment Balance Impairment Myers/56 Short Term Goal (STG) Pt will improve Myers score to at least 44/56 in order to demonstrate improvements in balance and safety awareness during higher level activities . STG Duration 5 weeks Prison Goal (LTG) Pt will improver Myers score to at least 47/56 (1 MCID for acute stroke pt) in order to demonstrate improvements in balance and safety awareness during higher level activities . 12/23/23: 48/56 Myers LTG Duration 10 weeks MET Assessment Summary Assessment AROM right shoulder flexion 134 degrees end of session, rates pain all over 4/10 ambulating out of session without device, and able to perform hip hinge with sit to stand without UE use from chair with 17 inch seat height . Physical Therapy Plan Frequency and Duration Frequency of Treatment 1-2x/wk Duration of treatment (weeks) 8 Plan of Care Start Date 12/23/23 Plan of Care End Date 02/18/24 Next Visit Focus/Plan Next Note Type Treatment Note Next Visit Plan Assess response to added SLS progression balance activities last tx. POCP gentle isometrics for prox HS (do not stress HS). Cont balance activities (foam, change MANUEL, add head turns, etc) and gait training. Perform pain free BLE strengthening POC: BLE strengthening (leg press squat, LAQ, STS, HSC) and balance (ambulation, Myers activities). Begin some balance activities. Review hip hinge increase repetitions for STS, add small resistance or lower table. Continue crop and soil scientist strength activity, rotator cuff strengthening and RUE AROM Manual: scapulothoracic mob, MWM as tolerated in shldr flex , assess miracle to mini band single thickness supine from previous session. Take BP start of session, focus on balance next session
--- NOTE | 2024-01-19 11:41 | PT.OTN ---
Current Diagnoses Hypothyroidism, unspecified (01/19/24) Personal history of transient ischemic attack (TIA), and cerebral infarction without residual deficits (01/19/24) Physical Therapy Treatment Note PT-OP-A Visit Information Start: 11/01/23 10:42 Freq: Status: Active Protocol: Document 01/19/24 09:45 NM (Rec: 01/19/24 10:31 NM [id number]) Out-Patient Physical Therapy Visit Information Visit Information Visit Type Treatment Note Visit Note 03/31 Visit Start Time 09:45 Visit Stop Time 10:30 Visit Number 12 Evaluation Information Evaluation Date 11/01/23 PT-OP-B Current Condition Start: 11/01/23 10:42 Freq: Status: Active Protocol: Document 11/01/23 15:35 NM (Rec: 11/01/23 16:02 NM [id number]) Current Condition History of Current Condition Onset Date 08/24/23 Current Complaints BLE weakness, balance History of Current Condition Pt presents to clinic with BLE weakness and balance impairments following a CVA on 08/24/23. Pt reports that her R side was primarily affected. She has the most difficulty with maintaining her balance while ambulating, especially while turning. She complains of occasional instances of numbness in her R hand and foot, which she believes impacts her balance, and she has pain in multiple joints due to fibromyalgia. She also reports decreased R manager of training strength and difficulty with elevating her RUE secondary to pain. Prior to her stroke, she used a spc with a small base at the point for community ambulation; however, she did not bring it to the clinic today. Pt also reports occasional episodes of dizziness when moving from sitting > standing, which causes her LOB. PMH includes fibromyalgia, lupus. Currently , she is not allowed to drive. Future Testing and Treatments Planned Follow up on 11/10 with physician Treatment Goals Patient/Caregiver Goals Improve ambulation, balance Prior Functional Status Baseline Function- ADL's Independent Baseline Function- Mobility Independent Baseline Function- Gait spc for community distances prn Baseline Function- Recreation/Hobbies Water aerobics Current Functional Impairments (Reported) Functional Limitations- ADL's Unable to drive. Limitations with dressing, gripping, lifting, standing balance, endurance, activity tolerance Functional Limitations- Mobility/Gait Limited ability to ambulate, uses spc more frequently for community ambulation distances Functional Limitations- Recreation/ Unable to participate in water Hobbies aerobics because unable to drive PT-OP-C Subjective Start: 11/01/23 10:42 Freq: Status: Active Protocol: Document 01/19/24 09:45 NM (Rec: 01/19/24 10:31 NM [id number]) OP-PT Subjective Patient Comments Patient Comments Pt 05/01 pain overall. Reports she was sick over weekend but feels better. Reports no aggravation with hamstring isometrics. States water aerobics is helping her pain but she is not doing the real strenuous stuff; also hip abduction isometric is helpful PT-OP-D Balance Start: 11/01/23 10:42 Freq: Status: Active Protocol: Document 11/01/23 15:35 NM (Rec: 11/01/23 16:02 NM [id number]) OP-PT Balance Assessment Sitting Balance Static Sitting Balance Ability Good Dynamic Sitting Balance Ability Good Balance Tests Myers Balance Test Myers Balance Test Score 40/56 Myers Impairment Rating 20 to 39% Impaired (Score 34- 44) Functional Reach Functional Reach Test 2 cm Single Limb Standing Single Limb- Right 1 sec Single Limb- Left 3 sec Semi-Tandem Standing Semi-Tandem Standing Balance 5 sec ea side Tandem Tandem Standing unable without UE support William Fall Scale Copyright Permission PT-OP-E Functional Tests Start: 11/01/23 10:42 Freq: Status: Active Protocol: Document 11/01/23 15:35 NM (Rec: 11/01/23 16:02 NM [id number]) Functional Tests 6 Minute Walk Test Distance 736 Device Used none Comments SBA Five Times Sit to Stand Test Score 35.17 sec PT-OP-F Manual Assessment Start: 11/01/23 10:42 Freq: Status: Active Protocol: Document 11/01/23 15:35 NM (Rec: 11/01/23 16:02 NM [id number]) Manual Assessments Soft Tissue Assessment Soft Tissue Mobility Assessment No soft tissue restrictions noted Joint Mobility Assessment Joint Mobility Assessment R shoulder ROM is painful in fwd flex, abduction with limited scapular mobility and impingement symptoms. No laxity noted at knee PT-OP-G Mobility & Gait Start: 11/01/23 10:42 Freq: Status: Active Protocol: Document 11/01/23 15:35 NM (Rec: 11/01/23 16:02 NM [id number]) OP Gait Assessment Gait Gait Assistance Required: Standby Assistance Distance (Feet) 736 Able to Maintain Weight Bearing Status Yes During Gait Assistive Devices Assistive Device None,Straight Cane Gait Deviations General Gait Pattern Decreased Stride Length,Flexed Trunk,Step-to Gait Factors Limiting Gait Function Factors Limiting Gait Function Decreased Strength, Incoordination,Limited Range of Motion,Poor Balance Comments Gait Comments Reports that she uses a spc for community ambulation Stair Climbing Evaluation Evaluation Level of Assist On Stairs Contact Guard Assistance Devices Stair Climbing Assistive Devices Right Railing Technique/Endurance Stair Climbing Direction Ascend and Descend Stair Climbing Technique Step Over Step Number of Steps Climbed 4 Stair Climbing Set # Repetitions (reps) 1 Comments Stair Climbing Comments Reciprocal motion, 1 HR to ascend, 2 HR to descent; CGA to steady; Demos decreased eccentric control at knee during descent PT-OP-H Neuro Start: 11/01/23 10:42 Freq: Status: Active Protocol: Document 11/01/23 15:35 NM (Rec: 11/01/23 16:02 NM [id number]) Sensation Evaluation Gross Sensation Gross Sensation Right LE Impaired Sensation Description Paresthesia,Numbness Dermatome Impairments L4,L5,S1,S2 Comments Summary Comments Able to distinguish light touch on RLE, however reports that it is less than LLE from L4-S2 dermatomes Coordination Evaluation Upper Extremity Tests Left Finger to Nose Test Normal Performance Alternate Nose to Finger Test Normal Performance Pronation/Supination Test minimal impairment but performed slowly Right Finger to Nose Test Minimal Impairment Alternate Nose to Finger Test Minimal Impairment Pronation/Supination Test Minimal impairment but performed slowly bilaterally Lower Extremity Tests Left Heel on Khalil Test Normal Performance Right Heel on Khalil Test Minimal Impairment Deep Tendon Reflex & Clonus Assessment Deep Tendon Reflex L biceps Deep Tendon Reflex 2+ Normal R biceps Deep Tendon Reflex 2+ Normal Vital Signs Blood Pressure Sitting Blood Pressure (90/60-120/80 mmHg) 120/77 Blood Pressure Source Automatic Cuff,Left Upper Extremity Oxygen Pulse Oximetry at Rest (%) (95-100 %) 96 PT-OP-J Posture/Palpation/Skin Start: 11/01/23 10:42 Freq: Status: Active Protocol: Document 11/01/23 15:35 NM (Rec: 11/01/23 16:02 NM [id number]) Posture Evaluation Position Sitting Evaluation View posterior, lateral Head/C-Spine Posture Forward Head T-Spine Posture Increased Kyphosis L-Spine Posture Increased Lordosis Shoulder Posture (L) Rounded,(R) Rounded,(L) Forward,(R) Forward Weight Distribution Weight Shifted Left Hip Posture (R) Externally Rotated Knee Posture (L) Genu Valgus,(R) Genu Valgus PT-OP-K Range of Motion Start: 11/01/23 10:42 Freq: Status: Active Protocol: Document 11/03/23 10:31 NM (Rec: 11/03/23 11:32 NM [id number]) Shoulder Goniometric Range of Motion Shoulder Left Shoulder ROM WFL No Testing Position Supine Flexion 150 Abduction 150 External Rotation at 45 degrees 70 Abduction Internal Rotation 70 Right Shoulder ROM WFL No Testing Position Supine Flexion 107 Abduction 130 External Rotation at 45 degrees 30 Abduction Internal Rotation 70 PT-OP-M Strength Start: 11/01/23 10:42 Freq: Status: Active Protocol: Document 12/23/23 10:36 NM (Rec: 12/23/23 11:38 NM [id number]) Hip Strength Hip Manual Muscle Testing Left Flexion (L2) 4- Good- Extension (S1) 4 Good Abduction 4 Good External Rotation 4+ Good+ Internal Rotation 4+ Good+ Comments 12/23/23: 4+/5 Right Flexion (L2) 3+ Fair+ Extension (S1) 3+ Fair+ Abduction 4- Good- Adduction 4+ Good+ External Rotation 4+ Good+ Internal Rotation 4+ Good+ Comments IE: flex 3+/5, ext and abd 4/5 , ER/IR 4+/5 12/23/23: pain with resisted hip ext. Knee Strength Knee Manual Muscle Testing Right Flexion (S2) 3+ Fair+ Extension (L3) 4- Good- Comments IE: 4-/5 for both 12/23/23: painful resisted flexion PT-OP-Q Treatments Start: 11/01/23 10:42 Freq: Status: Active Protocol: Document 01/19/24 09:45 NM (Rec: 01/19/24 10:31 NM [id number]) Therapeutic Exercises Sitting Exercises STS Sitting Exercise Name with hip hinge Resistance 5# db after 1st set Equipment Used 18 chair ht, no UE support Reps/Minutes 1x5 w/o db, 2x5 with 5# db Comments verbal cues to prevent knee lock, soft knees Hamstring isometric Sitting Exercise Name 1. seated heel dig (knee flex) , 2. seated heel dig (knee ext ) Side right Resistance isometric, cued for pain free (pt reported 50% force) Equipment Used seated in chair Reps/Minutes 10 with 5 hold Comments reports no pain with activity Hip abd Sitting Exercise Name seated hip abduction with band activation Side bilateral Resistance light blue level one band Reps/Minutes 2x60 Comments reports good pain relief Scapular Retraction Sitting Exercise Name with ER Side bilateral Resistance lvl 1 tb Reps/Minutes 1x10 with brief hold Comments for scapular control and rotator cuff Other Exercises Squat Other Exercise Name mini squat hold Side bilateral Resistance isometric hold at small range Equipment Used 2 finger support on ballet bar for balance Reps/Minutes 10x5 Comments cued smaller range for pain free at R hamstring Neuro Re-Education Treatment Balance Activities Dynamic gait Surface stable Reps/Duration CGA, 1 set ea ~4 min total Comments 1. head turns horizontal x100 ft, ambulation 2. head nods vertical x100 ft, ambulation Demos decreased gait speed with head turns Foam Surface unstable Equipment hands hovering over bars Comments 1. narrow stance, static: 2 min close SBA 2. narrow stance with horizontal head turns, 60 ea Cued for weight shift over center of foot, close SBA 3. narrow stance with vertical nods, 60 wa Cued for weight shift over center of foot, close SBA 4. step ups fwd, 2x10 ea CGA to steady, hands hovering over bars, cued foot placement for safety 5. marching, alternating 2x10 ea CGA with prn min A to steady. Cued smaller AROM for stability PT-OP-R Modalities Start: 12/16/23 12:54 Freq: Status: Active Protocol: Document 12/16/23 10:37 SW (Rec: 12/16/23 12:56 SW [id number]) Hot Pack/Cold Pack Treatment Hot Pack Location posterior Patient Position Supine Patient Tolerance Good Comments bolster under LE, lucas within reach x15 min PT-OP-T Assessment and Plan Start: 11/01/23 10:42 Freq: Status: Active Protocol: Document 01/19/24 09:45 NM (Rec: 01/19/24 10:31 NM [id number]) Physical Therapy Assessment Goals Eight Impairment R shoulder ROM Short Term Goal (STG) Pt will be able to lift her R arm in fwd flexion to at least 100 deg in order to get dishes down from her shelf at home. STG Duration 5 weeks Group Home Goal (LTG) Pt will be able to lift her R arm in fwd flexion to at least 120 deg in order to get dishes down from her shelf at home. 12/23/23: 150 deg R flex without compensation, reports minimal pain at end range LTG Duration 10 weeks MET Seven Impairment strength Impairment R manager of training 25# Short Term Goal (STG) Pt will improve R manager of training strength by at least 2# to be comparable to the L manager of training strength in order be able to open jars without assistance and to perform ADLs more independently. STG Duration 5 weeks Group Home Goal (LTG) Pt will improve R manager of training strength by at least 5# to be comparable to the L manager of training strength in order be able to open jars without assistance and to perform ADLs more independently. 12/23/23: MET 48# R manager of training; reports able to ebony LTG Duration 10 weeks MET Six Impairment R quad and hamstring MMT 4-/5 Short Term Goal (STG) Pt will improve R quad and hamstring MMT to at least 4/5 in order to demo improved knee strength for transfers, stairs, and gait. 12/23/23: 3+/5 hamstring due to pain from hamstring injury in November; 4-/5 for quad STG Duration 5 weeks NOT MET [employer] Goal (LTG) Pt will improve R quad and hamstring MMT to at least 4+/5 in order to demo improved knee strength for transfers, stairs, and gait. 12/23/23: 3+/5 hamstring due to pain from hamstring injury in November; 4-/5 for quad LTG Duration 10 weeks NOT MET Five Impairment LE strength Impairment R hip flex MMT 3+/5 Short Term Goal (STG) Pt will improve R hip flex MMT to at least 4/5 in order to demo improved hip strength for foot clearance and limb advancement during gait. 12/23/23: 3+/5 due to hamstring pain STG Duration 5 weeks NOT MET Group Home Goal (LTG) Pt will improve R hip flex MMT to at least 4+/5 in order to demo improved hip strength for foot clearance and limb advancement during gait. 12/23/23: 3+/5 due to hamstring pain LTG Duration 10 weeks NOT MET Four Impairment strength Impairment 4 steps with reciprocal pattern with CGA using 1 HR to ascend, 2 to descend, no AD Short Term Goal (STG) Pt will perform at least 8 6 stairs using a reciprocal gait pattern with SBA and 1 or no hand rails using LRAD in order to demo improved BLE strength and balance. 12/23/23: 4 stairs, non reciprocal gait (LLE leading ascent, RLE leading descent) due to hamstring pain, SBA 1 rail STG Duration 5 weeks [employer] Work[employer] Goal (LTG) Pt will perform at least 16 6 stairs using a reciprocal gait pattern with SBA and 1 or no hand rails using LRAD in order to demo improved BLE strength and balance. 12/23/23: 4 stairs, non reciprocal gait (LLE leading ascent, RLE leading descent) due to hamstring pain, SBA 1 rail LTG Duration 10 weeks NOT MET, PROGRESSING Three Impairment endurance, ambulation Impairment 6 MWT 736 ft (224.3 m), no AD Short Term Goal (STG) Pt will improve 6 MWT distance by at least 50 ft (786 ft, 239 m) using LRAD in order to demonstrate better BLE strength and endurance for community ambulation. STG Duration 5 weeks Group Home Goal (LTG) Pt will improve 6 MWT distance to at least 848 ft (258 m, 1 MCID) using LRAD in order to demonstrate better BLE strength and endurance for community ambulation. 12/23/23: 886 ft, no AD used; gait antalgic LTG Duration 10 weeks MET Two Impairment strength Impairment 5x STS 35.17 sec Short Term Goal (STG) Pt will improve 5x STS time to at least 30 seconds or less in order to demonstrate improved BLE strength and endurance. STG Duration 5 weeks Group Home Goal (LTG) Pt will improve 5X STS time to at least 25 seconds or less in order to demonstrate improved BLE strength and endurance. 12/23/20: 24.41 sec, from chair, no UE use; difficulty rising due to hamstring pain LTG Duration 10 weeks MET One Impairment Balance Impairment Myers/56 Short Term Goal (STG) Pt will improve Myers score to at least 44/56 in order to demonstrate improvements in balance and safety awareness during higher level activities . STG Duration 5 weeks Group Home Goal (LTG) Pt will improver Myers score to at least 47/56 (1 MCID for acute stroke pt) in order to demonstrate improvements in balance and safety awareness during higher level activities . 12/23/23: 48/56 Myers LTG Duration 10 weeks MET Assessment Summary Assessment Pt tolerated session well. Reports improvement in R hamstring pain with isometrics . Able to progress to increased isometric force from 25% to 50% without increased pain or muscle aggravation. Continued with strengthening of hip abductors, glutes, and quads for improved BLE strength and stability for gait. Initiated mini squat holds, then progressed to resisted sit to stands from lower chair. PT cueing prn for form, hold weight closer to body, and for terminal knee extension in stance without locking knee to encourage quad stability over ligamentous stabilization in knee. Progressed balance activities on unstable surface with narrow MANUEL. Pt with improved balance, weight shifting without cues or increased level of assistance in static stance. Requires at least CGA with occasional min A during stepping, marching to maintain balance and prevent falls. During ambulation with head turns, pt demos significant decrease in gait speed with head movement. Will address in future sessions for safety. Due to R shoulder impingement signs related to CVA, pt would benefit from additional rotator cuff and periscapular strengthening. Pt would benefit from skilled PT for progressive BLE strengthening, balance and gait training, RUE strengthening in order to decrease fall risk, improve QOL and activity tolerance. Physical Therapy Plan Frequency and Duration Frequency of Treatment 1-2x/wk Duration of treatment (weeks) 8 Plan of Care Start Date 12/23/23 Plan of Care End Date 02/18/24 Therapeutic Interventions Therapeutic Interventions Aquatic Therapy,Balance Training,Canalithic Repositioning,Coordination Training,Gait Training,Home Exercise Program,Joint Mobilizations,Manual Therapy, Neuromuscular Re-education, Orthotic/Prosthetic Management ,Patient/Caregiver Education, Self-Care/Home Management, Sensory Integration,Soft Tissue Mobilization,Taping, Therapeutic Activities, Therapeutic Exercises, Vestibular Rehabilitation Modalities Cold Pack/Ice Massage,Electric Stimulation,Hot Packs, Vasopneumatic Devices Other Referrals/Consults Referrals/Consults Recommended Due to new onset R hamstring pain s/p slip down stairs earlier in November, PT recommending follow up with PCP, MRI, and referral to ortho depending on severity. Will need new PT referral depending on change in medical status Next Visit Focus/Plan Next Note Type Treatment Note Next Visit Plan Assess response to added SLS progression balance activities last tx. POC: gentle isometrics for prox HS (do not stress HS). Cont balance activities (foam, change MANUEL, add head turns, etc) and gait training. Perform pain free BLE strengthening POC: BLE strengthening (leg press squat, LAQ, STS, HSC) and balance (ambulation, Myers activities). Begin some balance activities. Review hip hinge increase repetitions for STS, add small resistance or lower table. Continue manager of training strength activity, rotator cuff strengthening and RUE AROM Manual: scapulothoracic mob, MWM as tolerated in shldr flex , assess miracle to mini band single thickness supine from previous session. Take BP start of session, focus on balance next session
--- NOTE | 2024-01-24 12:29 | PT.OTN ---
Current Diagnoses Hypothyroidism, unspecified (01/24/24) Personal history of transient ischemic attack (TIA), and cerebral infarction without residual deficits (01/24/24) Physical Therapy Treatment Note PT-OP-A Visit Information Start: 11/01/23 10:42 Freq: Status: Active Protocol: Document 01/24/24 10:31 NM (Rec: 01/24/24 11:17 NM [id number]) Out-Patient Physical Therapy Visit Information Visit Information Visit Type Progress Note Visit Start Time 10:31 Visit Stop Time 11:15 Visit Number 13 Evaluation Information Evaluation Date 11/01/23 Precautions Precautions Fall risk Hx: CVA, check vitals PT-OP-B Current Condition Start: 11/01/23 10:42 Freq: Status: Active Protocol: Document 11/01/23 15:35 NM (Rec: 11/01/23 16:02 NM [id number]) Current Condition History of Current Condition Onset Date 08/24/23 Current Complaints BLE weakness, balance History of Current Condition Pt presents to clinic with BLE weakness and balance impairments following a CVA on 08/24/23. Pt reports that her R side was primarily affected. She has the most difficulty with maintaining her balance while ambulating, especially while turning. She complains of occasional instances of numbness in her R hand and foot, which she believes impacts her balance, and she has pain in multiple joints due to fibromyalgia. 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 Prior to her stroke, she used a spc with a small base at the point for community ambulation; however, she did not bring it to the clinic today. Pt also reports occasional episodes of dizziness when moving from sitting > standing, which causes her LOB. PMH includes fibromyalgia, lupus. Currently , she is not allowed to drive. Future Testing and Treatments Planned Follow up on 11/10 with physician Treatment Goals Patient/Caregiver Goals Improve ambulation, balance Prior Functional Status Baseline Function- ADL's Independent Baseline Function- Mobility Independent Baseline Function- Gait spc for community distances prn Baseline Function- Recreation/Hobbies Water aerobics Current Functional Impairments (Reported) Functional Limitations- ADL's Unable to drive. Limitations with dressing, gripping, lifting, standing balance, endurance, activity tolerance Functional Limitations- Mobility/Gait Limited ability to ambulate, uses spc more frequently for community ambulation distances Functional Limitations- Recreation/ Unable to participate in water Hobbies aerobics because unable to drive PT-OP-C Subjective Start: 11/01/23 10:42 Freq: Status: Active Protocol: Document 01/24/24 10:31 NM (Rec: 01/24/24 11:17 NM [id number]) OP-PT Subjective Patient Comments Patient Comments Pt reports 7/10 pain in R hamstring today. She has been using the heat pad over weekend. Unsure what happened, just has been hurting PT-OP-D Balance Start: 11/01/23 10:42 Freq: Status: Active Protocol: Document 11/01/23 15:35 NM (Rec: 11/01/23 16:02 NM [id number]) OP-PT Balance Assessment Sitting Balance Static Sitting Balance Ability Good Dynamic Sitting Balance Ability Good Balance Tests Myers Balance Test Myers Balance Test Score 40/56 Myers Impairment Rating 20 to 39% Impaired (Score 34- 44) Functional Reach Functional Reach Test 2 cm Single Limb Standing Single Limb- Right 1 sec Single Limb- Left 3 sec Semi-Tandem Standing Semi-Tandem Standing Balance 5 sec ea side Tandem Tandem Standing unable without UE support William Fall Scale Copyright Permission PT-OP-E Functional Tests Start: 11/01/23 10:42 Freq: Status: Active Protocol: Document 11/01/23 15:35 NM (Rec: 11/01/23 16:02 NM [id number]) Functional Tests 6 Minute Walk Test Distance 736 Device Used none Comments SBA Five Times Sit to Stand Test Score 35.17 sec PT-OP-F Manual Assessment Start: 11/01/23 10:42 Freq: Status: Active Protocol: Document 11/01/23 15:35 NM (Rec: 11/01/23 16:02 NM [id number]) Manual Assessments Soft Tissue Assessment Soft Tissue Mobility Assessment No soft tissue restrictions noted Joint Mobility Assessment Joint Mobility Assessment R shoulder ROM is painful in fwd flex, abduction with limited scapular mobility and impingement symptoms. No laxity noted at knee PT-OP-G Mobility & Gait Start: 11/01/23 10:42 Freq: Status: Active Protocol: Document 11/01/23 15:35 NM (Rec: 11/01/23 16:02 NM [id number]) OP Gait Assessment Gait Gait Assistance Required: Standby Assistance Distance (Feet) 736 Able to Maintain Weight Bearing Status Yes During Gait Assistive Devices Assistive Device None,Straight Cane Gait Deviations General Gait Pattern Decreased Stride Length,Flexed Trunk,Step-to Gait Factors Limiting Gait Function Factors Limiting Gait Function Decreased Strength, Incoordination,Limited Range of Motion,Poor Balance Comments Gait Comments Reports that she uses a spc for community ambulation Stair Climbing Evaluation Evaluation Level of Assist On Stairs Contact Guard Assistance Devices Stair Climbing Assistive Devices Right Railing Technique/Endurance Stair Climbing Direction Ascend and Descend Stair Climbing Technique Step Over Step Number of Steps Climbed 4 Stair Climbing Set # Repetitions (reps) 1 Comments Stair Climbing Comments Reciprocal motion, 1 HR to ascend, 2 HR to descent; CGA to steady; Demos decreased eccentric control at knee during descent PT-OP-H Neuro Start: 11/01/23 10:42 Freq: Status: Active Protocol: Document 11/01/23 15:35 NM (Rec: 11/01/23 16:02 NM [id number]) Sensation Evaluation Gross Sensation Gross Sensation Right LE Impaired Sensation Description Paresthesia,Numbness Dermatome Impairments L4,L5,S1,S2 Comments Summary Comments Able to distinguish light touch on RLE, however reports that it is less than LLE from L4-S2 dermatomes Coordination Evaluation Upper Extremity Tests Left Finger to Nose Test Normal Performance Alternate Nose to Finger Test Normal Performance Pronation/Supination Test minimal impairment but performed slowly Right Finger to Nose Test Minimal Impairment Alternate Nose to Finger Test Minimal Impairment Pronation/Supination Test Minimal impairment but performed slowly bilaterally Lower Extremity Tests Left Heel on Khalil Test Normal Performance Right Heel on Khalil Test Minimal Impairment Deep Tendon Reflex & Clonus Assessment Deep Tendon Reflex L biceps Deep Tendon Reflex 2+ Normal R biceps Deep Tendon Reflex 2+ Normal Vital Signs Blood Pressure Sitting Blood Pressure (90/60-120/80 mmHg) 120/77 Blood Pressure Source Automatic Cuff,Left Upper Extremity Oxygen Pulse Oximetry at Rest (%) (95-100 %) 96 PT-OP-J Posture/Palpation/Skin Start: 11/01/23 10:42 Freq: Status: Active Protocol: Document 11/01/23 15:35 NM (Rec: 11/01/23 16:02 NM [id number]) Posture Evaluation Position Sitting Evaluation View posterior, lateral Head/C-Spine Posture Forward Head T-Spine Posture Increased Kyphosis L-Spine Posture Increased Lordosis Shoulder Posture (L) Rounded,(R) Rounded,(L) Forward,(R) Forward Weight Distribution Weight Shifted Left Hip Posture (R) Externally Rotated Knee Posture (L) Genu Valgus,(R) Genu Valgus PT-OP-K Range of Motion Start: 11/01/23 10:42 Freq: Status: Active Protocol: Document 11/03/23 10:31 NM (Rec: 11/03/23 11:32 NM [id number]) Shoulder Goniometric Range of Motion Shoulder Left Shoulder ROM WFL No Testing Position Supine Flexion 150 Abduction 150 External Rotation at 45 degrees 70 Abduction Internal Rotation 70 Right Shoulder ROM WFL No Testing Position Supine Flexion 107 Abduction 130 External Rotation at 45 degrees 30 Abduction Internal Rotation 70 PT-OP-M Strength Start: 11/01/23 10:42 Freq: Status: Active Protocol: Document 01/24/24 10:31 NM (Rec: 01/24/24 12:16 NM [id number]) Hip Strength Hip Manual Muscle Testing Right Flexion (L2) 3+ Fair+ Extension (S1) 3+ Fair+ Abduction 4- Good- Adduction 4+ Good+ External Rotation 4+ Good+ Internal Rotation 4+ Good+ Comments IE: flex 3+/5, ext and abd 4/5 , ER/IR 4+/5 12/23/23: pain with resisted hip ext. 01/24/24: 4-/5 flex, ext, abd; min pain with extension at prox hamstring Knee Strength Knee Manual Muscle Testing Right Flexion (S2) 3+ Fair+ Extension (L3) 4- Good- Comments IE: 4-/5 for both 12/23/23: painful resisted flexion 01/24/24: min pain with resisted flexion 4-/5, 4/5 knee ext PT-OP-Q Treatments Start: 11/01/23 10:42 Freq: Status: Active Protocol: Document 01/24/24 10:31 NM (Rec: 01/24/24 11:17 NM [id number]) Therapeutic Exercises Supine Exercises B shoulder ER Supine Exercise Name with 0 deg abd Side bilateral Resistance lvl 1 light blue tb Reps/Minutes 1x10 Comments cued scap retraction supine shoulder flexion Supine Exercise Name B ER with flexion Side bilateral Resistance lvl 2 teal tb Reps/Minutes 2x10 Comments cued for B ER while holding band bridge Supine Exercise Name hooklyin. feet flat, 2. toe elevated Side bilateral Resistance AROM Reps/Minutes 1. 1x10 with 2 hold, 2. 1x10 with 2 hold Comments reports no pain with either motion Sidelying Exercises sidelying shoulder abduction Sidelying Exercise Name AROM Side right Reps/Minutes 1x10 Comments cued for scapular motion, depress humeral head sidelying shoulder flexion Sidelying Exercise Name AROM Side right Reps/Minutes 1x10 Comments cued for scapular motion Sitting Exercises Hamstring isometric Sitting Exercise Name 1. seated heel dig (knee flex) Side right Resistance isometric, cued for pain free (pt reported 60% force) Equipment Used seated in chair Reps/Minutes 10 with 5 hold Comments reports no pain with activity Standing Exercises wall squat Standing Exercise Name mini squat Side bilateral Resistance AROM with brief hold Equipment Used large green libyan ball Reps/Minutes 1x10 with 5 hold Comments reports no pain at hamstring or ankle Manual Therapy Treatment Soft Tissue Mobilization R hamstring Body Location proximal and distal hamstring Mobilization Type Cross-Friction,Rolling Intensity/Depth Superficial Body Position Sidelying Comments Rolling and oscillations of R proximal hamstring for pain reduction, soft tissue relaxation. Reports improvement after Joint Mobilizations glenohumeral Joint R GHJ Direction P-A, sup-inf Grade III Body Position Supine Reps/Duration 1x30 ea Comments To decrease impingement symptoms. ABD AROM improved after inferior glide Scapulothoracic Joint R Direction dep/ADD, upwd/dwd rotation Grade III Body Position Sidelying Reps/Duration 1x10 ea Neuro Re-Education Treatment Balance Activities Cones Details fwd/bwd/side steps around cones in line Surface stable Reps/Duration 4 cones, 2 reps ea Comments 1. stepping w/o band, CGA with moderate cues for correct execution 2. stepping w lvl 2 teal tb around ankles, CGA with moderate cues for correct execution Tandem walk Details CGA-Lita Surface stable Equipment narrow stance (not true heel- toe) Reps/Duration 50 ft Comments cued for larger step R foot, MANUEL over mid foot. Arms out by side Retro ambulation Details min A Surface stable Reps/Duration 50 ft Comments Cued for larger step, equal steps with RLE compared to LLE , no posterior trunk lean. 2 instances LOB without fall. Pt using ankle and hip strategy to maintain balance PT-OP-R Modalities Start: 12/16/23 12:54 Freq: Status: Active Protocol: Document 12/16/23 10:37 SW (Rec: 12/16/23 12:56 SW [id number]) Hot Pack/Cold Pack Treatment Hot Pack Location posterior Patient Position Supine Patient Tolerance Good Comments bolster under LE, lucas within reach x15 min PT-OP-T Assessment and Plan Start: 11/01/23 10:42 Freq: Status: Active Protocol: Document 01/24/24 10:31 NM (Rec: 01/24/24 11:17 NM [id number]) Physical Therapy Assessment Goals Eight Impairment R shoulder ROM Short Term Goal (STG) Pt will be able to lift her R arm in fwd flexion to at least 100 deg in order to get dishes down from her shelf at home. STG Duration 5 weeks Buffing Line Set Up Worker Goal (LTG) Pt will be able to lift her R arm in fwd flexion to at least 120 deg in order to get dishes down from her shelf at home. 12/23/23: 150 deg R flex without compensation, reports minimal pain at end range LTG Duration 10 weeks MET Seven Impairment strength Impairment R snow removing supervisor 25# Short Term Goal (STG) Pt will improve R snow removing supervisor strength by at least 2# to be comparable to the L snow removing supervisor strength in order be able to open jars without assistance and to perform ADLs more independently. STG Duration 5 weeks Buffing Line Set Up Worker Goal (LTG) Pt will improve R snow removing supervisor strength by at least 5# to be comparable to the L snow removing supervisor strength in order be able to open jars without assistance and to perform ADLs more independently. 12/23/23: MET 48# R snow removing supervisor; reports able to ebony LTG Duration 10 weeks MET Six Impairment R quad and hamstring MMT 4-/5 Short Term Goal (STG) Pt will improve R quad and hamstring MMT to at least 4/5 in order to demo improved knee strength for transfers, stairs, and gait. 12/23/23: 3+/5 hamstring due to pain from hamstring injury in November; 4-/5 for quad 01/24/24: 4/5 quad, 4-/5 hamstring due to pain STG Duration 5 weeks PARTIALLY MET Buffing Line Set Up Worker Goal (LTG) Pt will improve R quad and hamstring MMT to at least 4+/5 in order to demo improved knee strength for transfers, stairs, and gait. 12/23/23: 3+/5 hamstring due to pain from hamstring injury in November; 4-/5 for quad LTG Duration 10 weeks NOT MET Five Impairment LE strength Impairment R hip flex MMT 3+/5 Short Term Goal (STG) Pt will improve R hip flex MMT to at least 4/5 in order to demo improved hip strength for foot clearance and limb advancement during gait. 01/24/24: 4-/5 hip flex 12/23/23: 3+/5 due to hamstring pain STG Duration 5 weeks NOT MET Nursing Home Goal (LTG) Pt will improve R hip flex MMT to at least 4+/5 in order to demo improved hip strength for foot clearance and limb advancement during gait. 01/24/24: 4-/5 MMT hip flexion 12/23/23: 3+/5 due to hamstring pain LTG Duration 10 weeks NOT MET Four Impairment strength Impairment 4 steps with reciprocal pattern with CGA using 1 HR to ascend, 2 to descend, no AD Short Term Goal (STG) Pt will perform at least 8 6 stairs using a reciprocal gait pattern with SBA and 1 or no hand rails using LRAD in order to demo improved BLE strength and balance. 12/23/23: 4 stairs, non reciprocal gait (LLE leading ascent, RLE leading descent) due to hamstring pain, SBA 1 rail STG Duration 5 weeks Buffing Line Set Up Worker Goal (LTG) Pt will perform at least 16 6 stairs using a reciprocal gait pattern with SBA and 1 or no hand rails using LRAD in order to demo improved BLE strength and balance. 12/23/23: 4 stairs, non reciprocal gait (LLE leading ascent, RLE leading descent) due to hamstring pain, SBA 1 rail LTG Duration 10 weeks NOT MET, PROGRESSING Three Impairment endurance, ambulation Impairment 6 MWT 736 ft (224.3 m), no AD Short Term Goal (STG) Pt will improve 6 MWT distance by at least 50 ft (786 ft, 239 m) using LRAD in order to demonstrate better BLE strength and endurance for community ambulation. STG Duration 5 weeks Nursing Home Goal (LTG) Pt will improve 6 MWT distance to at least 848 ft (258 m, 1 MCID) using LRAD in order to demonstrate better BLE strength and endurance for community ambulation. 12/23/23: 886 ft, no AD used; gait antalgic LTG Duration 10 weeks MET Two Impairment strength Impairment 5x STS 35.17 sec Short Term Goal (STG) Pt will improve 5x STS time to at least 30 seconds or less in order to demonstrate improved BLE strength and endurance. STG Duration 5 weeks Nursing Home Goal (LTG) Pt will improve 5X STS time to at least 25 seconds or less in order to demonstrate improved BLE strength and endurance. 12/23/20: 24.41 sec, from chair, no UE use; difficulty rising due to hamstring pain LTG Duration 10 weeks MET One Impairment Balance Impairment Myers/56 Short Term Goal (STG) Pt will improve Myers score to at least 44/56 in order to demonstrate improvements in balance and safety awareness during higher level activities . STG Duration 5 weeks Nursing Home Goal (LTG) Pt will improver Myers score to at least 47/56 (1 MCID for acute stroke pt) in order to demonstrate improvements in balance and safety awareness during higher level activities . 12/23/23: 48/56 Myers LTG Duration 10 weeks MET Assessment Summary Assessment Pt tolerated session well, reports reduction in hamstring pain at end of session. Due to increased reports of R shoulder impingement with elevation, portion of session spent on R scapular mechanics, strengthening, and mobilization. Manual treatment to improve R shoulder mobility with grade III mobilizations, improved AROM and impingement symptoms post mobilization. Followed with rotator cuff strengthening exercises to reinforce new mechanics. Trialed bridge with heels flat and heels elevated . Pt reports no hamstring pain with bridge, added to HEP with education to discontinue if symptoms worsen. Continued with balance training. Pt challenged by dynamic balance using retrowalking, tandem walking, and multidirection stepping with cones. Requires moderate cues for execution, weight shift, CGA-Lita to maintain balance. Pt is progressing toward goals since last PN. Her R hamstring pain is improving. Pt continues to demonstrate improvements in R shoulder, RLE strength and mobility. She continues to be most limited by balance, BLE glute/hip strength at this time. Due to pt continued R shoulder pain, recommended pt to get OT referral for R shoulder and fine motor skills related to ADLs. Pt would benefit from skilled PT for progressive BLE strengthening, functional activity training, gait, and balance training in order to improve activity tolerance and QOL. Physical Therapy Plan Frequency and Duration Frequency of Treatment 1-2x/wk Duration of treatment (weeks) 8 Plan of Care Start Date 12/23/23 Plan of Care End Date 02/18/24 Therapeutic Interventions Therapeutic Interventions Aquatic Therapy,Balance Training,Canalithic Repositioning,Coordination Training,Gait Training,Home Exercise Program,Joint Mobilizations,Manual Therapy, Neuromuscular Re-education, Orthotic/Prosthetic Management ,Patient/Caregiver Education, Self-Care/Home Management, Sensory Integration,Soft Tissue Mobilization,Taping, Therapeutic Activities, Therapeutic Exercises, Vestibular Rehabilitation Modalities Cold Pack/Ice Massage,Electric Stimulation,Hot Packs, Vasopneumatic Devices Other Referrals/Consults Referrals/Consults Recommended Due to new onset R hamstring pain s/p slip down stairs earlier in November, PT recommending follow up with PCP, MRI, and referral to ortho depending on severity. Will need new PT referral depending on change in medical status Next Visit Focus/Plan Next Note Type Treatment Note Next Visit Plan Next session: B RTC strength/R shoulder mobility/scap control; balance; progress hamstring. Initiated banded ankle strengthening POC: gentle isometrics for prox HS (do not stress HS). Cont balance activities (foam, change MANUEL, add head turns, etc) and gait training. Perform pain free BLE strengthening POC: BLE strengthening (leg press squat, LAQ, STS, HSC) and balance (ambulation, Myers activities). Begin some balance activities. Review hip hinge increase repetitions for STS, add small resistance or lower table. Continue snow removing supervisor strength activity, rotator cuff strengthening and RUE AROM Manual: scapulothoracic mob, MWM as tolerated in shldr flex , assess miracle to mini band single thickness supine from previous session. Take BP start of session, focus on balance next session
--- NOTE | 2024-01-27 15:54 | PT.OTN ---
Current Diagnoses Hypothyroidism, unspecified (01/27/24) Personal history of transient ischemic attack (TIA), and cerebral infarction without residual deficits (01/27/24) Physical Therapy Treatment Note PT-OP-A Visit Information Start: 11/01/23 10:42 Freq: Status: Active Protocol: Document 01/27/24 14:40 NM (Rec: 01/27/24 15:54 NM [id number]) Out-Patient Physical Therapy Visit Information Visit Information Visit Type Treatment Note Visit Start Time 14:40 Visit Stop Time 15:20 Visit Number 14 PT-OP-B Current Condition Start: 11/01/23 10:42 Freq: Status: Active Protocol: Document 11/01/23 15:35 NM (Rec: 11/01/23 16:02 NM [id number]) Current Condition History of Current Condition Onset Date 08/24/23 Current Complaints BLE weakness, balance History of Current Condition Pt presents to clinic with BLE weakness and balance impairments following a CVA on 08/24/23. Pt reports that her R side was primarily affected. She has the most difficulty with maintaining her balance while ambulating, especially while turning. She complains of occasional instances of numbness in her R hand and foot, which she believes impacts her balance, and she has pain in multiple joints due to fibromyalgia. She also reports decreased R hassock maker strength and difficulty with elevating her RUE secondary to pain. Prior to her stroke, she used a spc with a small base at the point for community ambulation; however, she did not bring it to the clinic today. Pt also reports occasional episodes of dizziness when moving from sitting > standing, which causes her LOB. PMH includes fibromyalgia, lupus. Currently , she is not allowed to drive. Future Testing and Treatments Planned Follow up on 11/10 with physician Treatment Goals Patient/Caregiver Goals Improve ambulation, balance Prior Functional Status Baseline Function- ADL's Independent Baseline Function- Mobility Independent Baseline Function- Gait spc for community distances prn Baseline Function- Recreation/Hobbies Water aerobics Current Functional Impairments (Reported) Functional Limitations- ADL's Unable to drive. Limitations with dressing, gripping, lifting, standing balance, endurance, activity tolerance Functional Limitations- Mobility/Gait Limited ability to ambulate, uses spc more frequently for community ambulation distances Functional Limitations- Recreation/ Unable to participate in water Hobbies aerobics because unable to drive PT-OP-C Subjective Start: 11/01/23 10:42 Freq: Status: Active Protocol: Document 01/27/24 14:40 NM (Rec: 01/27/24 15:54 NM [id number]) OP-PT Subjective Patient Comments Patient Comments Pt reports minimal hamstring pain today. Reports good compliance with HEP. PT-OP-D Balance Start: 11/01/23 10:42 Freq: Status: Active Protocol: Document 11/01/23 15:35 NM (Rec: 11/01/23 16:02 NM [id number]) OP-PT Balance Assessment Sitting Balance Static Sitting Balance Ability Good Dynamic Sitting Balance Ability Good Balance Tests Myers Balance Test Myers Balance Test Score 40/56 Myers Impairment Rating 20 to 39% Impaired (Score 34- 44) Functional Reach Functional Reach Test 2 cm Single Limb Standing Single Limb- Right 1 sec Single Limb- Left 3 sec Semi-Tandem Standing Semi-Tandem Standing Balance 5 sec ea side Tandem Tandem Standing unable without UE support William Fall Scale Copyright Permission PT-OP-E Functional Tests Start: 11/01/23 10:42 Freq: Status: Active Protocol: Document 11/01/23 15:35 NM (Rec: 11/01/23 16:02 NM [id number]) Functional Tests 6 Minute Walk Test Distance 736 Device Used none Comments SBA Five Times Sit to Stand Test Score 35.17 sec PT-OP-F Manual Assessment Start: 11/01/23 10:42 Freq: Status: Active Protocol: Document 11/01/23 15:35 NM (Rec: 11/01/23 16:02 NM [id number]) Manual Assessments Soft Tissue Assessment Soft Tissue Mobility Assessment No soft tissue restrictions noted Joint Mobility Assessment Joint Mobility Assessment R shoulder ROM is painful in fwd flex, abduction with limited scapular mobility and impingement symptoms. No laxity noted at knee PT-OP-G Mobility & Gait Start: 11/01/23 10:42 Freq: Status: Active Protocol: Document 11/01/23 15:35 NM (Rec: 11/01/23 16:02 NM [id number]) OP Gait Assessment Gait Gait Assistance Required: Standby Assistance Distance (Feet) 736 Able to Maintain Weight Bearing Status Yes During Gait Assistive Devices Assistive Device None,Straight Cane Gait Deviations General Gait Pattern Decreased Stride Length,Flexed Trunk,Step-to Gait Factors Limiting Gait Function Factors Limiting Gait Function Decreased Strength, Incoordination,Limited Range of Motion,Poor Balance Comments Gait Comments Reports that she uses a spc for community ambulation Stair Climbing Evaluation Evaluation Level of Assist On Stairs Contact Guard Assistance Devices Stair Climbing Assistive Devices Right Railing Technique/Endurance Stair Climbing Direction Ascend and Descend Stair Climbing Technique Step Over Step Number of Steps Climbed 4 Stair Climbing Set # Repetitions (reps) 1 Comments Stair Climbing Comments Reciprocal motion, 1 HR to ascend, 2 HR to descent; CGA to steady; Demos decreased eccentric control at knee during descent PT-OP-H Neuro Start: 11/01/23 10:42 Freq: Status: Active Protocol: Document 11/01/23 15:35 NM (Rec: 11/01/23 16:02 NM [id number]) Sensation Evaluation Gross Sensation Gross Sensation Right LE Impaired Sensation Description Paresthesia,Numbness Dermatome Impairments L4,L5,S1,S2 Comments Summary Comments Able to distinguish light touch on RLE, however reports that it is less than LLE from L4-S2 dermatomes Coordination Evaluation Upper Extremity Tests Left Finger to Nose Test Normal Performance Alternate Nose to Finger Test Normal Performance Pronation/Supination Test minimal impairment but performed slowly Right Finger to Nose Test Minimal Impairment Alternate Nose to Finger Test Minimal Impairment Pronation/Supination Test Minimal impairment but performed slowly bilaterally Lower Extremity Tests Left Heel on Khalil Test Normal Performance Right Heel on Khalil Test Minimal Impairment Deep Tendon Reflex & Clonus Assessment Deep Tendon Reflex L biceps Deep Tendon Reflex 2+ Normal R biceps Deep Tendon Reflex 2+ Normal Vital Signs Blood Pressure Sitting Blood Pressure (90/60-120/80 mmHg) 120/77 Blood Pressure Source Automatic Cuff,Left Upper Extremity Oxygen Pulse Oximetry at Rest (%) (95-100 %) 96 PT-OP-J Posture/Palpation/Skin Start: 11/01/23 10:42 Freq: Status: Active Protocol: Document 11/01/23 15:35 NM (Rec: 11/01/23 16:02 NM [id number]) Posture Evaluation Position Sitting Evaluation View posterior, lateral Head/C-Spine Posture Forward Head T-Spine Posture Increased Kyphosis L-Spine Posture Increased Lordosis Shoulder Posture (L) Rounded,(R) Rounded,(L) Forward,(R) Forward Weight Distribution Weight Shifted Left Hip Posture (R) Externally Rotated Knee Posture (L) Genu Valgus,(R) Genu Valgus PT-OP-K Range of Motion Start: 11/01/23 10:42 Freq: Status: Active Protocol: Document 11/03/23 10:31 NM (Rec: 11/03/23 11:32 NM [id number]) Shoulder Goniometric Range of Motion Shoulder Left Shoulder ROM WFL No Testing Position Supine Flexion 150 Abduction 150 External Rotation at 45 degrees 70 Abduction Internal Rotation 70 Right Shoulder ROM WFL No Testing Position Supine Flexion 107 Abduction 130 External Rotation at 45 degrees 30 Abduction Internal Rotation 70 PT-OP-M Strength Start: 11/01/23 10:42 Freq: Status: Active Protocol: Document 01/24/24 10:31 NM (Rec: 01/24/24 12:16 NM [id number]) Hip Strength Hip Manual Muscle Testing Right Flexion (L2) 3+ Fair+ Extension (S1) 3+ Fair+ Abduction 4- Good- Adduction 4+ Good+ External Rotation 4+ Good+ Internal Rotation 4+ Good+ Comments IE: flex 3+/5, ext and abd 4/5 , ER/IR 4+/5 12/23/23: pain with resisted hip ext. 01/24/24: 4-/5 flex, ext, abd; min pain with extension at prox hamstring Knee Strength Knee Manual Muscle Testing Right Flexion (S2) 3+ Fair+ Extension (L3) 4- Good- Comments IE: 4-/5 for both 12/23/23: painful resisted flexion 01/24/24: min pain with resisted flexion 4-/5, 4/5 knee ext PT-OP-Q Treatments Start: 11/01/23 10:42 Freq: Status: Active Protocol: Document 01/27/24 14:40 NM (Rec: 01/27/24 15:54 NM [id number]) Therapeutic Exercises Supine Exercises bridge Supine Exercise Name hooklyin. feet flat, 2. toe elevated Side bilateral Resistance AROM Reps/Minutes 1. 1x8 with 5 hold ea, 2. 1x10 with 5 hold ea Comments reports no pain with either motion Sitting Exercises Ankle strengthening Sitting Exercise Name DF, Inv, Ev Side bilateral Resistance lvl 2 tb Reps/Minutes 2x10 with 2 Comments cued heel on ground, no hip rotation with INV/EV Hamstring isometric Sitting Exercise Name 1. seated heel dig (knee flex) , 2. seated heel dig (knee ext ) Side right Resistance isometric, cued for pain free (pt reported >60% force) Equipment Used seated in chair Reps/Minutes 5x10 ea Comments reports pain free, >60% force% Scapular Retraction Sitting Exercise Name with ER and shldr flex Side bilateral Resistance lvl 2 tb Reps/Minutes 2x5 with brief hold Comments cued continued band hold with eccentric lower Standing Exercises wall squat Standing Exercise Name retry next session Heel raise Standing Exercise Name gastroc only Side bilateral Equipment Used cues to put weight onto big toes for more post tib Reps/Minutes 2x10 Comments better tolerance today, no pain reported Neuro Re-Education Treatment Balance Activities Tandem walk Details CGA-Lita Surface stable Equipment narrow stance (not true heel- toe) Reps/Duration 2x50 ft Comments cued for larger step R foot, MANUEL over mid foot. Arms out by side. Improved compared last session Retro ambulation Details CGA with prn min A Surface stable Reps/Duration 2x50 ft Comments Steps more equal, but R step still less. Cued larger step, wider MANUEL for improved stability. Improved with MANUEL wider. Cued no posterior trunk lean with retro ambulation, no instance LOB but using hip strategy to prevent LOB Dynamic gait Details Heel walk, toe walk Surface stable Equipment CGA with prn min A Reps/Duration 25 ft ea Comments Cued for max heel raise without ankle discomfort. More challenged with heel walk. for ankle strength and balance . 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 No LOB, improved hip hinge and squat form without pain. Cued center MANUEL over ankle Self-Care/Home Management Treatment Education Patient Education Home Exercise Program Other Education HEP: ankle DF, Inv, Ev with band PT-OP-R Modalities Start: 12/16/23 12:54 Freq: Status: Active Protocol: Document 12/16/23 10:37 SW (Rec: 12/16/23 12:56 SW [id number]) Hot Pack/Cold Pack Treatment Hot Pack Location posterior Patient Position Supine Patient Tolerance Good Comments bolster under LE, lucas within reach x15 min PT-OP-T Assessment and Plan Start: 11/01/23 10:42 Freq: Status: Active Protocol: Document 01/27/24 14:40 NM (Rec: 01/27/24 15:54 NM [id number]) Physical Therapy Assessment Goals Eight Impairment R shoulder ROM Short Term Goal (STG) Pt will be able to lift her R arm in fwd flexion to at least 100 deg in order to get dishes down from her shelf at home. STG Duration 5 weeks Lamp Stack Developer Goal (LTG) Pt will be able to lift her R arm in fwd flexion to at least 120 deg in order to get dishes down from her shelf at home. 12/23/23: 150 deg R flex without compensation, reports minimal pain at end range LTG Duration 10 weeks MET Seven Impairment strength Impairment R hassock maker 25# Short Term Goal (STG) Pt will improve R hassock maker strength by at least 2# to be comparable to the L hassock maker strength in order be able to open jars without assistance and to perform ADLs more independently. STG Duration 5 weeks Mcfp Goal (LTG) Pt will improve R hassock maker strength by at least 5# to be comparable to the L hassock maker strength in order be able to open jars without assistance and to perform ADLs more independently. 12/23/23: MET 48# R hassock maker; reports able to ebony LTG Duration 10 weeks MET Six Impairment R quad and hamstring MMT 4-/5 Short Term Goal (STG) Pt will improve R quad and hamstring MMT to at least 4/5 in order to demo improved knee strength for transfers, stairs, and gait. 12/23/23: 3+/5 hamstring due to pain from hamstring injury in November; 4-/5 for quad 01/24/24: 4/5 quad, 4-/5 hamstring due to pain STG Duration 5 weeks PARTIALLY MET Mcfp Goal (LTG) Pt will improve R quad and hamstring MMT to at least 4+/5 in order to demo improved knee strength for transfers, stairs, and gait. 12/23/23: 3+/5 hamstring due to pain from hamstring injury in November; 4-/5 for quad LTG Duration 10 weeks NOT MET Five Impairment LE strength Impairment R hip flex MMT 3+/5 Short Term Goal (STG) Pt will improve R hip flex MMT to at least 4/5 in order to demo improved hip strength for foot clearance and limb advancement during gait. 01/24/24: 4-/5 hip flex 12/23/23: 3+/5 due to hamstring pain STG Duration 5 weeks NOT MET Mcfp Goal (LTG) Pt will improve R hip flex MMT to at least 4+/5 in order to demo improved hip strength for foot clearance and limb advancement during gait. 01/24/24: 4-/5 MMT hip flexion 12/23/23: 3+/5 due to hamstring pain LTG Duration 10 weeks NOT MET Four Impairment strength Impairment 4 steps with reciprocal pattern with CGA using 1 HR to ascend, 2 to descend, no AD Short Term Goal (STG) Pt will perform at least 8 6 stairs using a reciprocal gait pattern with SBA and 1 or no hand rails using LRAD in order to demo improved BLE strength and balance. 12/23/23: 4 stairs, non reciprocal gait (LLE leading ascent, RLE leading descent) due to hamstring pain, SBA 1 rail STG Duration 5 weeks Lamp Stack Developer Goal (LTG) Pt will perform at least 16 6 stairs using a reciprocal gait pattern with SBA and 1 or no hand rails using LRAD in order to demo improved BLE strength and balance. 12/23/23: 4 stairs, non reciprocal gait (LLE leading ascent, RLE leading descent) due to hamstring pain, SBA 1 rail LTG Duration 10 weeks NOT MET, PROGRESSING Three Impairment endurance, ambulation Impairment 6 MWT 736 ft (224.3 m), no AD Short Term Goal (STG) Pt will improve 6 MWT distance by at least 50 ft (786 ft, 239 m) using LRAD in order to demonstrate better BLE strength and endurance for community ambulation. STG Duration 5 weeks Lamp Stack Developer Goal (LTG) Pt will improve 6 MWT distance to at least 848 ft (258 m, 1 MCID) using LRAD in order to demonstrate better BLE strength and endurance for community ambulation. 12/23/23: 886 ft, no AD used; gait antalgic LTG Duration 10 weeks MET Two Impairment strength Impairment 5x STS 35.17 sec Short Term Goal (STG) Pt will improve 5x STS time to at least 30 seconds or less in order to demonstrate improved BLE strength and endurance. STG Duration 5 weeks Lamp Stack Developer Goal (LTG) Pt will improve 5X STS time to at least 25 seconds or less in order to demonstrate improved BLE strength and endurance. 12/23/20: 24.41 sec, from chair, no UE use; difficulty rising due to hamstring pain LTG Duration 10 weeks MET One Impairment Balance Impairment Myers/56 Short Term Goal (STG) Pt will improve Myers score to at least 44/56 in order to demonstrate improvements in balance and safety awareness during higher level activities . STG Duration 5 weeks Lamp Stack Developer Goal (LTG) Pt will improver Myers score to at least 47/56 (1 MCID for acute stroke pt) in order to demonstrate improvements in balance and safety awareness during higher level activities . 12/23/23: 48/56 Myers LTG Duration 10 weeks MET Assessment Summary Assessment Pt tolerated session well. Demos improvement in R hamstring pain, able to progress to higher level of self resisted force with isometrics. Initiated banded ankle strengthening exercises to improve pt ankle control and strategy during gait. Cued to keep heel on ground and limit hip compensation with inversion/eversion. Pt reports R lateral ankle pain with inversion, but not if performed in smaller range. Pt requires increased time for exercises, but demonstrates improved form with cues. Continued with dynamic balance during various ambulation activities. Pt challenged with retro ambulation, heel and toe ambulation. However, able to perform several squats during gait while reaching for object on ground without LOB, which is an improvement from previous sessions. Pt reports wanting to return to daily walks in neighborhood; PT encouraged pt to bring spc until feels more stable and to bring a friend. Pt verbalizes agreement. Pt would benefit from skilled PT for progressive BLE strengthening, gait and balance training in order to decrease fall risk and improve activity tolerance . Physical Therapy Plan Frequency and Duration Frequency of Treatment 1-2x/wk Duration of treatment (weeks) 8 Plan of Care Start Date 12/23/23 Plan of Care End Date 02/18/24 Therapeutic Interventions Therapeutic Interventions Aquatic Therapy,Balance Training,Canalithic Repositioning,Coordination Training,Gait Training,Home Exercise Program,Joint Mobilizations,Manual Therapy, Neuromuscular Re-education, Orthotic/Prosthetic Management ,Patient/Caregiver Education, Self-Care/Home Management, Sensory Integration,Soft Tissue Mobilization,Taping, Therapeutic Activities, Therapeutic Exercises, Vestibular Rehabilitation Modalities Cold Pack/Ice Massage,Electric Stimulation,Hot Packs, Vasopneumatic Devices Other Referrals/Consults Referrals/Consults Recommended Due to new onset R hamstring pain s/p slip down stairs earlier in November, PT recommending follow up with PCP, MRI, and referral to ortho depending on severity. Will need new PT referral depending on change in medical status Next Visit Focus/Plan Next Note Type Treatment Note Next Visit Plan Review banded ankle DF/EV/INV. Wall squat. dynamic balance, change MANUEL POC: gentle isometrics for prox HS (do not stress HS). Cont balance activities (foam, change MANUEL, add head turns, etc) and gait training. Perform pain free BLE strengthening POC: BLE strengthening (leg press squat, LAQ, STS, HSC) and balance (ambulation, Myers activities). Begin some balance activities. Review hip hinge increase repetitions for STS, add small resistance or lower table. Continue hassock maker strength activity, rotator cuff strengthening and RUE AROM Manual: scapulothoracic mob, MWM as tolerated in shldr flex , assess miracle to mini band single thickness supine from previous session. Take BP start of session, focus on balance next session
--- NOTE | 2024-01-31 12:30 | PT.OTN ---
Current Diagnoses Hypothyroidism, unspecified (01/31/24) Personal history of transient ischemic attack (TIA), and cerebral infarction without residual deficits (01/31/24) Physical Therapy Treatment Note PT-OP-A Visit Information Start: 11/01/23 10:42 Freq: Status: Active Protocol: Document 01/31/24 09:50 AB (Rec: 01/31/24 12:29 AB [id number]) Out-Patient Physical Therapy Visit Information Visit Information Visit Note Access Code [email or web address] Visit Start Time 10:33 Visit Stop Time 11:16 Visit Number 15 Number of HAULPAK DRIVER Visits 1 Evaluation Information Evaluation Date 11/01/23 Precautions Precautions Fall risk Hx: CVA, check vitals PT-OP-B Current Condition Start: 11/01/23 10:42 Freq: Status: Active Protocol: Document 11/01/23 15:35 NM (Rec: 11/01/23 16:02 NM [id number]) Current Condition History of Current Condition Onset Date 08/24/23 Current Complaints BLE weakness, balance History of Current Condition Pt presents to clinic with BLE weakness and balance impairments following a CVA on 08/24/23. Pt reports that her R side was primarily affected. She has the most difficulty with maintaining her balance while ambulating, especially while turning. She complains of occasional instances of numbness in her R hand and foot, which she believes impacts her balance, and she has pain in multiple joints due to fibromyalgia. She also reports decreased R disc jockey strength and difficulty with elevating her RUE secondary to pain. Prior to her stroke, she used a spc with a small base at the point for community ambulation; however, she did not bring it to the clinic today. Pt also reports occasional episodes of dizziness when moving from sitting > standing, which causes her LOB. PMH includes fibromyalgia, lupus. Currently , she is not allowed to drive. Future Testing and Treatments Planned Follow up on 11/10 with physician Treatment Goals Patient/Caregiver Goals Improve ambulation, balance Prior Functional Status Baseline Function- ADL's Independent Baseline Function- Mobility Independent Baseline Function- Gait spc for community distances prn Baseline Function- Recreation/Hobbies Water aerobics Current Functional Impairments (Reported) Functional Limitations- ADL's Unable to drive. Limitations with dressing, gripping, lifting, standing balance, endurance, activity tolerance Functional Limitations- Mobility/Gait Limited ability to ambulate, uses spc more frequently for community ambulation distances Functional Limitations- Recreation/ Unable to participate in water Hobbies aerobics because unable to drive PT-OP-C Subjective Start: 11/01/23 10:42 Freq: Status: Active Protocol: Document 01/31/24 09:50 AB (Rec: 01/31/24 12:29 AB [id number]) OP-PT Subjective Patient Comments Patient Comments Start of session BP seated right UE 124/71 HR 64. Patient reports she still has a little pulling on hamstring when doing housework, conitnues to use heat on hamstring. PT-OP-D Balance Start: 11/01/23 10:42 Freq: Status: Active Protocol: Document 11/01/23 15:35 NM (Rec: 11/01/23 16:02 NM [id number]) OP-PT Balance Assessment Sitting Balance Static Sitting Balance Ability Good Dynamic Sitting Balance Ability Good Balance Tests Myers Balance Test Myers Balance Test Score 40/56 Myers Impairment Rating 20 to 39% Impaired (Score 34- 44) Functional Reach Functional Reach Test 2 cm Single Limb Standing Single Limb- Right 1 sec Single Limb- Left 3 sec Semi-Tandem Standing Semi-Tandem Standing Balance 5 sec ea side Tandem Tandem Standing unable without UE support William Fall Scale Copyright Permission PT-OP-E Functional Tests Start: 11/01/23 10:42 Freq: Status: Active Protocol: Document 11/01/23 15:35 NM (Rec: 11/01/23 16:02 NM [id number]) Functional Tests 6 Minute Walk Test Distance 736 Device Used none Comments SBA Five Times Sit to Stand Test Score 35.17 sec PT-OP-F Manual Assessment Start: 11/01/23 10:42 Freq: Status: Active Protocol: Document 11/01/23 15:35 NM (Rec: 11/01/23 16:02 NM [id number]) Manual Assessments Soft Tissue Assessment Soft Tissue Mobility Assessment No soft tissue restrictions noted Joint Mobility Assessment Joint Mobility Assessment R shoulder ROM is painful in fwd flex, abduction with limited scapular mobility and impingement symptoms. No laxity noted at knee PT-OP-G Mobility & Gait Start: 11/01/23 10:42 Freq: Status: Active Protocol: Document 11/01/23 15:35 NM (Rec: 11/01/23 16:02 NM [id number]) OP Gait Assessment Gait Gait Assistance Required: Standby Assistance Distance (Feet) 736 Able to Maintain Weight Bearing Status Yes During Gait Assistive Devices Assistive Device None,Straight Cane Gait Deviations General Gait Pattern Decreased Stride Length,Flexed Trunk,Step-to Gait Factors Limiting Gait Function Factors Limiting Gait Function Decreased Strength, Incoordination,Limited Range of Motion,Poor Balance Comments Gait Comments Reports that she uses a spc for community ambulation Stair Climbing Evaluation Evaluation Level of Assist On Stairs Contact Guard Assistance Devices Stair Climbing Assistive Devices Right Railing Technique/Endurance Stair Climbing Direction Ascend and Descend Stair Climbing Technique Step Over Step Number of Steps Climbed 4 Stair Climbing Set # Repetitions (reps) 1 Comments Stair Climbing Comments Reciprocal motion, 1 HR to ascend, 2 HR to descent; CGA to steady; Demos decreased eccentric control at knee during descent PT-OP-H Neuro Start: 11/01/23 10:42 Freq: Status: Active Protocol: Document 11/01/23 15:35 NM (Rec: 11/01/23 16:02 NM [id number]) Sensation Evaluation Gross Sensation Gross Sensation Right LE Impaired Sensation Description Paresthesia,Numbness Dermatome Impairments L4,L5,S1,S2 Comments Summary Comments Able to distinguish light touch on RLE, however reports that it is less than LLE from L4-S2 dermatomes Coordination Evaluation Upper Extremity Tests Left Finger to Nose Test Normal Performance Alternate Nose to Finger Test Normal Performance Pronation/Supination Test minimal impairment but performed slowly Right Finger to Nose Test Minimal Impairment Alternate Nose to Finger Test Minimal Impairment Pronation/Supination Test Minimal impairment but performed slowly bilaterally Lower Extremity Tests Left Heel on Khalil Test Normal Performance Right Heel on Khalil Test Minimal Impairment Deep Tendon Reflex & Clonus Assessment Deep Tendon Reflex L biceps Deep Tendon Reflex 2+ Normal R biceps Deep Tendon Reflex 2+ Normal Vital Signs Blood Pressure Sitting Blood Pressure (90/60-120/80 mmHg) 120/77 Blood Pressure Source Automatic Cuff,Left Upper Extremity Oxygen Pulse Oximetry at Rest (%) (95-100 %) 96 PT-OP-J Posture/Palpation/Skin Start: 11/01/23 10:42 Freq: Status: Active Protocol: Document 11/01/23 15:35 NM (Rec: 11/01/23 16:02 NM [id number]) Posture Evaluation Position Sitting Evaluation View posterior, lateral Head/C-Spine Posture Forward Head T-Spine Posture Increased Kyphosis L-Spine Posture Increased Lordosis Shoulder Posture (L) Rounded,(R) Rounded,(L) Forward,(R) Forward Weight Distribution Weight Shifted Left Hip Posture (R) Externally Rotated Knee Posture (L) Genu Valgus,(R) Genu Valgus PT-OP-K Range of Motion Start: 11/01/23 10:42 Freq: Status: Active Protocol: Document 11/03/23 10:31 NM (Rec: 11/03/23 11:32 NM [id number]) Shoulder Goniometric Range of Motion Shoulder Left Shoulder ROM WFL No Testing Position Supine Flexion 150 Abduction 150 External Rotation at 45 degrees 70 Abduction Internal Rotation 70 Right Shoulder ROM WFL No Testing Position Supine Flexion 107 Abduction 130 External Rotation at 45 degrees 30 Abduction Internal Rotation 70 PT-OP-M Strength Start: 11/01/23 10:42 Freq: Status: Active Protocol: Document 01/24/24 10:31 NM (Rec: 01/24/24 12:16 NM [id number]) Hip Strength Hip Manual Muscle Testing Right Flexion (L2) 3+ Fair+ Extension (S1) 3+ Fair+ Abduction 4- Good- Adduction 4+ Good+ External Rotation 4+ Good+ Internal Rotation 4+ Good+ Comments IE: flex 3+/5, ext and abd 4/5 , ER/IR 4+/5 12/23/23: pain with resisted hip ext. 01/24/24: 4-/5 flex, ext, abd; min pain with extension at prox hamstring Knee Strength Knee Manual Muscle Testing Right Flexion (S2) 3+ Fair+ Extension (L3) 4- Good- Comments IE: 4-/5 for both 12/23/23: painful resisted flexion 01/24/24: min pain with resisted flexion 4-/5, 4/5 knee ext PT-OP-Q Treatments Start: 11/01/23 10:42 Freq: Status: Active Protocol: Document 01/31/24 09:50 AB (Rec: 01/31/24 12:29 AB [id number]) Therapeutic Exercises Sidelying Exercises shoulder abduction Sidelying Exercise Name AROM Side right Reps/Minutes X10 Comments VC sidelying shoulder ER AROM Sidelying Exercise Name shoulder ER AROM Side right Reps/Minutes 10 Comments verbal and tactile cues Sitting Exercises Ankle strengthening Side bilateral Resistance level 3 band Reps/Minutes X15 Comments long sitting for Inv due to hamstring tightening and a little pain seated Hip abd Sitting Exercise Name seated hip abduction with band activation Side bilateral Resistance level 3 green band Reps/Minutes 1x60 Manual Therapy Treatment Soft Tissue Mobilization STM right pec Mobilization Type Cross-Friction,Rolling Intensity/Depth Moderate Body Position Hooklying Comments monitored for pain Scapula Body Location right post cuff, periscapular muscles Mobilization Type Cross-Friction,Rolling Intensity/Depth Moderate Body Position Sidelying Comments monitored for pain Joint Mobilizations Scapulothoracic Joint R Direction depression and adduction Grade III Body Position Sidelying Reps/Duration 1x10 ea Neuro Re-Education Treatment Balance Activities marching in place Details hands above bars to use as needed Surface unstable Equipment blue cushion Reps/Duration X10 Comments CGA to very minimal assist step up tap Surface floor Equipment 6 inch step Reps/Duration X10 alternating Comments hands above bars, CGA performs with significant decrease in velocity and use of bars as needed. Tandem walk Details CGA-Lita Surface stable Equipment narrow stance (not true heel- toe) Reps/Duration 10 feetX 6 Comments VC for hands above bars and to use bars ass needed Self-Care/Home Management Treatment Activities Self-Care/Home Management Activities progressed to level 3 band for ankle DF, ev and inv and seated hip abduction activation PT-OP-R Modalities Start: 12/16/23 12:54 Freq: Status: Active Protocol: Document 12/16/23 10:37 SW (Rec: 12/16/23 12:56 SW [id number]) Hot Pack/Cold Pack Treatment Hot Pack Location posterior Patient Position Supine Patient Tolerance Good Comments bolster under LE, lucsa within reach x15 min PT-OP-T Assessment and Plan Start: 11/01/23 10:42 Freq: Status: Active Protocol: Document 01/31/24 09:50 AB (Rec: 01/31/24 12:29 AB [id number]) Physical Therapy Assessment Goals Eight Impairment R shoulder ROM Short Term Goal (STG) Pt will be able to lift her R arm in fwd flexion to at least 100 deg in order to get dishes down from her shelf at home. STG Duration 5 weeks Block Splitter Operator Goal (LTG) Pt will be able to lift her R arm in fwd flexion to at least 120 deg in order to get dishes down from her shelf at home. 12/23/23: 150 deg R flex without compensation, reports minimal pain at end range LTG Duration 10 weeks MET Seven Impairment strength Impairment R disc jockey 25# Short Term Goal (STG) Pt will improve R disc jockey strength by at least 2# to be comparable to the L disc jockey strength in order be able to open jars without assistance and to perform ADLs more independently. STG Duration 5 weeks Block Splitter Operator Goal (LTG) Pt will improve R disc jockey strength by at least 5# to be comparable to the L disc jockey strength in order be able to open jars without assistance and to perform ADLs more independently. 12/23/23: MET 48# R disc jockey; reports able to ebony LTG Duration 10 weeks MET Six Impairment R quad and hamstring MMT 4-/5 Short Term Goal (STG) Pt will improve R quad and hamstring MMT to at least 4/5 in order to demo improved knee strength for transfers, stairs, and gait. 12/23/23: 3+/5 hamstring due to pain from hamstring injury in November; 4-/5 for quad 01/24/24: 4/5 quad, 4-/5 hamstring due to pain STG Duration 5 weeks PARTIALLY MET Block Splitter Operator Goal (LTG) Pt will improve R quad and hamstring MMT to at least 4+/5 in order to demo improved knee strength for transfers, stairs, and gait. 12/23/23: 3+/5 hamstring due to pain from hamstring injury in November; 4-/5 for quad LTG Duration 10 weeks NOT MET Five Impairment LE strength Impairment R hip flex MMT 3+/5 Short Term Goal (STG) Pt will improve R hip flex MMT to at least 4/5 in order to demo improved hip strength for foot clearance and limb advancement during gait. 01/24/24: 4-/5 hip flex 12/23/23: 3+/5 due to hamstring pain STG Duration 5 weeks NOT MET Block Splitter Operator Goal (LTG) Pt will improve R hip flex MMT to at least 4+/5 in order to demo improved hip strength for foot clearance and limb advancement during gait. 01/24/24: 4-/5 MMT hip flexion 12/23/23: 3+/5 due to hamstring pain LTG Duration 10 weeks NOT MET Four Impairment strength Impairment 4 steps with reciprocal pattern with CGA using 1 HR to ascend, 2 to descend, no AD Short Term Goal (STG) Pt will perform at least 8 6 stairs using a reciprocal gait pattern with SBA and 1 or no hand rails using LRAD in order to demo improved BLE strength and balance. 12/23/23: 4 stairs, non reciprocal gait (LLE leading ascent, RLE leading descent) due to hamstring pain, SBA 1 rail STG Duration 5 weeks Block Splitter Operator Goal (LTG) Pt will perform at least 16 6 stairs using a reciprocal gait pattern with SBA and 1 or no hand rails using LRAD in order to demo improved BLE strength and balance. 12/23/23: 4 stairs, non reciprocal gait (LLE leading ascent, RLE leading descent) due to hamstring pain, SBA 1 rail LTG Duration 10 weeks NOT MET, PROGRESSING Three Impairment endurance, ambulation Impairment 6 MWT 736 ft (224.3 m), no AD Short Term Goal (STG) Pt will improve 6 MWT distance by at least 50 ft (786 ft, 239 m) using LRAD in order to demonstrate better BLE strength and endurance for community ambulation. STG Duration 5 weeks Retirement Goal (LTG) Pt will improve 6 MWT distance to at least 848 ft (258 m, 1 MCID) using LRAD in order to demonstrate better BLE strength and endurance for community ambulation. 12/23/23: 886 ft, no AD used; gait antalgic LTG Duration 10 weeks MET Two Impairment strength Impairment 5x STS 35.17 sec Short Term Goal (STG) Pt will improve 5x STS time to at least 30 seconds or less in order to demonstrate improved BLE strength and endurance. STG Duration 5 weeks Block Splitter Operator Goal (LTG) Pt will improve 5X STS time to at least 25 seconds or less in order to demonstrate improved BLE strength and endurance. 12/23/20: 24.41 sec, from chair, no UE use; difficulty rising due to hamstring pain LTG Duration 10 weeks MET One Impairment Balance Impairment Myers/56 Short Term Goal (STG) Pt will improve Myers score to at least 44/56 in order to demonstrate improvements in balance and safety awareness during higher level activities . STG Duration 5 weeks Block Splitter Operator Goal (LTG) Pt will improver Myers score to at least 47/56 (1 MCID for acute stroke pt) in order to demonstrate improvements in balance and safety awareness during higher level activities . 12/23/23: 48/56 Myers LTG Duration 10 weeks MET Assessment Summary Assessment right shoulder flexion 135 deg AROM start of session start of session, 120 deg end of session, liked due fatigue, reports feeling a little sore all over end of session. Physical Therapy Plan Frequency and Duration Frequency of Treatment 1-2x/wk Duration of treatment (weeks) 8 Plan of Care Start Date 12/23/23 Plan of Care End Date 02/18/24 Next Visit Focus/Plan Next Note Type Treatment Note Next Visit Plan Wall squat/squat with band. dynamic balance, change MANUEL POC: gentle isometrics for prox HS (do not stress HS). Cont balance activities (foam, change MANUEL, add head turns, etc) and gait training. Perform pain free BLE strengthening POC: BLE strengthening (leg press squat, LAQ, STS, HSC) and balance (ambulation, Myers activities). Begin some balance activities. Review hip hinge increase repetitions for STS, add small resistance or lower table. Continue disc jockey strength activity, rotator cuff strengthening and RUE AROM Manual: scapulothoracic mob, MWM as tolerated in shldr flex , Take BP start of session, focus on balance next session
--- NOTE | 2024-02-02 09:23 | PT-OP ANOTE ---
Patient reports she is late as she just fell at home on right side, comments it took her a little bit to get up, but was able to get up. Krystal reports feeling sore, comments she was lifting a houseplant from the floor that was on a little stand. noted bruise distal right patella. Patient also reports head hit a shelf/stand. 128/74 HR 68 seated left UE. As per discussion with PT Elba Mcintyre patient advised to check in with MD/walk in clinic.
--- NOTE | 2024-02-08 12:20 | PT.OTN ---
Current Diagnoses Hypothyroidism, unspecified (02/08/24) Personal history of transient ischemic attack (TIA), and cerebral infarction without residual deficits (02/08/24) Physical Therapy Treatment Note PT-OP-A Visit Information Start: 11/01/23 10:42 Freq: Status: Active Protocol: Document 02/08/24 09:45 NM (Rec: 02/08/24 10:30 NM [id number]) Out-Patient Physical Therapy Visit Information Visit Information Visit Type Treatment Note Visit Start Time 09:46 Visit Stop Time 10:30 Visit Number 16 Evaluation Information Evaluation Date 11/01/23 Precautions Precautions Fall risk Hx: CVA, check vitals PT-OP-B Current Condition Start: 11/01/23 10:42 Freq: Status: Active Protocol: Document 11/01/23 15:35 NM (Rec: 11/01/23 16:02 NM [id number]) Current Condition History of Current Condition Onset Date 08/24/23 Current Complaints BLE weakness, balance History of Current Condition Pt presents to clinic with BLE weakness and balance impairments following a CVA on 08/24/23. Pt reports that her R side was primarily affected. She has the most difficulty with maintaining her balance while ambulating, especially while turning. She complains of occasional instances of numbness in her R hand and foot, which she believes impacts her balance, and she has pain in multiple joints due to fibromyalgia. She also reports decreased R supervisor engines road strength and difficulty with elevating her RUE secondary to pain. Prior to her stroke, she used a spc with a small base at the point for community ambulation; however, she did not bring it to the clinic today. Pt also reports occasional episodes of dizziness when moving from sitting > standing, which causes her LOB. PMH includes fibromyalgia, lupus. Currently , she is not allowed to drive. Future Testing and Treatments Planned Follow up on 11/10 with physician Treatment Goals Patient/Caregiver Goals Improve ambulation, balance Prior Functional Status Baseline Function- ADL's Independent Baseline Function- Mobility Independent Baseline Function- Gait spc for community distances prn Baseline Function- Recreation/Hobbies Water aerobics Current Functional Impairments (Reported) Functional Limitations- ADL's Unable to drive. Limitations with dressing, gripping, lifting, standing balance, endurance, activity tolerance Functional Limitations- Mobility/Gait Limited ability to ambulate, uses spc more frequently for community ambulation distances Functional Limitations- Recreation/ Unable to participate in water Hobbies aerobics because unable to drive PT-OP-C Subjective Start: 11/01/23 10:42 Freq: Status: Active Protocol: Document 02/08/24 09:45 NM (Rec: 02/08/24 10:30 NM [id number]) OP-PT Subjective Patient Comments Patient Comments Pt reports 7/10 pain overall today. Went to doctor post fall, no fractures or any abnormalities. She has a rail put in now for garage. PT-OP-D Balance Start: 11/01/23 10:42 Freq: Status: Active Protocol: Document 11/01/23 15:35 NM (Rec: 11/01/23 16:02 NM [id number]) OP-PT Balance Assessment Sitting Balance Static Sitting Balance Ability Good Dynamic Sitting Balance Ability Good Balance Tests Myers Balance Test Myers Balance Test Score 40/56 Myers Impairment Rating 20 to 39% Impaired (Score 34- 44) Functional Reach Functional Reach Test 2 cm Single Limb Standing Single Limb- Right 1 sec Single Limb- Left 3 sec Semi-Tandem Standing Semi-Tandem Standing Balance 5 sec ea side Tandem Tandem Standing unable without UE support William Fall Scale Copyright Permission PT-OP-E Functional Tests Start: 11/01/23 10:42 Freq: Status: Active Protocol: Document 11/01/23 15:35 NM (Rec: 11/01/23 16:02 NM [id number]) Functional Tests 6 Minute Walk Test Distance 736 Device Used none Comments SBA Five Times Sit to Stand Test Score 35.17 sec PT-OP-F Manual Assessment Start: 11/01/23 10:42 Freq: Status: Active Protocol: Document 11/01/23 15:35 NM (Rec: 11/01/23 16:02 NM [id number]) Manual Assessments Soft Tissue Assessment Soft Tissue Mobility Assessment No soft tissue restrictions noted Joint Mobility Assessment Joint Mobility Assessment R shoulder ROM is painful in fwd flex, abduction with limited scapular mobility and impingement symptoms. No laxity noted at knee PT-OP-G Mobility & Gait Start: 11/01/23 10:42 Freq: Status: Active Protocol: Document 11/01/23 15:35 NM (Rec: 11/01/23 16:02 NM [id number]) OP Gait Assessment Gait Gait Assistance Required: Standby Assistance Distance (Feet) 736 Able to Maintain Weight Bearing Status Yes During Gait Assistive Devices Assistive Device None,Straight Cane Gait Deviations General Gait Pattern Decreased Stride Length,Flexed Trunk,Step-to Gait Factors Limiting Gait Function Factors Limiting Gait Function Decreased Strength, Incoordination,Limited Range of Motion,Poor Balance Comments Gait Comments Reports that she uses a spc for community ambulation Stair Climbing Evaluation Evaluation Level of Assist On Stairs Contact Guard Assistance Devices Stair Climbing Assistive Devices Right Railing Technique/Endurance Stair Climbing Direction Ascend and Descend Stair Climbing Technique Step Over Step Number of Steps Climbed 4 Stair Climbing Set # Repetitions (reps) 1 Comments Stair Climbing Comments Reciprocal motion, 1 HR to ascend, 2 HR to descent; CGA to steady; Demos decreased eccentric control at knee during descent PT-OP-H Neuro Start: 11/01/23 10:42 Freq: Status: Active Protocol: Document 11/01/23 15:35 NM (Rec: 11/01/23 16:02 NM [id number]) Sensation Evaluation Gross Sensation Gross Sensation Right LE Impaired Sensation Description Paresthesia,Numbness Dermatome Impairments L4,L5,S1,S2 Comments Summary Comments Able to distinguish light touch on RLE, however reports that it is less than LLE from L4-S2 dermatomes Coordination Evaluation Upper Extremity Tests Left Finger to Nose Test Normal Performance Alternate Nose to Finger Test Normal Performance Pronation/Supination Test minimal impairment but performed slowly Right Finger to Nose Test Minimal Impairment Alternate Nose to Finger Test Minimal Impairment Pronation/Supination Test Minimal impairment but performed slowly bilaterally Lower Extremity Tests Left Heel on Khalil Test Normal Performance Right Heel on Khalil Test Minimal Impairment Deep Tendon Reflex & Clonus Assessment Deep Tendon Reflex L biceps Deep Tendon Reflex 2+ Normal R biceps Deep Tendon Reflex 2+ Normal Vital Signs Blood Pressure Sitting Blood Pressure (90/60-120/80 mmHg) 120/77 Blood Pressure Source Automatic Cuff,Left Upper Extremity Oxygen Pulse Oximetry at Rest (%) (95-100 %) 96 PT-OP-J Posture/Palpation/Skin Start: 11/01/23 10:42 Freq: Status: Active Protocol: Document 11/01/23 15:35 NM (Rec: 11/01/23 16:02 NM [id number]) Posture Evaluation Position Sitting Evaluation View posterior, lateral Head/C-Spine Posture Forward Head T-Spine Posture Increased Kyphosis L-Spine Posture Increased Lordosis Shoulder Posture (L) Rounded,(R) Rounded,(L) Forward,(R) Forward Weight Distribution Weight Shifted Left Hip Posture (R) Externally Rotated Knee Posture (L) Genu Valgus,(R) Genu Valgus PT-OP-K Range of Motion Start: 11/01/23 10:42 Freq: Status: Active Protocol: Document 11/03/23 10:31 NM (Rec: 11/03/23 11:32 NM [id number]) Shoulder Goniometric Range of Motion Shoulder Left Shoulder ROM WFL No Testing Position Supine Flexion 150 Abduction 150 External Rotation at 45 degrees 70 Abduction Internal Rotation 70 Right Shoulder ROM WFL No Testing Position Supine Flexion 107 Abduction 130 External Rotation at 45 degrees 30 Abduction Internal Rotation 70 PT-OP-M Strength Start: 11/01/23 10:42 Freq: Status: Active Protocol: Document 01/24/24 10:31 NM (Rec: 01/24/24 12:16 NM [id number]) Hip Strength Hip Manual Muscle Testing Right Flexion (L2) 3+ Fair+ Extension (S1) 3+ Fair+ Abduction 4- Good- Adduction 4+ Good+ External Rotation 4+ Good+ Internal Rotation 4+ Good+ Comments IE: flex 3+/5, ext and abd 4/5 , ER/IR 4+/5 12/23/23: pain with resisted hip ext. 01/24/24: 4-/5 flex, ext, abd; min pain with extension at prox hamstring Knee Strength Knee Manual Muscle Testing Right Flexion (S2) 3+ Fair+ Extension (L3) 4- Good- Comments IE: 4-/5 for both 12/23/23: painful resisted flexion 01/24/24: min pain with resisted flexion 4-/5, 4/5 knee ext PT-OP-Q Treatments Start: 11/01/23 10:42 Freq: Status: Active Protocol: Document 02/08/24 09:45 NM (Rec: 02/08/24 10:30 NM [id number]) Therapeutic Exercises Sitting Exercises Ankle strengthening Sitting Exercise Name Inversion/eversion Side bilateral Resistance level 3 band Reps/Minutes 1x15 Comments improved form, no hip rotation with cueing STS Sitting Exercise Name with hip hinge Resistance 4.4# tball Equipment Used 18 chair ht, no UE support Reps/Minutes 2x10 Comments min cues for wider MANUEL Standing Exercises DF raise Standing Exercise Name toe raises Side bilateral Equipment Used back against wall Reps/Minutes 1x10 Side steps Standing Exercise Name hip clock: flex, abd, ext Side bilateral Resistance lvl 1 tb around ankles Reps/Minutes 1x10 ea side Comments close SBA, cued for eyes up to reduce visual input, foot clearance Heel raise Standing Exercise Name gastroc only Side bilateral Equipment Used cues to put weight onto big toes for more post tib Reps/Minutes 1x10 Neuro Re-Education Treatment Balance Activities tray carry Details small tray with racquetball carry Surface stable Equipment goal: keep ball in center with ambulation Reps/Duration 2x25 ft Comments Close SBA, cued wider MANUEL and to continue ambulating while carrying tray to simulate holding object and walking at home. Requires cues for tray closer to body shuttle recovery Details red level, A/P tilt Surface unstable Equipment feet on 4 Reps/Duration 60 Comments CGA to steady. Cued to maintain level board, ankle strategy. Demos tendency for anterior weight shift carioca Details CGA to close SBA Surface stable Reps/Duration 3 sets x 10 ft down/back ea Comments Pt initially using lots of visual input, decrease with reps. For dual tasking, PT initially verbally cueing then pt self cueing. Demos stepping strategy to maintain balance 2x Dynamic gait Details Heel walk, toe walk Surface stable Equipment close SBA Reps/Duration 2x10 Comments For ankle strength and balance . Cued wider MANUEL. Improved compared to previous attempts. No LOB, ankle strategy to stabilize Static Details staggered stance Surface stable Equipment 2# tball pass: low, med, shldr height Reps/Duration 8 reps ea level, then switch feet Comments Close SBA for stability Demos good ankle strategy PT-OP-R Modalities Start: 12/16/23 12:54 Freq: Status: Active Protocol: Document 12/16/23 10:37 SW (Rec: 12/16/23 12:56 SW [id number]) Hot Pack/Cold Pack Treatment Hot Pack Location posterior Patient Position Supine Patient Tolerance Good Comments bolster under JENNIFER lucas within reach x15 min PT-OP-T Assessment and Plan Start: 11/01/23 10:42 Freq: Status: Active Protocol: Document 02/08/24 09:45 NM (Rec: 02/08/24 10:30 NM [id number]) Physical Therapy Assessment Goals Eight Impairment R shoulder ROM Short Term Goal (STG) Pt will be able to lift her R arm in fwd flexion to at least 100 deg in order to get dishes down from her shelf at home. STG Duration 5 weeks Announcer Goal (LTG) Pt will be able to lift her R arm in fwd flexion to at least 120 deg in order to get dishes down from her shelf at home. 12/23/23: 150 deg R flex without compensation, reports minimal pain at end range LTG Duration 10 weeks MET Seven Impairment strength Impairment R supervisor [employer] [address] 25# Short Term Goal (STG) Pt will improve R supervisor engines road strength by at least 2# to be comparable to the L supervisor engines road strength in order be able to open jars without assistance and to perform ADLs more independently. STG Duration 5 weeks Announcer Goal (LTG) Pt will improve R supervisor engines road strength by at least 5# to be comparable to the L supervisor engines road strength in order be able to open jars without assistance and to perform ADLs more independently. 12/23/23: MET 48# R supervisor [employer] road; reports able to ebony LTG Duration 10 weeks MET Six Impairment R quad and hamstring MMT 4-/5 Short Term Goal (STG) Pt will improve R quad and hamstring MMT to at least 4/5 in order to demo improved knee strength for transfers, stairs, and gait. 12/23/23: 3+/5 hamstring due to pain from hamstring injury in November; 4-/5 for quad 01/24/24: 4/5 quad, 4-/5 hamstring due to pain STG Duration 5 weeks PARTIALLY MET Announcer Goal (LTG) Pt will improve R quad and hamstring MMT to at least 4+/5 in order to demo improved knee strength for transfers, stairs, and gait. 12/23/23: 3+/5 hamstring due to pain from hamstring injury in November; 4-/5 for quad LTG Duration 10 weeks NOT MET Five Impairment LE strength Impairment R hip flex MMT 3+/5 Short Term Goal (STG) Pt will improve R hip flex MMT to at least 4/5 in order to demo improved hip strength for foot clearance and limb advancement during gait. 01/24/24: 4-/5 hip flex 12/23/23: 3+/5 due to hamstring pain STG Duration 5 weeks NOT MET Announcer Goal (LTG) Pt will improve R hip flex MMT to at least 4+/5 in order to demo improved hip strength for foot clearance and limb advancement during gait. 01/24/24: 4-/5 MMT hip flexion 12/23/23: 3+/5 due to hamstring pain LTG Duration 10 weeks NOT MET Four Impairment strength Impairment 4 steps with reciprocal pattern with CGA using 1 HR to ascend, 2 to descend, no AD Short Term Goal (STG) Pt will perform at least 8 6 stairs using a reciprocal gait pattern with SBA and 1 or no hand rails using LRAD in order to demo improved BLE strength and balance. 12/23/23: 4 stairs, non reciprocal gait (LLE leading ascent, RLE leading descent) due to hamstring pain, SBA 1 rail STG Duration 5 weeks Senior Care Goal (LTG) Pt will perform at least 16 6 stairs using a reciprocal gait pattern with SBA and 1 or no hand rails using LRAD in order to demo improved BLE strength and balance. 12/23/23: 4 stairs, non reciprocal gait (LLE leading ascent, RLE leading descent) due to hamstring pain, SBA 1 rail LTG Duration 10 weeks NOT MET, PROGRESSING Three Impairment endurance, ambulation Impairment 6 MWT 736 ft (224.3 m), no AD Short Term Goal (STG) Pt will improve 6 MWT distance by at least 50 ft (786 ft, 239 m) using LRAD in order to demonstrate better BLE strength and endurance for community ambulation. STG Duration 5 weeks Announcer Goal (LTG) Pt will improve 6 MWT distance to at least 848 ft (258 m, 1 MCID) using LRAD in order to demonstrate better BLE strength and endurance for community ambulation. 12/23/23: 886 ft, no AD used; gait antalgic LTG Duration 10 weeks MET Two Impairment strength Impairment 5x STS 35.17 sec Short Term Goal (STG) Pt will improve 5x STS time to at least 30 seconds or less in order to demonstrate improved BLE strength and endurance. STG Duration 5 weeks Senior Care Goal (LTG) Pt will improve 5X STS time to at least 25 seconds or less in order to demonstrate improved BLE strength and endurance. 12/23/20: 24.41 sec, from chair, no UE use; difficulty rising due to hamstring pain LTG Duration 10 weeks MET One Impairment Balance Impairment Myers/56 Short Term Goal (STG) Pt will improve Myers score to at least 44/56 in order to demonstrate improvements in balance and safety awareness during higher level activities . STG Duration 5 weeks Senior Care Goal (LTG) Pt will improver Myers score to at least 47/56 (1 MCID for acute stroke pt) in order to demonstrate improvements in balance and safety awareness during higher level activities . 12/23/23: 48/56 Myers LTG Duration 10 weeks MET Assessment Summary Assessment Pt tolerated treatment well and continues to progress with balance and strengthening activities. Continued with ankle and hip strengthening for improved MANUEL and stability . Pt without any hamstring discomfort for all activities. Requires cues for execution and posture. Pt able to maintain balance with less assistance during dynamic ambulation with varying MANUEL. Initiated carrying activity to address pt concern at home with carrying objects without LOB; pt requires cues for wider MANUEL and carrying objects closer to body for safety, especially if weighted. Pt challenged to continue with ambulation during carrying objects or during visual scanning. Pt is very dependent on visual input for maintaining stability; however , she is improving in ability to utilize proprioception, especially as ankle stability improves. Pt requires increased time with exercise. She followed up with PCP after fall last week, no injuries. PT and pt discussed safety during gait, stairs, and when carrying objects to decrease fall risk. Pt verbalizes understanding. PT and pt also discussed discharging next week at end of POC vs extending plan depending on pt progress with goals. Pt would benefit from skilled PT for BLE strengthening and dynamic balance training in order to reduce fall risk and improve activity tolerance. Physical Therapy Plan Frequency and Duration Frequency of Treatment 1-2x/wk Duration of treatment (weeks) 8 Plan of Care Start Date 12/23/23 Plan of Care End Date 02/18/24 Therapeutic Interventions Therapeutic Interventions Aquatic Therapy,Balance Training,Canalithic Repositioning,Coordination Training,Gait Training,Home Exercise Program,Joint Mobilizations,Manual Therapy, Neuromuscular Re-education, Orthotic/Prosthetic Management ,Patient/Caregiver Education, Self-Care/Home Management, Sensory Integration,Soft Tissue Mobilization,Taping, Therapeutic Activities, Therapeutic Exercises, Vestibular Rehabilitation Modalities Cold Pack/Ice Massage,Electric Stimulation,Hot Packs, Vasopneumatic Devices Other Referrals/Consults Referrals/Consults Recommended Due to new onset R hamstring pain s/p slip down stairs earlier in November, PT recommending follow up with PCP, MRI, and referral to ortho depending on severity. Will need new PT referral depending on change in medical status Next Visit Focus/Plan Next Note Type Treatment Note Next Visit Plan Continue with dynamic balance, shuttle, banded and dual tasking activity; trial floor transfers with chair, and carrying weighted objects POC: gentle isometrics for prox HS (do not stress HS). Cont balance activities (foam, change MANUEL, add head turns, etc) and gait training. Perform pain free BLE strengthening POC: BLE strengthening (leg press squat, LAQ, STS, HSC) and balance (ambulation, Myers activities). Begin some balance activities. Review hip hinge increase repetitions for STS, add small resistance or lower table. Continue supervisor engines road strength activity, rotator cuff strengthening and RUE AROM Manual: scapulothoracic mob, MWM as tolerated in shldr flex , Take BP start of session, focus on balance next session
--- NOTE | 2024-02-10 12:45 | PT.OTN ---
Current Diagnoses Hypothyroidism, unspecified (02/10/24) Personal history of transient ischemic attack (TIA), and cerebral infarction without residual deficits (02/10/24) Physical Therapy Treatment Note PT-OP-A Visit Information Start: 11/01/23 10:42 Freq: Status: Active Protocol: Document 02/10/24 11:20 SW (Rec: 02/10/24 12:45 SW [id number]) Out-Patient Physical Therapy Visit Information Visit Information Visit Type Treatment Note Visit Start Time 11:17 Visit Stop Time 11:56 Visit Number 17 Number of SWITCHBOARD MANAGER Visits 1 Precautions Precautions Fall risk Hx: CVA, check vitals PT-OP-B Current Condition Start: 11/01/23 10:42 Freq: Status: Active Protocol: Document 11/01/23 15:35 NM (Rec: 11/01/23 16:02 NM [id number]) Current Condition History of Current Condition Onset Date 08/24/23 Current Complaints BLE weakness, balance History of Current Condition Pt presents to clinic with BLE weakness and balance impairments following a CVA on 08/24/23. Pt reports that her R side was primarily affected. She has the most difficulty with maintaining her balance while ambulating, especially while turning. She complains of occasional instances of numbness in her R hand and foot, which she believes impacts her balance, and she has pain in multiple joints due to fibromyalgia. She also reports decreased R masseur/masseuse strength and difficulty with elevating her RUE secondary to pain. Prior to her stroke, she used a spc with a small base at the point for community ambulation; however, she did not bring it to the clinic today. Pt also reports occasional episodes of dizziness when moving from sitting > standing, which causes her LOB. PMH includes fibromyalgia, lupus. Currently , she is not allowed to drive. Future Testing and Treatments Planned Follow up on 11/10 with physician Treatment Goals Patient/Caregiver Goals Improve ambulation, balance Prior Functional Status Baseline Function- ADL's Independent Baseline Function- Mobility Independent Baseline Function- Gait spc for community distances prn Baseline Function- Recreation/Hobbies Water aerobics Current Functional Impairments (Reported) Functional Limitations- ADL's Unable to drive. Limitations with dressing, gripping, lifting, standing balance, endurance, activity tolerance Functional Limitations- Mobility/Gait Limited ability to ambulate, uses spc more frequently for community ambulation distances Functional Limitations- Recreation/ Unable to participate in water Hobbies aerobics because unable to drive PT-OP-C Subjective Start: 11/01/23 10:42 Freq: Status: Active Protocol: Document 02/10/24 11:20 SW (Rec: 02/10/24 12:45 SW [id number]) OP-PT Subjective Patient Comments Patient Comments Pt reports x ray results came in bone spur, arthritis , and calcium buildup.7/10 pn today . Pt reports blood pressure has been good, doctors are happy with it. PT-OP-D Balance Start: 11/01/23 10:42 Freq: Status: Active Protocol: Document 11/01/23 15:35 NM (Rec: 11/01/23 16:02 NM [id number]) OP-PT Balance Assessment Sitting Balance Static Sitting Balance Ability Good Dynamic Sitting Balance Ability Good Balance Tests Myers Balance Test Myers Balance Test Score 40/56 Myers Impairment Rating 20 to 39% Impaired (Score 34- 44) Functional Reach Functional Reach Test 2 cm Single Limb Standing Single Limb- Right 1 sec Single Limb- Left 3 sec Semi-Tandem Standing Semi-Tandem Standing Balance 5 sec ea side Tandem Tandem Standing unable without UE support William Fall Scale Copyright Permission PT-OP-E Functional Tests Start: 11/01/23 10:42 Freq: Status: Active Protocol: Document 11/01/23 15:35 NM (Rec: 11/01/23 16:02 NM [id number]) Functional Tests 6 Minute Walk Test Distance 736 Device Used none Comments SBA Five Times Sit to Stand Test Score 35.17 sec PT-OP-F Manual Assessment Start: 11/01/23 10:42 Freq: Status: Active Protocol: Document 11/01/23 15:35 NM (Rec: 11/01/23 16:02 NM [id number]) Manual Assessments Soft Tissue Assessment Soft Tissue Mobility Assessment No soft tissue restrictions noted Joint Mobility Assessment Joint Mobility Assessment R shoulder ROM is painful in fwd flex, abduction with limited scapular mobility and impingement symptoms. No laxity noted at knee PT-OP-G Mobility & Gait Start: 11/01/23 10:42 Freq: Status: Active Protocol: Document 11/01/23 15:35 NM (Rec: 11/01/23 16:02 NM [id number]) OP Gait Assessment Gait Gait Assistance Required: Standby Assistance Distance (Feet) 736 Able to Maintain Weight Bearing Status Yes During Gait Assistive Devices Assistive Device None,Straight Cane Gait Deviations General Gait Pattern Decreased Stride Length,Flexed Trunk,Step-to Gait Factors Limiting Gait Function Factors Limiting Gait Function Decreased Strength, Incoordination,Limited Range of Motion,Poor Balance Comments Gait Comments Reports that she uses a spc for community ambulation Stair Climbing Evaluation Evaluation Level of Assist On Stairs Contact Guard Assistance Devices Stair Climbing Assistive Devices Right Railing Technique/Endurance Stair Climbing Direction Ascend and Descend Stair Climbing Technique Step Over Step Number of Steps Climbed 4 Stair Climbing Set # Repetitions (reps) 1 Comments Stair Climbing Comments Reciprocal motion, 1 HR to ascend, 2 HR to descent; CGA to steady; Demos decreased eccentric control at knee during descent PT-OP-H Neuro Start: 11/01/23 10:42 Freq: Status: Active Protocol: Document 11/01/23 15:35 NM (Rec: 11/01/23 16:02 NM [id number]) Sensation Evaluation Gross Sensation Gross Sensation Right LE Impaired Sensation Description Paresthesia,Numbness Dermatome Impairments L4,L5,S1,S2 Comments Summary Comments Able to distinguish light touch on RLE, however reports that it is less than LLE from L4-S2 dermatomes Coordination Evaluation Upper Extremity Tests Left Finger to Nose Test Normal Performance Alternate Nose to Finger Test Normal Performance Pronation/Supination Test minimal impairment but performed slowly Right Finger to Nose Test Minimal Impairment Alternate Nose to Finger Test Minimal Impairment Pronation/Supination Test Minimal impairment but performed slowly bilaterally Lower Extremity Tests Left Heel on Khalil Test Normal Performance Right Heel on Khalil Test Minimal Impairment Deep Tendon Reflex & Clonus Assessment Deep Tendon Reflex L biceps Deep Tendon Reflex 2+ Normal R biceps Deep Tendon Reflex 2+ Normal Vital Signs Blood Pressure Sitting Blood Pressure (90/60-120/80 mmHg) 120/77 Blood Pressure Source Automatic Cuff,Left Upper Extremity Oxygen Pulse Oximetry at Rest (%) (95-100 %) 96 PT-OP-J Posture/Palpation/Skin Start: 11/01/23 10:42 Freq: Status: Active Protocol: Document 11/01/23 15:35 NM (Rec: 11/01/23 16:02 NM [id number]) Posture Evaluation Position Sitting Evaluation View posterior, lateral Head/C-Spine Posture Forward Head T-Spine Posture Increased Kyphosis L-Spine Posture Increased Lordosis Shoulder Posture (L) Rounded,(R) Rounded,(L) Forward,(R) Forward Weight Distribution Weight Shifted Left Hip Posture (R) Externally Rotated Knee Posture (L) Genu Valgus,(R) Genu Valgus PT-OP-K Range of Motion Start: 11/01/23 10:42 Freq: Status: Active Protocol: Document 11/03/23 10:31 NM (Rec: 11/03/23 11:32 NM [id number]) Shoulder Goniometric Range of Motion Shoulder Left Shoulder ROM WFL No Testing Position Supine Flexion 150 Abduction 150 External Rotation at 45 degrees 70 Abduction Internal Rotation 70 Right Shoulder ROM WFL No Testing Position Supine Flexion 107 Abduction 130 External Rotation at 45 degrees 30 Abduction Internal Rotation 70 PT-OP-M Strength Start: 11/01/23 10:42 Freq: Status: Active Protocol: Document 01/24/24 10:31 NM (Rec: 01/24/24 12:16 NM [id number]) Hip Strength Hip Manual Muscle Testing Right Flexion (L2) 3+ Fair+ Extension (S1) 3+ Fair+ Abduction 4- Good- Adduction 4+ Good+ External Rotation 4+ Good+ Internal Rotation 4+ Good+ Comments IE: flex 3+/5, ext and abd 4/5 , ER/IR 4+/5 12/23/23: pain with resisted hip ext. 01/24/24: 4-/5 flex, ext, abd; min pain with extension at prox hamstring Knee Strength Knee Manual Muscle Testing Right Flexion (S2) 3+ Fair+ Extension (L3) 4- Good- Comments IE: 4-/5 for both 12/23/23: painful resisted flexion 01/24/24: min pain with resisted flexion 4-/5, 4/5 knee ext PT-OP-Q Treatments Start: 11/01/23 10:42 Freq: Status: Active Protocol: Document 02/10/24 11:20 SW (Rec: 02/10/24 12:45 SW [id number]) Therapeutic Exercises Sitting Exercises Baps Board Sitting Exercise Name warm up, pain free range Side bilateral Resistance AROM Equipment Used Baps Board Reps/Minutes 2' Ankle strengthening Sitting Exercise Name Inversion/eversion Side bilateral Resistance level 3 band Reps/Minutes 1x15 Comments improved form, no hip rotation with cueing, pain free STS Sitting Exercise Name with hip hinge Resistance 4.4# tball Equipment Used 18 chair ht, no UE support Reps/Minutes 2x10 Comments min cues for wider MANUEL, cues for knee flexion, hip hinge Standing Exercises DF raise Standing Exercise Name toe raises Side bilateral Equipment Used back against wall Reps/Minutes 1x10 Side steps Standing Exercise Name hip clock: flex, abd, ext Side bilateral Resistance lvl 1 tb around ankles Reps/Minutes 1x10 ea side Comments close SBA, cued for eyes up to reduce visual input, foot clearance Heel raise Standing Exercise Name gastroc only- reviewed painful with HEP Side bilateral Equipment Used cues to put weight onto big toes for more post tib Comments discontinued until further discussion with PT Neuro Re-Education Treatment Balance Activities shuttle recovery Details red clips, A/P, lateral (WBOS) steady>weight shifts Surface unstable Equipment feet on 4 Comments Cued to maintain level board, ankle strategy. CGA>1 finger assist> no UE support Tandem walk Details CGA-Lita Surface stable Equipment narrow stance (not true heel- toe) Reps/Duration 10 feetX 6 Comments VC for hands above bars and to use bars ass needed PT-OP-R Modalities Start: 12/16/23 12:54 Freq: Status: Active Protocol: Document 12/16/23 10:37 SW (Rec: 12/16/23 12:56 [id number]) Hot Pack/Cold Pack Treatment Hot Pack Location posterior Patient Position Supine Patient Tolerance Good Comments bolster under LE lucas within reach x15 min PT-OP-T Assessment and Plan Start: 11/01/23 10:42 Freq: Status: Active Protocol: Document 02/10/24 11:20 SW (Rec: 02/10/24 12:45 [id number]) Physical Therapy Assessment Goals Eight Impairment R shoulder ROM Short Term Goal (STG) Pt will be able to lift her R arm in fwd flexion to at least 100 deg in order to get dishes down from her shelf at home. STG Duration 5 weeks Assisted Goal (LTG) Pt will be able to lift her R arm in fwd flexion to at least 120 deg in order to get dishes down from her shelf at home. 12/23/23: 150 deg R flex without compensation, reports minimal pain at end range LTG Duration 10 weeks MET Seven Impairment strength Impairment R masseur/masseuse 25# Short Term Goal (STG) Pt will improve R masseur/masseuse strength by at least 2# to be comparable to the L masseur/masseuse strength in order be able to open jars without assistance and to perform ADLs more independently. STG Duration 5 weeks Mixed Signal Design Engineer Goal (LTG) Pt will improve R masseur/masseuse strength by at least 5# to be comparable to the L masseur/masseuse strength in order be able to open jars without assistance and to perform ADLs more independently. 12/23/23: MET 48# R masseur/masseuse; reports able to ebony LTG Duration 10 weeks MET Six Impairment R quad and hamstring MMT 4-/5 Short Term Goal (STG) Pt will improve R quad and hamstring MMT to at least 4/5 in order to demo improved knee strength for transfers, stairs, and gait. 12/23/23: 3+/5 hamstring due to pain from hamstring injury in November; 4-/5 for quad 01/24/24: 4/5 quad, 4-/5 hamstring due to pain STG Duration 5 weeks PARTIALLY MET Assisted Goal (LTG) Pt will improve R quad and hamstring MMT to at least 4+/5 in order to demo improved knee strength for transfers, stairs, and gait. 12/23/23: 3+/5 hamstring due to pain from hamstring injury in November; 4-/5 for quad LTG Duration 10 weeks NOT MET Five Impairment LE strength Impairment R hip flex MMT 3+/5 Short Term Goal (STG) Pt will improve R hip flex MMT to at least 4/5 in order to demo improved hip strength for foot clearance and limb advancement during gait. 01/24/24: 4-/5 hip flex 12/23/23: 3+/5 due to hamstring pain STG Duration 5 weeks NOT MET Mixed Signal Design Engineer Goal (LTG) Pt will improve R hip flex MMT to at least 4+/5 in order to demo improved hip strength for foot clearance and limb advancement during gait. 01/24/24: 4-/5 MMT hip flexion 12/23/23: 3+/5 due to hamstring pain LTG Duration 10 weeks NOT MET Four Impairment strength Impairment 4 steps with reciprocal pattern with CGA using 1 HR to ascend, 2 to descend, no AD Short Term Goal (STG) Pt will perform at least 8 6 stairs using a reciprocal gait pattern with SBA and 1 or no hand rails using LRAD in order to demo improved BLE strength and balance. 12/23/23: 4 stairs, non reciprocal gait (LLE leading ascent, RLE leading descent) due to hamstring pain, SBA 1 rail STG Duration 5 weeks Mixed Signal Design Engineer Goal (LTG) Pt will perform at least 16 6 stairs using a reciprocal gait pattern with SBA and 1 or no hand rails using LRAD in order to demo improved BLE strength and balance. 12/23/23: 4 stairs, non reciprocal gait (LLE leading ascent, RLE leading descent) due to hamstring pain, SBA 1 rail LTG Duration 10 weeks NOT MET, PROGRESSING Three Impairment endurance, ambulation Impairment 6 MWT 736 ft (224.3 m), no AD Short Term Goal (STG) Pt will improve 6 MWT distance by at least 50 ft (786 ft, 239 m) using LRAD in order to demonstrate better BLE strength and endurance for community ambulation. STG Duration 5 weeks Assisted Goal (LTG) Pt will improve 6 MWT distance to at least 848 ft (258 m, 1 MCID) using LRAD in order to demonstrate better BLE strength and endurance for community ambulation. 12/23/23: 886 ft, no AD used; gait antalgic LTG Duration 10 weeks MET Two Impairment strength Impairment 5x STS 35.17 sec Short Term Goal (STG) Pt will improve 5x STS time to at least 30 seconds or less in order to demonstrate improved BLE strength and endurance. STG Duration 5 weeks Mixed Signal Design Engineer Goal (LTG) Pt will improve 5X STS time to at least 25 seconds or less in order to demonstrate improved BLE strength and endurance. 12/23/20: 24.41 sec, from chair, no UE use; difficulty rising due to hamstring pain LTG Duration 10 weeks MET One Impairment Balance Impairment Myers/56 Short Term Goal (STG) Pt will improve Myers score to at least 44/56 in order to demonstrate improvements in balance and safety awareness during higher level activities . STG Duration 5 weeks Mixed Signal Design Engineer Goal (LTG) Pt will improver Myers score to at least 47/56 (1 MCID for acute stroke pt) in order to demonstrate improvements in balance and safety awareness during higher level activities . 12/23/23: 48/56 Myers LTG Duration 10 weeks MET Assessment Summary Assessment Pt received x ray results of R foot. Pt had pain with heel raises in session today and at home with HEP, discontinued this session until further discussion with PT. Progressed STS with addition of weight, cued for weight close to body. Pt education on MANUEL and mechanics with STS, improved fluidity of movement during STS, post education. Continued Shuttle balance this session for hip/ankle strength and balance, pt quick to fatigue. Physical Therapy Plan Frequency and Duration Frequency of Treatment 1-2x/wk Duration of treatment (weeks) 8 Plan of Care Start Date 12/23/23 Plan of Care End Date 02/18/24 Therapeutic Interventions Therapeutic Interventions Aquatic Therapy,Balance Training,Canalithic Repositioning,Coordination Training,Gait Training,Home Exercise Program,Joint Mobilizations,Manual Therapy, Neuromuscular Re-education, Orthotic/Prosthetic Management ,Patient/Caregiver Education, Self-Care/Home Management, Sensory Integration,Soft Tissue Mobilization,Taping, Therapeutic Activities, Therapeutic Exercises, Vestibular Rehabilitation Modalities Cold Pack/Ice Massage,Electric Stimulation,Hot Packs, Vasopneumatic Devices Other Referrals/Consults Referrals/Consults Recommended Due to new onset R hamstring pain s/p slip down stairs earlier in November, PT recommending follow up with PCP, MRI, and referral to ortho depending on severity. Will need new PT referral depending on change in medical status Next Visit Focus/Plan Next Note Type Treatment Note Next Visit Plan Continue with dynamic balance, shuttle, banded and dual tasking activity; trial floor transfers with chair, and carrying weighted objects POC: gentle isometrics for prox HS (do not stress HS). Cont balance activities (foam, change MANUEL, add head turns, etc) and gait training. Perform pain free BLE strengthening POC: BLE strengthening (leg press squat, LAQ, STS, HSC) and balance (ambulation, Myers activities). Begin some balance activities. Review hip hinge increase repetitions for STS, add small resistance or lower table. Continue masseur/masseuse strength activity, rotator cuff strengthening and RUE AROM Manual: scapulothoracic mob, MWM as tolerated in shldr flex , Take BP start of session, focus on balance next session
--- NOTE | 2024-02-15 12:23 | PT.OTN ---
Current Diagnoses Hypothyroidism, unspecified (02/15/24) Personal history of transient ischemic attack (TIA), and cerebral infarction without residual deficits (02/15/24) Physical Therapy Treatment Note PT-OP-A Visit Information Start: 11/01/23 10:42 Freq: Status: Active Protocol: Document 02/15/24 11:26 SW (Rec: 02/15/24 12:23 SW [id number]) Out-Patient Physical Therapy Visit Information Visit Information Visit Type Treatment Note Visit Start Time 11:25 Visit Stop Time 12:04 Visit Number 18 Number of NAVIGATION OFFICER Visits 2 PT-OP-B Current Condition Start: 11/01/23 10:42 Freq: Status: Active Protocol: Document 11/01/23 15:35 NM (Rec: 11/01/23 16:02 NM [id number]) Current Condition History of Current Condition Onset Date 08/24/23 Current Complaints BLE weakness, balance History of Current Condition Pt presents to clinic with BLE weakness and balance impairments following a CVA on 08/24/23. Pt reports that her R side was primarily affected. She has the most difficulty with maintaining her balance while ambulating, especially while turning. She complains of occasional instances of numbness in her R hand and foot, which she believes impacts her balance, and she has pain in multiple joints due to fibromyalgia. She also reports decreased R photo tech strength and difficulty with elevating her RUE secondary to pain. Prior to her stroke, she used a spc with a small base at the point for community ambulation; however, she did not bring it to the clinic today. Pt also reports occasional episodes of dizziness when moving from sitting > standing, which causes her LOB. PMH includes fibromyalgia, lupus. Currently , she is not allowed to drive. Future Testing and Treatments Planned Follow up on 11/10 with physician Treatment Goals Patient/Caregiver Goals Improve ambulation, balance Prior Functional Status Baseline Function- ADL's Independent Baseline Function- Mobility Independent Baseline Function- Gait spc for community distances prn Baseline Function- Recreation/Hobbies Water aerobics Current Functional Impairments (Reported) Functional Limitations- ADL's Unable to drive. Limitations with dressing, gripping, lifting, standing balance, endurance, activity tolerance Functional Limitations- Mobility/Gait Limited ability to ambulate, uses spc more frequently for community ambulation distances Functional Limitations- Recreation/ Unable to participate in water Hobbies aerobics because unable to drive PT-OP-C Subjective Start: 11/01/23 10:42 Freq: Status: Active Protocol: Document 02/15/24 11:26 SW (Rec: 02/15/24 12:23 SW [id number]) OP-PT Subjective Patient Comments Patient Comments Pt reports doing water aerobics. Still soreness in proximal hamstring, but no other changes to report. PT-OP-D Balance Start: 11/01/23 10:42 Freq: Status: Active Protocol: Document 11/01/23 15:35 NM (Rec: 11/01/23 16:02 NM [id number]) OP-PT Balance Assessment Sitting Balance Static Sitting Balance Ability Good Dynamic Sitting Balance Ability Good Balance Tests Myers Balance Test Myers Balance Test Score 40/56 Myers Impairment Rating 20 to 39% Impaired (Score 34- 44) Functional Reach Functional Reach Test 2 cm Single Limb Standing Single Limb- Right 1 sec Single Limb- Left 3 sec Semi-Tandem Standing Semi-Tandem Standing Balance 5 sec ea side Tandem Tandem Standing unable without UE support William Fall Scale Copyright Permission PT-OP-E Functional Tests Start: 11/01/23 10:42 Freq: Status: Active Protocol: Document 11/01/23 15:35 NM (Rec: 11/01/23 16:02 NM [id number]) Functional Tests 6 Minute Walk Test Distance 736 Device Used none Comments SBA Five Times Sit to Stand Test Score 35.17 sec PT-OP-F Manual Assessment Start: 11/01/23 10:42 Freq: Status: Active Protocol: Document 11/01/23 15:35 NM (Rec: 11/01/23 16:02 NM [id number]) Manual Assessments Soft Tissue Assessment Soft Tissue Mobility Assessment No soft tissue restrictions noted Joint Mobility Assessment Joint Mobility Assessment R shoulder ROM is painful in fwd flex, abduction with limited scapular mobility and impingement symptoms. No laxity noted at knee PT-OP-G Mobility & Gait Start: 11/01/23 10:42 Freq: Status: Active Protocol: Document 11/01/23 15:35 NM (Rec: 11/01/23 16:02 NM [id number]) OP Gait Assessment Gait Gait Assistance Required: Standby Assistance Distance (Feet) 736 Able to Maintain Weight Bearing Status Yes During Gait Assistive Devices Assistive Device None,Straight Cane Gait Deviations General Gait Pattern Decreased Stride Length,Flexed Trunk,Step-to Gait Factors Limiting Gait Function Factors Limiting Gait Function Decreased Strength, Incoordination,Limited Range of Motion,Poor Balance Comments Gait Comments Reports that she uses a spc for community ambulation Stair Climbing Evaluation Evaluation Level of Assist On Stairs Contact Guard Assistance Devices Stair Climbing Assistive Devices Right Railing Technique/Endurance Stair Climbing Direction Ascend and Descend Stair Climbing Technique Step Over Step Number of Steps Climbed 4 Stair Climbing Set # Repetitions (reps) 1 Comments Stair Climbing Comments Reciprocal motion, 1 HR to ascend, 2 HR to descent; CGA to steady; Demos decreased eccentric control at knee during descent PT-OP-H Neuro Start: 11/01/23 10:42 Freq: Status: Active Protocol: Document 11/01/23 15:35 NM (Rec: 11/01/23 16:02 NM [id number]) Sensation Evaluation Gross Sensation Gross Sensation Right LE Impaired Sensation Description Paresthesia,Numbness Dermatome Impairments L4,L5,S1,S2 Comments Summary Comments Able to distinguish light touch on RLE, however reports that it is less than LLE from L4-S2 dermatomes Coordination Evaluation Upper Extremity Tests Left Finger to Nose Test Normal Performance Alternate Nose to Finger Test Normal Performance Pronation/Supination Test minimal impairment but performed slowly Right Finger to Nose Test Minimal Impairment Alternate Nose to Finger Test Minimal Impairment Pronation/Supination Test Minimal impairment but performed slowly bilaterally Lower Extremity Tests Left Heel on Khalil Test Normal Performance Right Heel on Khalil Test Minimal Impairment Deep Tendon Reflex & Clonus Assessment Deep Tendon Reflex L biceps Deep Tendon Reflex 2+ Normal R biceps Deep Tendon Reflex 2+ Normal Vital Signs Blood Pressure Sitting Blood Pressure (90/60-120/80 mmHg) 120/77 Blood Pressure Source Automatic Cuff,Left Upper Extremity Oxygen Pulse Oximetry at Rest (%) (95-100 %) 96 PT-OP-J Posture/Palpation/Skin Start: 11/01/23 10:42 Freq: Status: Active Protocol: Document 11/01/23 15:35 NM (Rec: 11/01/23 16:02 NM [id number]) Posture Evaluation Position Sitting Evaluation View posterior, lateral Head/C-Spine Posture Forward Head T-Spine Posture Increased Kyphosis L-Spine Posture Increased Lordosis Shoulder Posture (L) Rounded,(R) Rounded,(L) Forward,(R) Forward Weight Distribution Weight Shifted Left Hip Posture (R) Externally Rotated Knee Posture (L) Genu Valgus,(R) Genu Valgus PT-OP-K Range of Motion Start: 11/01/23 10:42 Freq: Status: Active Protocol: Document 11/03/23 10:31 NM (Rec: 11/03/23 11:32 NM [id number]) Shoulder Goniometric Range of Motion Shoulder Left Shoulder ROM WFL No Testing Position Supine Flexion 150 Abduction 150 External Rotation at 45 degrees 70 Abduction Internal Rotation 70 Right Shoulder ROM WFL No Testing Position Supine Flexion 107 Abduction 130 External Rotation at 45 degrees 30 Abduction Internal Rotation 70 PT-OP-M Strength Start: 11/01/23 10:42 Freq: Status: Active Protocol: Document 01/24/24 10:31 NM (Rec: 01/24/24 12:16 NM [id number]) Hip Strength Hip Manual Muscle Testing Right Flexion (L2) 3+ Fair+ Extension (S1) 3+ Fair+ Abduction 4- Good- Adduction 4+ Good+ External Rotation 4+ Good+ Internal Rotation 4+ Good+ Comments IE: flex 3+/5, ext and abd 4/5 , ER/IR 4+/5 12/23/23: pain with resisted hip ext. 01/24/24: 4-/5 flex, ext, abd; min pain with extension at prox hamstring Knee Strength Knee Manual Muscle Testing Right Flexion (S2) 3+ Fair+ Extension (L3) 4- Good- Comments IE: 4-/5 for both 12/23/23: painful resisted flexion 01/24/24: min pain with resisted flexion 4-/5, 4/5 knee ext PT-OP-Q Treatments Start: 11/01/23 10:42 Freq: Status: Active Protocol: Document 02/15/24 11:26 SW (Rec: 02/15/24 12:23 SW [id number]) Therapeutic Exercises Sitting Exercises STS Sitting Exercise Name with hip hinge Resistance 4.4# tball Equipment Used 18 chair ht, no UE support Reps/Minutes 2x10 Comments min cues for wider MANUEL, cues for knee flexion, hip hinge Neuro Re-Education Treatment Balance Activities Outdoor ambulation Details unstable surface, stair/curb, min ascend/descend Surface grass, rocks, concrete Comments CGA>close SBA shuttle recovery Details red clips, A/P Surface unstable Equipment feet on 4 Comments Cued to maintain level board, ankle strategy. CGA>1 finger assist> no UE support PT-OP-R Modalities Start: 12/16/23 12:54 Freq: Status: Active Protocol: Document 12/16/23 10:37 SW (Rec: 12/16/23 12:56 [id number]) Hot Pack/Cold Pack Treatment Hot Pack Location posterior Patient Position Supine Patient Tolerance Good Comments bolster under LE, lucas within reach x15 min PT-OP-T Assessment and Plan Start: 11/01/23 10:42 Freq: Status: Active Protocol: Document 02/15/24 11:26 (Rec: 02/15/24 12:23 [id number]) Physical Therapy Assessment Goals Eight Impairment R shoulder ROM Short Term Goal (STG) Pt will be able to lift her R arm in fwd flexion to at least 100 deg in order to get dishes down from her shelf at home. STG Duration 5 weeks Fdc Goal (LTG) Pt will be able to lift her R arm in fwd flexion to at least 120 deg in order to get dishes down from her shelf at home. 12/23/23: 150 deg R flex without compensation, reports minimal pain at end range LTG Duration 10 weeks MET Seven Impairment strength Impairment R photo tech 25# Short Term Goal (STG) Pt will improve R photo tech strength by at least 2# to be comparable to the L photo tech strength in order be able to open jars without assistance and to perform ADLs more independently. STG Duration 5 weeks Equipment Engineering Technician Goal (LTG) Pt will improve R photo tech strength by at least 5# to be comparable to the L photo tech strength in order be able to open jars without assistance and to perform ADLs more independently. 12/23/23: MET 48# R photo tech; reports able to ebony LTG Duration 10 weeks MET Six Impairment R quad and hamstring MMT 4-/5 Short Term Goal (STG) Pt will improve R quad and hamstring MMT to at least 4/5 in order to demo improved knee strength for transfers, stairs, and gait. 12/23/23: 3+/5 hamstring due to pain from hamstring injury in November; 4-/5 for quad 01/24/24: 4/5 quad, 4-/5 hamstring due to pain STG Duration 5 weeks PARTIALLY MET Equipment Engineering Technician Goal (LTG) Pt will improve R quad and hamstring MMT to at least 4+/5 in order to demo improved knee strength for transfers, stairs, and gait. 12/23/23: 3+/5 hamstring due to pain from hamstring injury in November; 4-/5 for quad LTG Duration 10 weeks NOT MET Five Impairment LE strength Impairment R hip flex MMT 3+/5 Short Term Goal (STG) Pt will improve R hip flex MMT to at least 4/5 in order to demo improved hip strength for foot clearance and limb advancement during gait. 01/24/24: 4-/5 hip flex 12/23/23: 3+/5 due to hamstring pain STG Duration 5 weeks NOT MET Equipment Engineering Technician Goal (LTG) Pt will improve R hip flex MMT to at least 4+/5 in order to demo improved hip strength for foot clearance and limb advancement during gait. 01/24/24: 4-/5 MMT hip flexion 12/23/23: 3+/5 due to hamstring pain LTG Duration 10 weeks NOT MET Four Impairment strength Impairment 4 steps with reciprocal pattern with CGA using 1 HR to ascend, 2 to descend, no AD Short Term Goal (STG) Pt will perform at least 8 6 stairs using a reciprocal gait pattern with SBA and 1 or no hand rails using LRAD in order to demo improved BLE strength and balance. 12/23/23: 4 stairs, non reciprocal gait (LLE leading ascent, RLE leading descent) due to hamstring pain, SBA 1 rail STG Duration 5 weeks Fdc Goal (LTG) Pt will perform at least 16 6 stairs using a reciprocal gait pattern with SBA and 1 or no hand rails using LRAD in order to demo improved BLE strength and balance. 12/23/23: 4 stairs, non reciprocal gait (LLE leading ascent, RLE leading descent) due to hamstring pain, SBA 1 rail LTG Duration 10 weeks NOT MET, PROGRESSING Three Impairment endurance, ambulation Impairment 6 MWT 736 ft (224.3 m), no AD Short Term Goal (STG) Pt will improve 6 MWT distance by at least 50 ft (786 ft, 239 m) using LRAD in order to demonstrate better BLE strength and endurance for community ambulation. STG Duration 5 weeks Fdc Goal (LTG) Pt will improve 6 MWT distance to at least 848 ft (258 m, 1 MCID) using LRAD in order to demonstrate better BLE strength and endurance for community ambulation. 12/23/23: 886 ft, no AD used; gait antalgic LTG Duration 10 weeks MET Two Impairment strength Impairment 5x STS 35.17 sec Short Term Goal (STG) Pt will improve 5x STS time to at least 30 seconds or less in order to demonstrate improved BLE strength and endurance. STG Duration 5 weeks Equipment Engineering Technician Goal (LTG) Pt will improve 5X STS time to at least 25 seconds or less in order to demonstrate improved BLE strength and endurance. 12/23/20: 24.41 sec, from chair, no UE use; difficulty rising due to hamstring pain LTG Duration 10 weeks MET One Impairment Balance Impairment Myers/56 Short Term Goal (STG) Pt will improve Myers score to at least 44/56 in order to demonstrate improvements in balance and safety awareness during higher level activities . STG Duration 5 weeks Equipment Engineering Technician Goal (LTG) Pt will improver Myers score to at least 47/56 (1 MCID for acute stroke pt) in order to demonstrate improvements in balance and safety awareness during higher level activities . 12/23/23: 48/56 Myers LTG Duration 10 weeks MET Assessment Summary Assessment Focused on dynamic balance this session. Inititiated outdoor ambulation with uneven surfaces, including ascending /descending terrain and stairs /curbs, pt initially demonstrated a step to pattern with stairs, then progressed to reciprocal stairs. Pt hesitant with unstable surfaces, cued pt for gazing environment to see upcoming obstacles. Pt tolerated session well, and may benefit from continued focus on outdoor uneven surfaces as weather permits, to improve pt balance. Physical Therapy Plan Frequency and Duration Frequency of Treatment 1-2x/wk Duration of treatment (weeks) 8 Plan of Care Start Date 12/23/23 Plan of Care End Date 02/18/24 Therapeutic Interventions Therapeutic Interventions Aquatic Therapy,Balance Training,Canalithic Repositioning,Coordination Training,Gait Training,Home Exercise Program,Joint Mobilizations,Manual Therapy, Neuromuscular Re-education, Orthotic/Prosthetic Management ,Patient/Caregiver Education, Self-Care/Home Management, Sensory Integration,Soft Tissue Mobilization,Taping, Therapeutic Activities, Therapeutic Exercises, Vestibular Rehabilitation Modalities Cold Pack/Ice Massage,Electric Stimulation,Hot Packs, Vasopneumatic Devices Other Referrals/Consults Referrals/Consults Recommended Due to new onset R hamstring pain s/p slip down stairs earlier in November, PT recommending follow up with PCP, MRI, and referral to ortho depending on severity. Will need new PT referral depending on change in medical status Next Visit Focus/Plan Next Note Type Treatment Note Next Visit Plan Continue with dynamic balance, shuttle, banded and dual tasking activity; trial floor transfers with chair, and carrying weighted objects POC: gentle isometrics for prox HS (do not stress HS). Cont balance activities (foam, change MANUEL, add head turns, etc) and gait training. Perform pain free BLE strengthening POC: BLE strengthening (leg press squat, LAQ, STS, HSC) and balance (ambulation, Myers activities). Begin some balance activities. Review hip hinge increase repetitions for STS, add small resistance or lower table. Continue photo tech strength activity, rotator cuff strengthening and RUE AROM Manual: scapulothoracic mob, MWM as tolerated in shldr flex , Take BP start of session, focus on balance next session
--- NOTE | 2024-02-18 11:54 | PT.OTN ---
Current Diagnoses Hypothyroidism, unspecified (02/18/24) Personal history of transient ischemic attack (TIA), and cerebral infarction without residual deficits (02/18/24) Physical Therapy Treatment Note PT-OP-A Visit Information Start: 11/01/23 10:42 Freq: Status: Active Protocol: Document 02/18/24 09:44 NM (Rec: 02/18/24 10:32 NM [id number]) Out-Patient Physical Therapy Visit Information Visit Information Visit Type Discharge Summary Visit Start Time 09:45 Visit Stop Time 10:30 Visit Number 19 Evaluation Information Evaluation Date 11/01/23 Precautions Precautions Fall risk Hx: CVA, check vitals PT-OP-B Current Condition Start: 11/01/23 10:42 Freq: Status: Active Protocol: Document 11/01/23 15:35 NM (Rec: 11/01/23 16:02 NM [id number]) Current Condition History of Current Condition Onset Date 08/24/23 Current Complaints BLE weakness, balance History of Current Condition Pt presents to clinic with BLE weakness and balance impairments following a CVA on 08/24/23. Pt reports that her R side was primarily affected. She has the most difficulty with maintaining her balance while ambulating, especially while turning. She complains of occasional instances of numbness in her R hand and foot, which she believes impacts her balance, and she has pain in multiple joints due to fibromyalgia. She also reports decreased R slab grinder strength and difficulty with elevating her RUE secondary to pain. Prior to her stroke, she used a spc with a small base at the point for community ambulation; however, she did not bring it to the clinic today. Pt also reports occasional episodes of dizziness when moving from sitting > standing, which causes her LOB. PMH includes fibromyalgia, lupus. Currently , she is not allowed to drive. Future Testing and Treatments Planned Follow up on 11/10 with physician Treatment Goals Patient/Caregiver Goals Improve ambulation, balance Prior Functional Status Baseline Function- ADL's Independent Baseline Function- Mobility Independent Baseline Function- Gait spc for community distances prn Baseline Function- Recreation/Hobbies Water aerobics Current Functional Impairments (Reported) Functional Limitations- ADL's Unable to drive. Limitations with dressing, gripping, lifting, standing balance, endurance, activity tolerance Functional Limitations- Mobility/Gait Limited ability to ambulate, uses spc more frequently for community ambulation distances Functional Limitations- Recreation/ Unable to participate in water Hobbies aerobics because unable to drive PT-OP-C Subjective Start: 11/01/23 10:42 Freq: Status: Active Protocol: Document 02/18/24 09:44 NM (Rec: 02/18/24 10:32 NM [id number]) OP-PT Subjective Patient Comments Patient Comments Pt reports that today is not a good day regarding pain due to fibromyalgia. She has been performing stairs, using heat for hamstring and reports no pain. She has been compliant with HEP. She states she sees the difference in her ankles , BLE strength. She reports that she is able to do everything that she needs to do, she is making little improvements. Reports good improvement in balance. She is comfortable with discharging today if goals are met. PT-OP-D Balance Start: 11/01/23 10:42 Freq: Status: Active Protocol: Document 11/01/23 15:35 NM (Rec: 11/01/23 16:02 NM [id number]) OP-PT Balance Assessment Sitting Balance Static Sitting Balance Ability Good Dynamic Sitting Balance Ability Good Balance Tests Myers Balance Test Myers Balance Test Score 40/56 Myers Impairment Rating 20 to 39% Impaired (Score 34- 44) Functional Reach Functional Reach Test 2 cm Single Limb Standing Single Limb- Right 1 sec Single Limb- Left 3 sec Semi-Tandem Standing Semi-Tandem Standing Balance 5 sec ea side Tandem Tandem Standing unable without UE support William Fall Scale Copyright Permission PT-OP-E Functional Tests Start: 11/01/23 10:42 Freq: Status: Active Protocol: Document 11/01/23 15:35 NM (Rec: 11/01/23 16:02 NM [id number]) Functional Tests 6 Minute Walk Test Distance 736 Device Used none Comments SBA Five Times Sit to Stand Test Score 35.17 sec PT-OP-F Manual Assessment Start: 11/01/23 10:42 Freq: Status: Active Protocol: Document 11/01/23 15:35 NM (Rec: 11/01/23 16:02 NM [id number]) Manual Assessments Soft Tissue Assessment Soft Tissue Mobility Assessment No soft tissue restrictions noted Joint Mobility Assessment Joint Mobility Assessment R shoulder ROM is painful in fwd flex, abduction with limited scapular mobility and impingement symptoms. No laxity noted at knee PT-OP-G Mobility & Gait Start: 11/01/23 10:42 Freq: Status: Active Protocol: Document 11/01/23 15:35 NM (Rec: 11/01/23 16:02 NM [id number]) OP Gait Assessment Gait Gait Assistance Required: Standby Assistance Distance (Feet) 736 Able to Maintain Weight Bearing Status Yes During Gait Assistive Devices Assistive Device None,Straight Cane Gait Deviations General Gait Pattern Decreased Stride Length,Flexed Trunk,Step-to Gait Factors Limiting Gait Function Factors Limiting Gait Function Decreased Strength, Incoordination,Limited Range of Motion,Poor Balance Comments Gait Comments Reports that she uses a spc for community ambulation Stair Climbing Evaluation Evaluation Level of Assist On Stairs Contact Guard Assistance Devices Stair Climbing Assistive Devices Right Railing Technique/Endurance Stair Climbing Direction Ascend and Descend Stair Climbing Technique Step Over Step Number of Steps Climbed 4 Stair Climbing Set # Repetitions (reps) 1 Comments Stair Climbing Comments Reciprocal motion, 1 HR to ascend, 2 HR to descent; CGA to steady; Demos decreased eccentric control at knee during descent PT-OP-H Neuro Start: 11/01/23 10:42 Freq: Status: Active Protocol: Document 11/01/23 15:35 NM (Rec: 11/01/23 16:02 NM [id number]) Sensation Evaluation Gross Sensation Gross Sensation Right LE Impaired Sensation Description Paresthesia,Numbness Dermatome Impairments L4,L5,S1,S2 Comments Summary Comments Able to distinguish light touch on RLE, however reports that it is less than LLE from L4-S2 dermatomes Coordination Evaluation Upper Extremity Tests Left Finger to Nose Test Normal Performance Alternate Nose to Finger Test Normal Performance Pronation/Supination Test minimal impairment but performed slowly Right Finger to Nose Test Minimal Impairment Alternate Nose to Finger Test Minimal Impairment Pronation/Supination Test Minimal impairment but performed slowly bilaterally Lower Extremity Tests Left Heel on Khalil Test Normal Performance Right Heel on Khalil Test Minimal Impairment Deep Tendon Reflex & Clonus Assessment Deep Tendon Reflex L biceps Deep Tendon Reflex 2+ Normal R biceps Deep Tendon Reflex 2+ Normal Vital Signs Blood Pressure Sitting Blood Pressure (90/60-120/80 mmHg) 120/77 Blood Pressure Source Automatic Cuff,Left Upper Extremity Oxygen Pulse Oximetry at Rest (%) (95-100 %) 96 PT-OP-J Posture/Palpation/Skin Start: 11/01/23 10:42 Freq: Status: Active Protocol: Document 11/01/23 15:35 NM (Rec: 12/11/23 16:02 NM [id number]) Posture Evaluation Position Sitting Evaluation View posterior, lateral Head/C-Spine Posture Forward Head T-Spine Posture Increased Kyphosis L-Spine Posture Increased Lordosis Shoulder Posture (L) Rounded,(R) Rounded,(L) Forward,(R) Forward Weight Distribution Weight Shifted Left Hip Posture (R) Externally Rotated Knee Posture (L) Genu Valgus,(R) Genu Valgus PT-OP-K Range of Motion Start: 11/01/23 10:42 Freq: Status: Active Protocol: Document 11/03/23 10:31 NM (Rec: 11/03/23 11:32 NM [id number]) Shoulder Goniometric Range of Motion Shoulder Left Shoulder ROM WFL No Testing Position Supine Flexion 150 Abduction 150 External Rotation at 45 degrees 70 Abduction Internal Rotation 70 Right Shoulder ROM WFL No Testing Position Supine Flexion 107 Abduction 130 External Rotation at 45 degrees 30 Abduction Internal Rotation 70 PT-OP-M Strength Start: 11/01/23 10:42 Freq: Status: Active Protocol: Document 02/18/24 09:44 NM (Rec: 02/18/24 10:32 NM [id number]) Hip Strength Hip Manual Muscle Testing Right Flexion (L2) 4+ Good+ Extension (S1) 4 Good Abduction 4+ Good+ Adduction 4+ Good+ External Rotation 4+ Good+ Internal Rotation 4+ Good+ Comments IE: flex 3+/5, ext and abd 4/5 , ER/IR 4+/5 12/23/23: pain with resisted hip ext. 01/24/24: 4-/5 flex, ext, abd; min pain with extension at prox hamstring 02/18/24: 4+/5 abd/flex, 4/5 ext Knee Strength Knee Manual Muscle Testing Right Flexion (S2) 4+ Good+ Extension (L3) 4+ Good+ Comments IE: 4-/5 for both 12/23/23: painful resisted flexion 01/24/24: min pain with resisted flexion 4-/5, 4/5 knee ext 02/18/24: 4+/5 for both, pain free PT-OP-Q Treatments Start: 11/01/23 10:42 Freq: Status: Active Protocol: Document 02/18/24 09:44 NM (Rec: 02/18/24 10:32 NM [id number]) Therapeutic Exercises Sitting Exercises STS Sitting Exercise Name with hip hinge Resistance 5.5# tball Equipment Used 16 chair ht, no UE support Reps/Minutes 1x12 Comments improved control, pain free Standing Exercises hip 3 way Standing Exercise Name flex, ext, abd Side bilateral Resistance lvl 1 tb around ankles Equipment Used 1 hand support on plinth Reps/Minutes 1x5 ea Comments pain free; cued toes neutral Hip flexion Standing Exercise Name january alternating Side bilateral Resistance lvl 1 blue tb Equipment Used band around feet, 1 hand support on bar Reps/Minutes 2x10 Comments pain free Calf stretch Standing Exercise Name 1. gastroc, 2. soleus Side bilateral Equipment Used foot against stairs Reps/Minutes 1x30 ea Comments pain free Other Exercises Squat Other Exercise Name chair touch Side bilateral Resistance 5.5# tball Equipment Used no UE support Reps/Minutes 1x15 Comments cued upright posture, feet a little more fwd, pain free on HS Gait Training Gait Activity uneven surface Device Used none Level of Assistance IND Surface grass, sidewalk Distance/Duration 200 ft Treatment Focus balance, visual scanning, foot placement on uneven surface Comments Pt ambulating outside on uneven surfaces without AD, IND. Stairs Device Used 1 hand rail assist Level of Assistance SBA Surface stable Distance/Duration 4 steps x 4 reps Treatment Focus stair training, balance Comments 1. Able to perform with reciprocal gait and no pain in BLE 2. eccentric step down emphasis from 6 step for gait mechanics, hand placement on rail, 1x5 ea leg. Cued slightly wider MANUEL for stability, pain free 3. curb step down without rail , 1x5 ea Cued for closer to edge before attempting to step, improved with reps, no LOB but more challenging on RLE Self-Care/Home Management Treatment Education Patient Education Fall Risk,Home Exercise Program,Safety Other Education 7 minutes: PT and pt discussed past HEP and established current maintenance program 3x /wk. Pt planning to alternate exercises (already performing) , performing 20 min/day in addition to her water aerobics . PT educated pt safety and decreasing fall risk at home, minimizing distractions and improving safety with transition times/processing times. Pt verbalizes agreement and has been demonstrating improvements since last conversation Added to HEP: goblet squat, standing january 3 way hip, G/S stretch PT-OP-R Modalities Start: 01/25/24 12:54 Freq: Status: Active Protocol: Document 12/16/23 10:37 SW (Rec: 12/16/23 12:56 SW [id number]) Hot Pack/Cold Pack Treatment Hot Pack Location posterior Patient Position Supine Patient Tolerance Good Comments bolster under LE, lucas within reach x15 min PT-OP-T Assessment and Plan Start: 11/01/23 10:42 Freq: Status: Active Protocol: Document 02/18/24 09:44 NM (Rec: 02/18/24 10:32 NM [id number]) Physical Therapy Assessment Goals Eight Impairment R shoulder ROM Short Term Goal (STG) Pt will be able to lift her R arm in fwd flexion to at least 100 deg in order to get dishes down from her shelf at home. STG Duration 5 weeks Longterm Goal (LTG) Pt will be able to lift her R arm in fwd flexion to at least 120 deg in order to get dishes down from her shelf at home. 12/23/23: 150 deg R flex without compensation, reports minimal pain at end range LTG Duration 10 weeks MET Seven Impairment strength Impairment R slab grinder 25# Short Term Goal (STG) Pt will improve R slab grinder strength by at least 2# to be comparable to the L slab grinder strength in order be able to open jars without assistance and to perform ADLs more independently. STG Duration 5 weeks Cost Reduction Engineer Goal (LTG) Pt will improve R slab grinder strength by at least 5# to be comparable to the L slab grinder strength in order be able to open jars without assistance and to perform ADLs more independently. 12/23/23: MET 48# R slab grinder; reports able to ebony LTG Duration 10 weeks MET Six Impairment R quad and hamstring MMT 4-/5 Short Term Goal (STG) Pt will improve R quad and hamstring MMT to at least 4/5 in order to demo improved knee strength for transfers, stairs, and gait. 12/23/23: 3+/5 hamstring due to pain from hamstring injury in November; 4-/5 for quad 01/24/24: 4/5 quad, 4-/5 hamstring due to pain STG Duration 5 weeks PARTIALLY MET Longterm Goal (LTG) Pt will improve R quad and hamstring MMT to at least 4+/5 in order to demo improved knee strength for transfers, stairs, and gait. 12/23/23: 3+/5 hamstring due to pain from hamstring injury in November; 4-/5 for quad 02/18/24: 4+/5 MMT for both, pain free LTG Duration 10 weeks MET Five Impairment LE strength Impairment R hip flex MMT 3+/5 Short Term Goal (STG) Pt will improve R hip flex MMT to at least 4/5 in order to demo improved hip strength for foot clearance and limb advancement during gait. 01/24/24: 4-/5 hip flex 12/23/23: 3+/5 due to hamstring pain STG Duration 5 weeks MET Cost Reduction Engineer Goal (LTG) Pt will improve R hip flex MMT to at least 4+/5 in order to demo improved hip strength for foot clearance and limb advancement during gait. 02/18/24: 4+/5 MMT hip flex, pain free 01/24/24: 4-/5 MMT hip flexion 12/23/23: 3+/5 due to hamstring pain LTG Duration 10 weeks MET Four Impairment strength Impairment 4 steps with reciprocal pattern with CGA using 1 HR to ascend, 2 to descend, no AD Short Term Goal (STG) Pt will perform at least 8 6 stairs using a reciprocal gait pattern with SBA and 1 or no hand rails using LRAD in order to demo improved BLE strength and balance. 12/23/23: 4 stairs, non reciprocal gait (LLE leading ascent, RLE leading descent) due to hamstring pain, SBA 1 rail 02/18/24: Able to perform 16 stairs with 1 hand rail assist , SBA and reciprocal pattern; no pain STG Duration 5 weeks MET Longterm Goal (LTG) Pt will perform at least 16 6 stairs using a reciprocal gait pattern with SBA and 1 or no hand rails using LRAD in order to demo improved BLE strength and balance. 12/23/23: 4 stairs, non reciprocal gait (LLE leading ascent, RLE leading descent) due to hamstring pain, SBA 1 rail 02/18/24: Able to perform 16 stairs with 1 hand rail assist , SBA and reciprocal pattern; no pain LTG Duration 10 weeks MET Three Impairment endurance, ambulation Impairment 6 MWT 736 ft (224.3 m), no AD Short Term Goal (STG) Pt will improve 6 MWT distance by at least 50 ft (786 ft, 239 m) using LRAD in order to demonstrate better BLE strength and endurance for community ambulation. STG Duration 5 weeks Cost Reduction Engineer Goal (LTG) Pt will improve 6 MWT distance to at least 848 ft (258 m, 1 MCID) using LRAD in order to demonstrate better BLE strength and endurance for community ambulation. 12/23/23: 886 ft, no AD used; gait antalgic LTG Duration 10 weeks MET Two Impairment strength Impairment 5x STS 35.17 sec Short Term Goal (STG) Pt will improve 5x STS time to at least 30 seconds or less in order to demonstrate improved BLE strength and endurance. STG Duration 5 weeks Cost Reduction Engineer Goal (LTG) Pt will improve 5X STS time to at least 25 seconds or less in order to demonstrate improved BLE strength and endurance. 12/23/20: 24.41 sec, from chair, no UE use; difficulty rising due to hamstring pain LTG Duration 10 weeks MET One Impairment Balance Impairment Myers/56 Short Term Goal (STG) Pt will improve Myers score to at least 44/56 in order to demonstrate improvements in balance and safety awareness during higher level activities . STG Duration 5 weeks Longterm Goal (LTG) Pt will improver Myers score to at least 47/56 (1 MCID for acute stroke pt) in order to demonstrate improvements in balance and safety awareness during higher level activities . 12/23/23: 48/56 Myers LTG Duration 10 weeks MET Assessment Summary Assessment Pt tolerated session well and continues to demonstrate improvements in strength and pain management. Session emphasis on reviewing past HEP and finalizing HEP for maintenance program. Pt compliant with HEP and alternates exercises already. Pt able to perform squats with weights and good eccentric control without limitation or pain when cued to place feet more anterior. Pt without hamstring pain during reciprocal stairs, able to perform several sets SBA with 1 hand rail and good stability . During gait, pt continued with addressing curbs and unstable surfaces to improved visual scanning. Remaining session to emphasize continued hip strengthening. Pt has been seen since October 2023 for balance and gait abnormalities s/p stroke. Pt has made good progression with PT and has met all goals. She occasionally has pain related to fibromyalgia. Pt had setback in November due to hamstring strain, but is largely pain free with activity. Pt demonstrates improved balance with Myers score, indicating decreased fall risk. Her 6 MWT distance is improved for her age, stroke status, and she is able to ambulate without LRAD safely in community. Pt is now able to perform stairs using 1 hand rail assist without assistance, using reciprocal gait. Per pt, she is able to participate in ADLs/IADLs without limitation. Since pt is at the end of POC, PT and pt discussed discharge as pt has met goals and has progressed well; pt verbalizes agreement as she is now performing HEP 3x/wk and water aerobics. PT educated pt on following up with PCP if symptoms change/worsen or for new referral. Pt verbalizes agreement and is safe to discharge to independent exercise. Physical Therapy Plan Frequency and Duration Frequency of Treatment 1-2x/wk Duration of treatment (weeks) 8 Plan of Care Start Date 12/23/23 Plan of Care End Date 02/18/24 Therapeutic Interventions Therapeutic Interventions Aquatic Therapy,Balance Training,Canalithic Repositioning,Coordination Training,Gait Training,Home Exercise Program,Joint Mobilizations,Manual Therapy, Neuromuscular Re-education, Orthotic/Prosthetic Management ,Patient/Caregiver Education, Self-Care/Home Management, Sensory Integration,Soft Tissue Mobilization,Taping, Therapeutic Activities, Therapeutic Exercises, Vestibular Rehabilitation Modalities Cold Pack/Ice Massage,Electric Stimulation,Hot Packs, Vasopneumatic Devices Other Referrals/Consults Referrals/Consults Recommended Due to new onset R hamstring pain s/p slip down stairs earlier in November, PT recommending follow up with PCP, MRI, and referral to ortho depending on severity. Will need new PT referral depending on change in medical status Discharge Physical Therapy Discharge Reasons Goals Met Discharge Comments All goals met. Pt at end of POC. PT and pt discussed following up with PCP if pt wants to return to PT or if symptoms worsen/change. Pt verbalizes agreement. Educated on maintenance HEP 3x/wk Next Visit Focus/Plan Next Visit Plan Discharge from OP PT services
== END 2024-02-18 14:50 | disposition home or self-care (01) ==
LOC: PHYS 09:45
PROVIDERS: Family Provider Family Medicine; PCP Family Medicine; Referring Provider Family Medicine; Visit Provider Family Medicine
DX: Z86.73 Personal history of transient ischemic attack (TIA), and cerebral infarction without residual deficits (principal); E03.9 Hypothyroidism, unspecified
CPT/HCPCS: 97110; 97112; 97116; 97140; 97162; 97535

== ENCOUNTER 2024-03-21 22:03 | Emergency (ER) | payer MEDICARE, SELFPAY ==
[2021-06-18 09:57] VITALS: BMI 36.2
[2024-03-21 22:10] VITALS: BP 150/69; PULSE 80; RESP 18; TEMP 36.6; O2SAT 97; BMI 39.4
--- NOTE | 2024-03-21 22:29 | PC.NURSE ---
hit left leg on car door
--- NOTE | 2024-03-21 22:31 | ED_ITS ---
HPI - Skin/Abscess/Foreign Bdy General Chief complaint: Skin/Abscess/Foreign Body Stated complaint: left leg red, hot, sore Time Seen by Provider: 03/21/24 22:27 Source: patient Mode of arrival: Ambulatory Limitations: no limitations History of Present Illness HPI narrative: Patient is a 73-year-old female who at the end of last week sustained an injury to her left lower extremity. She has developed some redness around the area. She went to an outside walk-in clinic about 3 days ago and was prescribed an antibiotic which sounds like Keflex. She has been taking this as directed but she states that her symptoms are not improving and actually worsening. Has some significant pain around the area with redness Related Data Home Medications Medication Instructions Recorded Confirmed aspirin 325 mg tablet,delayed 325 mg PO DAILY 09/28/23 03/19/24 release Previous Rx's Medication Instructions Recorded oxybutynin chloride 10 mg 10 mg PO DAILY #180 tabs 02/02/23 tablet,extended release 24 hr cetirizine 10 mg tablet See Rx Instructions .Route 08/24/23 .COMPLEX #90 tabs amlodipine 5 mg tablet 5 mg PO DAILY #90 tabs 10/22/23 carvedilol 12.5 mg tablet 12.5 mg PO BID #90 tabs 10/22/23 esomeprazole magnesium 40 mg 40 mg PO DAILY #90 caps 12/23/23 capsule,delayed release epinephrine 0.3 mg/0.3 mL 0.3 mg (0.3 mL) IM ONCE #2 ea 12/31/23 injection, auto-injector (EpiPen 2-Velasquez) lisinopril 10 mg tablet 10 mg PO DAILY #90 tabs 12/31/23 levothyroxine 112 mcg tablet 112 mcg PO DAILY #90 tabs 01/19/24 oxybutynin chloride 5 mg tablet 5 mg PO DAILY #90 tabs 02/03/24 amitriptyline 10 mg tablet See Rx Instructions .Route 02/18/24 .COMPLEX #90 tabs sertraline 25 mg tablet See Rx Instructions .Route 03/13/24 .COMPLEX #90 tabs atorvastatin 10 mg tablet 10 mg PO DAILY #90 tabs 03/17/24 cephalexin 500 mg capsule 500 mg PO QID 7 days #28 caps 03/19/24 doxycycline hyclate 100 mg tablet 100 mg PO BID 7 days #14 tabs 03/21/24 Allergies Allergy/AdvReac Type Severity Reaction Status Date / Time shellfish derived Allergy Severe Anaphylaxis Verified 03/19/24 16:35 morphine AdvReac Severe Vomiting, Verified 03/19/24 16:35 headaches chlorthalidone AdvReac Intermediate ITCHING Verified 03/19/24 16:35 empagliflozin AdvReac Intermediate Palpitation Verified 03/19/24 16:35 s exenatide [From Bydureon] AdvReac Intermediate Headache Verified 03/19/24 16:35 gabapentin AdvReac Intermediate Heartburn Verified 03/19/24 16:35 trulici AdvReac Intermediate Nausea Uncoded 03/19/24 16:35 Review of Systems Constitutional Constitutional: Reports system reviewed and no additional complaints, except as documented Musculoskeletal Musculoskeletal: Reports system reviewed and no additional complaints, except as documented Integumentary/Breasts Skin/Breast: Reports system reviewed and no additional complaints, except as documented Patient History Medical History Obstructive sleep apnea History of COVID-19 Rectal bleeding Colitis CVA (cerebral vascular accident) Palpitations Medication side effects Nausea Abdominal pain Plantar fasciitis of right foot Trigger finger, right ring finger UTI (urinary tract infection) Finger joint swelling Chronic pain of left knee Chronic left shoulder pain Obesity (BMI 30-39.9) (Unknown) Nightmares associated with chronic post-traumatic stress disorder (~2009) Obstructive sleep apnea, adult (~2019) Insomnia, psychophysiological Excessive daytime sleepiness (~2009) Joint pain in both hands Diarrhea Upper extremity somatic dysfunction Chronic right shoulder pain Sigmoid diverticulitis Tension headache Postmenopausal symptoms Acute low back pain without sciatica Segmental and somatic dysfunction of abdomen and other regions Segmental and somatic dysfunction of rib cage Stiff neck Fatigue (~2009) Somatic dysfunction of lower extremity Sacral region somatic dysfunction Pelvic somatic dysfunction Somatic dysfunction of abdominal region Lumbar region somatic dysfunction Thoracic region somatic dysfunction Cervical somatic dysfunction Cranial somatic dysfunction Chronic tension headaches Rosacea (~2018) Allergies (~2014) Anxiety (~2017) Carpal tunnel syndrome (~1992) Vertigo (~2014) Cataracts, bilateral (~2018) Fibroids (~1980) Abnormal Pap smear of cervix (~1977) History of urinary incontinence (~1993) Thyroid nodule (~2009) PTSD (post-traumatic stress disorder) Chronic thoracic back pain Incontinence of urine Intermittent palpitations DVT (deep venous thrombosis) (~1975) Easy bruisability Systemic lupus erythematosus (~2000) Osteoarthritis (~2013) Hypothyroidism Diabetes (~2009) Elevated liver enzymes GERD (gastroesophageal reflux disease) (~2013) Irregular heart rate HLD (hyperlipidemia) HTN (hypertension) (~2005) Pneumonia Fibromyalgia (~2000) Migraines (~1976) Surgical History Anesthesia History of oophorectomy (~2004) History of carpal tunnel release (~1992) History of right breast biopsy (~1987) S/P right unicompartmental knee replacement (~06/2015) Hx of arthroscopy of right knee (~2013) Hx of tonsillectomy H/O: hysterectomy (~1978) Hx of tubal ligation History of bladder surgery (~1993) Hx of cholecystectomy (~2003) Family History Father Hypertension Arthritis Prostate cancer Hyperlipidemia Loud snoring Sleep apnea Obesity Diabetes mellitus Alcohol abuse Mother History of heart disease Hypertension Hyperlipidemia Mental health problem Stroke Insomnia Restless leg Depression Anxiety Alcohol abuse Sister History of heart disease Hypertension Hyperlipidemia Loud snoring Insomnia Restless leg Obesity Anxiety Depression Sister Lupus Arthritis Fibromyalgia Grandfather Alcoholism Grandmother History of heart disease Hypertension Stroke Grandmother Cancer Family/Other Loud snoring Sleep apnea Obesity Hypertension Social History household members: none Smoking Status: Never smoker alcohol intake: never Smoking Status: Never smoker Substance Use Type: does not use Exam Initial Vital Signs Initial Vital Signs: Vital Signs Temperature 98 F 03/21/24 22:10 Pulse Rate 80 03/21/24 22:10 Respiratory Rate 18 03/21/24 22:10 Blood Pressure 150/69 H 03/21/24 22:10 Pulse Oximetry 97 03/21/24 22:10 Oxygen Delivery Method Room Air 03/21/24 22:10 Const General: cooperative and healthy appearing Skin Other: Patient with a 6 cm x 6 cm area of erythema with a 1 cm area of a skin abrasion in the center of this. There are no vesicles. No pustules. It is warm to the touch. Bedside ultrasound shows no deep abscess. Course Orders Ordered: Discontinued Medications Doxycycline Hyclate (Doxycycline Hyclate 100 Mg Tablet) 100 mg PO NOW ONE Stop: 03/21/24 22:33 Last Admin: 03/21/24 22:39 Dose: 100 mg Documented By: AMAURI Vital Signs Vital signs: Vital Signs - 8 hr 03/21/24 22:10 03/21/24 22:42 Temperature 98 F Pulse Rate 80 72 Respiratory Rate 18 18 Blood Pressure 150/69 H 125/60 Pulse Oximetry 97 95 Oxygen Delivery Method Room Air Room Air MDM - Skin/Abscess/Foreign Bdy MDM Narrative Medical decision making narrative: History and physical is consistent with a cellulitis. Bedside ultrasound shows no signs of an abscess. Low suspicion for DVT. She has been on Keflex for the past 3 days without any improvement. Does switch her to doxycycline. Has no indication for admission to the hospital. Lab work would be on helpful in this situation. She was given her 1st dose here in the emergency department. Will discharge home with strict return precautions. She expressed understanding and agreement. Discharge Plan Departure Patient Disposition: Home Clinical Impression: Cellulitis Instructions: DI for Cellulitis -- Adult Activity Restrictions/Additional Instructions: You can stop taking the Keflex which is the antibiotic that you are currently taking and start the new antibiotic that we prescribed today. You can shower like normal and use soap and water like normal. Return to the emergency department for new or worsening symptoms. Prescriptions: New doxycycline hyclate 100 mg tablet 100 mg PO BID 7 Days Qty: 14 0RF No Action cephalexin 500 mg capsule 500 mg PO QID 7 Days Qty: 28 0RF oxybutynin chloride 10 mg tablet extended release 24hr 10 mg PO DAILY Qty: 180 3RF cetirizine 10 mg tablet See Rx Instructions .ROUTE .COMPLEX Qty: 90 3RF Dose Instruction: TAKE 1 TABLET BY MOUTH EVERY DAY NEEDED Rx Instructions: TAKE 1 TABLET BY MOUTH EVERY DAY NEEDED amlodipine 5 mg tablet 5 mg PO DAILY Qty: 90 3RF carvedilol 12.5 mg tablet 12.5 mg PO BID Qty: 90 3RF Rx Instructions: must administer with a meal/food esomeprazole magnesium 40 mg capsule,delayed release(DR/EC) 40 mg PO DAILY Qty: 90 1RF lisinopril 10 mg tablet 10 mg PO DAILY Qty: 90 0RF epinephrine [EpiPen 2-Velasquez] 0.3 mg/0.3 mL auto-injector 0.3 mg IM ONCE Qty: 2 0RF Rx Instructions: as a single dose; may repeat once levothyroxine 112 mcg tablet 112 mcg PO DAILY Qty: 90 0RF amitriptyline 10 mg tablet See Rx Instructions .ROUTE .COMPLEX Qty: 90 0RF Dose Instruction: TAKE 1/2 TABLET(5MG) BY MOUTH DAILY, INCREASE BY 5 MG EVERY 2 WEEKS UP TO M AXIMUM TOLERATED DOSE, MAXIMUM DAILY DOSE IS 75 MG Rx Instructions: TAKE 1/2 TABLET(5MG) BY MOUTH DAILY, INCREASE BY 5 MG EVERY 2 WEEKS UP TO MAXIMUM TOLERATED DOSE, MAXIMUM DAILY DOSE IS 75 MG sertraline 25 mg tablet See Rx Instructions .ROUTE .COMPLEX Qty: 90 0RF Dose Instruction: TAKE 1 TABLET BY MOUTH DAILY Rx Instructions: TAKE 1 TABLET BY MOUTH DAILY aspirin 325 mg tablet,delayed release (DR/EC) 325 mg PO DAILY atorvastatin 10 mg tablet 10 mg PO DAILY Qty: 90 3RF oxybutynin chloride 5 mg tablet 5 mg PO DAILY Qty: 90 3RF Referrals: Juana Barton DO [Primary Care Provider] - Stand Alone Forms: Patient Portal/API
[2024-03-21] MEDS: DOXYCYCLINE HYCLATE 100 MG TABLET PO (22:39)
[2024-03-21 22:42] VITALS: BP 125/60; PULSE 72; RESP 18; O2SAT 95
== END 2024-03-21 22:44 | disposition home or self-care (01) ==
PROVIDERS: Emergency Provider Emergency Medicine; Family Provider Family Medicine; PCP Family Medicine
DX: L03.116 Cellulitis of left lower limb (principal)
CPT/HCPCS: 99283

== ENCOUNTER 2024-03-24 15:20 | Inpatient (IN) | payer MEDICARE, SELFPAY ==
[2021-06-18 09:57] VITALS: BMI 36.2
[2024-03-24 15:24] VITALS: BP 128/79; PULSE 67; RESP 16; TEMP 36.4; O2SAT 98; BMI 38.5
--- NOTE | 2024-03-24 15:51 | PC.NURSE ---
patient hit her leg on a car door. She has developed a large 2 centimeter blackened head with a surrounding reddened area. She reports having chills starting the last 3 nights. She denies fever but she does state pain proximal to the swelling. She also states that she is bruising in her foot as well. She is also a Lupus patient. Has not had a flair up in a while.
--- NOTE | 2024-03-24 16:05 | ED_ITS ---
HPI - Wound/Laceration General Chief Complaint: Wound/Laceration Stated Complaint: lt calf wound Time Seen by Provider: 03/24/24 16:04 Source: patient and old records reviewed Mode of arrival: Ambulatory History of Present Illness HPI narrative: This is a 73-year-old female history of TIA, hypertension, dyslipidemia, hypothyroidism, urinary issues with complaint of infected wound on her left calf. Patient had accidentally hit her calf with the edge of her car door she states it was just sort of a tear in the skin was not very deep. Developed what looks like infection was seen at the walk-in clinic on the started on oral Keflex which she had been taking continued to worsen was seen on the 21 of March started on doxycycline and stopped the oral Keflex. Patient was seen today by her primary care physician who mich a line around the wound told her to go the ER if it extends beyond. Since that time his extended several cm beyond. Patient denies any fevers she has had some chills. She denies chest pain or shortness of breath, no nausea or vomiting, denies any constipation she has had some loose stools while taking the antibiotics. No new urinary symptoms. Patient states continued to become more swollen and red has been tracking down the leg as well as somewhat up. She also has increased pain in the popliteal fossa while the wound is more over the calf. She has never had any drainage from the wound itself. Patient states she is on aspirin daily but no other anticoagulation. She has had right knee surgery, she has had abdominal surgeries but never had any surgeries on her left lower extremity, she has never had any vascular interventions. She denies any tobacco, no regular alcohol or recreational drugs. Dr. Blanchard is her primary care physician. Related Data Home Medications Medication Instructions Recorded Confirmed aspirin 325 mg tablet,delayed 325 mg PO DAILY 09/28/23 03/24/24 release amitriptyline 10 mg tablet 10 mg PO BEDTIME 03/27/24 03/27/24 atorvastatin 20 mg tablet 20 mg PO BEDTIME 03/27/24 03/27/24 cetirizine 10 mg tablet 10 mg PO DAILY PRN Allergy Symptoms 03/27/24 03/27/24 oxybutynin chloride 10 mg 15 mg PO DAILY 03/27/24 03/27/24 tablet,extended release 24 hr sertraline 25 mg tablet 25 mg PO DAILY 03/27/24 03/27/24 Previous Rx's Medication Instructions Recorded amlodipine 5 mg tablet 5 mg PO DAILY #90 tabs 10/22/23 carvedilol 12.5 mg tablet 12.5 mg PO BID #90 tabs 10/22/23 esomeprazole magnesium 40 mg 40 mg PO DAILY #90 caps 12/23/23 capsule,delayed release epinephrine 0.3 mg/0.3 mL 0.3 mg (0.3 mL) IM ONCE #2 ea 12/31/23 injection, auto-injector (EpiPen 2-Velasquez) lisinopril 10 mg tablet 10 mg PO DAILY #90 tabs 12/31/23 levothyroxine 112 mcg tablet 112 mcg PO DAILY #90 tabs 01/19/24 cephalexin 500 mg capsule 500 mg PO QID 4 days #16 caps 03/29/24 doxycycline hyclate 100 mg tablet 100 mg PO BID 4 days #8 tabs 03/29/24 Allergies Allergy/AdvReac Type Severity Reaction Status Date / Time shellfish derived Allergy Severe Anaphylaxis Verified 03/24/24 15:31 morphine AdvReac Severe Vomiting, Verified 03/24/24 15:31 headaches chlorthalidone AdvReac Intermediate ITCHING Verified 03/24/24 15:31 empagliflozin AdvReac Intermediate Palpitation Verified 03/24/24 15:31 s exenatide [From Bydureon] AdvReac Intermediate Headache Verified 03/24/24 15:31 gabapentin AdvReac Intermediate Heartburn Verified 03/24/24 15:31 trulici AdvReac Intermediate Nausea Uncoded 03/24/24 15:31 Review of Systems Review of Systems ROS Unobtainable: All systems reviewed & are unremarkable except as noted in HPI and below Patient History Medical History Obstructive sleep apnea History of COVID-19 Rectal bleeding Colitis CVA (cerebral vascular accident) Palpitations Medication side effects Nausea Abdominal pain Plantar fasciitis of right foot Trigger finger, right ring finger UTI (urinary tract infection) Finger joint swelling Chronic pain of left knee Chronic left shoulder pain Obesity (BMI 30-39.9) (Unknown) Nightmares associated with chronic post-traumatic stress disorder (~2009) Obstructive sleep apnea, adult (~2019) Insomnia, psychophysiological Excessive daytime sleepiness (~2009) Joint pain in both hands Diarrhea Upper extremity somatic dysfunction Chronic right shoulder pain Sigmoid diverticulitis Tension headache Postmenopausal symptoms Acute low back pain without sciatica Segmental and somatic dysfunction of abdomen and other regions Segmental and somatic dysfunction of rib cage Stiff neck Fatigue (~2009) Somatic dysfunction of lower extremity Sacral region somatic dysfunction Pelvic somatic dysfunction Somatic dysfunction of abdominal region Lumbar region somatic dysfunction Thoracic region somatic dysfunction Cervical somatic dysfunction Cranial somatic dysfunction Chronic tension headaches Rosacea (~2018) Allergies (~2014) Anxiety (~2017) Carpal tunnel syndrome (~1992) Vertigo (~2014) Cataracts, bilateral (~2018) Fibroids (~1980) Abnormal Pap smear of cervix (~1977) History of urinary incontinence (~1993) Thyroid nodule (~2009) PTSD (post-traumatic stress disorder) Chronic thoracic back pain Incontinence of urine Intermittent palpitations DVT (deep venous thrombosis) (~1975) Easy bruisability Systemic lupus erythematosus (~2000) Osteoarthritis (~2013) Hypothyroidism Diabetes (~2009) Elevated liver enzymes GERD (gastroesophageal reflux disease) (~2013) Irregular heart rate HLD (hyperlipidemia) HTN (hypertension) (~2005) Pneumonia Fibromyalgia (~2000) Migraines (~1976) Surgical History Anesthesia History of oophorectomy (~2004) History of carpal tunnel release (~1992) History of right breast biopsy (~1987) S/P right unicompartmental knee replacement (~06/2015) Hx of arthroscopy of right knee (~2013) Hx of tonsillectomy H/O: hysterectomy (~1978) Hx of tubal ligation History of bladder surgery (~1993) Hx of cholecystectomy (~2003) Family History Father Hypertension Arthritis Prostate cancer Hyperlipidemia Loud snoring Sleep apnea Obesity Diabetes mellitus Alcohol abuse Mother History of heart disease Hypertension Hyperlipidemia Mental health problem Stroke Insomnia Restless leg Depression Anxiety Alcohol abuse Sister History of heart disease Hypertension Hyperlipidemia Loud snoring Insomnia Restless leg Obesity Anxiety Depression Sister Lupus Arthritis Fibromyalgia Grandfather Alcoholism Grandmother History of heart disease Hypertension Stroke Grandmother Cancer Family/Other Loud snoring Sleep apnea Obesity Hypertension Social History household members: none Smoking Status: Never smoker alcohol intake: never Smoking Status: Never smoker Substance Use Type: does not use Exam Narrative Exam Narrative: GENERAL: Alert and oriented x three, well-appearing female in mild distress. HEENT: Head normocephalic, atraumatic, EOMI, pupils reactive, face symmetric, moist mucous membranes NECK: Supple, full range of motion CARDIOVASCULAR: Regular rate and rhythm without murmurs, rubs or gallops. RESPIRATORY: Breath sounds equal bilaterally, no wheezes rales or rhonchi. ABDOMEN: Soft, nontender. Normoactive bowel sounds all 4 quadrants. No guarding or rebound, rigidity, no mass : No CVA tenderness EXTREMITIES: Normal range of motion, no clubbing. Patient has with black discoloration although skin appears intact that is about cm and a half with a surrounding area of about 9 cm of erythema tracking down into the ankle and some up towards the calf. She has not induration but no fluctuance. She has her wound marked reportedly from today at office visit and has extended about 4 cm beyond that in the last several hours. She is mildly tender but not exquisitely. She has 2+ dorsalis pedis. She does have good range of motion. She does have some tenderness in the popliteal fossa while the wound is over the calf. Neurovascularly intact. NEUROLOGICAL: Cranial nerves II through XII grossly intact. Moving all extremities SKIN: Warm, dry, no petechiae, no rashes or lesions otherwise noted. Initial Vital Signs Initial Vital Signs: Vital Signs Temperature 97.6 F 03/24/24 15:24 Pulse Rate 67 03/24/24 15:24 Respiratory Rate 16 03/24/24 15:24 Blood Pressure 128/79 03/24/24 15:24 Pulse Oximetry 98 03/24/24 15:24 Oxygen Delivery Method Room Air 03/24/24 15:24 Course Orders Ordered: Discontinued Medications Acetaminophen (Acetaminophen 325 Mg Tablet) 975 mg PO NOW ONE Stop: 03/24/24 16:33 Last Admin: 03/24/24 16:46 Dose: 975 mg Documented By: BRIANDA Acetaminophen (Acetaminophen 325 Mg Tablet) 975 mg PO Q6HRWA [facility] Last Admin: 03/29/24 10:01 Dose: 975 mg Documented By: Admin: 03/28/24 21:04 Dose: 975 mg Documented By: Admin: 03/28/24 16:21 Dose: Not Given Documented By: Admin: 03/28/24 10:43 Dose: 975 mg Documented By: Admin: 03/27/24 20:15 Dose: Not Given Documented By: Admin: 03/27/24 18:46 Dose: 975 mg Documented By: Admin: 03/27/24 09:25 Dose: 975 mg Documented By: Admin: 03/26/24 21:10 Dose: Not Given Documented By: Admin: 03/26/24 18:49 Dose: 975 mg Documented By: Admin: 03/26/24 10:31 Dose: 975 mg Documented By: Admin: 03/25/24 21:11 Dose: 975 mg Documented By: Admin: 03/25/24 14:25 Dose: 975 mg Documented By: Admin: 03/25/24 09:20 Dose: 975 mg Documented By: Admin: 03/24/24 20:06 Dose: 975 mg Documented By: AT Amitriptyline HCl (Amitriptyline 10 Mg Tablet) 10 mg PO BEDTIME [facility] Last Admin: 03/28/24 21:05 Dose: 10 mg Documented By: Admin: 03/27/24 20:13 Dose: 10 mg Documented By: Admin: 03/26/24 21:10 Dose: 10 mg Documented By: Admin: 03/25/24 21:13 Dose: Not Given Documented By: Admin: 03/25/24 21:10 Dose: 10 mg Documented By: AT Amitriptyline HCl (Amitriptyline 10 Mg Tablet) 10 mg PO BEDTIME [facility] Last Admin: 03/28/24 22:10 Dose: Not Given Documented By: AT Amlodipine Besylate (Amlodipine 5 Mg Tablet) 5 mg PO DAILY [facility] Last Admin: 03/29/24 10:01 Dose: 5 mg Documented By: Admin: 03/28/24 10:44 Dose: 5 mg Documented By: Admin: 03/27/24 09:26 Dose: 5 mg Documented By: Admin: 03/26/24 10:31 Dose: 5 mg Documented By: Admin: 03/25/24 09:20 Dose: 5 mg Documented By: REN Aspirin (Aspirin Ec 325 Mg Tablet) 325 mg PO DAILY [facility] Last Admin: 03/28/24 11:04 Dose: Not Given Documented By: Admin: 03/27/24 09:26 Dose: 325 mg Documented By: Admin: 03/26/24 10:31 Dose: 325 mg Documented By: Admin: 03/25/24 09:17 Dose: 325 mg Documented By: REN Atorvastatin Calcium (Atorvastatin 20 Mg Tablet) 10 mg PO DAILY [facility] Last Admin: 03/28/24 10:43 Dose: 10 mg Documented By: Admin: 03/27/24 09:26 Dose: 10 mg Documented By: Admin: 03/26/24 10:32 Dose: 10 mg Documented By: Admin: 03/25/24 09:20 Dose: 10 mg Documented By: REN Atorvastatin Calcium (Atorvastatin 20 Mg Tablet) 20 mg PO BEDTIME [facility] Last Admin: 03/28/24 21:05 Dose: 20 mg Documented By: JENNY Bupivacaine HCl (Bupivacaine 0.25% (Pf) Vial) 30 ml INJ NOW ONE Stop: 03/28/24 16:21 Last Admin: 03/28/24 16:15 Dose: 20 ml Documented By: YANNA Carvedilol (Carvedilol 12.5 Mg Tablet) 12.5 mg PO BID [facility] Last Admin: 03/29/24 10:01 Dose: 12.5 mg Documented By: Admin: 03/28/24 21:05 Dose: 12.5 mg Documented By: Admin: 03/28/24 10:42 Dose: 12.5 mg Documented By: Admin: 03/27/24 20:13 Dose: 12.5 mg Documented By: Admin: 03/27/24 09:26 Dose: 12.5 mg Documented By: Admin: 03/26/24 21:10 Dose: 12.5 mg Documented By: Admin: 03/26/24 10:32 Dose: 12.5 mg Documented By: Admin: 03/25/24 21:10 Dose: 12.5 mg Documented By: Admin: 03/25/24 09:18 Dose: 12.5 mg Documented By: Admin: 03/24/24 21:28 Dose: 12.5 mg Documented By: AT Enoxaparin Sodium (Enoxaparin 40 Mg/0.4 Ml Syringe) 40 mg SUBCUT DAILY [facility] Last Admin: 03/29/24 10:05 Dose: Not Given Documented By: Admin: 03/28/24 11:03 Dose: Not Given Documented By: Admin: 03/27/24 09:27 Dose: 40 mg Documented By: Admin: 03/25/24 09:20 Dose: 40 mg Documented By: REN Fentanyl (Fentanyl 100 Mcg/2 Ml Inj) 0 mcg IV Q5M PRN PRN Reason: Pain, Moderate (4-6) Hydromorphone HCl (Hydromorphone 0.5 Mg Inj) 0.5 mg IV Q4H PRN PRN Reason: Pain, Moderate (4-6) Hydromorphone HCl (Hydromorphone 1 Mg Inj) 0 mg IV Q5MIN PRN PRN Reason: Pain, Severe (7-10) Clindamycin Phosphate (Cleocin) 900 mg in 50 mls @ 50 mls/hr IV NOW ONE Stop: 03/24/24 17:24 Last Infusion: 03/24/24 18:08 Dose: Infused Documented By: Admin: 03/24/24 16:46 Dose: 50 mls/hr Documented By: BRIANDA Sodium Chloride (Normal Saline 0.9%) 1,000 mls @ 150 mls/hr IV CONT [facility] Last Infusion: 03/24/24 18:07 Dose: 0 mls/hr Documented By: Admin: 03/24/24 16:46 Dose: 150 mls/hr Documented By: BRIANDA Sodium Chloride (Normal Saline 0.9%) 1,000 mls @ 100 mls/hr IV CONT [place] Stop: 03/25/24 05:59 Last Admin: 03/24/24 20:07 Dose: 100 mls/hr Documented By: JENNY Ceftriaxone Sodium 1,000 mg/ (Sodium Chloride) 100 mls @ 200 mls/hr IV Q24H [place] Stop: 03/29/24 18:01 Last Infusion: 03/28/24 19:00 Dose: Infused Documented By: Admin: 03/28/24 18:23 Dose: 200 mls/hr Documented By: Infusion: 03/27/24 20:00 Dose: Infused Documented By: Admin: 03/27/24 18:45 Dose: 200 mls/hr Documented By: Infusion: 03/26/24 19:19 Dose: Infused Documented By: Admin: 03/26/24 18:49 Dose: 200 mls/hr Documented By: Infusion: 03/25/24 18:06 Dose: Infused Documented By: Admin: 03/25/24 17:36 Dose: 200 mls/hr Documented By: Infusion: 03/24/24 20:38 Dose: Infused Documented By: Admin: 03/24/24 20:08 Dose: 200 mls/hr Documented By: AT Vancomycin HCl/Dextrose (Vancomycin) 1,500 mg in 300 mls @ 200 mls/hr IV Q12H [place] Stop: 03/29/24 08:29 Last Admin: 03/29/24 06:57 Dose: Not Given Documented By: Infusion: 03/28/24 22:35 Dose: Infused Documented By: Admin: 03/28/24 21:04 Dose: 200 mls/hr Documented By: Infusion: 03/28/24 07:43 Dose: Infused Documented By: Admin: 03/28/24 06:13 Dose: 200 mls/hr Documented By: Infusion: 03/27/24 21:45 Dose: Infused Documented By: Admin: 03/27/24 20:14 Dose: 200 mls/hr Documented By: Infusion: 03/27/24 18:22 Dose: Infused Documented By: Admin: 03/27/24 06:29 Dose: 200 mls/hr Documented By: Infusion: 03/26/24 21:38 Dose: Infused Documented By: Admin: 03/26/24 20:08 Dose: 200 mls/hr Documented By: Infusion: 03/26/24 09:33 Dose: Infused Documented By: Admin: 03/26/24 08:03 Dose: 200 mls/hr Documented By: Infusion: 03/25/24 20:30 Dose: Infused Documented By: Admin: 03/25/24 18:57 Dose: 200 mls/hr Documented By: Infusion: 03/25/24 07:32 Dose: Infused Documented By: Admin: 03/25/24 06:02 Dose: 200 mls/hr Documented By: Infusion: 03/24/24 22:58 Dose: Infused Documented By: Admin: 03/24/24 21:28 Dose: 200 mls/hr Documented By: AT Lactated Ringer's (Lactated Ringers) 1,000 mls @ 42 mls/hr IV NOW ONE Stop: 03/29/24 15:28 Last Infusion: 03/28/24 17:01 Dose: Infused Documented By: Admin: 03/28/24 15:41 Dose: 42 mls/hr Documented By: LISSY Acetaminophen (Ofirmev) 1,000 mg in 100 mls @ 400 mls/hr IV NOW ONE Stop: 03/28/24 16:44 Last Admin: 03/28/24 16:46 Dose: 400 mls/hr Documented By: EBONIE Levothyroxine Sodium (Levothyroxine 112 Mcg Tablet) 112 mcg PO DAILY [facility] Last Admin: 03/25/24 09:20 Dose: 112 mcg Documented By: REN Levothyroxine Sodium (Levothyroxine 112 Mcg Tablet) 112 mcg PO DAILY@0600 [facility] Last Admin: 03/29/24 06:26 Dose: 112 mcg Documented By: Admin: 03/28/24 06:13 Dose: 112 mcg Documented By: Admin: 03/27/24 06:29 Dose: 112 mcg Documented By: Admin: 03/26/24 06:35 Dose: 112 mcg Documented By: JENNY Lisinopril (Lisinopril 10 Mg Tablet) 10 mg PO DAILY [facility] Last Admin: 03/29/24 10:01 Dose: 10 mg Documented By: Admin: 03/28/24 10:42 Dose: 10 mg Documented By: Admin: 03/27/24 09:27 Dose: 10 mg Documented By: Admin: 03/26/24 10:32 Dose: 10 mg Documented By: Admin: 03/25/24 09:20 Dose: 10 mg Documented By: REN Loratadine (Loratadine 10 Mg Tablet) 10 mg PO DAILY PRN PRN Reason: Allergic Symptoms Melatonin (Melatonin 3 Mg Tablet) 6 mg PO BEDTIME PRN PRN Reason: Insomnia Naloxone HCl (Naloxone 0.4 Mg/Ml Vial) 0.2 mg IV Q2MIN PRN PRN Reason: Opiate Reversal Non-Formulary Medication (Cetirizine) 0 mg .ROUTE .COMPLEX [facility] Non-Formulary Medication (Esomeprazole Magnesium) 40 mg PO DAILY [facility] Ondansetron HCl (Ondansetron 4 Mg/2 Ml Inj) 4 mg IV Q4HR PRN PRN Reason: Nausea And Vomiting Last Admin: 03/29/24 12:53 Dose: 4 mg Documented By: REN Ondansetron HCl (Ondansetron 4 Mg/2 Ml Inj) 4 mg IV NOW PRN PRN Reason: Nausea And Vomiting Oxybutynin Chloride (Oxybutynin 5 Mg Er Tab) 10 mg PO DAILY [facility] Last Admin: 03/28/24 10:44 Dose: 10 mg Documented By: Admin: 03/27/24 09:27 Dose: 10 mg Documented By: Admin: 03/26/24 10:29 Dose: 10 mg Documented By: Admin: 03/25/24 09:17 Dose: 10 mg Documented By: REN Oxybutynin Chloride (Oxybutynin 5 Mg Er Tab) 15 mg PO DAILY [facility] Last Admin: 03/29/24 10:00 Dose: 15 mg Documented By: REN Oxycodone HCl (Oxycodone Ir 5 Mg Tablet) 5 mg PO Q4HR PRN PRN Reason: Pain, Moderate (4-6) Last Admin: 03/29/24 12:53 Dose: 5 mg Documented By: Admin: 03/28/24 22:50 Dose: 5 mg Documented By: Admin: 03/28/24 16:46 Dose: 5 mg Documented By: Admin: 03/27/24 21:57 Dose: 5 mg Documented By: Admin: 03/27/24 10:58 Dose: 5 mg Documented By: Admin: 03/25/24 19:38 Dose: 5 mg Documented By: JENNY Pantoprazole Sodium (Pantoprazole Dr 40 Mg Tablet) 40 mg PO 0600 [facility] Last Admin: 03/29/24 06:26 Dose: 40 mg Documented By: Admin: 03/28/24 06:13 Dose: 40 mg Documented By: Admin: 03/27/24 06:29 Dose: 40 mg Documented By: Admin: 03/26/24 06:35 Dose: 40 mg Documented By: Admin: 03/25/24 06:02 Dose: 40 mg Documented By: JENNY Polyethylene Glycol (Polyethylene Glycol 3350 17 Gm Powd.Pack) 17 gm PO DAILY PRN PRN Reason: Constipation Sennosides (Sennosides 8.6 Mg Tablet) 8.6 mg PO BID PRN PRN Reason: Constipation Last Admin: 03/29/24 10:00 Dose: 8.6 mg Documented By: Admin: 03/28/24 22:50 Dose: 8.6 mg Documented By: AT Sertraline HCl (Sertraline 50 Mg Tablet) 25 mg PO BEDTIME [facility] Last Admin: 03/28/24 21:05 Dose: 25 mg Documented By: Admin: 03/27/24 20:13 Dose: 25 mg Documented By: Admin: 03/26/24 21:10 Dose: 25 mg Documented By: Admin: 03/25/24 21:11 Dose: 25 mg Documented By: AT Vancomycin HCl (Vancomycin Per Pharmacy) 1 request MIS NOW ONE Stop: 03/24/24 17:56 Last Admin: 03/27/24 08:49 Dose: Not Given Documented By: LDV Vancomycin HCl (Vancomycin Trough) 1 request MIS NOW ONE Stop: 03/26/24 06:31 Last Admin: 03/26/24 07:42 Dose: Not Given Documented By: KL Vancomycin HCl (Vancomycin Trough) 1 [place] [facility] [place] [facility] Stop: 03/29/24 06:31 Last Admin: 03/29/24 06:57 Dose: Not Given Documented By: AT Vital Signs Vital signs: Vital Signs - 8 hr 03/24/24 15:24 Temperature 97.6 F Pulse Rate 67 Respiratory Rate 16 Blood Pressure 128/79 Pulse Oximetry 98 Oxygen Delivery Method Room Air MDM - Wound/Laceration Lab Data 03/29/24 06:16 03/29/24 06:16 Labs: Lab Results 03/24/24 03/25/24 03/26/24 Range/Units 15:37 05:28 06:27 WBC 9.5 7.9 8.3 (4.5-11.0) X10^3/uL RBC 4.56 4.14 4.15 (4.0-5.2) X10^6/uL Hgb 12.7 11.4 L 11.6 L (12.0-16.0) g/dL Hct 38.1 34.5 L 34.6 L (36-46) % MCV 83.6 83.5 83.5 (80-100) fL MCH 27.8 27.6 27.9 (26-34) PG MCHC 33.3 33.1 33.4 (30-36) % RDW 13.2 13.3 13.2 (11.6-14.8) % Plt Count 228 187 198 (150-400) X10^3/uL Neut % (Auto) 53.3 40.3 L 41.2 L (50-75) % Lymph % (Auto) 35.6 45.0 H 45.4 H (25-40) % [place] % (Auto) 5.8 7.7 6.7 (3-14) % Eos % (Auto) 4.1 H 5.6 H 5.3 H (2-4) % Baso % (Auto) 1.2 1.4 1.4 (0-2) % Neut # (Auto) 5100 3200 3400 (3051-4885) /uL Lymph # (Auto) 3400 3600 3800 (9045-8542) /uL [place] # (Auto) 500 600 600 (0-900) /uL Eos # (Auto) 400 400 400 (0-450) /uL Baso # (Auto) 100 100 100 (0-100) /uL PT 11.7 (9.4-12.5) SECONDS INR 1.0 (0.9-1.3) APTT 38 H (25.1-36.5) SECONDS Sodium 137 137 138 (137-145) mmol/L Potassium 4.4 3.9 4.0 (3.4-5.1) mmol/L Chloride 103 106 107 (98-107) mmol/L Carbon Dioxide 28 24 26 (22-32) mmol/L BUN 14 14 18 H (7-17) mg/dL Creatinine 0.57 0.54 0.61 (0.52-1.04) mg/dL Estimated GFR > 60 > 60 > 60 (>60) mL/min BUN/Creatinine Ratio 24.6 H 25.9 H 29.5 H (6-22) Glucose 128 H 119 H 136 H (80-110) mg/dL Lactate 1.0 (0.7-2.1) mmol/L Calcium 9.6 8.8 8.9 (8.4-10.2) mg/dL Total Bilirubin 0.7 (0.2-1.3) mg/dL AST 35 (14-36) IU/L ALT 20 (<35) IU/L Alkaline Phosphatase 84 (38-126) U/L Total Protein 7.7 (6.3-8.2) g/dL Albumin 4.6 (3.5-5.0) g/dL Globulin 3.1 (1.7-4.1) g/dL Albumin/Globulin Ratio 1.5 (1.0-2.8) Lipase 30 (23-300) U/L Procalcitonin < 0.03 (<0.5) ng/mL Vancomycin Trough 14.9 (10-20) ug/mL 03/27/24 Range/Units 05:07 WBC 8.9 (4.5-11.0) X10^3/uL RBC 4.33 (4.0-5.2) X10^6/uL Hgb 12.1 (12.0-16.0) g/dL Hct 36.0 (36-46) % MCV 83.0 (80-100) fL MCH 27.9 (26-34) PG MCHC 33.7 (30-36) % RDW 13.6 (11.6-14.8) % Plt Count 210 (150-400) X10^3/uL Neut % (Auto) 41.0 L (50-75) % Lymph % (Auto) 46.1 H (25-40) % [place] % (Auto) 6.5 (3-14) % Eos % (Auto) 5.2 H (2-4) % Baso % (Auto) 1.2 (0-2) % Neut # (Auto) 3700 (6174-3318) /uL Lymph # (Auto) 4100 (9375-8641) /uL [place] # (Auto) 600 (0-900) /uL Eos # (Auto) 500 H (0-450) /uL Baso # (Auto) 100 (0-100) /uL PT (9.4-12.5) SECONDS INR (0.9-1.3) APTT (25.1-36.5) SECONDS Sodium 138 (137-145) mmol/L Potassium 3.9 (3.4-5.1) mmol/L Chloride 106 (98-107) mmol/L Carbon Dioxide 25 (22-32) mmol/L BUN 16 (7-17) mg/dL Creatinine 0.68 (0.52-1.04) mg/dL Estimated GFR > 60 (>60) mL/min BUN/Creatinine Ratio 23.5 H (6-22) Glucose 131 H (80-110) mg/dL Lactate (0.7-2.1) mmol/L Calcium 9.0 (8.4-10.2) mg/dL Total Bilirubin (0.2-1.3) mg/dL AST (14-36) IU/L ALT (<35) IU/L Alkaline Phosphatase (38-126) U/L Total Protein (6.3-8.2) g/dL Albumin (3.5-5.0) g/dL Globulin (1.7-4.1) g/dL Albumin/Globulin Ratio (1.0-2.8) Lipase (23-300) U/L Procalcitonin (<0.5) ng/mL Vancomycin Trough (10-20) ug/mL Imaging Data US - DVT: Radiologist's Impression: [address] [address] Ultrasound Report Signed Patient: Veronica Brand MR#: [id number] : 1950 Acct:[id number] Age/Sex: 73 / F Date of Service: 03/24/24 Loc: ED Accession Number: [id number] Procedure: US periph venous low extrem lt Ordering Provider: Nichole Judd D.O. PROCEDURE: US PERIPH VENOUS LOW EXTREM LT INDICATIONS: r/o abscess and dvt, red swollen calf but also pain into pop TECHNIQUE: Real-time imaging, as well as color and pulse Doppler interrogation, were performed of the lower extremity deep veins from the inguinal ligament to the popliteal fossa, with documentation of the visualized calf veins. COMPARISON: None. FINDINGS: The common femoral, femoral, popliteal, and the visualized calf veins are normally compressible, and free of intraluminal thrombus. Color and pulse Doppler demonstrate normal phasic intraluminal flow. There is normal augmentation response to distal compression maneuver. Within the calf, there is a poorly defined area of soft tissue fluid, with a 9 mm cystic focus seen within it. This process measures 2.2 x 3 x 1.6 cm. Mildly surrounding increased vascularity can be seen. IMPRESSION: No findings of lower extremity deep venous thrombosis. Hematoma versus phlegmon seen involving the calf, without a drainable abscess. Dictated by: Adam Esquivel M.D. on 03/24/2024 at 16:17 Approved by: Adam Esquivel M.D. on 03/24/2024 at 16:19 MDM Narrative Medical decision making narrative: 73-year-old female who presents with complaint of wound on her lower extremity who has had 2 oral antibiotics it is quite indurated but not clearly fluctuant although there maybe abscess below. She does not appear septic. Soft tissue ultrasound was obtained but also DVT is of some for pain tracking up along the inner thigh and into the popliteal fossa but without erythema. Labs CBC is overall appropriate Ultrasound, no DVT, does have a 2.2 x 3 x 1.6 cm poorly defined area of with 9 mm cystic focus increased vascularity hematoma versus phlegmon involving the calf without a drainable abscess on ultrasound. Patient received a dose IV antibiotic. For ultrasound to evaluate for abscess and depth as well as DVT, dose of IV antibiotic. Abscess that is drainable and even if there is present may require admission for IV antibiotics after failing to oral antibiotics. Spoke with hospitalist, Dr. Ku, plan for admission for IV antibiotics after failing to oral antibiotics. No I and D in the department no drainable abscess on ultrasound but discussed there is an area of hematoma versus phlegmon. Discharge Plan Departure Patient Disposition: Admitted As Inpatient Clinical Impression: Cellulitis of calf Admit Date/Time: 03/27/24 11:52 Admit Provider: Luis Antonio Ku
[2024-03-24 16:22] LABS: Add Manual Diff / Slide Review NO; Basophils Absolute Auto 100 /uL (0-100); Basophils Percent Auto 1.2 % (0-2); Eosinophils Absolute Auto 400 /uL (0-450); Eosinophils Percent Auto 4.1 % (2-4); Hematocrit 38.1 % (36-46); Hemoglobin 12.7 g/dL (12.0-16.0); Lymphocytes Absolute Auto 3400 /uL (1100-4500); Lymphocytes Percent Auto 35.6 % (25-40); Mean Corpuscular HGB Conc 33.3 % (30-36); Mean Corpuscular Hemoglobin 27.8 PG (26-34); Mean Corpuscular Volume 83.6 fL (80-100); Monocytes Absolute Auto 500 /uL (0-900); Monocytes Percent Auto 5.8 % (3-14); Neutrophils Absolute Auto 5100 /uL (1500-7000); Neutrophils Percent Auto 53.3 % (50-75); Platelet Count 228 X10^3/uL (150-400); Red Blood Cell Count 4.56 X10^6/uL (4.0-5.2); Red Cell Distribution Width 13.2 % (11.6-14.8); White Blood Cell Count 9.5 X10^3/uL (4.5-11.0)
[2024-03-24 16:23] LABS: Prothrombin Time 11.7 SECONDS (9.4-12.5)
--- NOTE | 2024-03-24 16:23 | DI.US.S_ITS ---
PROCEDURE: US PERIPH VENOUS LOW EXTREM LT INDICATIONS: r/o abscess and dvt, red swollen calf but also pain into pop TECHNIQUE: Real-time imaging, as well as color and pulse Doppler interrogation, were performed of the lower extremity deep veins from the inguinal ligament to the popliteal fossa, with documentation of the visualized calf veins. COMPARISON: None. FINDINGS: The common femoral, femoral, popliteal, and the visualized calf veins are normally compressible, and free of intraluminal thrombus. Color and pulse Doppler demonstrate normal phasic intraluminal flow. There is normal augmentation response to distal compression maneuver. Within the calf, there is a poorly defined area of soft tissue fluid, with a 9 mm cystic focus seen within it. This process measures 2.2 x 3 x 1.6 cm. Mildly surrounding increased vascularity can be seen. IMPRESSION: No findings of lower extremity deep venous thrombosis. Hematoma versus phlegmon seen involving the calf, without a drainable abscess. Dictated by: Adam Esquivel M.D. on 03/24/2024 at 16:17 Approved by: Adam Esquivel M.D. on 03/24/2024 at 16:19
[2024-03-24 16:26] LABS: PTT Partial Thromboplastin Tim 38 SECONDS (25.1-36.5)
[2024-03-24 16:30] LABS: Alanine Aminotransferase 20 IU/L (<35); Albumin 4.6 g/dL (3.5-5.0); Albumin Globulin Ratio 1.5 (1.0-2.8); Alkaline Phosphatase 84 U/L (38-126); Aspartate Aminotransferase 35 IU/L (14-36); BUN Creatinine Ratio 24.6 (6-22); Bilirubin Total 0.7 mg/dL (0.2-1.3); Blood Urea Nitrogen 14 mg/dL (7-17); Calcium 9.6 mg/dL (8.4-10.2); Carbon Dioxide 28 mmol/L (22-32); Chloride 103 mmol/L (98-107); Estimated Glomerular Filt Rate > 60 mL/min (>60); Globulin 3.1 g/dL (1.7-4.1); Glucose 128 mg/dL (80-110); HEMOLYSIS 26 (0-50); Lipase 30 U/L (23-300); Potassium 4.4 mmol/L (3.4-5.1); Sodium 137 mmol/L (137-145); Total Protein 7.7 g/dL (6.3-8.2)
[2024-03-24 16:45] LABS: Procalcitonin < 0.03 ng/mL (<0.5)
[2024-03-24] MEDS: SODIUM CHLORIDE 0.9% 1,000 ML 150 ML IV (16:46)
[2024-03-24] MEDS: CLINDAMYCIN 900 MG/50 ML PIGGYBACK 50 MG IV (16:46)
[2024-03-24] MEDS: ACETAMINOPHEN 325 MG TABLET 975 MG PO ×2 (16:46→20:06)
[2024-03-24 17:57] VITALS: BP 150/74
[2024-03-24 18:24] VITALS: BMI 38.5
--- NOTE | 2024-03-24 19:05 | P.HP_ITS ---
History of Present Illness History of Present Illness Date Patient Seen: 03/24/24 Chief complaint: lt calf wound Narrative: Veronica Brand is a 73yo F with PMH of DAVIS, CVA, obesity, HTN, HLD, hypothryoidism, and GERD who presents with cellulitis of L posterior calf. She apparently struck it on a side of a door 1 week ago and it has gotten progressively worse. Now the calf is hot, red and swollen with a dark spot in the middle where hematoma is present. She denies any drainage. Skin surrounding hematoma very tender to the touch. LE US in ED shows no DVT but hematoma/phlegmon. Patient had been on keflex without improvement, which was then changed to doxycycline. This also failed to show improvement so she came to the ED. She denies fevers, chills, rigors, CP, abd pain, NV or diarrhea. [facility] Medical History Obstructive sleep apnea History of COVID-19 Rectal bleeding Colitis CVA (cerebral vascular accident) Palpitations Medication side effects Nausea Abdominal pain Plantar fasciitis of right foot Trigger finger, right ring finger UTI (urinary tract infection) Finger joint swelling Chronic pain of left knee Chronic left shoulder pain Obesity (BMI 30-39.9) (Unknown) Nightmares associated with chronic post-traumatic stress disorder (~2009) Obstructive sleep apnea, adult (~2019) Insomnia, psychophysiological Excessive daytime sleepiness (~2009) Joint pain in both hands Diarrhea Upper extremity somatic dysfunction Chronic right shoulder pain Sigmoid diverticulitis Tension headache Postmenopausal symptoms Acute low back pain without sciatica Segmental and somatic dysfunction of abdomen and other regions Segmental and somatic dysfunction of rib cage Stiff neck Fatigue (~2009) Somatic dysfunction of lower extremity Sacral region somatic dysfunction Pelvic somatic dysfunction Somatic dysfunction of abdominal region Lumbar region somatic dysfunction Thoracic region somatic dysfunction Cervical somatic dysfunction Cranial somatic dysfunction Chronic tension headaches Rosacea (~2018) Allergies (~2014) Anxiety (~2017) Carpal tunnel syndrome (~1992) Vertigo (~2014) Cataracts, bilateral (~2018) Fibroids (~1980) Abnormal Pap smear of cervix (~1977) History of urinary incontinence (~1993) Thyroid nodule (~2009) PTSD (post-traumatic stress disorder) Chronic thoracic back pain Incontinence of urine Intermittent palpitations DVT (deep venous thrombosis) (~1975) Easy bruisability Systemic lupus erythematosus (~2000) Osteoarthritis (~2013) Hypothyroidism Diabetes (~2009) Elevated liver enzymes GERD (gastroesophageal reflux disease) (~2013) Irregular heart rate HLD (hyperlipidemia) HTN (hypertension) (~2005) Pneumonia Fibromyalgia (~2000) Migraines (~1976) Surgical History Anesthesia History of oophorectomy (~2004) History of carpal tunnel release (~1992) History of right breast biopsy (~1987) S/P right unicompartmental knee replacement (~06/2015) Hx of arthroscopy of right knee (~2013) Hx of tonsillectomy H/O: hysterectomy (~1978) Hx of tubal ligation History of bladder surgery (~1993) Hx of cholecystectomy (~2003) Family History Father Hypertension Arthritis Prostate cancer Hyperlipidemia Loud snoring Sleep apnea Obesity Diabetes mellitus Alcohol abuse Mother History of heart disease Hypertension Hyperlipidemia Mental health problem Stroke Insomnia Restless leg Depression Anxiety Alcohol abuse Sister History of heart disease Hypertension Hyperlipidemia Loud snoring Insomnia Restless leg Obesity Anxiety Depression Sister Lupus Arthritis Fibromyalgia Grandfather Alcoholism Grandmother History of heart disease Hypertension Stroke Grandmother Cancer Family/Other Loud snoring Sleep apnea Obesity Hypertension Social History household members: none Smoking Status: Never smoker alcohol intake: never Meds Home Medications and Allergies Home Medications Medication Instructions Recorded Confirmed Type cetirizine 10 mg tablet See Rx Instructions .Route 08/24/23 03/24/24 Rx .COMPLEX #90 tabs aspirin 325 mg tablet,delayed 325 mg PO DAILY 09/28/23 03/24/24 History release amlodipine 5 mg tablet 5 mg PO DAILY #90 tabs 10/22/23 03/24/24 Rx carvedilol 12.5 mg tablet 12.5 mg PO BID #90 tabs 10/22/23 03/24/24 Rx esomeprazole magnesium 40 mg 40 mg PO DAILY #90 caps 12/23/23 03/24/24 Rx capsule,delayed release epinephrine 0.3 mg/0.3 mL 0.3 mg (0.3 mL) IM ONCE #2 ea 12/31/23 03/24/24 Rx injection, auto-injector (EpiPen 2-Velasquez) lisinopril 10 mg tablet 10 mg PO DAILY #90 tabs 12/31/23 03/24/24 Rx levothyroxine 112 mcg tablet 112 mcg PO DAILY #90 tabs 01/19/24 03/24/24 Rx amitriptyline 10 mg tablet See Rx Instructions .Route 02/18/24 03/24/24 Rx .COMPLEX #90 tabs sertraline 25 mg tablet See Rx Instructions .Route 03/13/24 03/24/24 Rx .COMPLEX #90 tabs atorvastatin 10 mg tablet 10 mg PO DAILY #90 tabs 03/17/24 03/24/24 Rx doxycycline hyclate 100 mg tablet 100 mg PO BID 7 days #14 tabs 03/21/24 03/24/24 Rx oxybutynin chloride 10 mg 10 mg PO DAILY #180 tabs 03/23/24 03/24/24 Rx tablet,extended release 24 hr Allergies Allergy/AdvReac Type Severity Reaction Status Date / Time shellfish derived Allergy Severe Anaphylaxis Verified 03/24/24 15:31 morphine AdvReac Severe Vomiting, Verified 03/24/24 15:31 headaches chlorthalidone AdvReac Intermediate ITCHING Verified 03/24/24 15:31 empagliflozin AdvReac Intermediate Palpitation Verified 03/24/24 15:31 s exenatide [From ByLettuce Eatreon] AdvReac Intermediate Headache Verified 03/24/24 15:31 gabapentin AdvReac Intermediate Heartburn Verified 03/24/24 15:31 trulici AdvReac Intermediate Nausea Uncoded 03/24/24 15:31 Review of Systems Review of Systems Narrative: All other systems reviewed with the patient and are negative unless otherwise stated. Exam Vital Signs (past 8 hours): - 03/24/24 15:24 03/24/24 17:57 Temperature 97.6 F Pulse Rate 67 Respiratory Rate 16 Blood Pressure 128/79 150/74 H Pulse Oximetry 98 Oxygen Delivery Method Room Air Oxygen Delivery Method Room Air Narrative Exam Narrative: GEN: no acute distress HEENT: moist mucous membranes, PERRL NECK: trachea midline, no JVD CV: regular rate and rhythm, no murmurs PULM: clear bilaterally ABD: soft, nontender, nondistended, no organomegaly EXT: warm and well perfused with no edema, L calf with raised hematoma with surrounding erythema, increased warmth and pain to the touch NEURO: awake, alert, oriented, no focal deficits Objective Labs 03/25/24 05:28 03/25/24 05:28 Labs: Laboratory Results - last 24 hr 03/24/24 15:37 WBC 9.5 RBC 4.56 Hgb 12.7 Hct 38.1 MCV 83.6 MCH 27.8 MCHC 33.3 RDW 13.2 Plt Count 228 Neut % (Auto) 53.3 Lymph % (Auto) 35.6 [place] % (Auto) 5.8 Eos % (Auto) 4.1 H Baso % (Auto) 1.2 Neut # (Auto) 5100 Lymph # (Auto) 3400 [place] # (Auto) 500 Eos # (Auto) 400 Baso # (Auto) 100 PT 11.7 INR 1.0 APTT 38 H Sodium 137 Potassium 4.4 Chloride 103 Carbon Dioxide 28 BUN 14 Creatinine 0.57 Estimated GFR > 60 BUN/Creatinine Ratio 24.6 H Glucose 128 H Lactate 1.0 Calcium 9.6 Total Bilirubin 0.7 AST 35 ALT 20 Alkaline Phosphatase 84 Total Protein 7.7 Albumin 4.6 Globulin 3.1 Albumin/Globulin Ratio 1.5 Lipase 30 Procalcitonin < 0.03 Assessment & Plan Assessment & Plan narrative: # left calf cellulitis with possible infected hematoma -rocephin and vanc ordered -vasc US without drainable abscess or DVT -consult gen surg to see if needs I&D -f/up blood cultures # HTN -continue amlodipine and coreg # hypothyroidism -continue synthroid # depression -continue zoloft # GERD -continue PPI # HLD -continue lipitor Code status is full code. DVT prophylaxis with Lovenox. Proxy is angelic Collins and Rosa. I have reviewed home meds and used all available resources to reconcile the home meds. Case discussed with ED physician/APC and patient will be admitted to the hospitalist service for further workup and management. This patient will be admitted as inpatient and will require greater than 2 midnights of hospital time to treat cellulitis. Quality VTE Deep Vein Thrombosis/Pulmonary Embolism Present on Admission: No
[2024-03-24 20:00] VITALS: BP 149/66; PULSE 65; RESP 16; TEMP 36.3; O2SAT 98
[2024-03-24] MEDS: SODIUM CHLORIDE 0.9% 1,000 ML 100 ML IV (20:07)
[2024-03-24] MEDS: cefTRIAXone 1,000 MG in SODIUM CHLORIDE 0.9% 100 ML 200 MG IV (20:08)
[2024-03-24] MEDS: carvediloL 12.5 MG TABLET PO (21:28)
[2024-03-24] MEDS: VANCOMYCIN 1,500 MG/300 ML PIGGYBACK 200 MG IV (21:28)
[2024-03-25 02:00] VITALS: BP 142/80; PULSE 70; RESP 17; TEMP 36.4; O2SAT 96
[2024-03-25 05:52] LABS: Add Manual Diff / Slide Review NO; Basophils Absolute Auto 100 /uL (0-100); Basophils Percent Auto 1.4 % (0-2); Eosinophils Absolute Auto 400 /uL (0-450); Eosinophils Percent Auto 5.6 % (2-4); Hematocrit 34.5 % (36-46); Hemoglobin 11.4 g/dL (12.0-16.0); Lymphocytes Absolute Auto 3600 /uL (1100-4500); Mean Corpuscular HGB Conc 33.1 % (30-36); Mean Corpuscular Hemoglobin 27.6 PG (26-34); Mean Corpuscular Volume 83.5 fL (80-100); Monocytes Absolute Auto 600 /uL (0-900); Monocytes Percent Auto 7.7 % (3-14); Neutrophils Absolute Auto 3200 /uL (1500-7000); Neutrophils Percent Auto 40.3 % (50-75); Platelet Count 187 X10^3/uL (150-400); Red Blood Cell Count 4.14 X10^6/uL (4.0-5.2); Red Cell Distribution Width 13.3 % (11.6-14.8); White Blood Cell Count 7.9 X10^3/uL (4.5-11.0)
[2024-03-25] MEDS: PANTOPRAZOLE DR 40 MG TABLET PO (06:02)
[2024-03-25] MEDS: VANCOMYCIN 1,500 MG/300 ML PIGGYBACK 200 MG IV ×2 (06:02→18:57)
[2024-03-25 06:15] LABS: BUN Creatinine Ratio 25.9 (6-22); Blood Urea Nitrogen 14 mg/dL (7-17); Calcium 8.8 mg/dL (8.4-10.2); Carbon Dioxide 24 mmol/L (22-32); Chloride 106 mmol/L (98-107); Estimated Glomerular Filt Rate > 60 mL/min (>60); Glucose 119 mg/dL (80-110); HEMOLYSIS < 15 (0-50); Potassium 3.9 mmol/L (3.4-5.1); Sodium 137 mmol/L (137-145)
[2024-03-25 08:00] VITALS: BP 138/64; PULSE 62; RESP 16; TEMP 36.2; O2SAT 99
[2024-03-25] MEDS: OXYBUTYNIN 5 MG ER TAB 10 MG PO (09:17)
[2024-03-25] MEDS: ASPIRIN EC 325 MG TABLET PO (09:17)
[2024-03-25 09:18] VITALS: BP 138/64; PULSE 62
[2024-03-25] MEDS: carvediloL 12.5 MG TABLET PO ×2 (09:18→21:10)
[2024-03-25 09:20] VITALS: BP 138/64; PULSE 62
[2024-03-25] MEDS: AMLODIPINE 5 MG TABLET PO (09:20)
[2024-03-25] MEDS: ENOXAPARIN 40 MG/0.4 ML SYRINGE SUBCUT (09:20)
[2024-03-25] MEDS: LEVOTHYROXINE 112 MCG TABLET PO (09:20)
[2024-03-25] MEDS: lisinopriL 10 MG TABLET PO (09:20)
[2024-03-25] MEDS: ACETAMINOPHEN 325 MG TABLET 975 MG PO ×3 (09:20→21:11)
[2024-03-25] MEDS: ATORVASTATIN 20 MG TABLET 10 MG PO (09:20)
--- NOTE | 2024-03-25 11:10 | PM.CN ---
History of Present Illness Consult details Date Patient Seen: 03/25/24 Time Patient Seen: 11:11 Chief complaint: lt calf wound Narrative: Krystal is a 73-year-old woman who presented with a left calf wound. She reports that she bumped it about a week ago and developed a blood blister under the skin. It has not ruptured drained but it became quite tender and erythematous recently. She is not a diabetic and does not take insulin. Meds Home Medications and Allergies Home Medications Medication Instructions Recorded Confirmed Type cetirizine 10 mg tablet See Rx Instructions .Route 08/24/23 03/24/24 Rx .COMPLEX #90 tabs aspirin 325 mg tablet,delayed 325 mg PO DAILY 09/28/23 03/24/24 History release amlodipine 5 mg tablet 5 mg PO DAILY #90 tabs 10/22/23 03/24/24 Rx carvedilol 12.5 mg tablet 12.5 mg PO BID #90 tabs 10/22/23 03/24/24 Rx esomeprazole magnesium 40 mg 40 mg PO DAILY #90 caps 12/23/23 03/24/24 Rx capsule,delayed release epinephrine 0.3 mg/0.3 mL 0.3 mg (0.3 mL) IM ONCE #2 ea 12/31/23 03/24/24 Rx injection, auto-injector (EpiPen 2-Velasquez) lisinopril 10 mg tablet 10 mg PO DAILY #90 tabs 12/31/23 03/24/24 Rx levothyroxine 112 mcg tablet 112 mcg PO DAILY #90 tabs 01/19/24 03/24/24 Rx amitriptyline 10 mg tablet See Rx Instructions .Route 02/18/24 03/24/24 Rx .COMPLEX #90 tabs sertraline 25 mg tablet See Rx Instructions .Route 03/13/24 03/24/24 Rx .COMPLEX #90 tabs atorvastatin 10 mg tablet 10 mg PO DAILY #90 tabs 03/17/24 03/24/24 Rx doxycycline hyclate 100 mg tablet 100 mg PO BID 7 days #14 tabs 03/21/24 03/24/24 Rx oxybutynin chloride 10 mg 10 mg PO DAILY #180 tabs 03/23/24 03/24/24 Rx tablet,extended release 24 hr Allergies Allergy/AdvReac Type Severity Reaction Status Date / Time shellfish derived Allergy Severe Anaphylaxis Verified 03/24/24 15:31 morphine AdvReac Severe Vomiting, Verified 03/24/24 15:31 headaches chlorthalidone AdvReac Intermediate ITCHING Verified 03/24/24 15:31 empagliflozin AdvReac Intermediate Palpitation Verified 03/24/24 15:31 s exenatide [From Bydureon] AdvReac Intermediate Headache Verified 03/24/24 15:31 gabapentin AdvReac Intermediate Heartburn Verified 03/24/24 15:31 trulici AdvReac Intermediate Nausea Uncoded 03/24/24 15:31 Exam Vital Signs (past 8 hours): - 03/25/24 08:00 03/25/24 09:18 03/25/24 09:20 Temperature 97.1 F L Pulse Rate 62 62 62 Respiratory Rate 16 Blood Pressure 138/64 138/64 138/64 Pulse Oximetry 99 Oxygen Delivery Method Room Air Oxygen Flow Rate 0 Narrative Exam Narrative: There is a hematoma under the skin of the left posterior calf There is a roughly 7 x 9 cm area of mild inflammation around the blood blister No drainage Objective Labs 03/25/24 05:28 03/25/24 05:28 Labs: Laboratory Results - last 24 hr 03/24/24 03/25/24 15:37 05:28 WBC 9.5 7.9 RBC 4.56 4.14 Hgb 12.7 11.4 L Hct 38.1 34.5 L MCV 83.6 83.5 MCH 27.8 27.6 MCHC 33.3 33.1 RDW 13.2 13.3 Plt Count 228 187 Neut % (Auto) 53.3 40.3 L Lymph % (Auto) 35.6 45.0 H [place] % (Auto) 5.8 7.7 Eos % (Auto) 4.1 H 5.6 H Baso % (Auto) 1.2 1.4 Neut # (Auto) 5100 3200 Lymph # (Auto) 3400 3600 [place] # (Auto) 500 600 Eos # (Auto) 400 400 Baso # (Auto) 100 100 PT 11.7 INR 1.0 APTT 38 H Sodium 137 137 Potassium 4.4 3.9 Chloride 103 106 Carbon Dioxide 28 24 BUN 14 14 Creatinine 0.57 0.54 Estimated GFR > 60 > 60 BUN/Creatinine Ratio 24.6 H 25.9 H Glucose 128 H 119 H Lactate 1.0 Calcium 9.6 8.8 Total Bilirubin 0.7 AST 35 ALT 20 Alkaline Phosphatase 84 Total Protein 7.7 Albumin 4.6 Globulin 3.1 Albumin/Globulin Ratio 1.5 Lipase 30 Procalcitonin < 0.03 PFSH Medical History Obstructive sleep apnea History of COVID-19 Rectal bleeding Colitis CVA (cerebral vascular accident) Palpitations Medication side effects Nausea Abdominal pain Plantar fasciitis of right foot Trigger finger, right ring finger UTI (urinary tract infection) Finger joint swelling Chronic pain of left knee Chronic left shoulder pain Obesity (BMI 30-39.9) (Unknown) Nightmares associated with chronic post-traumatic stress disorder (~2009) Obstructive sleep apnea, adult (~2019) Insomnia, psychophysiological Excessive daytime sleepiness (~2009) Joint pain in both hands Diarrhea Upper extremity somatic dysfunction Chronic right shoulder pain Sigmoid diverticulitis Tension headache Postmenopausal symptoms Acute low back pain without sciatica Segmental and somatic dysfunction of abdomen and other regions Segmental and somatic dysfunction of rib cage Stiff neck Fatigue (~2009) Somatic dysfunction of lower extremity Sacral region somatic dysfunction Pelvic somatic dysfunction Somatic dysfunction of abdominal region Lumbar region somatic dysfunction Thoracic region somatic dysfunction Cervical somatic dysfunction Cranial somatic dysfunction Chronic tension headaches Rosacea (~2018) Allergies (~2014) Anxiety (~2017) Carpal tunnel syndrome (~1992) Vertigo (~2014) Cataracts, bilateral (~2018) Fibroids (~1980) Abnormal Pap smear of cervix (~1977) History of urinary incontinence (~1993) Thyroid nodule (~2009) PTSD (post-traumatic stress disorder) Chronic thoracic back pain Incontinence of urine Intermittent palpitations DVT (deep venous thrombosis) (~1975) Easy bruisability Systemic lupus erythematosus (~2000) Osteoarthritis (~2013) Hypothyroidism Diabetes (~2009) Elevated liver enzymes GERD (gastroesophageal reflux disease) (~2013) Irregular heart rate HLD (hyperlipidemia) HTN (hypertension) (~2005) Pneumonia Fibromyalgia (~2000) Migraines (~1976) Surgical History Anesthesia History of oophorectomy (~2004) History of carpal tunnel release (~1992) History of right breast biopsy (~1987) S/P right unicompartmental knee replacement (~06/2015) Hx of arthroscopy of right knee (~2013) Hx of tonsillectomy H/O: hysterectomy (~1978) Hx of tubal ligation History of bladder surgery (~1993) Hx of cholecystectomy (~2003) Family History Father Hypertension Arthritis Prostate cancer Hyperlipidemia Loud snoring Sleep apnea Obesity Diabetes mellitus Alcohol abuse Mother History of heart disease Hypertension Hyperlipidemia Mental health problem Stroke Insomnia Restless leg Depression Anxiety Alcohol abuse Sister History of heart disease Hypertension Hyperlipidemia Loud snoring Insomnia Restless leg Obesity Anxiety Depression Sister Lupus Arthritis Fibromyalgia Grandfather Alcoholism Grandmother History of heart disease Hypertension Stroke Grandmother Cancer Family/Other Loud snoring Sleep apnea Obesity Hypertension Social History household members: none Tobacco & Substance Use Smoking Status: Never smoker alcohol intake: never Assessment & Plan Assessment and plan (1) Cellulitis of calf: Status: Acute Plan No indication for surgical intervention at this time. If the inflammation increases or if she starts to drain purulent fluid we could perform debridement in the OR tomorrow.
--- NOTE | 2024-03-25 15:16 | P.PN_ITS ---
Subjective Subjective Interval history: Left calf still without much improvement. Very painful to the touch with erythema. Gen surg evaluated and if not improving in AM they will take for I&D. Exam Vital Signs (past 8 hours): - 03/25/24 08:00 03/25/24 08:30 03/25/24 09:18 Temperature 97.1 F L Pulse Rate 62 62 Respiratory Rate 16 Blood Pressure 138/64 138/64 Pulse Oximetry 99 Oxygen Delivery Method Room Air 03/25/24 09:20 Temperature Pulse Rate 62 Respiratory Rate Blood Pressure 138/64 Pulse Oximetry Oxygen Delivery Method Oxygen Delivery Method Room Air Oxygen Flow Rate 0 Narrative Exam Narrative: GEN: no acute distress HEENT: moist mucous membranes, PERRL NECK: trachea midline, no JVD CV: regular rate and rhythm, no murmurs PULM: clear bilaterally ABD: soft, nontender, nondistended, no organomegaly EXT: warm and well perfused with no edema, L calf with raised hematoma with surrounding erythema, increased warmth and pain to the touch NEURO: awake, alert, oriented, no focal deficits Objective Labs 03/25/24 05:28 03/25/24 05:28 Labs: Laboratory Results - last 24 hr 03/24/24 03/25/24 15:37 05:28 WBC 9.5 7.9 RBC 4.56 4.14 Hgb 12.7 11.4 L Hct 38.1 34.5 L MCV 83.6 83.5 MCH 27.8 27.6 MCHC 33.3 33.1 RDW 13.2 13.3 Plt Count 228 187 Neut % (Auto) 53.3 40.3 L Lymph % (Auto) 35.6 45.0 H [place] % (Auto) 5.8 7.7 Eos % (Auto) 4.1 H 5.6 H Baso % (Auto) 1.2 1.4 Neut # (Auto) 5100 3200 Lymph # (Auto) 3400 3600 [place] # (Auto) 500 600 Eos # (Auto) 400 400 Baso # (Auto) 100 100 PT 11.7 INR 1.0 APTT 38 H Sodium 137 137 Potassium 4.4 3.9 Chloride 103 106 Carbon Dioxide 28 24 BUN 14 14 Creatinine 0.57 0.54 Estimated GFR > 60 > 60 BUN/Creatinine Ratio 24.6 H 25.9 H Glucose 128 H 119 H Lactate 1.0 Calcium 9.6 8.8 Total Bilirubin 0.7 AST 35 ALT 20 Alkaline Phosphatase 84 Total Protein 7.7 Albumin 4.6 Globulin 3.1 Albumin/Globulin Ratio 1.5 Lipase 30 Procalcitonin < 0.03 PFSH Medical History Obstructive sleep apnea History of COVID-19 Rectal bleeding Colitis CVA (cerebral vascular accident) Palpitations Medication side effects Nausea Abdominal pain Plantar fasciitis of right foot Trigger finger, right ring finger UTI (urinary tract infection) Finger joint swelling Chronic pain of left knee Chronic left shoulder pain Obesity (BMI 30-39.9) (Unknown) Nightmares associated with chronic post-traumatic stress disorder (~2009) Obstructive sleep apnea, adult (~2019) Insomnia, psychophysiological Excessive daytime sleepiness (~2009) Joint pain in both hands Diarrhea Upper extremity somatic dysfunction Chronic right shoulder pain Sigmoid diverticulitis Tension headache Postmenopausal symptoms Acute low back pain without sciatica Segmental and somatic dysfunction of abdomen and other regions Segmental and somatic dysfunction of rib cage Stiff neck Fatigue (~2009) Somatic dysfunction of lower extremity Sacral region somatic dysfunction Pelvic somatic dysfunction Somatic dysfunction of abdominal region Lumbar region somatic dysfunction Thoracic region somatic dysfunction Cervical somatic dysfunction Cranial somatic dysfunction Chronic tension headaches Rosacea (~2018) Allergies (~2014) Anxiety (~2017) Carpal tunnel syndrome (~1992) Vertigo (~2014) Cataracts, bilateral (~2018) Fibroids (~1980) Abnormal Pap smear of cervix (~1977) History of urinary incontinence (~1993) Thyroid nodule (~2009) PTSD (post-traumatic stress disorder) Chronic thoracic back pain Incontinence of urine Intermittent palpitations DVT (deep venous thrombosis) (~1975) Easy bruisability Systemic lupus erythematosus (~2000) Osteoarthritis (~2013) Hypothyroidism Diabetes (~2009) Elevated liver enzymes GERD (gastroesophageal reflux disease) (~2013) Irregular heart rate HLD (hyperlipidemia) HTN (hypertension) (~2005) Pneumonia Fibromyalgia (~2000) Migraines (~1976) Surgical History Anesthesia History of oophorectomy (~2004) History of carpal tunnel release (~1992) History of right breast biopsy (~1987) S/P right unicompartmental knee replacement (~06/2015) Hx of arthroscopy of right knee (~2013) Hx of tonsillectomy H/O: hysterectomy (~1978) Hx of tubal ligation History of bladder surgery (~1993) Hx of cholecystectomy (~2003) Family History Father Hypertension Arthritis Prostate cancer Hyperlipidemia Loud snoring Sleep apnea Obesity Diabetes mellitus Alcohol abuse Mother History of heart disease Hypertension Hyperlipidemia Mental health problem Stroke Insomnia Restless leg Depression Anxiety Alcohol abuse Sister History of heart disease Hypertension Hyperlipidemia Loud snoring Insomnia Restless leg Obesity Anxiety Depression Sister Lupus Arthritis Fibromyalgia Grandfather Alcoholism Grandmother History of heart disease Hypertension Stroke Grandmother Cancer Family/Other Loud snoring Sleep apnea Obesity Hypertension Social History household members: none Smoking Status: Never smoker alcohol intake: never Assessment & Plan Assessment & Plan narrative: # left calf cellulitis with possible infected hematoma -rocephin and vanc ordered -vasc US without drainable abscess or DVT -NPO at midnight per gen surg in case needs I&D -f/up blood cultures # HTN -continue amlodipine and coreg # hypothyroidism -continue synthroid # depression -continue zoloft # GERD -continue PPI # HLD -continue lipitor Code status is full code. DVT prophylaxis with Lovenox. Proxy is angelic Yates. Dispo: 2-3 days pending improvement in cellulitis. Quality VTE Deep Vein Thrombosis/Pulmonary Embolism Present on Admission: No
[2024-03-25 16:00] VITALS: BP 147/66; PULSE 67; RESP 16; TEMP 36.2; O2SAT 98
--- NOTE | 2024-03-25 16:05 | CM.DANOTE ---
DCP Assessment Note Pt is a 73yo female, resident of [place]. Pt presented to the ED due to a left calf wound and having symptoms of sepsis. Pt lives alone but has a lot of support with friends and neighbors. PCP: Dr. Juana Barton. Insurance: [employer] [facility] and Self-pay. Reviewed chart and team rounds for pt's medical status and initial discharge needs. SAP PAYROLL CONSULTANT met w/patient at bedside. Present in the room are pt's two blonde daughters who are two of the pt's close friends who live nearby. Pt was found sitting in chair, alert and oriented. Pt is pleasant and cooperative during assessment. Pt confirmed living arrangements and DMEs listed below. Pt denied any discharge needs at this time. Plan: Pending wound progress with ABO tx, to be determined the am of 03/26 if pt will need debridement of wound. CM team will plan to follow clinical course closely for assessment of need and coordination of discharge plan. HARI Ozuna Discharge Planning/Care Management CM Discharge Assessment Start: 03/25/24 16:03 Freq: Status: Active Protocol: Document 03/25/24 16:03 MW (Rec: 03/25/24 16:05 MW [id number]) Discharge Planning Assessment Assigned Snuff Maker DAVID Jacobs DPOA/Assigned Designee Name Hernesto, Yevgeniy (Lives in [place] ) Contact Information [phone] Advance Directives? Yes Advance Directives on File No History Provided By Patient,Friend,Medical Record Has Patient been admitted in last 30 No days? Prior Living Arrangements House Household Members none Type of transporation used prior to Drives own vehicle admit Independent with ADL's Yes Is patient alert and oriented? Yes Caregiver for Another No DME Already Rented / Owned Bath Bench,Elevated Toilet Seat,FWW / Walker,Cane Discharge Plan Home Referrals Initiated None needed Whiteboard Updated in Patient Room with Yes name and ext. # of Snuff Maker Please Provide Date Initial DC 03/25/24 Assessment Was Performed Next Review Type Continued Stay Review
[2024-03-25] MEDS: cefTRIAXone 1,000 MG in SODIUM CHLORIDE 0.9% 100 ML 200 MG IV (17:36)
[2024-03-25] MEDS: OXYCODONE IR 5 MG TABLET PO (19:38)
[2024-03-25 20:00] VITALS: BP 129/58; PULSE 64; RESP 16; TEMP 36.3; O2SAT 96
[2024-03-25] MEDS: AMITRIPTYLINE 10 MG TABLET PO (21:10)
[2024-03-25] MEDS: SERTRALINE 50 MG TABLET 25 MG PO (21:11)
[2024-03-26 06:00] VITALS: BP 136/80; PULSE 74; RESP 16; TEMP 36.7; O2SAT 96
[2024-03-26 06:33] LABS: Add Manual Diff / Slide Review NO; Basophils Absolute Auto 100 /uL (0-100); Basophils Percent Auto 1.4 % (0-2); Eosinophils Absolute Auto 400 /uL (0-450); Eosinophils Percent Auto 5.3 % (2-4); Hematocrit 34.6 % (36-46); Hemoglobin 11.6 g/dL (12.0-16.0); Lymphocytes Absolute Auto 3800 /uL (1100-4500); Lymphocytes Percent Auto 45.4 % (25-40); Mean Corpuscular HGB Conc 33.4 % (30-36); Mean Corpuscular Hemoglobin 27.9 PG (26-34); Mean Corpuscular Volume 83.5 fL (80-100); Monocytes Absolute Auto 600 /uL (0-900); Monocytes Percent Auto 6.7 % (3-14); Neutrophils Absolute Auto 3400 /uL (1500-7000); Neutrophils Percent Auto 41.2 % (50-75); Platelet Count 198 X10^3/uL (150-400); Red Blood Cell Count 4.15 X10^6/uL (4.0-5.2); Red Cell Distribution Width 13.2 % (11.6-14.8); White Blood Cell Count 8.3 X10^3/uL (4.5-11.0)
[2024-03-26] MEDS: LEVOTHYROXINE 112 MCG TABLET PO (06:35)
[2024-03-26] MEDS: PANTOPRAZOLE DR 40 MG TABLET PO (06:35)
[2024-03-26 06:46] LABS: BUN Creatinine Ratio 29.5 (6-22); Blood Urea Nitrogen 18 mg/dL (7-17); Calcium 8.9 mg/dL (8.4-10.2); Carbon Dioxide 26 mmol/L (22-32); Chloride 107 mmol/L (98-107); Estimated Glomerular Filt Rate > 60 mL/min (>60); Glucose 136 mg/dL (80-110); HEMOLYSIS < 15 (0-50); Sodium 138 mmol/L (137-145)
[2024-03-26 06:55] LABS: Vancomycin Trough 14.9 ug/mL (10-20)
[2024-03-26] MEDS: VANCOMYCIN 1,500 MG/300 ML PIGGYBACK 200 MG IV ×2 (08:03→20:08)
--- NOTE | 2024-03-26 09:07 | PM.PN.1 ---
Subjective Subjective Date Patient Seen: 03/26/24 Time Patient Seen: 09:07 Interval history: Leg feels better today. She did have some blood drain from wound after her shower. Exam Vital Signs (past 8 hours): - 03/26/24 06:00 Temperature 98.0 F Pulse Rate 74 Respiratory Rate 16 Blood Pressure 136/80 Pulse Oximetry 96 Oxygen Flow Rate 0 Oxygen Delivery Method Room Air Oxygen Flow Rate 0 Narrative Exam Narrative: The left calf wound is similar in appearance with slightly expanded erythema distally Compartments are soft Objective Labs 03/26/24 06:27 03/26/24 06:27 Labs: Laboratory Results - last 24 hr 03/26/24 06:27 WBC 8.3 RBC 4.15 Hgb 11.6 L Hct 34.6 L MCV 83.5 MCH 27.9 MCHC 33.4 RDW 13.2 Plt Count 198 Neut % (Auto) 41.2 L Lymph % (Auto) 45.4 H [place] % (Auto) 6.7 Eos % (Auto) 5.3 H Baso % (Auto) 1.4 Neut # (Auto) 3400 Lymph # (Auto) 3800 [place] # (Auto) 600 Eos # (Auto) 400 Baso # (Auto) 100 Sodium 138 Potassium 4.0 Chloride 107 Carbon Dioxide 26 BUN 18 H Creatinine 0.61 Estimated GFR > 60 BUN/Creatinine Ratio 29.5 H Glucose 136 H Calcium 8.9 Vancomycin Trough 14.9 PFSH Medical History Obstructive sleep apnea History of COVID-19 Rectal bleeding Colitis CVA (cerebral vascular accident) Palpitations Medication side effects Nausea Abdominal pain Plantar fasciitis of right foot Trigger finger, right ring finger UTI (urinary tract infection) Finger joint swelling Chronic pain of left knee Chronic left shoulder pain Obesity (BMI 30-39.9) (Unknown) Nightmares associated with chronic post-traumatic stress disorder (~2009) Obstructive sleep apnea, adult (~2019) Insomnia, psychophysiological Excessive daytime sleepiness (~2009) Joint pain in both hands Diarrhea Upper extremity somatic dysfunction Chronic right shoulder pain Sigmoid diverticulitis Tension headache Postmenopausal symptoms Acute low back pain without sciatica Segmental and somatic dysfunction of abdomen and other regions Segmental and somatic dysfunction of rib cage Stiff neck Fatigue (~2009) Somatic dysfunction of lower extremity Sacral region somatic dysfunction Pelvic somatic dysfunction Somatic dysfunction of abdominal region Lumbar region somatic dysfunction Thoracic region somatic dysfunction Cervical somatic dysfunction Cranial somatic dysfunction Chronic tension headaches Rosacea (~2018) Allergies (~2014) Anxiety (~2017) Carpal tunnel syndrome (~1992) Vertigo (~2014) Cataracts, bilateral (~2018) Fibroids (~1980) Abnormal Pap smear of cervix (~1977) History of urinary incontinence (~1993) Thyroid nodule (~2009) PTSD (post-traumatic stress disorder) Chronic thoracic back pain Incontinence of urine Intermittent palpitations DVT (deep venous thrombosis) (~1975) Easy bruisability Systemic lupus erythematosus (~2000) Osteoarthritis (~2013) Hypothyroidism Diabetes (~2009) Elevated liver enzymes GERD (gastroesophageal reflux disease) (~2013) Irregular heart rate HLD (hyperlipidemia) HTN (hypertension) (~2005) Pneumonia Fibromyalgia (~2000) Migraines (~1976) Surgical History Anesthesia History of oophorectomy (~2004) History of carpal tunnel release (~1992) History of right breast biopsy (~1987) S/P right unicompartmental knee replacement (~06/2015) Hx of arthroscopy of right knee (~2013) Hx of tonsillectomy H/O: hysterectomy (~1978) Hx of tubal ligation History of bladder surgery (~1993) Hx of cholecystectomy (~2003) Family History Father Hypertension Arthritis Prostate cancer Hyperlipidemia Loud snoring Sleep apnea Obesity Diabetes mellitus Alcohol abuse Mother History of heart disease Hypertension Hyperlipidemia Mental health problem Stroke Insomnia Restless leg Depression Anxiety Alcohol abuse Sister History of heart disease Hypertension Hyperlipidemia Loud snoring Insomnia Restless leg Obesity Anxiety Depression Sister Lupus Arthritis Fibromyalgia Grandfather Alcoholism Grandmother History of heart disease Hypertension Stroke Grandmother Cancer Family/Other Loud snoring Sleep apnea Obesity Hypertension Social History household members: none Smoking Status: Never smoker alcohol intake: never Assessment & Plan Assessment and plan (1) Cellulitis of calf: Status: Acute Plan Elevate left leg while in bed No surgical intervention is required at this time. Quality VTE Deep Vein Thrombosis/Pulmonary Embolism Present on Admission: No
[2024-03-26] MEDS: OXYBUTYNIN 5 MG ER TAB 10 MG PO (10:29)
[2024-03-26] MEDS: ACETAMINOPHEN 325 MG TABLET 975 MG PO ×2 (10:31→18:49)
[2024-03-26] MEDS: AMLODIPINE 5 MG TABLET PO (10:31)
[2024-03-26] MEDS: ASPIRIN EC 325 MG TABLET PO (10:31)
[2024-03-26 10:32] VITALS: BP 144/62; PULSE 60
[2024-03-26] MEDS: carvediloL 12.5 MG TABLET PO ×2 (10:32→21:10)
[2024-03-26] MEDS: lisinopriL 10 MG TABLET PO (10:32)
[2024-03-26] MEDS: ATORVASTATIN 20 MG TABLET 10 MG PO (10:32)
[2024-03-26 12:00] VITALS: BP 140/56; PULSE 62; RESP 17; TEMP 36.6; O2SAT 98
[2024-03-26 16:00] VITALS: BP 124/64; PULSE 72; RESP 16; TEMP 36.6; O2SAT 98
--- NOTE | 2024-03-26 17:54 | PM.PN.1 ---
Subjective Subjective Interval history: Pain, swelling and redness of L calf now finally improving. Gen surg does not think need surgical intervention. Patient happy it is finally getting better. Exam Vital Signs (past 8 hours): - 03/26/24 10:32 03/26/24 10:32 03/26/24 12:00 Temperature 97.8 F Pulse Rate 60 60 62 Respiratory Rate 17 Blood Pressure 144/62 H 144/62 H 140/56 L Pulse Oximetry 98 Oxygen Flow Rate 0 Oxygen Delivery Method Room Air Oxygen Flow Rate 0 Narrative Exam Narrative: GEN: no acute distress HEENT: moist mucous membranes, PERRL NECK: trachea midline, no JVD CV: regular rate and rhythm, no murmurs PULM: clear bilaterally ABD: soft, nontender, nondistended, no organomegaly EXT: warm and well perfused with no edema, L calf cellulitis less painful to touch, less warm and less swollen, hematoma draining some serosanguineous fluid but no pus NEURO: awake, alert, oriented, no focal deficits Objective Labs 03/26/24 06:27 03/26/24 06:27 Labs: Laboratory Results - last 24 hr 03/26/24 06:27 WBC 8.3 RBC 4.15 Hgb 11.6 L Hct 34.6 L MCV 83.5 MCH 27.9 MCHC 33.4 RDW 13.2 Plt Count 198 Neut % (Auto) 41.2 L Lymph % (Auto) 45.4 H [place] % (Auto) 6.7 Eos % (Auto) 5.3 H Baso % (Auto) 1.4 Neut # (Auto) 3400 Lymph # (Auto) 3800 [place] # (Auto) 600 Eos # (Auto) 400 Baso # (Auto) 100 Sodium 138 Potassium 4.0 Chloride 107 Carbon Dioxide 26 BUN 18 H Creatinine 0.61 Estimated GFR > 60 BUN/Creatinine Ratio 29.5 H Glucose 136 H Calcium 8.9 Vancomycin Trough 14.9 PFSH Medical History Obstructive sleep apnea History of COVID-19 Rectal bleeding Colitis CVA (cerebral vascular accident) Palpitations Medication side effects Nausea Abdominal pain Plantar fasciitis of right foot Trigger finger, right ring finger UTI (urinary tract infection) Finger joint swelling Chronic pain of left knee Chronic left shoulder pain Obesity (BMI 30-39.9) (Unknown) Nightmares associated with chronic post-traumatic stress disorder (~2009) Obstructive sleep apnea, adult (~2019) Insomnia, psychophysiological Excessive daytime sleepiness (~2009) Joint pain in both hands Diarrhea Upper extremity somatic dysfunction Chronic right shoulder pain Sigmoid diverticulitis Tension headache Postmenopausal symptoms Acute low back pain without sciatica Segmental and somatic dysfunction of abdomen and other regions Segmental and somatic dysfunction of rib cage Stiff neck Fatigue (~2009) Somatic dysfunction of lower extremity Sacral region somatic dysfunction Pelvic somatic dysfunction Somatic dysfunction of abdominal region Lumbar region somatic dysfunction Thoracic region somatic dysfunction Cervical somatic dysfunction Cranial somatic dysfunction Chronic tension headaches Rosacea (~2018) Allergies (~2014) Anxiety (~2017) Carpal tunnel syndrome (~1992) Vertigo (~2014) Cataracts, bilateral (~2018) Fibroids (~1980) Abnormal Pap smear of cervix (~1977) History of urinary incontinence (~1993) Thyroid nodule (~2009) PTSD (post-traumatic stress disorder) Chronic thoracic back pain Incontinence of urine Intermittent palpitations DVT (deep venous thrombosis) (~1975) Easy bruisability Systemic lupus erythematosus (~2000) Osteoarthritis (~2013) Hypothyroidism Diabetes (~2009) Elevated liver enzymes GERD (gastroesophageal reflux disease) (~2013) Irregular heart rate HLD (hyperlipidemia) HTN (hypertension) (~2005) Pneumonia Fibromyalgia (~2000) Migraines (~1976) Surgical History Anesthesia History of oophorectomy (~2004) History of carpal tunnel release (~1992) History of right breast biopsy (~1987) S/P right unicompartmental knee replacement (~06/2015) Hx of arthroscopy of right knee (~2013) Hx of tonsillectomy H/O: hysterectomy (~1978) Hx of tubal ligation History of bladder surgery (~1993) Hx of cholecystectomy (~2003) Family History Father Hypertension Arthritis Prostate cancer Hyperlipidemia Loud snoring Sleep apnea Obesity Diabetes mellitus Alcohol abuse Mother History of heart disease Hypertension Hyperlipidemia Mental health problem Stroke Insomnia Restless leg Depression Anxiety Alcohol abuse Sister History of heart disease Hypertension Hyperlipidemia Loud snoring Insomnia Restless leg Obesity Anxiety Depression Sister Lupus Arthritis Fibromyalgia Grandfather Alcoholism Grandmother History of heart disease Hypertension Stroke Grandmother Cancer Family/Other Loud snoring Sleep apnea Obesity Hypertension Social History household members: none Smoking Status: Never smoker alcohol intake: never Assessment & Plan Assessment & Plan narrative: # left calf cellulitis, doubt infected hematoma -failed outpatient po abx with keflex and doxy -rocephin and vanc ordered -vasc US without drainable abscess or DVT -NPO at midnight per gen surg in case needs I&D -blood cultures neg at 48 hours # HTN -continue amlodipine and coreg # hypothyroidism -continue synthroid # depression -continue zoloft # GERD -continue PPI # HLD -continue lipitor Code status is full code. DVT prophylaxis with Lovenox. Proxy is kids Dennis and Rosa. Dispo: Home on 03/27 likely if still improving on po abx likely augmentin. Quality VTE Deep Vein Thrombosis/Pulmonary Embolism Present on Admission: No
[2024-03-26] MEDS: cefTRIAXone 1,000 MG in SODIUM CHLORIDE 0.9% 100 ML 200 MG IV (18:49)
[2024-03-26 20:22] VITALS: BP 122/56; PULSE 72; RESP 18; TEMP 36.2; O2SAT 96
[2024-03-26] MEDS: AMITRIPTYLINE 10 MG TABLET PO (21:10)
[2024-03-26] MEDS: SERTRALINE 50 MG TABLET 25 MG PO (21:10)
[2024-03-27] VITALS (8 sets, daily range): BP systolic 116–145; BP diastolic 55–65; PULSE 61–71; RESP 16–19; TEMP 36.1–36.5; O2SAT 95–98
[2024-03-27 05:38] LABS: Add Manual Diff / Slide Review NO; Basophils Absolute Auto 100 /uL (0-100); Basophils Percent Auto 1.2 % (0-2); Eosinophils Absolute Auto 500 /uL (0-450); Eosinophils Percent Auto 5.2 % (2-4); Hemoglobin 12.1 g/dL (12.0-16.0); Lymphocytes Absolute Auto 4100 /uL (1100-4500); Lymphocytes Percent Auto 46.1 % (25-40); Mean Corpuscular HGB Conc 33.7 % (30-36); Mean Corpuscular Hemoglobin 27.9 PG (26-34); Monocytes Absolute Auto 600 /uL (0-900); Monocytes Percent Auto 6.5 % (3-14); Neutrophils Absolute Auto 3700 /uL (1500-7000); Platelet Count 210 X10^3/uL (150-400); Red Blood Cell Count 4.33 X10^6/uL (4.0-5.2); Red Cell Distribution Width 13.6 % (11.6-14.8); White Blood Cell Count 8.9 X10^3/uL (4.5-11.0)
[2024-03-27 05:55] LABS: BUN Creatinine Ratio 23.5 (6-22); Blood Urea Nitrogen 16 mg/dL (7-17); Carbon Dioxide 25 mmol/L (22-32); Chloride 106 mmol/L (98-107); Estimated Glomerular Filt Rate > 60 mL/min (>60); Glucose 131 mg/dL (80-110); HEMOLYSIS < 15 (0-50); Potassium 3.9 mmol/L (3.4-5.1); Sodium 138 mmol/L (137-145)
[2024-03-27] MEDS: LEVOTHYROXINE 112 MCG TABLET PO (06:29)
[2024-03-27] MEDS: VANCOMYCIN 1,500 MG/300 ML PIGGYBACK 200 MG IV ×2 (06:29→20:14)
[2024-03-27] MEDS: PANTOPRAZOLE DR 40 MG TABLET PO (06:29)
[2024-03-27] MEDS: ACETAMINOPHEN 325 MG TABLET 975 MG PO ×2 (09:25→18:46)
[2024-03-27] MEDS: ATORVASTATIN 20 MG TABLET 10 MG PO (09:26)
[2024-03-27] MEDS: ASPIRIN EC 325 MG TABLET PO (09:26)
[2024-03-27] MEDS: carvediloL 12.5 MG TABLET PO ×2 (09:26→20:13)
[2024-03-27] MEDS: AMLODIPINE 5 MG TABLET PO (09:26)
[2024-03-27] MEDS: lisinopriL 10 MG TABLET PO (09:27)
[2024-03-27] MEDS: OXYBUTYNIN 5 MG ER TAB 10 MG PO (09:27)
[2024-03-27] MEDS: ENOXAPARIN 40 MG/0.4 ML SYRINGE SUBCUT (09:27)
--- NOTE | 2024-03-27 10:55 | PM.PN.1 ---
Subjective Subjective Interval history: The leg is more painful today and there is an area that is coming to a head. No dyspnea. Exam Vital Signs (past 8 hours): - 03/27/24 05:10 03/27/24 06:00 03/27/24 08:00 Temperature 97.7 F 97.6 F Pulse Rate 63 67 Respiratory Rate 19 16 Blood Pressure 120/56 L 143/65 H Pulse Oximetry 98 95 Oxygen Flow Rate 0 0 0 03/27/24 09:26 03/27/24 09:27 Temperature Pulse Rate Respiratory Rate Blood Pressure 145/63 H 145/63 H Pulse Oximetry Oxygen Flow Rate Oxygen Delivery Method Room Air Oxygen Flow Rate 0 Narrative Exam Narrative: NAD, alert and oriented. Fluent speech. Lungs are clear, normal rate and effort. Heart is regular, no murmur gallop or rub. Abdomen is soft, non distended. Extremities are free of edema. Left leg is still red and warm and there is an area now that is more indurated and coming to a head under an eschar. Objective Labs 03/27/24 05:07 03/27/24 05:07 Labs: Laboratory Results - last 24 hr 03/27/24 05:07 WBC 8.9 RBC 4.33 Hgb 12.1 Hct 36.0 MCV 83.0 MCH 27.9 MCHC 33.7 RDW 13.6 Plt Count 210 Neut % (Auto) 41.0 L Lymph % (Auto) 46.1 H [place] % (Auto) 6.5 Eos % (Auto) 5.2 H Baso % (Auto) 1.2 Neut # (Auto) 3700 Lymph # (Auto) 4100 [place] # (Auto) 600 Eos # (Auto) 500 H Baso # (Auto) 100 Sodium 138 Potassium 3.9 Chloride 106 Carbon Dioxide 25 BUN 16 Creatinine 0.68 Estimated GFR > 60 BUN/Creatinine Ratio 23.5 H Glucose 131 H Calcium 9.0 PFSH Medical History Obstructive sleep apnea History of COVID-19 Rectal bleeding Colitis CVA (cerebral vascular accident) Palpitations Medication side effects Nausea Abdominal pain Plantar fasciitis of right foot Trigger finger, right ring finger UTI (urinary tract infection) Finger joint swelling Chronic pain of left knee Chronic left shoulder pain Obesity (BMI 30-39.9) (Unknown) Nightmares associated with chronic post-traumatic stress disorder (~2009) Obstructive sleep apnea, adult (~2019) Insomnia, psychophysiological Excessive daytime sleepiness (~2009) Joint pain in both hands Diarrhea Upper extremity somatic dysfunction Chronic right shoulder pain Sigmoid diverticulitis Tension headache Postmenopausal symptoms Acute low back pain without sciatica Segmental and somatic dysfunction of abdomen and other regions Segmental and somatic dysfunction of rib cage Stiff neck Fatigue (~2009) Somatic dysfunction of lower extremity Sacral region somatic dysfunction Pelvic somatic dysfunction Somatic dysfunction of abdominal region Lumbar region somatic dysfunction Thoracic region somatic dysfunction Cervical somatic dysfunction Cranial somatic dysfunction Chronic tension headaches Rosacea (~2018) Allergies (~2014) Anxiety (~2017) Carpal tunnel syndrome (~1992) Vertigo (~2014) Cataracts, bilateral (~2018) Fibroids (~1980) Abnormal Pap smear of cervix (~1977) History of urinary incontinence (~1993) Thyroid nodule (~2009) PTSD (post-traumatic stress disorder) Chronic thoracic back pain Incontinence of urine Intermittent palpitations DVT (deep venous thrombosis) (~1975) Easy bruisability Systemic lupus erythematosus (~2000) Osteoarthritis (~2013) Hypothyroidism Diabetes (~2009) Elevated liver enzymes GERD (gastroesophageal reflux disease) (~2013) Irregular heart rate HLD (hyperlipidemia) HTN (hypertension) (~2005) Pneumonia Fibromyalgia (~2000) Migraines (~1976) Surgical History Anesthesia History of oophorectomy (~2004) History of carpal tunnel release (~1992) History of right breast biopsy (~1987) S/P right unicompartmental knee replacement (~06/2015) Hx of arthroscopy of right knee (~2013) Hx of tonsillectomy H/O: hysterectomy (~1978) Hx of tubal ligation History of bladder surgery (~1993) Hx of cholecystectomy (~2003) Family History Father Hypertension Arthritis Prostate cancer Hyperlipidemia Loud snoring Sleep apnea Obesity Diabetes mellitus Alcohol abuse Mother History of heart disease Hypertension Hyperlipidemia Mental health problem Stroke Insomnia Restless leg Depression Anxiety Alcohol abuse Sister History of heart disease Hypertension Hyperlipidemia Loud snoring Insomnia Restless leg Obesity Anxiety Depression Sister Lupus Arthritis Fibromyalgia Grandfather Alcoholism Grandmother History of heart disease Hypertension Stroke Grandmother Cancer Family/Other Loud snoring Sleep apnea Obesity Hypertension Social History household members: none Smoking Status: Never smoker alcohol intake: never Assessment & Plan Assessment & Plan narrative: # left calf cellulitis, and developing abscess. Present on admission and worse. -failed outpatient po abx with keflex and doxy -rocephin and vanc ordered, continue for today. -vasc US without drainable abscess or DVT -blood cultures neg at 48 hours -call Dr. Bruno of surgery this morning to have another look to see if it needs to be drained. # HTN, present on admission and stable. -continue amlodipine and coreg # hypothyroidism, present on admission and stable. -continue synthroid # depression, present on admission and stable. -continue zoloft # GERD, present on admission and stable. -continue PPI # HLD, present on admission and stable. -continue lipitor Estimated date of discharge is March 28 or depending on need for incision and drainage. Code status is full code. DVT prophylaxis with Lovenox. Proxy is kids Dennis and Rosa. Quality VTE Deep Vein Thrombosis/Pulmonary Embolism Present on Admission: No
[2024-03-27] MEDS: OXYCODONE IR 5 MG TABLET PO ×2 (10:58→21:57)
--- NOTE | 2024-03-27 11:55 | CM.DPNOTE ---
DCP Note QUALITY ASSURANCE MONITOR BODY reviewed EMR. Per hospitalist in morning rounds/PN, pt left calf worsening at this time. Est dc date 03/28 or 03/29 pending need for incision or drainage. Per previous CM assessment, no previously identified CM/DCP needs at this time. Plan: Medical POC continues to unfold. Remains potential need for surgical intervention. No identified barriers to safe return home with friend/family support. CM team will continue to follow closely. DAVID Abdi
--- NOTE | 2024-03-27 17:44 | PM.PN.1 ---
Subjective Subjective Date Patient Seen: 03/27/24 Time Patient Seen: 17:44 Interval history: Krystal reports that her pain has worsened since yesterday. Exam Vital Signs (past 8 hours): - 03/27/24 12:00 Temperature 97 F L Pulse Rate 61 Respiratory Rate 16 Blood Pressure 116/55 L Pulse Oximetry 96 Oxygen Flow Rate 0 Oxygen Delivery Method Room Air Oxygen Flow Rate 0 Narrative Exam Narrative: Increased tenderness and induration of the left calf wound Objective Labs 03/27/24 05:07 03/27/24 05:07 Labs: Laboratory Results - last 24 hr 03/27/24 05:07 WBC 8.9 RBC 4.33 Hgb 12.1 Hct 36.0 MCV 83.0 MCH 27.9 MCHC 33.7 RDW 13.6 Plt Count 210 Neut % (Auto) 41.0 L Lymph % (Auto) 46.1 H [place] % (Auto) 6.5 Eos % (Auto) 5.2 H Baso % (Auto) 1.2 Neut # (Auto) 3700 Lymph # (Auto) 4100 [place] # (Auto) 600 Eos # (Auto) 500 H Baso # (Auto) 100 Sodium 138 Potassium 3.9 Chloride 106 Carbon Dioxide 25 BUN 16 Creatinine 0.68 Estimated GFR > 60 BUN/Creatinine Ratio 23.5 H Glucose 131 H Calcium 9.0 PFSH Medical History Obstructive sleep apnea History of COVID-19 Rectal bleeding Colitis CVA (cerebral vascular accident) Palpitations Medication side effects Nausea Abdominal pain Plantar fasciitis of right foot Trigger finger, right ring finger UTI (urinary tract infection) Finger joint swelling Chronic pain of left knee Chronic left shoulder pain Obesity (BMI 30-39.9) (Unknown) Nightmares associated with chronic post-traumatic stress disorder (~2010) Obstructive sleep apnea, adult (~2019) Insomnia, psychophysiological Excessive daytime sleepiness (~2009) Joint pain in both hands Diarrhea Upper extremity somatic dysfunction Chronic right shoulder pain Sigmoid diverticulitis Tension headache Postmenopausal symptoms Acute low back pain without sciatica Segmental and somatic dysfunction of abdomen and other regions Segmental and somatic dysfunction of rib cage Stiff neck Fatigue (~2009) Somatic dysfunction of lower extremity Sacral region somatic dysfunction Pelvic somatic dysfunction Somatic dysfunction of abdominal region Lumbar region somatic dysfunction Thoracic region somatic dysfunction Cervical somatic dysfunction Cranial somatic dysfunction Chronic tension headaches Rosacea (~2018) Allergies (~2015) Anxiety (~2017) Carpal tunnel syndrome (~1992) Vertigo (~2014) Cataracts, bilateral (~2018) Fibroids (~1980) Abnormal Pap smear of cervix (~1977) History of urinary incontinence (~1993) Thyroid nodule (~2009) PTSD (post-traumatic stress disorder) Chronic thoracic back pain Incontinence of urine Intermittent palpitations DVT (deep venous thrombosis) (~1975) Easy bruisability Systemic lupus erythematosus (~2000) Osteoarthritis (~2013) Hypothyroidism Diabetes (~2009) Elevated liver enzymes GERD (gastroesophageal reflux disease) (~2013) Irregular heart rate HLD (hyperlipidemia) HTN (hypertension) (~2005) Pneumonia Fibromyalgia (~2000) Migraines (~1976) Surgical History Anesthesia History of oophorectomy (~2004) History of carpal tunnel release (~1992) History of right breast biopsy (~1987) S/P right unicompartmental knee replacement (~06/2015) Hx of arthroscopy of right knee (~2013) Hx of tonsillectomy H/O: hysterectomy (~1978) Hx of tubal ligation History of bladder surgery (~1993) Hx of cholecystectomy (~2003) Family History Father Hypertension Arthritis Prostate cancer Hyperlipidemia Loud snoring Sleep apnea Obesity Diabetes mellitus Alcohol abuse Mother History of heart disease Hypertension Hyperlipidemia Mental health problem Stroke Insomnia Restless leg Depression Anxiety Alcohol abuse Sister History of heart disease Hypertension Hyperlipidemia Loud snoring Insomnia Restless leg Obesity Anxiety Depression Sister Lupus Arthritis Fibromyalgia Grandfather Alcoholism Grandmother History of heart disease Hypertension Stroke Grandmother Cancer Family/Other Loud snoring Sleep apnea Obesity Hypertension Social History household members: none Smoking Status: Never smoker alcohol intake: never Assessment & Plan Assessment and plan (1) Cellulitis of calf: Status: Acute Plan We will plan for an incision and drainage in the OR tomorrow. I informed her that she will have an open wound and we will have to perform packing daily until the wound granulates in. Quality VTE Deep Vein Thrombosis/Pulmonary Embolism Present on Admission: No
[2024-03-27] MEDS: cefTRIAXone 1,000 MG in SODIUM CHLORIDE 0.9% 100 ML 200 MG IV (18:45)
[2024-03-27] MEDS: AMITRIPTYLINE 10 MG TABLET PO (20:13)
[2024-03-27] MEDS: SERTRALINE 50 MG TABLET 25 MG PO (20:13)
[2024-03-28] VITALS (17 sets, daily range): BP systolic 114–153; BP diastolic 37–69; PULSE 56–72; RESP 12–118; TEMP 35.9–36.7; O2SAT 94–100; BMI 39.3
[2024-03-28 06:00] LABS: Add Manual Diff / Slide Review NO; Basophils Absolute Auto 200 /uL (0-100); Basophils Percent Auto 2.3 % (0-2); Eosinophils Absolute Auto 500 /uL (0-450); Eosinophils Percent Auto 5.9 % (2-4); Hematocrit 36.3 % (36-46); Hemoglobin 12.1 g/dL (12.0-16.0); Lymphocytes Absolute Auto 3600 /uL (1100-4500); Lymphocytes Percent Auto 45.9 % (25-40); Mean Corpuscular HGB Conc 33.4 % (30-36); Mean Corpuscular Volume 83.7 fL (80-100); Monocytes Absolute Auto 500 /uL (0-900); Monocytes Percent Auto 6.4 % (3-14); Neutrophils Absolute Auto 3100 /uL (1500-7000); Neutrophils Percent Auto 39.5 % (50-75); Platelet Count 208 X10^3/uL (150-400); Red Blood Cell Count 4.33 X10^6/uL (4.0-5.2); Red Cell Distribution Width 13.7 % (11.6-14.8); White Blood Cell Count 7.8 X10^3/uL (4.5-11.0)
[2024-03-28] MEDS: VANCOMYCIN 1,500 MG/300 ML PIGGYBACK 200 MG IV ×2 (06:13→21:04)
[2024-03-28] MEDS: LEVOTHYROXINE 112 MCG TABLET PO (06:13)
[2024-03-28] MEDS: PANTOPRAZOLE DR 40 MG TABLET PO (06:13)
[2024-03-28 06:16] LABS: Blood Urea Nitrogen 18 mg/dL (7-17); Calcium 9.2 mg/dL (8.4-10.2); Carbon Dioxide 25 mmol/L (22-32); Chloride 106 mmol/L (98-107); Estimated Glomerular Filt Rate > 60 mL/min (>60); Glucose 129 mg/dL (80-110); HEMOLYSIS < 15 (0-50); Sodium 139 mmol/L (137-145)
--- NOTE | 2024-03-28 09:20 | CM.DPNOTE ---
DCP note PRODUCT REPRESENTATIVE reviewed EMR. Per Damion/surgical PN, plan for incision/drainage in the OR today due to increased pain/tenderness of left calf wound. Per previous CM assessment, no previously identified CM/DCP needs at this time. CM team will continue to follow closely for wound care/abx needs at or. No identified barriers to safe return home with friend/family support. DAVID Abdi
[2024-03-28] MEDS: carvediloL 12.5 MG TABLET PO ×2 (10:42→21:05)
[2024-03-28] MEDS: lisinopriL 10 MG TABLET PO (10:42)
[2024-03-28] MEDS: ACETAMINOPHEN 325 MG TABLET 975 MG PO ×2 (10:43→21:04)
[2024-03-28] MEDS: ATORVASTATIN 20 MG TABLET 10 MG PO (10:43)
[2024-03-28] MEDS: AMLODIPINE 5 MG TABLET PO (10:44)
[2024-03-28] MEDS: OXYBUTYNIN 5 MG ER TAB 10 MG PO (10:44)
[2024-03-28] MEDS: LACTATED RINGERS 1,000 ML 42 ML IV (15:41)
--- NOTE | 2024-03-28 15:44 | PM.CALLCOV.1 ---
Call Coverage Note Note Date of Patient Contact: 03/28/24 Time of Patient Contact: 15:44 Narrative of Care Provided: 73F with infected hematoma LLE. I&D. Risks benefits alternatives reviewed. She provides consent to proceed.
--- NOTE | 2024-03-28 16:10 | SUR.OPER ---
Supine on padded OR bed, head on pillow, arms secured on padded arm boards at <90 degrees abduction, legs uncrossed, safety belt at thigh, tape over blanket over lower legs.
[2024-03-28] MEDS: BUPIVACAINE 0.25% (PF) VIAL 30 ML INJ (16:15)
--- NOTE | 2024-03-28 16:22 | PM.OP.1 ---
Operative Date/Time/Diagnoses Date of procedure: 03/28/24 Time of procedure: 16:22 Pre-op diagnosis: Infected hematoma left lower extremity Post-op diagnosis: same Procedure & Clinicians Procedure: Incision and drainage of hematoma left lower extremity Same procedure as scheduled: Yes Indications: 73-year-old woman with a infected symptomatic hematoma of the left lower extremity. Failing to improve with antibiotic therapy. Surgeon: Thee Felton Click Yes if Unassisted: Yes Anesthesia Type: Sedation Operative Notes Findings: Hematoma without purulence. Wound is 3 x 3 cm clean Specimen(s): other (Hematoma left lower extremity) Estimated Blood Loss (mL): 25 Procedure in detail: Patient was brought to the operating room. There was sedated by anesthesia. They were then prepped and draped in sterile fashion. Time-out performed. Cruciate incision over the infected hematoma was made with spontaneous drainage of hematoma. Cultures were obtained. The wound was irrigated. Various active bleeding from the inferior aspect of the incision and a Vicryl suture was placed for hemostasis. The wound was then packed with iodoform dressing followed by gauze and ABD. She tolerated the operation well. Sponge and instrument count correct. Transferred to recovery room in stable condition. Post-operative Condition: stable Disposition: Acute Care
[2024-03-28] MEDS: OXYCODONE IR 5 MG TABLET PO ×2 (16:46→22:50)
[2024-03-28] MEDS: ACETAMINOPHEN IV 1,000 MG/100 ML VIAL 400 MG IV (16:46)
[2024-03-28] MEDS: cefTRIAXone 1,000 MG in SODIUM CHLORIDE 0.9% 100 ML 200 MG IV (18:23)
[2024-03-28] MEDS: AMITRIPTYLINE 10 MG TABLET PO (21:05)
[2024-03-28] MEDS: ATORVASTATIN 20 MG TABLET PO (21:05)
[2024-03-28] MEDS: SERTRALINE 50 MG TABLET 25 MG PO (21:05)
[2024-03-28] MEDS: SENNOSIDES 8.6 MG TABLET PO (22:50)
[2024-03-29] VITALS: BP 99/39; PULSE 65; RESP 16; TEMP 35.9; O2SAT 94
[2024-03-29 05:30] VITALS: BP 113/40; PULSE 60; RESP 16; TEMP 36.5; O2SAT 98
[2024-03-29] MEDS: PANTOPRAZOLE DR 40 MG TABLET PO (06:26)
[2024-03-29] MEDS: LEVOTHYROXINE 112 MCG TABLET PO (06:26)
[2024-03-29 06:36] LABS: Add Manual Diff / Slide Review NO; Basophils Absolute Auto 100 /uL (0-100); Basophils Percent Auto 0.8 % (0-2); Eosinophils Absolute Auto 400 /uL (0-450); Hematocrit 34.3 % (36-46); Hemoglobin 11.5 g/dL (12.0-16.0); Lymphocytes Absolute Auto 2700 /uL (1100-4500); Lymphocytes Percent Auto 37.1 % (25-40); Mean Corpuscular HGB Conc 33.6 % (30-36); Mean Corpuscular Hemoglobin 28.1 PG (26-34); Mean Corpuscular Volume 83.8 fL (80-100); Monocytes Absolute Auto 600 /uL (0-900); Monocytes Percent Auto 7.6 % (3-14); Neutrophils Absolute Auto 3700 /uL (1500-7000); Neutrophils Percent Auto 49.5 % (50-75); Platelet Count 192 X10^3/uL (150-400); Red Cell Distribution Width 13.8 % (11.6-14.8); White Blood Cell Count 7.4 X10^3/uL (4.5-11.0)
[2024-03-29 06:48] LABS: BUN Creatinine Ratio 28.6 (6-22); Blood Urea Nitrogen 16 mg/dL (7-17); Carbon Dioxide 26 mmol/L (22-32); Chloride 107 mmol/L (98-107); Estimated Glomerular Filt Rate > 60 mL/min (>60); Glucose 129 mg/dL (80-110); HEMOLYSIS < 15 (0-50); Potassium 4.1 mmol/L (3.4-5.1); Sodium 137 mmol/L (137-145)
[2024-03-29 06:56] LABS: Vancomycin Trough 21.1 ug/mL (10-20)
[2024-03-29 08:00] VITALS: BP 106/52; PULSE 61; RESP 16; TEMP 36.1; O2SAT 98
--- NOTE | 2024-03-29 09:41 | PM.CALLCOV.1 ---
Call Coverage Note Note Date of Patient Contact: 03/29/24 Time of Patient Contact: 09:41 Narrative of Care Provided: Postoperative day 1 status post incision drainage of infected hematoma -needs daily wet-to-dry dressing with teaching today -okay to discharge with follow up in 2 weeks surgical clinic
[2024-03-29] MEDS: SENNOSIDES 8.6 MG TABLET PO (10:00)
[2024-03-29] MEDS: OXYBUTYNIN 5 MG ER TAB 15 MG PO (10:00)
[2024-03-29 10:01] VITALS: BP 106/52; PULSE 61
[2024-03-29] MEDS: carvediloL 12.5 MG TABLET PO (10:01)
[2024-03-29] MEDS: ACETAMINOPHEN 325 MG TABLET 975 MG PO (10:01)
[2024-03-29] MEDS: lisinopriL 10 MG TABLET PO (10:01)
[2024-03-29] MEDS: AMLODIPINE 5 MG TABLET PO (10:01)
--- NOTE | 2024-03-29 10:32 | PM.DS.1 ---
History of Present Illness History of Present Illness Date Patient Seen: 03/29/24 Time Patient Seen: 15:23 Chief complaint: lt calf wound Narrative: Per admitting provider, Veronica Brand is a 73yo F with PMH of DAVIS, CVA, obesity, HTN, HLD, hypothryoidism, and GERD who presents with cellulitis of L posterior calf. She apparently struck it on a side of a door 1 week ago and it has gotten progressively worse. Now the calf is hot, red and swollen with a dark spot in the middle where hematoma is present. She denies any drainage. Skin surrounding hematoma very tender to the touch. LE US in ED shows no DVT but hematoma/phlegmon. Patient had been on keflex without improvement, which was then changed to doxycycline. This also failed to show improvement so she came to the ED. She denies fevers, chills, rigors, CP, abd pain, NV or diarrhea. Discharge Providers Provider Date of admission: 03/27/24 11:52 Discharge Date: 03/29/24 Primary care physician: Juana Barton DO Consults: 03/25/24 07:39 Consult to General Surgery Routine Comment: Consulting Provider: Pawel Bruno Reason for consultation: possible infected L calf hematoma Has provider been notified: Yes Discharge provider: Todd Sanchez DO Summary Hospital Course Discharge Diagnosis: # left calf cellulitis and infected hematoma. Present on admission # HTN, present on admission and stable. # hypothyroidism, present on admission and stable. # depression, present on admission and stable. # GERD, present on admission and stable. # HLD, present on admission and stable. Hospital Course: This is a 73 year old female admitted with L calf cellulitis and infected left hematoma. She did not show improvement with antibiotics alone, and was taken for I&D with general surgery. Cultures were taken but there were no organisms seen though final cultures are currently pending. She was discharged on an additional 4 days of cephalexin and doxycycline at discharge after her incision and drainage. No other medication changes were recommended at the time of discharge. Time Spent with Patient Time spent: Less than 30 minutes Exam Vital Signs (past 8 hours): - 03/29/24 05:30 03/29/24 08:00 03/29/24 10:01 Temperature 97.7 F 97.0 F L Pulse Rate 60 61 61 Respiratory Rate 16 16 Blood Pressure 113/40 L 106/52 L 106/52 L Pulse Oximetry 98 98 Oxygen Flow Rate 0 03/29/24 10:01 Temperature Pulse Rate 61 Respiratory Rate Blood Pressure 106/52 L Pulse Oximetry Oxygen Flow Rate Oxygen Delivery Method Room Air Oxygen Flow Rate 0 Narrative Exam Narrative: Gen: No acute distress Ext: L lower leg dressing c/d/i. No edema. Objective Labs 03/29/24 06:16 03/29/24 06:16 Labs: Laboratory Results - last 24 hr 03/29/24 06:16 WBC 7.4 RBC 4.10 Hgb 11.5 L Hct 34.3 L MCV 83.8 MCH 28.1 MCHC 33.6 RDW 13.8 Plt Count 192 Neut % (Auto) 49.5 L Lymph % (Auto) 37.1 [place] % (Auto) 7.6 Eos % (Auto) 5.0 H Baso % (Auto) 0.8 Neut # (Auto) 3700 Lymph # (Auto) 2700 [place] # (Auto) 600 Eos # (Auto) 400 Baso # (Auto) 100 Sodium 137 Potassium 4.1 Chloride 107 Carbon Dioxide 26 BUN 16 Creatinine 0.56 Estimated GFR > 60 BUN/Creatinine Ratio 28.6 H Glucose 129 H Calcium 9.0 Vancomycin Trough 21.1 H* [facility] Medical History Obstructive sleep apnea History of COVID-19 Rectal bleeding Colitis CVA (cerebral vascular accident) Palpitations Medication side effects Nausea Abdominal pain Plantar fasciitis of right foot Trigger finger, right ring finger UTI (urinary tract infection) Finger joint swelling Chronic pain of left knee Chronic left shoulder pain Obesity (BMI 30-39.9) (Unknown) Nightmares associated with chronic post-traumatic stress disorder (~2010) Obstructive sleep apnea, adult (~2019) Insomnia, psychophysiological Excessive daytime sleepiness (~2009) Joint pain in both hands Diarrhea Upper extremity somatic dysfunction Chronic right shoulder pain Sigmoid diverticulitis Tension headache Postmenopausal symptoms Acute low back pain without sciatica Segmental and somatic dysfunction of abdomen and other regions Segmental and somatic dysfunction of rib cage Stiff neck Fatigue (~2009) Somatic dysfunction of lower extremity Sacral region somatic dysfunction Pelvic somatic dysfunction Somatic dysfunction of abdominal region Lumbar region somatic dysfunction Thoracic region somatic dysfunction Cervical somatic dysfunction Cranial somatic dysfunction Chronic tension headaches Rosacea (~2018) Allergies (~2015) Anxiety (~2017) Carpal tunnel syndrome (~1992) Vertigo (~2014) Cataracts, bilateral (~2018) Fibroids (~1980) Abnormal Pap smear of cervix (~1977) History of urinary incontinence (~1993) Thyroid nodule (~2009) PTSD (post-traumatic stress disorder) Chronic thoracic back pain Incontinence of urine Intermittent palpitations DVT (deep venous thrombosis) (~1975) Easy bruisability Systemic lupus erythematosus (~2000) Osteoarthritis (~2013) Hypothyroidism Diabetes (~2009) Elevated liver enzymes GERD (gastroesophageal reflux disease) (~2013) Irregular heart rate HLD (hyperlipidemia) HTN (hypertension) (~2005) Pneumonia Fibromyalgia (~2000) Migraines (~1976) Surgical History Anesthesia History of oophorectomy (~2004) History of carpal tunnel release (~1992) History of right breast biopsy (~1987) S/P right unicompartmental knee replacement (~06/2015) Hx of arthroscopy of right knee (~2013) Hx of tonsillectomy H/O: hysterectomy (~1978) Hx of tubal ligation History of bladder surgery (~1993) Hx of cholecystectomy (~2003) Family History Father Hypertension Arthritis Prostate cancer Hyperlipidemia Loud snoring Sleep apnea Obesity Diabetes mellitus Alcohol abuse Mother History of heart disease Hypertension Hyperlipidemia Mental health problem Stroke Insomnia Restless leg Depression Anxiety Alcohol abuse Sister History of heart disease Hypertension Hyperlipidemia Loud snoring Insomnia Restless leg Obesity Anxiety Depression Sister Lupus Arthritis Fibromyalgia Grandfather Alcoholism Grandmother History of heart disease Hypertension Stroke Grandmother Cancer Family/Other Loud snoring Sleep apnea Obesity Hypertension Social History household members: none Smoking Status: Never smoker alcohol intake: never Discharge Plan Discharge Plan Patient Disposition: Home Provider Discharge Comment: You were admitted to the hospital with an infection collection in your leg. This was drained by the surgeons. Continue wet to dry dressing changes (supplies are OTC), and follow up is recommended with the surgeon in about 2 weeks. Discharge orders & Medications Prescriptions: New doxycycline hyclate 100 mg tablet 100 mg PO BID 4 Days Qty: 8 0RF cephalexin 500 mg capsule 500 mg PO QID 4 Days Qty: 16 0RF Continued amlodipine 5 mg tablet 5 mg PO DAILY Qty: 90 3RF carvedilol 12.5 mg tablet 12.5 mg PO BID Qty: 90 3RF Rx Instructions: must administer with a meal/food esomeprazole magnesium 40 mg capsule,delayed release(DR/EC) 40 mg PO DAILY Qty: 90 1RF lisinopril 10 mg tablet 10 mg PO DAILY Qty: 90 0RF epinephrine [EpiPen 2-Velasquez] 0.3 mg/0.3 mL auto-injector 0.3 mg IM ONCE Qty: 2 0RF Rx Instructions: as a single dose; may repeat once levothyroxine 112 mcg tablet 112 mcg PO DAILY Qty: 90 0RF aspirin 325 mg tablet,delayed release (DR/EC) 325 mg PO DAILY atorvastatin 20 mg tablet 20 mg PO BEDTIME cetirizine 10 mg tablet 10 mg PO DAILY PRN (Reason: Allergy Symptoms) oxybutynin chloride 10 mg tablet extended release 24hr 15 mg PO DAILY amitriptyline 10 mg tablet 10 mg PO BEDTIME sertraline 25 mg tablet 25 mg PO DAILY Follow up/Referrals: Pawel Bruno MD [Physician] - 2 Weeks Juana Barton DO [Primary Care Provider] - Diet/Activity/Treatments Diet: Diet as Tolerated and Regular Activity: As tolerated, no restrictions Skin/Wound/Dressing Care Dressing: wet to dry dressing changes daily or as needed. Visit Report/Discharge Packet Stand Alone Forms: Patient Portal/API, Stroke Signs & Symptoms Discharge Data Primary Care Provider: Juana Barton VTE Deep Vein Thrombosis/Pulmonary Embolism Present on Admission: No
--- NOTE | 2024-03-29 11:30 | CM.DPNOTE ---
Addendum entered by Erica Bernal, DAVID 03/29/24 14:36: Pt completed intake forms. Denies other CM needs at this time. [facility]EVEL CLINIC[facility] faxed intake forms to Rosa (ext [phone]). Per email, Rosa reports not needing anything else for referral. [facility] LEVEL CLINICIAN updated RN, working on dc for pt now. SL Addendum entered by Erica Bernal, MID LEVEL CLINICIAN 03/29/24 14:22: Per RN, pt struggled to reach wound with dressing change teaching and experienced a significant amount of pain. Per Dr. Felton, approved OP wound care clinic referral order. [facility]EV[facility] CLINIC[facility] coordinated with Rosa at the [facility] [place]. [facility] LEVEL CLINICIAN faxed (ext [phone]) Facesheet, H&P, PN, OP note, consult note, med list w/allergies, and referral form. Rosa arranged SOC for pt for tomorrow morning at 0945. Rosa sent initial intake forms for pt to fill out and return. [facility] LEVEL CLINICIAN met with pt and family in room. Pt agreeable to 0945 appt slot. Completing intake ppwk for this MID LEVEL CLINICIAN to fax to Rosa. [facility] LEVEL CLINICIAN updated RN Plan: dc home today with friend/family transport. Pt to f/u with OP wound clinic tomorrow 0945 for dressing change. CM team will continue to follow closely. SL Original Note: DCP note MID LEVEL CLINICIAN reviewed EMR. Per hospitalist in morning multidisciplinary rounds, pt set to dc home today after dressing change instructions (around 3:30pm). Per surgeon note, pt will have wet to dry dressing changes daily, f/u with surgeon office in two weeks. Per RN, pt anxious about managing dressing changes independently. MID LEVEL CLINICIAN met with pt in room. Pt confirms anxious about the dressing changes. Pt mobilizing at cane with baseline/drives. MID LEVEL CLINICIAN reviewed barriers to HH (Pt not homebound). Pt reported understanding. Pt reports wanting to have a OP WC referral every few days for someone to make sure it all looks good. Pt has a hx of infections and is worried about getting infection. Pt agreeable to pursing OP WC clinic referral if after RN dressing instruction continues to remain unsure about ability to keep dressing/wound clear. Pt reports ride will be here to transport home around 3:30pm. [facility] LEVEL CLINICIAN spoke with Hannah from [facility]. Updated her on situation. Agreeable to plan of referral if pt remains unsure of ability to properly care for wound, could set up appt every few days. Hannah plans to email this [facility] LEVEL CLINICIAN referral form in case of referral need. MID LEVEL CLINICIAN updated RN. RN will update this MID LEVEL CLINICIAN on wound care dressing teaching. Plan: home with friend to transport later this afternoon. OP wound care need pending. CM team will continue to follow closely. DAVID Abdi
[2024-03-29 12:00] VITALS: BP 121/49; PULSE 66; RESP 16; TEMP 36.2; O2SAT 95
[2024-03-29] MEDS: OXYCODONE IR 5 MG TABLET PO (12:53)
[2024-03-29] MEDS: ONDANSETRON 4 MG/2 ML INJ IV (12:53)
--- NOTE | 2024-03-29 13:02 | PC.NURSE ---
Around 1230pm, this nurse completed a dressing change on pt's LLE. This included removing packed gauze from significant opening created by I&D procedure yesterday. Pt experienced increased pain as well as nausea during the dressing change. It is also at a difficult part of the leg for her to reach by herself. This nurse will recommend to care management that the patient see wound care for dressing changes until the dressing change becomes less involved and the patient has less of a physical response to the process.
--- NOTE | 2024-03-29 15:04 | PC.NURSE ---
Pt discharged home at 1503, escorted off floor in wheelchair accompanied by friend and hospital staff. IVs removed, discharge teaching completed including new medications, follow up appointments and wound care. Questions answered and concerns addressed. Patient left the floor with all belongings.
== END 2024-03-29 15:09 | disposition home or self-care (01) | DRG 603 ==
LOC: ED 17:31 → AC 17:38
PROVIDERS: Surgery; Admitting Provider Student in an Organized Health Care Education/Training Program; Emergency Provider Emergency Medicine; Family Provider Family Medicine; PCP Family Medicine; Referring Provider Emergency Medicine; Visit Provider Student in an Organized Health Care Education/Training Program
DX: L03.116 Cellulitis of left lower limb (principal); S80.12XA Contusion of left lower leg, initial encounter; I10 Essential (primary) hypertension; E03.9 Hypothyroidism, unspecified; F32.A Depression, unspecified; E78.5 Hyperlipidemia, unspecified; W22.09XA Striking against other stationary object, initial encounter
CPT/HCPCS: 36415; 80048; 80053; 80202; 83605; 83690; 84145; 85025; 85610; 85730; 87040; 87070; 87075; 87205; 93971; 96365; 99283; 99284; G0378; J0136; J0696; J1650; J2405; J2704; J3010

== ENCOUNTER → 2024-03-30 10:31 | Outpatient (CLI) | payer MEDICARE, SELFPAY ==
[2024-03-24 18:24] VITALS: BMI 38.5
== END ==
LOC: WC 10:31
PROVIDERS: Family Provider Family Medicine; PCP Family Medicine; Referring Provider Student in an Organized Health Care Education/Training Program; Visit Provider Surgery
DX: E11.628 Type 2 diabetes mellitus with other skin complications (principal); T81.89XA Other complications of procedures, not elsewhere classified, initial encounter; S81.802A Unspecified open wound, left lower leg, initial encounter; R60.0 Localized edema; M79.662 Pain in left lower leg
CPT/HCPCS: 11042; 99203; 99213

== ENCOUNTER → 2024-04-03 09:10 | Outpatient (CLI) | payer MEDICARE, SELFPAY ==
[2024-03-24 18:24] VITALS: BMI 38.5
== END ==
LOC: WC 09:10
PROVIDERS: Family Provider Family Medicine; PCP Family Medicine; Referring Provider Student in an Organized Health Care Education/Training Program; Visit Provider Surgery
DX: T81.89XA Other complications of procedures, not elsewhere classified, initial encounter (principal); S81.802A Unspecified open wound, left lower leg, initial encounter; M79.662 Pain in left lower leg
CPT/HCPCS: 97607

== ENCOUNTER → 2024-04-05 09:22 | Outpatient (CLI) | payer MEDICARE, SELFPAY ==
[2024-03-24 18:24] VITALS: BMI 38.5
== END ==
LOC: WC 09:25
PROVIDERS: Family Provider Family Medicine; PCP Family Medicine; Referring Provider Student in an Organized Health Care Education/Training Program; Visit Provider Surgery
DX: E11.628 Type 2 diabetes mellitus with other skin complications (principal); T81.89XA Other complications of procedures, not elsewhere classified, initial encounter; S81.802A Unspecified open wound, left lower leg, initial encounter; R60.0 Localized edema; M79.662 Pain in left lower leg
CPT/HCPCS: 11042; 97607

== ENCOUNTER → 2024-04-12 08:26 | Outpatient (CLI) | payer MEDICARE, MEDICAID, SELFPAY ==
[2024-03-24 18:24] VITALS: BMI 38.5
== END ==
PROVIDERS: Family Provider Family Medicine; PCP Family Medicine; Referring Provider Student in an Organized Health Care Education/Training Program; Visit Provider Surgery
DX: S81.802A Unspecified open wound, left lower leg, initial encounter (principal); E11.628 Type 2 diabetes mellitus with other skin complications; R60.0 Localized edema
CPT/HCPCS: 11042; 97607

== ENCOUNTER → 2024-04-19 09:52 | Outpatient (CLI) | payer MEDICARE, MEDICAID, SELFPAY ==
[2024-03-24 18:24] VITALS: BMI 38.5
== END ==
PROVIDERS: Family Provider Family Medicine; PCP Family Medicine; Referring Provider Student in an Organized Health Care Education/Training Program; Visit Provider Surgery
DX: S81.802A Unspecified open wound, left lower leg, initial encounter (principal); E11.628 Type 2 diabetes mellitus with other skin complications; R60.0 Localized edema
CPT/HCPCS: 11042; 97607

== ENCOUNTER → 2024-04-26 09:31 | Outpatient (CLI) | payer MEDICARE, MEDICAID, SELFPAY | PROVIDERS: Family Provider Family Medicine; PCP Family Medicine; Referring Provider Student in an Organized Health Care Education/Training Program; Visit Provider Surgery | DX: T81.89XA Other complications of procedures, not elsewhere classified, initial encounter (principal); S81.802A Unspecified open wound, left lower leg, initial encounter; R60.0 Localized edema; E11.628 Type 2 diabetes mellitus with other skin complications | CPT/HCPCS: 11042; 99213 ==

== ENCOUNTER → 2024-04-26 10:02 | Outpatient (CLI) | payer MEDICARE, MEDICAID, SELFPAY ==
[2024-04-26 10:41] LABS: Appearance Urine UA CLOUDY; Bilirubin Urine UA NEGATIVE (NEGATIVE); Color Urine UA YELLOW; Glucose Urine UA NEGATIVE (Negative); Ketones Urine UA NEGATIVE (NEGATIVE); Leukocyte Esterase Urine UA 3+ (NEGATIVE); Nitrite Urine UA POSITIVE (Negative); Occult Blood Urine UA TRACE-INTACT (Negative); Protein Urine UA NEGATIVE (Negative); Urobilinogen Urine UA 0.2 E.U./dL (0.2)
[2024-04-26 10:42] LABS: Urine Volume 10mL (spun); pH Urine UA 5.5 (4.5-8.0)
[2024-04-26 10:44] LABS: Bacteria Urine Many (>30); Culture Indicated Urine Specimen Cultured; RBC Urine 0-1/HPF (0-5/HPF); Squamous Epithelial Cell Urine 1-5 /HPF (0-5/HPF); WBC Urine 10-30/HPF (0-5/HPF)
== END ==
PROVIDERS: Family Provider Family Medicine; PCP Family Medicine; Referring Provider Family Medicine; Visit Provider Family Medicine
DX: R35.0 Frequency of micturition (principal); R30.0 Dysuria; R82.90 Unspecified abnormal findings in urine
CPT/HCPCS: 81001; 87077; 87086

== ENCOUNTER → 2024-05-01 07:11 | Outpatient (CLI) | payer MEDICARE, MEDICAID, SELFPAY ==
--- NOTE | 2024-05-01 07:17 | DI.CT.S_ITS ---
PROCEDURE: CT HEAD/BRAIN WO CON INDICATIONS: GLF TECHNIQUE: Noncontrast 4.5 mm thick angled axial sections acquired from the foramen magnum to the vertex, with coronal and sagittal reformats. For radiation dose reduction, the following was used: automated exposure control, adjustment of mA and/or kV according to patient size. COMPARISON: None. FINDINGS: Image quality: Diagnostic. CSF spaces: Basal cisterns are patent. No extra-axial fluid collections. The ventricles are symmetric in size and shape. Brain: No intracranial bleeds or masses. There is cerebral volume loss for age, with resultant ventricular and sulcal prominence. There are periventricular and deep white matter chronic small vessel ischemic changes. There is intracranial internal carotid artery atherosclerosis. Skull and face: Calvarium and visualized facial bones appear intact, without suspicious lesions. Sinuses: Visualized sinuses and mastoids are clear. IMPRESSION: No acute intracranial pathology. Dictated by: Kumar Keating M.D. on 05/01/2024 at 10:39 Approved by: Kumar Keating M.D. on 05/01/2024 at 10:40
--- NOTE | 2024-05-01 07:17 | DI.ECHO.S_ITS ---
[facility] +---------+ Hospital : : [address] : : [place] : : [id number] : : Phone: [phone] Echocardiogram Report + + :Name: JESUS LANCASTER Study Date: 05/01/2024 Height: 61 in : :[facility] ReadingLocation: Weight: 206 lb : : Gender: Female BSA: 1.9 m2 : :: 1950 Age: 73 yrs BP: 132/78 mmHg: :Reason For Study: CARDIAC MURMUR : :Ordering Physician: FRANCIS, : :JONI Performed By: Jon Vigil : :Referring: JONI BLANCO : + + Interpretation Summary Left ventricular wall thickness is at the upper limits of normal. The ejection fraction is estimated to be 60-65%. No significant valvular abnormality. Procedure: A two-dimensional transthoracic echocardiogram with color flow and Doppler was performed. The study quality was technically adequate. There is no prior echocardiogram noted for this patient. The patient was in sinus rhythm with heart rates between 68-74 bpm during the exam. Left Ventricle: The left ventricle is normal in size. Left ventricular wall thickness is at the upper limits of normal. The ejection fraction is estimated to be 60-65%. There are no focal wall motion abnormalities. Right Ventricle: The right ventricle is normal in size and function. Atria: The left atrial size is normal. Right atrial size is normal. Mitral Valve: The mitral valve leaflets appear mildly thickened, but open well. The mitral valve leaflets appear to open well. There is no mitral valve stenosis. There is no mitral regurgitation noted. Aortic Valve: The aortic valve is trileaflet. The aortic valve opens well. There is no aortic valve stenosis. There is trace aortic regurgitation. Tricuspid Valve: The tricuspid valve is normal. There is no tricuspid stenosis. There is mild tricuspid regurgitation. The right ventricular systolic pressure is estimated to be at least 29.2 mmHg based on an estimated right atrial pressure of 3 mm Hg. Pulmonic Valve: The pulmonic valve is not well visualized. There is no pulmonic valvular stenosis. There is no pulmonic valvular regurgitation. Great Vessels: The aortic root is normal size. The dimensions of the ascending aorta are normal. The IVC is of normal diameter and collapses greater than 50% with a sniff. This suggests a low right atrial pressure of 3 mm Hg. Pericardium/ Pleura There is no pericardial effusion. There is no pleural effusion. MMode/2D Measurements & Calculations LVIDd: 4.2 cm LVOT diam: 2.0 cm LVIDs: 2.6 cm Ao root diam: 2.4 cm FS: 38.6 % asc Aorta Diam: 2.8 cm IVSd: 1.1 cm Ao Arch Diam (Prox Trans): 2.6 cm LVPWd: 0.97 cm LV wheeler. diameter/BSA (cm/m^2): 2.2 LV sys. diameter/BSA (cm/m^2): 1.3 LA A2 area: 19.8 cm2 RA long axis: 3.9 cm LA A4 area: 20.4 cm2 RA area: 12.3 cm2 LA length (vol): 5.4 cm RA vol: 33.3 ml LA vol: 63.6 ml RA : 17.4 ml/m2 LA vol index: 33.3 ml/m2 IVC diam: 1.4 cm RVD1 (basal): 3.9 cm RVD2 (mid): 3.4 cm TAPSE: 1.9 cm Doppler Measurements & Calculations Ao V2 max: 176.0 cm/sec LVOT Max Kelby: 104.1 cm/sec Ao V2 mean: 125.7 cm/sec LV V1 max P.3 mmHg Ao max P.4 mmHg LV V1 VTI: 24.8 cm Ao mean P.9 mmHg OLGA(I,D): 2.1 cm2 Ao V2 VTI: 37.8 cm OLGA(V,D): 1.8 cm2 sev ratio: 0.66 OLGA indexed to BSA (cm^2/m^2): 1.1 MV E max kelby: 65.1 cm/sec TR max kelby: 256.0 cm/sec MV A max kelby: 75.0 cm/sec TR max P.2 mmHg MV E/A: 0.87 PA V2 max: 121.4 cm/sec Med Peak E' Kelby: 7.1 cm/sec PA V2 mean: 84.8 cm/sec E/E' med: 9.2 PA mean P.2 mmHg Lat Peak E' Kelby: 8.1 cm/sec PA pr(Accel): 34.5 mmHg E/E' lat: 8.1 E/e' average: 8.6 MV dec time: 0.24 sec SV(LVOT): 77.5 ml Electronically signed by: Vj Shah on Reading Physician:05/01/2024 09:43 AM
== END ==
PROVIDERS: Family Provider Family Medicine; PCP Family Medicine; Referring Provider Family Medicine; Visit Provider Family Medicine
DX: I07.1 Rheumatic tricuspid insufficiency (principal); R51.9 Headache, unspecified; R53.83 Other fatigue; E03.9 Hypothyroidism, unspecified; R01.1 Cardiac murmur, unspecified; Z86.73 Personal history of transient ischemic attack (TIA), and cerebral infarction without residual deficits
CPT/HCPCS: 70450; 93306

== ENCOUNTER → 2024-05-02 09:15 | Outpatient (CLI) | payer MEDICARE, MEDICAID, SELFPAY | LOC: WC 09:16 | PROVIDERS: Family Provider Family Medicine; PCP Family Medicine; Referring Provider Student in an Organized Health Care Education/Training Program; Visit Provider Surgery | DX: S81.802A Unspecified open wound, left lower leg, initial encounter (principal); L98.8 Other specified disorders of the skin and subcutaneous tissue; R60.0 Localized edema; E11.628 Type 2 diabetes mellitus with other skin complications; T81.89XA Other complications of procedures, not elsewhere classified, initial encounter | CPT/HCPCS: 11042 ==

== ENCOUNTER → 2024-05-10 09:33 | Outpatient (CLI) | payer MEDICARE, MEDICAID, SELFPAY | PROVIDERS: Family Provider Family Medicine; PCP Family Medicine; Referring Provider Student in an Organized Health Care Education/Training Program; Visit Provider Surgery | DX: E11.628 Type 2 diabetes mellitus with other skin complications (principal); T81.89XA Other complications of procedures, not elsewhere classified, initial encounter; S81.802A Unspecified open wound, left lower leg, initial encounter; R60.0 Localized edema | CPT/HCPCS: 11042 ==

== ENCOUNTER → 2024-05-17 11:00 | Outpatient (CLI) | payer MEDICARE, MEDICAID, SELFPAY | LOC: WC 11:00 | PROVIDERS: Family Provider Family Medicine; PCP Family Medicine; Referring Provider Student in an Organized Health Care Education/Training Program; Visit Provider Surgery | DX: E11.628 Type 2 diabetes mellitus with other skin complications (principal); T81.89XA Other complications of procedures, not elsewhere classified, initial encounter; S81.802A Unspecified open wound, left lower leg, initial encounter; L98.8 Other specified disorders of the skin and subcutaneous tissue; R60.0 Localized edema | CPT/HCPCS: 97602; 99213 ==

== ENCOUNTER → 2024-05-24 10:30 | Outpatient (CLI) | payer MEDICARE, MEDICAID, SELFPAY | LOC: WC 10:30 | PROVIDERS: Family Provider Family Medicine; PCP Family Medicine; Referring Provider Student in an Organized Health Care Education/Training Program; Visit Provider Surgery | DX: E11.628 Type 2 diabetes mellitus with other skin complications (principal); T81.89XD Other complications of procedures, not elsewhere classified, subsequent encounter; S81.802D Unspecified open wound, left lower leg, subsequent encounter | CPT/HCPCS: 99213 ==

== ENCOUNTER → 2024-10-06 13:15 | Outpatient (CLI) | payer MEDICARE, MEDICAID, SELFPAY ==
[2024-10-06 14:38] LABS: Hemoglobin A1C% w Est Avg Glu 6.2 % (4.0-6.0)
[2024-10-06 16:00] LABS: Creatinine Urine Random 68.91 mg/dL
[2024-10-06 16:07] LABS: Microalbumin Urine Random < 0.6 mg/dL (0-1.6)
== END ==
PROVIDERS: Family Provider Family Medicine; PCP Family Medicine; Referring Provider Family Medicine; Visit Provider Family Medicine
DX: E11.9 Type 2 diabetes mellitus without complications (principal)
CPT/HCPCS: 36415; 82043; 82570; 83036

== ENCOUNTER → 2025-01-11 13:57 | Outpatient (CLI) | payer MEDICARE, MEDICAID, SELFPAY ==
--- NOTE | 2025-01-11 13:58 | DI.RAD.S_ITS ---
PROCEDURE: XR CHEST 2V INDICATIONS: follow-up from [facility] diagnosed end october TECHNIQUE: 2 views of the chest were acquired. COMPARISON: None. FINDINGS: Surgical changes and devices: None. Lungs and pleura: Lungs are clear. No pleural effusions or pneumothorax. Mediastinum: Mediastinal contours are normal. Heart size is normal. Bones and chest wall: No suspicious bony abnormalities. Soft tissues appear unremarkable. IMPRESSION: No acute cardiopulmonary abnormality is seen. Approved by: Byron Moreno M.D. on 01/12/2025 at 16:30
== END ==
PROVIDERS: Family Provider Family Medicine; PCP Family Medicine; Referring Provider Family Medicine; Visit Provider Family Medicine
DX: Z87.01 Personal history of pneumonia (recurrent) (principal); Z09 Encounter for follow-up examination after completed treatment for conditions other than malignant neoplasm
CPT/HCPCS: 71046

== ENCOUNTER → 2025-01-31 08:27 | Outpatient (CLI) | payer MEDICARE, MEDICAID, SELFPAY ==
[2025-01-31 08:43] LABS: Add Manual Diff / Slide Review NO; Basophils Absolute Auto 100 /uL (0-100); Basophils Percent Auto 1.5 % (0-2); Eosinophils Absolute Auto 400 /uL (0-450); Eosinophils Percent Auto 4.8 % (2-4); Hematocrit 40.9 % (36-46); Hemoglobin 13.5 g/dL (12.0-16.0); Lymphocytes Absolute Auto 3800 /uL (1100-4500); Lymphocytes Percent Auto 43.5 % (25-40); Mean Corpuscular Hemoglobin 27.7 PG (26-34); Monocytes Absolute Auto 500 /uL (0-900); Neutrophils Absolute Auto 3900 /uL (1500-7000); Neutrophils Percent Auto 44.2 % (50-75); Platelet Count 239 X10^3/uL (150-400); Red Blood Cell Count 4.88 X10^6/uL (4.0-5.2); Red Cell Distribution Width 14.7 % (11.6-14.8); White Blood Cell Count 8.7 X10^3/uL (4.5-11.0)
[2025-01-31 09:01] LABS: Alanine Aminotransferase 18 IU/L (<35); Albumin 4.5 g/dL (3.5-5.0); Albumin Globulin Ratio 1.5 (1.0-2.8); Alkaline Phosphatase 82 U/L (38-126); Aspartate Aminotransferase 22 IU/L (14-36); Bilirubin Total 0.6 mg/dL (0.2-1.3); Blood Urea Nitrogen 17 mg/dL (7-17); Calcium 9.8 mg/dL (8.4-10.2); Carbon Dioxide 29 mmol/L (22-32); Chloride 100 mmol/L (98-107); Cholesterol 238 mg/dL (140-199); Estimated Glomerular Filt Rate > 60 mL/min (>60); Glucose 113 mg/dL (80-110); HDL Cholesterol 59 mg/dL (40-60); HEMOLYSIS < 15 (0-50); LDL Cholesterol Calculated 150 mg/dL (<100); Potassium 4.7 mmol/L (3.4-5.1); Sodium 139 mmol/L (137-145); Total Protein 7.5 g/dL (6.3-8.2); Triglycerides 146 mg/dL (35-150)
[2025-01-31 09:32] LABS: Thyroid Stimulating Hormone 4.02 uIU/mL (0.47-4.68)
== END ==
PROVIDERS: Family Provider Family Medicine; PCP Family Medicine; Referring Provider Family Medicine; Visit Provider Family Medicine
DX: I10 Essential (primary) hypertension (principal); E11.9 Type 2 diabetes mellitus without complications; R53.83 Other fatigue; E78.5 Hyperlipidemia, unspecified; E03.9 Hypothyroidism, unspecified
CPT/HCPCS: 36415; 80053; 80061; 84443; 85025